=== PATIENT | female | born 1940 | race Caucasian/White ===

== ENCOUNTER 2018-01-29 15:24 | Outpatient (CLI) | payer MEDICARE, SELFPAY ==
[2018-01-29 16:44] LABS: HCT 39.6 % (36.0-46.0); HGB 12.8 g/dL (12.0-15.5); Mean Corp. HGB Concentration 32.3 g/dL (32.0-36.0); Mean Corpuscular Hemoglobin 29.9 pg (27.0-33.0); Mean Corpuscular Volume 92.5 fL (80-95); Mean Platelet Volume 10.6 fL (8.0-11.0); RBC 4.28 m/cumm (4.00-5.20); RBC Distribution Width 14.4 % (11.7-14.6); White Blood Cell Count 7.82 k/cumm (4.4-10.8)
[2018-01-29 16:46] LABS: Anion Gap 9.6 mmol/L (3-11); BUN 72 mg/dL (7-18); CO2 24.4 mmol/L (21.0-32.0); CREATININE 2.84 mg/dL (0.55-1.02); Chloride 96 mmol/L (98-107); Estimated GFR 16.04 (mL/min/1.73m2); Glucose 152 mg/dL (70-100); Magnesium 2.4 mg/dL (1.8-2.4); PHOSPHORUS 5.3 mg/dL (2.6-4.7); Potassium 5.5 mmol/L (3.5-5.1); Sodium 130 mmol/L (136-145); Uric Acid 9.4 mg/dL (2.6-6.0)
[2018-01-29 16:50] LABS: Cholesterol 128 mg/dL (50-200)
[2018-01-29 17:02] LABS: Platelet Count 158 x1000/uL (130-400)
[2018-01-31 13:01] LABS: Cyclosporine 144 ng/ml
== END 2018-01-29 15:25 ==
PROVIDERS: PCP Student in an Organized Health Care Education/Training Program; Visit Provider Internal Medicine Nephrology
DX: N18.3 Chronic kidney disease, stage 3 (moderate) (principal); Z94.0 Kidney transplant status
CPT/HCPCS: 36415; 80048; 85027; 80158; 82465; 83735; 84100; 84550

== ENCOUNTER 2018-01-29 15:33 | Outpatient (REF) | payer SELFPAY ==
[2018-01-29 17:29] LABS: HIV 1/2 Ab Rapid Negative (Negative)
[2018-01-31 10:36] LABS: Hepatitis C Ab w Rflx HCV PCR Negative (NEGAT)
[2018-01-31 10:53] LABS: Hepatitis B Surface Ag Negative (NEGAT)
[2018-01-31 11:02] LABS: HIV-1/2 Ag & Ab Screen Negative (NEGAT)
== END 2018-01-29 15:34 ==
LOC: LBO 15:33
PROVIDERS: PCP Student in an Organized Health Care Education/Training Program
DX: I10 Essential (primary) hypertension (principal); Z11.59 Encounter for screening for other viral diseases; Z11.4 Encounter for screening for human immunodeficiency virus [HIV]

== ENCOUNTER 2018-01-30 14:12 | Outpatient (REF) | payer MEDICARE, SELFPAY ==
[2018-01-30 15:19] LABS: Bilirubin Negative (Negative); Blood Negative (Negative); Clarity Clear; Glucose Negative (Negative); Ketones Negative (Negative); Leukocyte Esterase Trace (Negative); Nitrite Negative (Negative); Specific Gravity <= 1.005 (1.005-1.025); Urobilinogen 0.2 EU/dL (Up TO 0.2); pH 5.5 (5-8)
[2018-01-30 15:54] LABS: Bacteria Negative HPF (Negative); C & S Indicated? Yes; Casts Negative LPF (Negative); Crystals Negative HPF (Negative); Epithelial Cells Negative HPF (Negative); Mucus Negative (Negative); Other Cells Rare Yeast (Negative); RBC Negative (0-2)
== END 2018-01-30 14:13 ==
LOC: LBN 14:12
PROVIDERS: PCP Student in an Organized Health Care Education/Training Program; Visit Provider Internal Medicine Nephrology
DX: N18.3 Chronic kidney disease, stage 3 (moderate) (principal); Z94.0 Kidney transplant status; R82.99 Other abnormal findings in urine
CPT/HCPCS: 81003; 81015; 87086

== ENCOUNTER 2018-02-07 14:55 | Outpatient (REF) | payer MEDICARE, SELFPAY ==
[2018-02-07 15:23] LABS: Bilirubin Negative (Negative); Blood Negative (Negative); Clarity Clear; Glucose Negative (Negative); Ketones Negative (Negative); Leukocyte Esterase Negative (Negative); Nitrite Negative (Negative); Urobilinogen 0.2 EU/dL (Up TO 0.2); pH 5.5 (5-8)
== END 2018-02-07 14:56 ==
LOC: LBN 14:55
PROVIDERS: PCP Student in an Organized Health Care Education/Training Program; Visit Provider Student in an Organized Health Care Education/Training Program
DX: N30.00 Acute cystitis without hematuria (principal); N39.0 Urinary tract infection, site not specified; Z94.0 Kidney transplant status
CPT/HCPCS: 81003

== ENCOUNTER 2018-02-18 14:36 | Inpatient (IN) | payer MEDICARE, SELFPAY ==
[2018-02-18] VITALS (60 sets, daily range): BP systolic 131–170; BP diastolic 72–133; PULSE 54–79; RESP 15–30; TEMP 37.4; O2SAT 93–99
[2018-02-18 15:55] LABS: Abs Immature Grans 0.01 k/cumm (0.0-0.09); Absolute Basophil Count 0.01 k/cumm (0.0-0.2); Absolute Eosinophil Count 0.12 k/cumm (0.0-0.7); Absolute Lymphocyte Count 0.47 k/cumm (1.2-3.4); Absolute Monocyte Count 0.34 k/cumm (0.11-0.7); Absolute Neutrophil Count 4.53 k/cumm (1.2-6.7); Basophils % 0.2; Eosinophils % 2.2; HCT 36.1 % (36.0-46.0); HGB 11.3 g/dL (12.0-15.5); Immature Grans % 0.2; Lymphocytes % 8.6; Mean Corp. HGB Concentration 31.3 g/dL (32.0-36.0); Mean Corpuscular Hemoglobin 30.2 pg (27.0-33.0); Mean Corpuscular Volume 96.5 fL (80-95); Mean Platelet Volume 10.8 fL (8.0-11.0); Monocytes % 6.2; Neutrophils % 82.6; Platelet Count 152 x1000/uL (130-400); RBC 3.74 m/cumm (4.00-5.20); RBC Distribution Width 13.9 % (11.7-14.6); White Blood Cell Count 5.48 k/cumm (4.4-10.8)
[2018-02-18 16:08] LABS: ALT 9 U/L (12-78); AST 15 U/L (15-37); Albumin 2.7 g/dL (3.4-5.0); Alkaline Phosphatase 70 U/L (46-116); Anion Gap -0.1 mmol/L (3-11); BUN 41 mg/dL (7-18); Bilirubin, Total 0.5 mg/dL (0.2-1.0); CO2 35.1 mmol/L (21.0-32.0); CREATININE 2.14 mg/dL (0.55-1.02); Chloride 102 mmol/L (98-107); Estimated GFR 22.23 (mL/min/1.73m2); Glucose 126 mg/dL (70-100); Magnesium 1.5 mg/dL (1.8-2.4); Potassium 4.3 mmol/L (3.5-5.1); Sodium 137 mmol/L (136-145); Total Protein 6.3 g/dL (6.4-8.2); Troponin I < 0.02 ng/mL (0.00-0.06)
[2018-02-18 16:11] LABS: NT-proBNP 2632 pg/mL
[2018-02-18 16:24] LABS: D-Dimer 1983 ng/mlFEU (<500)
[2018-02-18 16:27] LABS: Bilirubin Negative (Negative); Blood Trace-intact (Negative); Clarity Clear; Glucose Negative (Negative); Ketones Negative (Negative); Leukocyte Esterase Small (Negative); Nitrite Negative (Negative); Urobilinogen 0.2 EU/dL (Up TO 0.2)
--- NOTE | 2018-02-18 16:27 | ED.GENADUL ---
Disposition Clinical Impression: Acute exacerbation of CHF (congestive heart failure), Intermediate probability VQ scan for PE Disposition: [facility] Condition: Stable Medical Decision Making - Lab Data Laboratory Tests 02/18/18 02/18/18 02/18/18 15:05 15:05 15:05 WBC 5.48 RBC 3.74 L Hgb 11.3 L Hct 36.1 MCV 96.5 H MCH 30.2 MCHC 31.3 L RDW 13.9 Plt Count 152 MPV 10.8 Immature Gran % 0.2 Neutrophils % 82.6 Lymphocytes % 8.6 Monocytes % 6.2 Eosinophils % 2.2 Basophils % 0.2 Absolute Neutrophils 4.53 Absolute Lymphocytes 0.47 L Absolute Monocytes 0.34 Absolute Eosinophils 0.12 Absolute Basophils 0.01 D-Dimer Cancelled Sodium 137 Potassium 4.3 Chloride 102 Carbon Dioxide 35.1 H Anion Gap -0.1 L BUN 41 H Creatinine 2.14 H Estimated GFR/1.73 m2 22.23 Glucose 126 H Calcium 9.0 Magnesium 1.5 L Total Bilirubin 0.5 AST 15 ALT 9 L Alkaline Phosphatase 70 Troponin I < 0.02 NT-Pro-B Natriuret Pep Total Protein 6.3 L Albumin 2.7 L 02/18/18 02/18/18 15:05 15:05 WBC RBC Hgb Hct MCV MCH MCHC RDW Plt Count MPV Immature Gran % Neutrophils % Lymphocytes % Monocytes % Eosinophils % Basophils % Absolute Neutrophils Absolute Lymphocytes Absolute Monocytes Absolute Eosinophils Absolute Basophils D-Dimer 1983 H Sodium Potassium Chloride Carbon Dioxide Anion Gap BUN Creatinine Estimated GFR/1.73 m2 Glucose Calcium Magnesium Total Bilirubin AST ALT Alkaline Phosphatase Troponin I NT-Pro-B Natriuret Pep 2632 H Total Protein Albumin - EKG Data -: EKG Interpreted by Me 02/18/18 1449: 60 bpm. Sinus. QRS 116. No acute ST elevation or depression. No acute change compared to previous. - Radiology Data Radiology results: report reviewed, image reviewed Ventilation/perfusion scan: Multiple matched segmental defects in the bilateral lungs with right basilar atelectasis/consolidation. Findings are representing intermediate probability nuclear medicine bone scan. Chest x-ray: 1. Right small pleural effusion with underlying atelectasis/consolidation. 2. Increased diffuse interstitial markings which may represent edema/infiltrates. - Medical Decision Making 1500 -- 77-year-old female with history of COPD and polycystic kidney disease with history of kidney transplant in 1990 chronically on home oxygen at 2 L for COPD with recent admission to the hospital for diarrhea thought to be due to laxative use and UTI treated with Levaquin who had her diuretics stopped on this recent admission and restarted her torsemide but not Aldactone who was sent for shortness of breath worse in the mornings for the past few days and sent by PCP for further evaluation of her acute shortness of breath to rule out CHF versus PE. Patient appears in no acute respiratory distress. Airway intact speaking full sentences. Oxygen saturation 98% on 2 L which is her baseline. She denies chest pain. EKG no acute findings. Cardiac workup ordered on arrival including d-dimer and BNP. Patient has history of renal transplant due to polycystic kidney disease and therefore will be unable to obtain a CT chest to rule out PE if indicated. 1629 --labs reviewed. Creatinine 2.14. Troponin less than 0.02. BNP 2632. D-dimer 1982. Previous BNP on last admission was 2324 so her result today does not seem significantly elevated compared to previous. Considering her significant elevation of d-dimer, and history of renal transplant, will need to do a VQ scan to rule out PE. Discussed with Guillermo from [email or web address] and he will order what is needed for VQ scan and likely test will not be able to be done until 8 PM tonight. 2229 --VQ scan intermediate probability for PE. As this does not exclude or confirm PE, will give a dose of Lovenox and plan for admission and for Doppler ultrasounds of lower extremities in the a.m. Chest x-ray also noted pleural effusion and interstitial markings which could be more likely edema. Patient had no fever, normal white blood cell count and no purulent sputum with cough so we will hold on treating for pneumonia at this time. Will give a dose of Lasix IV. Prior to VQ scan results, d/w caregivers in room and they state they are leaving and pt will have no help at home tonight and they are concerned about pt well being at home and would rather she stay overnight regardless of scan results. 2239 -- Case discussed with Dr. Avery -accepts patient for admission. History of Present Illness - General Chief complaint: SOB Stated complaint: ADAM Time Seen by Provider: 02/18/18 14:52 Source: patient Mode of arrival: EMS Limitations: no limitations - History of Present Illness Initial comments: Patient is a 77-year-old female with history of COPD, and kidney transplant due to polycystic kidney disease who is chronically on home O2 2 L for the past 3 months who presents with worsening shortness of breath in the early mornings for the past few days. 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 Patient states she has restarted her torsemide but not her Aldactone. Patient states she has been eating and drinking well and denies chest pain, nausea, vomiting, headache or dizziness. She states her oxygen on room air is usually 93% and with oxygen is usually 99% - Related Data Ascorbic Acid [Vitamin C] 1,000 mg PO DAILY 09/18/12 Docusate Sodium [Colace] 100 mg PO BID tab-cap 09/18/12 Cholecalciferol (Vitamin D3) [Vitamin D3] 2,000 unit PO DAILY 12/25/12 Sennosides/Docusate Sodium [Josie-Colace Tablet] 2 tab PO BID #120 tab 12/05/13 Cyclosporine 75 mg PO BID #540 cap 01/09/14 Prednisone 5 mg PO DAILY #90 tab 01/17/16 Nitroglycerin [Nitrostat] 0.4 mg SL PRN #25 tab 10/16/16 Polyethylene Glycol 3350 17 gm PO DAILY PRN #1 canister 01/08/17 Fluticasone Propionate [Flonase] 1 spray NS BID #3 units 06/04/17 [place]-3 Fatty Acids/Fish Oil [Fish Oil 1,200 mg Softgel] 1 each PO DAILY cap 06/04/17 Carvedilol [Coreg] 50 mg PO BID #360 tab 07/09/17 Cimetidine 400 mg PO BID 07/31/17 Ondansetron [Ondansetron Odt] 4 mg SL Q6H PRN #15 tabef 10/19/17 Oxygen l NS DAILY #2 10/19/17 Atorvastatin [Lipitor] 5 mg PO DAILY #45 tab 10/25/17 Aspirin 81 mg PO DAILY #100 tab 01/14/18 Benzonatate [Tessalon Perle] 100 mg PO TID #90 tab-cap 02/04/18 Albuterol Sulfate [Proair Hfa] 2 puff IH Q4H PRN #1 inhaler 02/14/18 Baclofen 2.5 mg PO Q12H PRN PRN #10 tab 02/14/18 Methadone HCl 5 mg PO TID #90 tab-cap MDD 15 02/14/18 Morphine Sulfate 2 mg PO q 1H PRN severe SOB #500 ml MDD 24 mg 02/14/18 Torsemide 10 mg PO BID 02/18/18 Allergies Allergy/AdvReac Type Severity Reaction Status Date / Time thiopental sodium Allergy Intermediate Wheezing Unverified 02/18/18 15:09 [From Pentothal] Penicillins Allergy Unknown ITCHING Unverified 02/18/18 15:09 Review of Systems Constitutional: denies: chills, fever Eyes: denies: eye pain ENT: denies: ear pain, dental pain Respiratory: denies: cough, shortness of breath Cardiovascular: denies: chest pain, dyspnea on exertion Gastrointestinal: denies: abdominal pain, nausea, vomiting Genitourinary: denies: urgency, dysuria, frequency Musculoskeletal: denies: back pain Skin: denies: rash, lesions Neurological: denies: headache, weakness, numbness Past Medical History - Past Medical History Medical history: COPD, GERD, hypertension Polycystic kidney disease Surgical history: cholecystectomy, hysterectomy, other (Cataract surgery, kidney transplant 1990, colectomy) - Social History Smoking status: never smoker Alcohol use: none Drug use: none Course Vital Signs - 24 hr 02/18/18 02/18/18 02/18/18 14:41 14:48 14:50 Temperature Pulse Respiratory 22 19 Rate Blood Pressure Pulse Oximetry 98 97 97 02/18/18 02/18/18 02/18/18 14:51 15:00 15:08 Temperature 99.3 F Pulse 67 60 Respiratory 25 H 23 18 Rate Blood Pressure 147/83 132/72 Pulse Oximetry 99 98 99 02/18/18 02/18/18 02/18/18 15:10 15:12 15:16 Temperature Pulse 60 Respiratory 30 H 21 18 Rate Blood Pressure 131/79 Pulse Oximetry 99 98 02/18/18 02/18/18 02/18/18 15:20 15:30 15:31 Temperature Pulse 72 Respiratory 18 24 18 Rate Blood Pressure 144/80 Pulse Oximetry 97 98 98
--- NOTE | 2018-02-18 16:30 | DI.REPORT_ITS ---
SYMPTOM/DIAGNOSIS: SOB, ELEVATED D DIMER, H/O KIDNEY TRANSPLANT, ? PE VENTILATION PERFUSION LUNG SCAN: The patient received 35 millicuries of Technetium 99 M DTPA and 4.8 millicuries of Technetium 99 M MAA. Lung scan was performed according to protocol. There are bilateral matched ventilation perfusion defects. These include right apical segment, right basal segments and left anterior medial basilar segment. The chest xray does show area of consolidation involving the right lung base. IMPRESSION: Multiple matched segmental defects in the lungs bilaterally with a chest xray finding of right basilar atelectasis or consolidation. The findings represent an intermediate probability nuclear medicine ventilation perfusion scan. AP AND LATERAL CHEST: Comparison is made with 01/19/18. The patient is rotated. Heart size appears stable. There are diffuse increased interstitial lung markings which appear stable compared to 01/19/18. These may be chronic. The possibility of interstitial edema or interstitial pneumonitis cannot be excluded. There does appear to be an area of consolidation in the right lung base with blunting of the right costophrenic angle suggesting a small right pleural effusion. There is a scoliotic curvature of the spine. Degenerative changes are seen in the spine. The lungs appear hyperinflated with flattened diaphragms suggesting underlying COPD. IMPRESSION: 1. Right basilar infiltrate which may represent atelectasis or pneumonia. Small right pleural effusion. 2. Underlying COPD. 3. Diffuse increased interstitial markings. These may be chronic versus acute.
[2018-02-18 16:41] LABS: Bacteria Few HPF (Negative); C & S Indicated? Yes; Crystals Negative HPF (Negative); Epithelial Cells Few HPF (Negative); Mucus Negative (Negative); Other Cells Few Renal (Negative); RBC 0-2 (0-2); WBC >50 HPF (0-5)
[2018-02-18] MEDS: Normal Saline Flush 10 ML SYR IVP (16:55)
--- NOTE | 2018-02-18 22:29 | DI.VRAD_ITS ---
EXAM: NM Lung Perfusion and Ventilation Scan CLINICAL HISTORY: 77 years old, female; Signs and symptoms; Shortness of breath; Patient HX: Elevated d-dimer, SOB, history of transplant kidney TECHNIQUE: Nuclear Medicine ventilation and perfusion images of the lungs were obtained in multiple projections following radiopharmaceutical inhalation followed by injection of Tc99m MAA. COMPARISON: CR - CHEST 2 VIEWS PA,LAT 02/18/2018 3:36 PM FINDINGS: There is a matched defect in the right apical segment. There is matched defect in the right lower lobe superior, posterior, lateral and anterior basal segments. There is a matched defect of the left anteromedial basal segment. There is consolidation/atelectasis at right lung base. IMPRESSION: Multiple matched segmental defects in the bilateral lungs with right basilar atelectasis/consolidation. Findings are representing intermediate probability nuclear medicine bone scan. Dictated and Authenticated by: Sesar Oconnor MD. Ordering:LISSA MURRIETA MD
--- NOTE | 2018-02-18 22:32 | DI.VRAD_ITS ---
EXAM: XR Chest, 2 Views EXAM DATE/TIME: 02/18/2018 3:51 PM CLINICAL HISTORY: 77 years old, female; Signs and symptoms; Shortness of breath; Patient HX: SOB, elevated d dimer; Additional info: H/o kidney transplant TECHNIQUE: XR of the chest, 2 views. COMPARISON: CR - CHEST 2 VIEWS PA,LAT 02/18/2017 10:36 PM FINDINGS: Lungs: Right basilar atelectasis/consolidation. There increased interstitial markings which may represent increased pulmonary edema/infiltrates. Pleural space: Small right pleural effusion. Heart/Mediastinum: Unremarkable. No cardiomegaly. Vasculature: Atherosclerotic calcification of the aortic arch. Bones/joints: Degenerative changes of the spine. IMPRESSION: 1. Right small pleural effusion with underlying atelectasis/consolidation. 2. Increased diffuse interstitial markings which may represent edema/infiltrates. Dictated and Authenticated by: Sesar Oconnor MD. Ordering:LISSA MURRIETA MD
[2018-02-18] MEDS: MORPHine 10 MG/ML VIAL 4 MG IVP (22:41)
[2018-02-18] MEDS: Furosemide 40 MG/4 ML VIAL IVP (23:52)
[2018-02-18] MEDS: Enoxaparin 80 MG/0.8 ML SYR SC (23:52)
[2018-02-19] VITALS (84 sets, daily range): BP systolic 128–168; BP diastolic 68–93; PULSE 50–96; RESP 13–27; TEMP 36.4–37.8; O2SAT 95
--- NOTE | 2018-02-19 06:45 | PDOC.HP ---
Date of Service: 02/19/18 Time of Service: 06:45 Assessment/Plan - Assessment/Plan (1) Acute on chronic HFrEF (heart failure with reduced ejection fraction) Assessment: I do not suspect that she has a pulmonary embolus but I do suspect that her matched pulmonary perfusion defects are secondary to her CHF and underlying COPD. Plan: Continue IV Lasix and monitoring her electrolytes and BUN and creatinine and proBNP. Check venous duplex scan of her legs and if this is negative I would discontinue full-strength Lovenox and opt for DVT prophylactic doses of Lovenox. She is already on a pretty good dose of Coreg and her heart rates in the 50s and 60s so I do not think that there is much room for titration of her Coreg. Once she is adequately diuresed one could consider addition of an DIAZ inhibitor or ARB however with her renal transplant I would check with her porcelain buildup assistant before doing so. If she is not a candidate for an DIAZ inhibitor or an ARB agent and one could consider adding hydralazine to her regimen. I would be cautious about adding spironolactone into her regimen with her torsemide as she had worsening renal insufficiency when she was on both agents. (2) Status post living-donor kidney transplantation Plan: Continue her immunosuppressive regimen including prednisone and cyclosporine. I would check peak and trough cyclosporine levels. (3) Elevated d-dimer Assessment: This is a nonspecific elevation of her d-dimer and I think we have better reasons to explain her dyspnea including exacerbation of CHF. If her dyspnea does not improve with treatment of her CHF that I would reconsider the diagnosis of PE. I have ordered a venous duplex of her legs and if this is negative I would change her Lovenox from 1 mg/kg subcu every 12 hours down to DVT prophylactic levels. Lovenox dose should be adjusted for renal insufficiency anyway. History of Present Illness - History of Present Illness Chief Complaint: Shortness of breath History of Present Illness: 77-year-old female with a history of COPD, essential hypertension, chronic renal failure (polycystic kidney disease), congestive heart failure (LVEF 45-50% with mild to moderate LVH and diffuse hypokinesis with moderate MR, right ventricular systolic dysfunction and pulmonary hypertension per echocardiogram 10/31/2017) who presents with progressive dyspnea over the past few days. Patient was recently hospitalized for UTI and diarrhea and had her diuretics discontinued but recently had her torsemide restarted but not her Aldactone. She has had increasing shortness of breath over the past few days and was sent to the emergency room by her primary care provider to evaluate her shortness of breath to rule out CHF versus PE. She is chronically maintained on 2 L/min per nasal cannula for her COPD and on arrival to emergency room her oxygen saturation 98%. She denied any chest pain or pressure. She was worked up by Dr. Verena Crain who performed lab work including a CBC, d-dimer, CMP, troponin, proBNP. Labs revealed an elevated proBNP of 2600 and a normal troponin of less than 0.02. BUN was 41 creatinine is 2.14. Her previous creatinine been 2.84 and her BUN was 72 on January 29, 2018. D-dimer is elevated at 1983 CBC showed no leukocytosis and she has a stable mild anemia with hemoglobin 11.3 g hematocrit 36%. Radiologic imaging included PA and lateral chest x-ray that showed small right pleural effusion with underlying atelectasis and/or consolidation and diffuse interstitial markings suggestive of edema versus infiltrates. Because of her renal dysfunction a CTA of her chest cannot be performed therefore she underwent a ventilation/perfusion scan which was intermediate probability due to multiple matched segmental defects in both lungs with right basilar atelectasis and/or consolidation. Matched defects involve the right lower lobe superior posterior lateral and anterobasal segments and matched defects in the left anteromedial basal segment. Because of the intermediate probability and elevated d-dimer patient was started on Lovenox with plans to get a venous duplex scan of her legs in the morning. EKG on admission showed sinus rhythm with evidence of a previous anteroseptal infarct with deep Q waves in V1 V2 but no acute ST T-wave changes other than some flattening of the T waves in the inferolateral leads. Treatment emergency room included 40 mg of Lasix IV and Lovenox 80 mg subcutaneous. Patient is admitted to the hospital for further evaluation and treatment of CHF as well as a venous duplex scan of her legs. Patient was just recently treated at [facility] from January 19 - January 25, 2018 for laxative induced diarrhea and a UTI. She completed course treatment Levaquin. - Past Medical History Cardiac: CHF (Biventricular systolic heart failure with left ventricular ejection fraction 45-50% with diffuse left ventricular hypokinesis and biatrial enlargement and dilated right ventricle with reduced systolic function and pulmonary hypertension as per echocardiogram dated October 31, 2017), Valve insufficiency (Moderate mitral regurgitation), Pulmonary hypertension Pulmonary: COPD (On home oxygen 2 L/min per nasal cannula) Gastrointestinal: GERD, Other (Recurrent small bowel obstructions) Musculoskeletal: Chronic low back pain, Osteoarthritis, Other (Chronic pain syndrome on methadone and liquid morphine; spinal stenosis and cervical and lumbar regions) Rheumatologic: Gout Renal/: Other (Polycystic kidney disease status post bilateral nephrectomies and subsequent renal transplant 1990) - Past Surgical History Past Surgical History: Cholecystectomy, Cataract Removal, Hysterectomy, Other (Bilateral nephrectomies in kidney transplant in 1990), Tubal Ligation, Other (Perforated diverticulum with partial colectomy, abdominal wall hernia surgeries, lysis of adhesions) - Past Social History Smoke: No Alcohol: None Drugs: None Lives: Alone (Patient is a lives alone with caregivers. She has 4 children with 1 daughter and 3 adopted sons) Review of Systems - Review of Systems Constitutional: Weakness, Malaise. denies: Fever, Chills Eyes: denies: Pain, Vision Change, Conjunctivae Inflammation, Eyelid Inflammation, Redness ENT: denies: Ear Pain, Ear Discharge, Nose Pain, Nose Discharge, Nose Congestion, Mouth Pain, Mouth Swelling, Throat Pain, Throat Swelling Respiratory: Cough, Shortness of Breath, Sputum (Chronic production of green discolored sputum for years on a daily basis). denies: Hemoptysis Cardiovascular: Edema (Chronic bilateral leg edema). denies: Chest Pain, Palpitations Gastrointestinal: denies: Nausea, Vomiting, Abdominal Pain Genitourinary: Dysuria, Frequency. denies: Hematuria Musculoskeletal: Shoulder Pain (Chronic bilateral shoulder pain from osteoarthritis), Back Pain Skin: Lesions (Skin tear over left elbow since admission). denies: Rash Neurological: Weakness (Generalized weakness). denies: Numbness, Incoordination, Change in Speech, Confusion - Medications/Allergies Allergies/Adverse Reactions: Allergies Allergy/AdvReac Type Severity Reaction Status Date / Time thiopental sodium Allergy Intermediate Wheezing Unverified 02/18/18 15:09 [From Pentothal] Penicillins Allergy Unknown ITCHING Unverified 02/18/18 15:09 Medications: Current Medications Acetaminophen (Tylenol) 0 mg PO Q4H PRN PRN Al Hydrox/Mg Hydrox/Simethicone (Mylanta Liquid) 30 ml PO Q2H PRN PRN Albuterol Sulfate (Ventolin Hfa) 2 puff IH Q4H PRN [place]ACE[place] Ascorbic Acid (Vitamin C) 1,000 mg PO DAILY [facility] Aspirin () 81 mg PO DAILY [facility] Atorvastatin Calcium (Lipitor) 5 mg PO DAILY [facility] Carvedilol (Coreg) 50 mg PO BID [facility] Cholecalciferol (Vitamin D) 2,000 units PO DAILY [facility] Dimethicone/Zinc Oxide (Slime Protect Cream) 0 gm TP PRN PRN Docusate Sodium (Colace) 100 mg PO TID PRN PRN Docusate Sodium (Colace) 100 mg PO BID [facility] Enoxaparin Sodium (Lovenox) 80 mg SC Q12H [facility] Fluticasone Propionate (Flonase) 1 gm NS BID [facility] Furosemide (Lasix) 40 mg PO BID@0830,1600 [facility] IV Miscellaneous Supplies () 1 each IV DIRECTED [facility] Magnesium Gluconate () 500 mg PO BID [facility] Magnesium Hydroxide (Milk Of Magnesia) 30 ml PO DAILY PRN PRN Methadone HCl (Dolophine) 5 mg PO TID [facility] Morphine Sulfate () 2 mg PO Q1H PRN PRN PRN Reason: SEVERE SOB Last Admin: 02/19/18 06:23 Dose: 2 mg Nitroglycerin (Nitrostat) 0.4 mg SL PRN [facility] Non-Formulary Medication (Cimetidine [Cimetidine]) 400 mg PO BID [facility] Non-Formulary Medication (Cyclosporine [Cyclosporine]) 75 mg PO BID [facility] Non-Formulary Medication ([place]-3 Fatty Acids/Fish Oil [Fish Oil 1,200 Mg Softgel]) 1 each PO DAILY [facility] Ondansetron HCl (Zofran Odt) 4 mg SL Q6H PRN PRN Reason: Nausea Polyethylene Glycol (Miralax) 17 gm PO DAILY PRN PRN PRN Reason: Constipation Prednisone (Deltasone) 5 mg PO DAILY [facility] Senna/Docusate Sodium (Josie-Colace Tablet) 2 tab PO BID [facility] Sodium Chloride (Saline Flush 10 Ml Syringe) 0 ml IVP PRN PRN Last Admin: 02/18/18 16:55 Dose: 10 ml Objective - Exam Vitals and I&O: Vital Signs Temp 36.7 C 02/19/18 00:25 Pulse 62 02/19/18 04:01 Resp 21 02/19/18 06:30 BP 148/86 02/19/18 04:01 Pulse Ox 95 02/19/18 00:25 Intake & Output 02/18/18 02/18/18 02/19/18 11:59 23:59 11:59 Output Total 500 Balance -500 Weight 83 kg Output: Urine 500 General: Alert, Oriented x3, Cooperative, No acute distress HEENT: Atraumatic, PERRLA, EOMI, Mucous membr. moist/pink Neck: Supple, JVD, +2 carotid pulse wo bruit. denies: Thyromegaly, LAD Lungs: Other (Bibasilar rales) Cardiovascular: Regular rate, Normal S1, Normal S2, Murmurs (Systolic murmur over the apex grade 2/6 to 3/6 consistent with mitral regurgitation), Gallops (S3). denies: Rubs Abdomen: Normal bowel sounds, Soft. denies: Tenderness, Hepatospenomegaly, Masses Extremities: Edema (2+ pitting edema both lower legs), Tenderness/swelling Skin: Breakdown (Skin tear left elbow) Neurological: Normal speech, Normal tone, Sensation intact. denies: Strength at 5/5 X4 ext (Generalized diminished strength in all 4 extremities with no focal paresis) Psych/Mental Status: Mental status NL, Mood NL Results - Laboratory Data Result Diagrams: 02/19/18 06:35 02/19/18 06:35 Laboratory Results: Laboratory Tests 02/18/18 02/18/18 02/18/18 15:05 15:05 15:05 WBC 5.48 RBC 3.74 L Hgb 11.3 L Hct 36.1 MCV 96.5 H MCH 30.2 MCHC 31.3 L RDW 13.9 Plt Count 152 MPV 10.8 Immature Gran % 0.2 Neutrophils % 82.6 Lymphocytes % 8.6 Monocytes % 6.2 Eosinophils % 2.2 Basophils % 0.2 Absolute Neutrophils 4.53 Absolute Lymphocytes 0.47 L Absolute Monocytes 0.34 Absolute Eosinophils 0.12 Absolute Basophils 0.01 D-Dimer Cancelled Sodium 137 Potassium 4.3 Chloride 102 Carbon Dioxide 35.1 H Anion Gap -0.1 L BUN 41 H Creatinine 2.14 H Estimated GFR/1.73 m2 22.23 Glucose 126 H Calcium 9.0 Magnesium 1.5 L Total Bilirubin 0.5 AST 15 ALT 9 L Alkaline Phosphatase 70 Troponin I < 0.02 NT-Pro-B Natriuret Pep Total Protein 6.3 L Albumin 2.7 L Urine Color Urine Clarity Urine pH Ur Specific [place] Urine Protein Urine Ketones Urine Blood Urine Nitrite Urine Bilirubin Urine Urobilinogen Ur Leukocyte Esterase Urine RBC Urine WBC Ur Epithelial Cells Urine Crystals Urine Bacteria Urine Mucus Urine Other Ur Culture Indicated? Urine Glucose 02/18/18 02/18/18 02/18/18 15:05 15:05 16:15 WBC RBC Hgb Hct MCV MCH MCHC RDW Plt Count MPV Immature Gran % Neutrophils % Lymphocytes % Monocytes % Eosinophils % Basophils % Absolute Neutrophils Absolute Lymphocytes Absolute Monocytes Absolute Eosinophils Absolute Basophils D-Dimer 1983 H Sodium Potassium Chloride Carbon Dioxide Anion Gap BUN Creatinine Estimated GFR/1.73 m2 Glucose Calcium Magnesium Total Bilirubin AST ALT Alkaline Phosphatase Troponin I NT-Pro-B Natriuret Pep 2632 H Total Protein Albumin Urine Color Yellow Urine Clarity Clear Urine pH 6.0 Ur Specific [place] 1.010 Urine Protein Negative Urine Ketones Negative Urine Blood Trace-intact H Urine Nitrite Negative Urine Bilirubin Negative Urine Urobilinogen 0.2 Ur Leukocyte Esterase Small H Urine RBC 0-2 Urine WBC >50 Ur Epithelial Cells Few Urine Crystals Negative Urine Bacteria Few Urine Mucus Negative Urine Other Few renal Ur Culture Indicated? Yes Urine Glucose Negative - Imaging Studies Imaging Studies: Chest x-ray demonstrates small right pleural effusion with underlying atelectasis and/or consolidation along with diffuse interstitial markings suggestive of pulmonary edema versus infiltrates Ventilation/perfusion lung scan shows multiple matched segmental defects in the both lungs with right basilar atelectasis and/or consolidation. This is read as intermediate probability for pulmonary embolus
[2018-02-19 06:57] LABS: Abs Immature Grans 0.01 k/cumm (0.0-0.09); Absolute Basophil Count 0.01 k/cumm (0.0-0.2); Absolute Eosinophil Count 0.17 k/cumm (0.0-0.7); Absolute Lymphocyte Count 0.67 k/cumm (1.2-3.4); Absolute Monocyte Count 0.66 k/cumm (0.11-0.7); Absolute Neutrophil Count 2.98 k/cumm (1.2-6.7); Basophils % 0.2; Eosinophils % 3.8; HGB 11.3 g/dL (12.0-15.5); Immature Grans % 0.2; Lymphocytes % 14.9; Mean Corp. HGB Concentration 30.5 g/dL (32.0-36.0); Mean Corpuscular Hemoglobin 29.6 pg (27.0-33.0); Mean Corpuscular Volume 96.9 fL (80-95); Mean Platelet Volume 10.6 fL (8.0-11.0); Monocytes % 14.7; Neutrophils % 66.2; Platelet Count 159 x1000/uL (130-400); RBC 3.82 m/cumm (4.00-5.20)
[2018-02-19 07:12] LABS: Anion Gap 3.7 mmol/L (3-11); BUN 39 mg/dL (7-18); CO2 33.3 mmol/L (21.0-32.0); CREATININE 1.91 mg/dL (0.55-1.02); Calcium 9.1 mg/dL (8.5-10.1); Chloride 103 mmol/L (98-107); Estimated GFR 25.35 (mL/min/1.73m2); Glucose 95 mg/dL (70-100); NT-proBNP 2683 pg/mL; Potassium 3.7 mmol/L (3.5-5.1); Sodium 140 mmol/L (136-145)
[2018-02-19 07:13] LABS: Troponin I < 0.02 ng/mL (0.00-0.06)
[2018-02-19 07:33] LABS: D-Dimer 1840 ng/mlFEU (<500)
--- NOTE | 2018-02-19 08:00 | DI.REPORT_ITS ---
SYMPTOM/DIAGNOSIS: ELEVATED D DIMER, INDETERMINATE VQ SCAN BILATERAL LOWER EXTREMITY ULTRASOUND: The deep veins of the right lower extremity show normal compression, augmentation and color flow. No evidence of a deep venous thrombus is identified. In the left lower extremity, the deep veins show normal compression, augmentation and color flow. No evidence of a deep venous thrombus is identified. There is thrombus seen in a superficial vein in the left lower extremity just proximal to its junction with the popliteal vein. IMPRESSION: 1. No evidence of a deep venous thrombus in either lower extremity. 2. Superficial thrombophlebitis of the left lower extremity.
--- NOTE | 2018-02-19 08:30 | DI.REPORT_ITS ---
SYMPTOM/DIAGNOSIS: F/U CHF PORTABLE AP CHEST: Comparison is made with the day prior. Heart size and pulmonary vasculature are stable. There is an area of increased opacity in the right mid lung. This may represent atelectasis or pneumonia. There is an overlying diffuse increased interstitial presence. This may be chronic versus acute edema or pneumonia. No gross effusions or pneumothoraces are identified. IMPRESSION: Slight improvement in the appearance of the right lung base compared to 02/18/18. This may represent improving atelectasis or pneumonia.
[2018-02-19] MEDS: Atorvastatin 10 MG TAB 5 MG PO (08:43)
[2018-02-19] MEDS: Magnesium Gluconate 500 MG TAB PO (08:46)
[2018-02-19] MEDS: Carvedilol 25 MG TAB 50 MG PO ×2 (08:47→20:31)
[2018-02-19] MEDS: Ascorbic Acid 500 MG TAB 1000 MG PO (08:48)
[2018-02-19] MEDS: Sennosides/Docusate Sodium TAB 2 TAB PO ×2 (08:48→20:32)
[2018-02-19] MEDS: Methadone 5 MG TAB PO ×2 (08:49→14:49)
[2018-02-19] MEDS: Docusate Sodium 100 MG CAP PO ×2 (08:49→20:32)
[2018-02-19] MEDS: predniSONE 5 MG TAB PO (08:49)
[2018-02-19] MEDS: Furosemide 40 MG TAB PO ×2 (08:50→16:28)
[2018-02-19] MEDS: Aspirin 81 MG CHEW PO (08:50)
--- NOTE | 2018-02-19 09:44 | PDOC.CMIN ---
Date of Service: 02/19/18 Time of Service: 09:44 Care Management Initial Assess REASON FOR HOSPITALIZATION:: CHF PAST MEDICAL HISTORY/PAST SURGICAL HISTORY:: Recurrent prior episodes of SBO, Polycystic kidney disease, S/P bilateral nephrectomies, Renal transplant, GERD, Gout, COPD, Chronic pain on methadone and liquid morphine, Biventricular CHF, Mitral regurgitation, Pulmonary hypertension, Bronchiectasis, Chronic generalized weakness, OA, Hypertension, Chronic urinary incontinence, Spinal stenosis in cervical and lumbar regions, Chronic lower extremity edema, Abdominal hernia surgeries, Perforated diverticular bilaterally for polycystic kidney disease, Renal transplant, Lysis of adhesions, Tubal ligation PREVIOUS FUNCTIONAL STATUS/SOCIAL/FAMILY SUPPORTS:: Renay resides alone in [place]. She states that she has four children, one daughter and 3 sons. Renay states that her daughter resides locally and is supportive. Renay has private caregivers for four hours/day. Renay states that she has a neighbor who does the cooking for her and is very supportive. Renay no longer drives and states that she depends on her caregivers for support with this. She recently had home health services and would like nursing again, she states she is currently receiving PT services through [facility]. CURRENT FUNCTIONAL STATUS:: Renay is alert and engaged she is complaining of pain in her bladder states she is having spasms. One of her caregivers is at the bedside she states that she has a lot of support at home. She feels she needs to continue with home health services nursing and PT. She would like the provider to stay in touch with her executive coordinator at [facility] Renay states she is worried about her transplanted kidney and medications that could affect it. CM will review concerns with provider. Renay is unable to continue the conversation at this time she states she is to tierd. ADVANCE DIRECTIVES:: Living will on file Has patient been provided with information about the portal?: Yes Did the patient sign up for the portal?: No CODE STATUS:: DNR/DNI INSURANCE COVERAGE / FINANCIAL ISSUES:: [employer] CURRENT HOME/COMMUNITY SERVICES/EQUIPMENT:: Currently Renay has caregivers for 4 hours/day which she pays for privately. Renay has home health PT recently discharged from nursing services. Renay has a 4WW, W/C, and handicap bathroom. Home oxygen through [employer]. PRIMARY CARE PHYSICIAN:: Kesha Serrano POTENTIAL DISCHARGE NEEDS:: Primary care follow up appointment scheduled prior to discharge. PATIENT/FAMILY EDUCATION NEEDS:: Discharge education, limitations, follow up plan of care. Ask me three discussion and self management. ANTICIPATED BARRIERS TO DISCHARGE:: None identified at this time. TRANSPORTATION:: Via private vehicle with friend/neighbor PLAN:: Renay will return home with continued private caregivers when medically ready for discharge. She would like new referral to home health for nursing. She is seen by her provider at home and provider will need notification when patient is discharged to schedule follow up. Renay will be transported home by caregivers at time of discharge. Readmission - Within the Past 30 Days Yes or No: Y - Date of First Admission Date of 1st Admission: 01/19/18 - Date of this Admission Date of Admission: 02/18/18 This admission was: Through ED - Office Visit Since 1st Admission Have you seen your PCP in the office since discharge?: Yes Date of PCP Appointment: 01/28/2018 Had an Appointment Been Scheduled?: Yes - Speicalist Appointments Have you seen any other specialist since your 1st admission?: No - I. Interview patient and/or Family Difficulty reaching your doctor or getting an office appt?: No Have you had trouble purchasing/ or taking medication?: No Have you had trouble with getting meals at home?: No Did you feel ready for discharge when you left last time?: Yes Were services received that you thought were set up on disch: Yes Did you call your physician before you came to the ED?: Yes Did your physician tell you to come in?: Yes How do you think you became sick enough to come back?: I think that when they stopped the antibiotic my infection in my bladder came back and now I am sick again. Celestegutierrezcarmelo does not discuss her CHF - If the patient had a VNA ordered Did the patient have a VNA order?: Yes Did you call the VNA before you came?: No Did the VNA tell you to come to the hospital?: No - ED visits How many ED visits in the past 12 months?: 4 - Assessment for Readmission Summary of readmission circumstances, based upon interviews: Renay was discharged home on 01/25/18 she has chronic kidney disease and CHF. She was recently in the hospital for UTI and loose stools. Her diuretics where held at discharge due to elevated creatine and hypovelemia. Renay became more short of breath at home, she is on chronic o2 she was sent to the hospital by her provider concerns for PE vs CHF.
[2018-02-19] MEDS: Normal Saline Flush 10 ML SYR IVP (10:14)
--- NOTE | 2018-02-19 10:38 | NT_ITS ---
PHYSICAL THERAPY NOTE 02/19/18 PT Consult received, chart reviewed, attempted to see patient for evaluation, pt having ultrasounds to r/o DVT. Will await results before initiating mobility. Shonna Meadows PT
[2018-02-19] MEDS: MAGNESIUM SULFATE 2 GM/50 ML BAG IVPB (10:40)
--- NOTE | 2018-02-19 12:30 | MERGE_ITS ---
*[facility]* *[facility]* [address] [place] [address] Date of study: 02/19/2018 Transthoracic Echocardiography M-mode, complete 2D, complete spectral Doppler, and color Doppler *STUDY CONCLUSIONS* Summary: 1. Left ventricle: The cavity size was normal. Systolic function was normal. The estimated ejection fraction was 55-60%. Findings consistent with diastolic dysfunction. Doppler parameters are consistent with high ventricular filling pressure. 2. Mitral valve: There was moderate regurgitation. 3. Left atrium: The atrium was moderately dilated. 4. Right ventricle: The cavity size was normal. Wall thickness was normal. Systolic function was normal. 5. Right atrium: The atrium was mildly dilated. 6. Atrial septum: There was a patent foramen ovale. There was a [id number] shunt. 7. Tricuspid valve: There was mild-moderate regurgitation. 8. Pulmonary arteries: Pulmonary systolic pressure was in the range of 55mm Hg to 70mm Hg. 9. Inferior vena cava: The vessel was patent and dilated. The respirophasic diameter changes were blunted (less than 50%), consistent with elevated central venous pressure. RAP estimated 10-20 mmHG. *PATIENT PRESENTATION* Height: 157.5cm ((62in) ) S/D Pressure: 138 / 86 Weight: 81.6kg ((179.6lb) ) BSA: 1.92m^2 Test start time: 12:45 PM. Test stop time: 01:40 PM. PERFORMING Unknown PERFORMING Nv ORDERING Bart Ferrera REFERRING Bart Ferrera SOCCER COACH Radha Patel RT (R)(CT), [facility] *PROCEDURE DATA* Procedure information: This study was interpreted by [facility]. Pertinent images and digital data are archived for permanent storage and are available for subsequent review. Comparison was made to the study of 10/31/2017. Study status: Routine. Transthoracic echocardiography. M-mode, complete 2D, complete spectral Doppler, and color Doppler. A Transthoracic Echocardiogram was performed. Scanning was performed from the parasternal, apical, subcostal, and suprasternal notch acoustic windows. Images were obtained using an [id number] cardiac ultrasound machine. Image quality was adequate. Study completion: The patient tolerated the procedure well. History: PMH: Acute on chronic CHF. elevated ddimer. *CARDIAC ANATOMY* Left ventricle: The cavity size was normal. Systolic function was normal. The estimated ejection fraction was 55-60%. The tissue Doppler parameters were abnormal. Findings consistent with diastolic dysfunction. Doppler parameters are consistent with high ventricular filling pressure. Aortic valve: Trileaflet. Doppler: There was no stenosis. There was no regurgitation. VTI ratio of LVOT to aortic valve: 0.54. Valve area (VTI): 1.9cm^2. Indexed valve area (VTI): 1cm^2/m^2. Peak velocity ratio of LVOT to aortic valve: 0.54. Valve area (Vmax): 1.9cm^2. Indexed valve area (Vmax): 1cm^2/m^2. Mean velocity ratio of LVOT to aortic valve: 0.55. Valve area (Vmean): 1.9cm^2. Indexed valve area (Vmean): 1cm^2/m^2. Mean gradient (S): 5.2mm Hg. Peak gradient (S): 8.7mm Hg. Aorta: Aortic root: The aortic root was mildly dilated. Mitral valve: Doppler: There was no evidence for stenosis. There was moderate regurgitation. Valve area by pressure half-time: 3.9cm^2. Indexed valve area by pressure half-time: 2cm^2/m^2. Peak gradient (D): 4mm Hg. Left atrium: The atrium was moderately dilated. Atrial septum: There was a patent foramen ovale. There was a [id number] shunt. Right ventricle: The cavity size was normal. Wall thickness was normal. Systolic function was normal. Pulmonic valve: Doppler: There was no evidence for stenosis. There was mild regurgitation. Peak gradient (S): 2.7mm Hg. Tricuspid valve: Doppler: There was mild-moderate regurgitation. Pulmonary artery: Poorly visualized. Pulmonary systolic pressure was in the range of 55mm Hg to 70mm Hg. Right atrium: The atrium was mildly dilated. Pericardium: There was no pericardial effusion. Systemic veins: Inferior vena cava: Well visualized. The vessel was patent and dilated. The respirophasic diameter changes were blunted (less than 50%), consistent with elevated central venous pressure. Measurements Left ventricle Value 10/31/2017 Reference LV ID, ED, PLAX 4.8 cm 4.4 3.5 - 6.0 LV ID, ES, PLAX 3.5 cm 3.4 2.1 - 4.0 LV PW thickness, ED, PLAX 1.1 cm 1.2 LV end-diastolic volume, 72 ml 54 1-p A2C LV ejection fraction, 1-p 42 % 54 A2C LV end-diastolic volume, 81 ml 75 1-p A4C LV ejection fraction, 1-p 57 % 49 A4C LV e', lateral 0.076 m/sec 0.077 LV E/e', lateral 13 10 LV e', medial 0.054 m/sec 0.053 LV E/e', medial 19 15 LV e', average 0.065 m/sec 0.065 LV E/e', average 15 12 Ventricular septum Value 10/31/2017 Reference IVS thickness, ED, PLAX 1.1 cm 1.3 LVOT Value 10/31/2017 Reference LVOT ID, A-P 2.1 cm 2.1 LVOT area 3.5 cm^2 3.4 LVOT peak velocity, S 0.79 m/sec 0.7 LVOT mean velocity, S 0.6 m/sec 0.52 LVOT VTI, S 19.6 cm 17.7 LVOT peak gradient, S 2.5 mm Hg 2 LVOT mean gradient, S 1.6 mm Hg 1.2 Stroke volume (SV), LVOT 69 ml 60 DP Stroke index (SV/bsa), 36 ml/m^2 32 LVOT DP Aortic valve Value 10/31/2017 Reference Aortic valve peak 1.5 m/sec 1.2 velocity, S Aortic valve mean 1.09 m/sec 0.93 velocity, S Aortic valve VTI, S 36.1 cm 29.2 Aortic mean gradient, S 5.2 mm Hg 3.7 Aortic peak gradient, S 8.7 mm Hg 6 VTI ratio, LVOT/AV 0.54 0.61 Aortic valve area, VTI 1.9 cm^2 2.1 Velocity ratio, peak, 0.54 0.57 LVOT/AV Aortic valve area, peak 1.9 cm^2 1.9 velocity Velocity ratio, mean, 0.55 0.55 LVOT/AV Aortic valve area, mean 1.9 cm^2 1.9 velocity Aortic valve area/bsa, 1 cm^2/m^2 1 mean velocity Aorta Value 10/31/2017 Reference Aortic root ID, ED 3.8 cm 3.6 Left atrium Value 10/31/2017 Reference LA ID, A-P, ES 4.6 cm 4.5 LA ID/bsa, A-P (H) 2.4 cm/m^2 2.4 <=2.2 LA area, ES, A4C (H) 28.2 cm^2 20.7 8.8 - 23.4 LA area, ES, A2C 27 cm^2 22 LA volume/bsa, ES, 1-p A4C 58 ml/m^2 35 LA volume, ES, 2-p 92 ml 64 LA volume/bsa, ES, 2-p 48 ml/m^2 34 LA/aortic root ratio 1.22 1.27 Mitral valve Value 10/31/2017 Reference Mitral E-wave peak 1 m/sec 0.79 velocity Mitral A-wave peak 0.77 m/sec 0.81 velocity Mitral deceleration time 193 ms 225 150 - 230 Mitral pressure half-time 56 ms 65 Mitral peak gradient, D 4 mm Hg 2.5 Mitral E/A ratio, peak 1.29 0.98 Mitral valve area, PHT, DP 3.9 cm^2 3.4 Mitral peak LV-LA 105.4 mm Hg gradient, S Mitral maximal regurg 5.13 m/sec velocity, PISA Mitral regurg VTI, PISA 180.1 cm Pulmonary veins Value 10/31/2017 Reference Pulmonary vein peak 0.57 m/sec 0.44 velocity, S Pulmonary vein peak 0.49 m/sec 0.41 velocity, D Pulmonary vein velocity 1.18 1.08 ratio, peak, S/D Tricuspid valve Value 10/31/2017 Reference Tricuspid regurg peak 3.5 m/sec 3 velocity Tricuspid peak RV-RA 47.7 mm Hg 36 gradient Right atrium Value 10/31/2017 Reference RA area, ES, A4C (H) 20.2 cm^2 19.7 8.3 - 19.5 Pulmonic valve Value 10/31/2017 Reference Pulmonic peak gradient, S 2.7 mm Hg Legend: (L) and (H) rajan values outside specified reference range. I have personally reviewed the images and have reviewed and edited the reported findings. Electronically signed by Ponce Celis MD 02/19/2018 17:41
--- NOTE | 2018-02-19 13:00 | HOME_ITS ---
Home Oxygen Equipment: Home care [employer] Home oxygen qualifier: Qualifying SaO2: Date: LPM: 2 Useage (hours/day) 24 Portability: Comments:
--- NOTE | 2018-02-19 13:15 | PROG.BLANK ---
Date of Service: 02/19/18 Time of Service: 13:16 Progress Note Brief Update: LE doppler negative for DVT, did show left superficial thrombus. Renay states SOB improved. Still in a lot of pain, chronic in shoulders. Also getting new spasm like pain in bladder with urination. Sore on left shoulder stopped bleeding. Lungs with rales 1/2 way up. mild suprapubic tenderness. Legs a little pink on skin anteriorly bilaterally, 1+ edema. I agree with Dr. Ferrera that intermediate V/Q can be explained by chronic lung disease and CHF. 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 I think risk of full anticoagulation greater than benefit at this point, will reduce LMWH to prophylactic dose, which should also help superficial thrombophlebitis. Continue diuresis, repeat echo pending. Will also treat MRSA UTI. I don't think vanco or TMP/SMX or nitrofurantoin good ideas with renal function. Try doxycycline.
--- NOTE | 2018-02-19 13:23 | PROG.BLANK_ITS ---
Date of Service: 02/19/18 Time of Service: 13:16 Progress Note Brief Update: LE doppler negative for DVT, did show left superficial thrombus. Renay states SOB improved. Still in a lot of pain, chronic in shoulders. Also getting new spasm like pain in bladder with urination. Sore on left shoulder stopped bleeding. Lungs with rales 1/[address] up. mild suprapubic tenderness. Legs a little pink on skin anteriorly bilaterally, 1+ edema. I agree with Dr. Ferrera that intermediate V/Q can be explained by chronic lung disease and CHF. 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 I think risk of full anticoagulation greater than benefit at this point, will reduce LMWH to prophylactic dose, which should also help superficial thrombophlebitis. Continue diuresis, repeat echo pending. Will also treat MRSA UTI. I don't think vanco or TMP/SMX or nitrofurantoin good ideas with renal function. Try doxycycline.
--- NOTE | 2018-02-19 13:44 | NT_ITS ---
PHYSICAL THERAPY NOTE 02/19/18 2nd attempt to see patient for PT Consult, pt having echocardiogram. Pt is negative for CVT, positive for superficial thrombophlebitis Andrew LONG Will attempt PT consult in am Shonna Meadows PT
--- NOTE | 2018-02-19 15:48 | CHAPLAIN ---
Renay and I remembered each other from a previous admission. A caregiver was with her and her nurse, Cara Muse RN, was working to get an IV going on Renay when I stopped in. Renay is a member of the [employer] and asked me to contact her sap payroll consultant, Armani Alvarado, and I did that.
[2018-02-19] MEDS: Doxycycline Hyclate 100 MG CAP PO (20:30)
[2018-02-19] MEDS: Fluticasone NASAL SPRAY 16 GM BTL NS (20:44)
[2018-02-20] VITALS (19 sets, daily range): BP systolic 123–140; BP diastolic 67–90; PULSE 53–79; RESP 12–25; TEMP 36.2–37.4; O2SAT 94
[2018-02-20] MEDS: Enoxaparin 30 MG/0.3 ML SYR SC (00:43)
[2018-02-20 06:47] LABS: BUN 34 mg/dL (7-18); CREATININE 1.67 mg/dL (0.55-1.02); Calcium 9.2 mg/dL (8.5-10.1); Chloride 101 mmol/L (98-107); Estimated GFR 29.59 (mL/min/1.73m2); Glucose 93 mg/dL (70-100); Magnesium 1.6 mg/dL (1.8-2.4); Potassium 3.5 mmol/L (3.5-5.1); Sodium 144 mmol/L (136-145)
[2018-02-20] MEDS: Atorvastatin 10 MG TAB 5 MG PO (08:48)
[2018-02-20] MEDS: Acetaminophen 325 MG TAB PO ×3 (08:49→18:18)
[2018-02-20] MEDS: Normal Saline Flush 10 ML SYR IVP ×3 (08:49→13:23)
[2018-02-20] MEDS: Methadone 5 MG TAB PO ×3 (08:50→19:36)
[2018-02-20] MEDS: Doxycycline Hyclate 100 MG CAP PO ×2 (08:50→19:36)
[2018-02-20] MEDS: Sennosides/Docusate Sodium TAB 2 TAB PO (08:50)
[2018-02-20] MEDS: Ascorbic Acid 500 MG TAB 1000 MG PO (08:51)
[2018-02-20] MEDS: predniSONE 5 MG TAB PO (08:51)
[2018-02-20] MEDS: Carvedilol 25 MG TAB 50 MG PO ×2 (08:51→19:36)
[2018-02-20] MEDS: Docusate Sodium 100 MG CAP PO ×2 (08:52→19:35)
[2018-02-20] MEDS: Furosemide 40 MG TAB PO ×2 (08:52→17:01)
[2018-02-20] MEDS: Aspirin 81 MG CHEW PO (08:52)
--- NOTE | 2018-02-20 09:53 | PDOC.PROG ---
Date of Service: 02/20/18 Time of Service: 09:53 Assessment/Plan - Assessment/Plan (1) Heart failure with preserved ejection fraction Assessment: Improving clinically. However looking at echo results it appears could benefit from further diuresis. Cr imrpoved to baseline. I will give an additional dose IV lasix at noon. I still don't think there is active COPD exacerbation, not c/w PE. (2) Chronic renal disease, stage 3, moderately decreased glomerular filtration rate between 30-59 mL/min/1.73 square meter Assessment: Cr back near baseline. We have been very careful given patient history of transplant, but again I think additional diuretic dose warranted, will continue to follow renal function. We are also replacing magnesium and potassium. (3) Urinary tract infection Assessment: Symptoms improved with doxycycline for MRSA. Will treat for one week given has had recurrent UTIs. History of Present Illness - History of Present Illness Chief Complaint: sob History of Present Illness: 24hr: started on doxycycline for MRSA UTI echocardiogram done, showed LVEF 55-60%, suggested diastolic dysfunction with elevated CVP Renay states legs tungsten tender but much less swollen. SOB is better, but still there. More when lying down, noted early this morning. No chest pain. Some sputum but this is chronic. bladder spasms are much better, doesn't feel them today. Review of Systems - Review of Systems Constitutional: denies: Fever, Chills Cardiovascular: denies: Chest Pain, Palpitations, Light Headedness Gastrointestinal: denies: Vomiting, Abdominal Pain Genitourinary: denies: Dysuria, Hematuria Musculoskeletal: Shoulder Pain, Back Pain Neurological: denies: Confusion - Medications/Allergies Allergies/Adverse Reactions: Allergies Allergy/AdvReac Type Severity Reaction Status Date / Time thiopental sodium Allergy Intermediate Wheezing Unverified 02/18/18 15:09 [From Pentothal] Penicillins Allergy Unknown ITCHING Unverified 02/18/18 15:09 Medications: Current Medications Acetaminophen (Tylenol) 0 mg PO Q4H PRN PRN Last Admin: 02/20/18 08:49 Dose: 650 mg Al Hydrox/Mg Hydrox/Simethicone (Mylanta Liquid) 30 ml PO Q2H PRN PRN Albuterol Sulfate (Ventolin Hfa) 2 puff IH Q4H PRN PRN Ascorbic Acid (Vitamin C) 1,000 mg PO DAILY [facility] Last Admin: 02/20/18 08:51 Dose: 1,000 mg Aspirin () 81 mg PO DAILY [facility] Last Admin: 02/20/18 08:52 Dose: 81 mg Atorvastatin Calcium (Lipitor) 5 mg PO DAILY [facility] Last Admin: 02/20/18 08:48 Dose: 5 mg Carvedilol (Coreg) 50 mg PO BID [facility] Last Admin: 02/20/18 08:51 Dose: 50 mg Cholecalciferol (Vitamin D) 2,000 units PO DAILY [facility] Last Admin: 02/20/18 08:51 Dose: 2,000 units Dimethicone/Zinc Oxide (Slime Protect Cream) 0 gm TP PRN PRN Docusate Sodium (Colace) 100 mg PO TID PRN PRN Last Admin: 02/20/18 08:52 Dose: 100 mg Docusate Sodium (Colace) 100 mg PO BID [facility] Last Admin: 02/19/18 20:32 Dose: 100 mg Doxycycline Hyclate (Vibramycin) 100 mg PO BID [facility] Last Admin: 02/20/18 08:50 Dose: 100 mg Enoxaparin Sodium (Lovenox) 30 mg SC Q24H [facility] Last Admin: 02/20/18 00:43 Dose: 30 mg Fluticasone Propionate (Flonase) 0 gm NS BID [facility] Last Admin: 02/19/18 20:44 Dose: 50 mcg Furosemide (Lasix) 40 mg PO BID@0830,1600 [facility] Last Admin: 02/20/18 08:52 Dose: 40 mg Furosemide (Lasix) 40 mg IVP NOW ONE Stop: 02/20/18 12:01 Magnesium Sulfate/Dextrose () 2 gm in 200 mls @ 100 mls/hr IVPB NOW ONE Stop: 02/20/18 10:23 IV Miscellaneous Supplies () 1 each IV DIRECTED [facility] Magnesium Hydroxide (Milk Of Magnesia) 30 ml PO DAILY PRN PRN Methadone HCl (Dolophine) 5 mg PO TID [facility] Last Admin: 02/20/18 08:50 Dose: 5 mg Morphine Sulfate () 2 mg PO Q1H PRN PRN PRN Reason: SEVERE SOB Last Admin: 02/20/18 08:47 Dose: 2 mg Nitroglycerin (Nitrostat) 0.4 mg SL PRN [facility] Non-Formulary Medication ([place]-3 Fatty Acids/Fish Oil [Fish Oil 1,200 Mg Softgel]) 1 each PO DAILY [facility] Last Admin: 02/19/18 12:26 Dose: Not Given Ondansetron HCl (Zofran Odt) 4 mg SL Q6H PRN PRN Reason: Nausea Pt's Own Cimetidine (800 Mg Tablet) 0.5 each PO BID [facility] Last Admin: 02/19/18 20:54 Dose: Not Given Pt's Own Cyclosporine 25 Mg Capsule 3 each PO BID [facility] Last Admin: 02/20/18 08:50 Dose: 3 each Polyethylene Glycol (Miralax) 17 gm PO DAILY PRN PRN PRN Reason: Constipation Prednisone (Deltasone) 5 mg PO DAILY [facility] Last Admin: 02/20/18 08:51 Dose: 5 mg Senna/Docusate Sodium (Josie-Colace Tablet) 2 tab PO BID [facility] Last Admin: 02/20/18 08:50 Dose: 2 tab Sodium Chloride (Saline Flush 10 Ml Syringe) 0 ml IVP PRN PRN Last Admin: 02/20/18 08:49 Dose: 10 ml Objective - Exam Vitals and I&O: Vital Signs Temp 36.2 C L 02/20/18 04:27 Pulse 57 L 02/20/18 04:01 Resp 19 02/20/18 04:01 BP 129/67 02/20/18 04:01 Pulse Ox 94 L 02/20/18 07:12 Intake & Output 02/19/18 02/19/18 02/20/18 11:59 23:59 11:59 Intake Total 180 240 360 Output Total 600 Balance -420 240 360 Weight 81.7 kg 76.6 kg Intake: Oral 180 240 360 Output: Urine 600 Other: Urine Color Yellow Urine Appearance Cloudy Clear Urine Odor Normal Comment Incontinent of a large amount of urine. void x 1, unmeasured, mixed with stool and incontinent in brief. Stool Occult Blood Negative Stool Size Moderate Large Stool Characteristics Formed Formed Hard Brown Brown Voiding Methods Incontinent Incontinent Bedside Commode Incontinent General: Alert, Oriented x3, Cooperative Lungs: Normal air movement. denies: Clear to auscultation (slightly course inferiorly, but no rales or wheezes today, improved) Cardiovascular: Regular rate, Normal S1, Normal S2 Extremities: Edema (1+ (better)). denies: Cyanosis Skin: denies: Rashes Psych/Mental Status: Mental status NL - Results Results: Laboratory Results WBC 4.50 k/cumm (4.4-10.8) 02/19/18 06:35 RBC 3.82 m/cumm (4.00-5.20) L 02/19/18 06:35 Hgb 11.3 g/dL (12.0-15.5) L 02/19/18 06:35 Hct 37.0 % (36.0-46.0) 02/19/18 06:35 MCV 96.9 fL (80-95) H 02/19/18 06:35 MCH 29.6 pg (27.0-33.0) 02/19/18 06:35 MCHC 30.5 g/dL (32.0-36.0) L 02/19/18 06:35 RDW 14.0 % (11.7-14.6) 02/19/18 06:35 Plt Count 159 x1000/uL (130-400) 02/19/18 06:35 MPV 10.6 fL (8.0-11.0) 02/19/18 06:35 Immature Gran % 0.2 02/19/18 06:35 Neutrophils % 66.2 02/19/18 06:35 Lymphocytes % 14.9 02/19/18 06:35 Monocytes % 14.7 02/19/18 06:35 Eosinophils % 3.8 02/19/18 06:35 Basophils % 0.2 02/19/18 06:35 Absolute Neutrophils 2.98 k/cumm (1.2-6.7) 02/19/18 06:35 Absolute Lymphocytes 0.67 k/cumm (1.2-3.4) L 02/19/18 06:35 Absolute Monocytes 0.66 k/cumm (0.11-0.7) 02/19/18 06:35 Absolute Eosinophils 0.17 k/cumm (0.0-0.7) 02/19/18 06:35 Absolute Basophils 0.01 k/cumm (0.0-0.2) 02/19/18 06:35 D-Dimer 1840 ng/mlFEU (<500) H 02/19/18 06:35 Sodium 144 mmol/L (136-145) 02/20/18 06:25 Potassium 3.5 mmol/L (3.5-5.1) 02/20/18 06:25 Chloride 101 mmol/L (98-107) 02/20/18 06:25 Carbon Dioxide 37.0 mmol/L (21.0-32.0) H 02/20/18 06:25 Anion Gap 6.0 mmol/L (3-11) 02/20/18 06:25 BUN 34 mg/dL (7-18) H 02/20/18 06:25 Creatinine 1.67 mg/dL (0.55-1.02) H 02/20/18 06:25 Estimated GFR/1.73 m2 29.59 (mL/min/1.73m2) 02/20/18 06:25 Glucose 93 mg/dL (70-100) 02/20/18 06:25 Calcium 9.2 mg/dL (8.5-10.1) 02/20/18 06:25 Magnesium 1.6 mg/dL (1.8-2.4) L 02/20/18 06:25 Total Bilirubin 0.5 mg/dL (0.2-1.0) 02/18/18 15:05 AST 15 U/L (15-37) 02/18/18 15:05 ALT 9 U/L (12-78) L 02/18/18 15:05 Alkaline Phosphatase 70 U/L (46-116) 02/18/18 15:05 Troponin I < 0.02 ng/mL (0.00-0.06) 02/19/18 06:35 NT-Pro-B Natriuret Pep 2683 pg/mL (-299) H 02/19/18 06:35 Total Protein 6.3 g/dL (6.4-8.2) L 02/18/18 15:05 Albumin 2.7 g/dL (3.4-5.0) L 02/18/18 15:05 Urine Color Yellow (Yellow) 02/18/18 16:15 Urine Clarity Clear 02/18/18 16:15 Urine pH 6.0 (5-8) 02/18/18 16:15 Ur Specific [place] 1.010 (1.005-1.025) 02/18/18 16:15 Urine Protein Negative mg/dL (Negative) 02/18/18 16:15 Urine Ketones Negative mg/dL (Negative) 02/18/18 16:15 Urine Blood Trace-intact (Negative) H 02/18/18 16:15 Urine Nitrite Negative (Negative) 02/18/18 16:15 Urine Bilirubin Negative (Negative) 02/18/18 16:15 Urine Urobilinogen 0.2 EU/dL (Up TO 0.2) 02/18/18 16:15 Ur Leukocyte Esterase Small (Negative) H 02/18/18 16:15 Urine RBC 0-2 (0-2) 02/18/18 16:15 Urine WBC >50 HPF (0-5) 02/18/18 16:15 Ur Epithelial Cells Few HPF (Negative) 02/18/18 16:15 Urine Crystals Negative HPF (Negative) 02/18/18 16:15 Urine Bacteria Few HPF (Negative) 02/18/18 16:15 Urine Mucus Negative (Negative) 02/18/18 16:15 Urine Other Few renal (Negative) 02/18/18 16:15 Ur Culture Indicated? Yes 02/18/18 16:15 Urine Glucose Negative mg/dL (Negative) 02/18/18 16:15
--- NOTE | 2018-02-20 09:59 | PDOC.PROG_ITS ---
Date of Service: 02/20/18 Time of Service: 09:53 Assessment/Plan - Assessment/Plan (1) Heart failure with preserved ejection fraction Assessment: Improving clinically. However looking at echo results it appears could benefit from further diuresis. Cr imrpoved to baseline. I will give an additional dose IV lasix at noon. I still don't think there is active COPD exacerbation, not c/w PE. (2) Chronic renal disease, stage 3, moderately decreased glomerular filtration rate between 30-59 mL/min/1.73 square meter Assessment: Cr back near baseline. We have been very careful given patient history of transplant, but again I think additional diuretic dose warranted, will continue to follow renal function. We are also replacing magnesium and potassium. (3) Urinary tract infection Assessment: Symptoms improved with doxycycline for MRSA. Will treat for one week given has had recurrent UTIs. History of Present Illness - History of Present Illness Chief Complaint: sob History of Present Illness: 24hr: started on doxycycline for MRSA UTI echocardiogram done, showed LVEF 55-60%, suggested diastolic dysfunction with elevated CVP Renay states legs still operator gin but much less swollen. SOB is better, but still there. More when lying down, noted early this morning. No chest pain. Some sputum but this is chronic. bladder spasms are much better, doesn't feel them today. Review of Systems - Review of Systems Constitutional: denies: Fever, Chills Cardiovascular: denies: Chest Pain, Palpitations, Light Headedness Gastrointestinal: denies: Vomiting, Abdominal Pain Genitourinary: denies: Dysuria, Hematuria Musculoskeletal: Shoulder Pain, Back Pain Neurological: denies: Confusion - Medications/Allergies Allergies/Adverse Reactions: Allergies Allergy/AdvReac Type Severity Reaction Status Date / Time thiopental sodium Allergy Intermediate Wheezing Unverified 02/18/18 15:09 [From Pentothal] Penicillins Allergy Unknown ITCHING Unverified 02/18/18 15:09 Medications: Current Medications Acetaminophen (Tylenol) 0 mg PO Q4H PRN PRN Last Admin: 02/20/18 08:49 Dose: 650 mg Al Hydrox/Mg Hydrox/Simethicone (Mylanta Liquid) 30 ml PO Q2H PRN PRN Albuterol Sulfate (Ventolin Hfa) 2 puff IH Q4H PRN PRN Ascorbic Acid (Vitamin C) 1,000 mg PO DAILY [facility] Last Admin: 02/20/18 08:51 Dose: 1,000 mg Aspirin () 81 mg PO DAILY [facility] Last Admin: 02/20/18 08:52 Dose: 81 mg Atorvastatin Calcium (Lipitor) 5 mg PO DAILY [facility] Last Admin: 02/20/18 08:48 Dose: 5 mg Carvedilol (Coreg) 50 mg PO BID [facility] Last Admin: 02/20/18 08:51 Dose: 50 mg Cholecalciferol (Vitamin D) 2,000 units PO DAILY [facility] Last Admin: 02/20/18 08:51 Dose: 2,000 units Dimethicone/Zinc Oxide (Slime Protect Cream) 0 gm TP PRN PRN Docusate Sodium (Colace) 100 mg PO TID PRN PRN Last Admin: 02/20/18 08:52 Dose: 100 mg Docusate Sodium (Colace) 100 mg PO BID [facility] Last Admin: 02/19/18 20:32 Dose: 100 mg Doxycycline Hyclate (Vibramycin) 100 mg PO BID [facility] Last Admin: 02/20/18 08:50 Dose: 100 mg Enoxaparin Sodium (Lovenox) 30 mg SC Q24H [facility] Last Admin: 02/20/18 00:43 Dose: 30 mg Fluticasone Propionate (Flonase) 0 gm NS BID [facility] Last Admin: 02/19/18 20:44 Dose: 50 mcg Furosemide (Lasix) 40 mg PO BID@0830,1600 [facility] Last Admin: 02/20/18 08:52 Dose: 40 mg Furosemide (Lasix) 40 mg IVP NOW ONE Stop: 02/20/18 12:01 Magnesium Sulfate/Dextrose () 2 gm in 200 mls @ 100 mls/hr IVPB NOW ONE Stop: 02/20/18 10:23 IV Miscellaneous Supplies () 1 each IV DIRECTED [facility] Magnesium Hydroxide (Milk Of Magnesia) 30 ml PO DAILY PRN PRN Methadone HCl (Dolophine) 5 mg PO TID [facility] Last Admin: 02/20/18 08:50 Dose: 5 mg Morphine Sulfate () 2 mg PO Q1H PRN PRN PRN Reason: SEVERE SOB Last Admin: 02/20/18 08:47 Dose: 2 mg Nitroglycerin (Nitrostat) 0.4 mg SL PRN [facility] Non-Formulary Medication ([place]-3 Fatty Acids/Fish Oil [Fish Oil 1,200 Mg Softgel]) 1 each PO DAILY [facility] Last Admin: 02/19/18 12:26 Dose: Not Given Ondansetron HCl (Zofran Odt) 4 mg SL Q6H PRN PRN Reason: Nausea Pt's Own Cimetidine (800 Mg Tablet) 0.5 each PO BID [facility] Last Admin: 02/19/18 20:54 Dose: Not Given Pt's Own Cyclosporine 25 Mg Capsule 3 each PO BID [facility] Last Admin: 02/20/18 08:50 Dose: 3 each Polyethylene Glycol (Miralax) 17 gm PO DAILY PRN PRN PRN Reason: Constipation Prednisone (Deltasone) 5 mg PO DAILY [facility] Last Admin: 02/20/18 08:51 Dose: 5 mg Senna/Docusate Sodium (Josie-Colace Tablet) 2 tab PO BID [facility] Last Admin: 02/20/18 08:50 Dose: 2 tab Sodium Chloride (Saline Flush 10 Ml Syringe) 0 ml IVP PRN PRN Last Admin: 02/20/18 08:49 Dose: 10 ml Objective - Exam Vitals and I&O: Vital Signs Temp 36.2 C L 02/20/18 04:27 Pulse 57 L 02/20/18 04:01 Resp 19 02/20/18 04:01 BP 129/67 02/20/18 04:01 Pulse Ox 94 L 02/20/18 07:12 Intake & Output 02/19/18 02/19/18 02/20/18 11:59 23:59 11:59 Intake Total 180 240 360 Output Total 600 Balance -420 240 360 Weight 81.7 kg 76.6 kg Intake: Oral 180 240 360 Output: Urine 600 Other: Urine Color Yellow Urine Appearance Cloudy Clear Urine Odor Normal Comment Incontinent of a large amount of urine. void x 1, unmeasured, mixed with stool and incontinent in brief. Stool Occult Blood Negative Stool Size Moderate Large Stool Characteristics Formed Formed Hard Brown Brown Voiding Methods Incontinent Incontinent Bedside Commode Incontinent General: Alert, Oriented x3, Cooperative Lungs: Normal air movement. denies: Clear to auscultation (slightly course inferiorly, but no rales or wheezes today, improved) Cardiovascular: Regular rate, Normal S1, Normal S2 Extremities: Edema (1+ (better)). denies: Cyanosis Skin: denies: Rashes Psych/Mental Status: Mental status NL - Results Results: Laboratory Results WBC 4.50 k/cumm (4.4-10.8) 02/19/18 06:35 RBC 3.82 m/cumm (4.00-5.20) L 02/19/18 06:35 Hgb 11.3 g/dL (12.0-15.5) L 02/19/18 06:35 Hct 37.0 % (36.0-46.0) 02/19/18 06:35 MCV 96.9 fL (80-95) H 02/19/18 06:35 MCH 29.6 pg (27.0-33.0) 02/19/18 06:35 MCHC 30.5 g/dL (32.0-36.0) L 02/19/18 06:35 RDW 14.0 % (11.7-14.6) 02/19/18 06:35 Plt Count 159 x1000/uL (130-400) 02/19/18 06:35 MPV 10.6 fL (8.0-11.0) 02/19/18 06:35 Immature Gran % 0.2 02/19/18 06:35 Neutrophils % 66.2 02/19/18 06:35 Lymphocytes % 14.9 02/19/18 06:35 Monocytes % 14.7 02/19/18 06:35 Eosinophils % 3.8 02/19/18 06:35 Basophils % 0.2 02/19/18 06:35 Absolute Neutrophils 2.98 k/cumm (1.2-6.7) 02/19/18 06:35 Absolute Lymphocytes 0.67 k/cumm (1.2-3.4) L 02/19/18 06:35 Absolute Monocytes 0.66 k/cumm (0.11-0.7) 02/19/18 06:35 Absolute Eosinophils 0.17 k/cumm (0.0-0.7) 02/19/18 06:35 Absolute Basophils 0.01 k/cumm (0.0-0.2) 02/19/18 06:35 D-Dimer 1840 ng/mlFEU (<500) H 02/19/18 06:35 Sodium 144 mmol/L (136-145) 02/20/18 06:25 Potassium 3.5 mmol/L (3.5-5.1) 02/20/18 06:25 Chloride 101 mmol/L (98-107) 02/20/18 06:25 Carbon Dioxide 37.0 mmol/L (21.0-32.0) H 02/20/18 06:25 Anion Gap 6.0 mmol/L (3-11) 02/20/18 06:25 BUN 34 mg/dL (7-18) H 02/20/18 06:25 Creatinine 1.67 mg/dL (0.55-1.02) H 02/20/18 06:25 Estimated GFR/1.73 m2 29.59 (mL/min/1.73m2) 02/20/18 06:25 Glucose 93 mg/dL (70-100) 02/20/18 06:25 Calcium 9.2 mg/dL (8.5-10.1) 02/20/18 06:25 Magnesium 1.6 mg/dL (1.8-2.4) L 02/20/18 06:25 Total Bilirubin 0.5 mg/dL (0.2-1.0) 02/18/18 15:05 AST 15 U/L (15-37) 02/18/18 15:05 ALT 9 U/L (12-78) L 02/18/18 15:05 Alkaline Phosphatase 70 U/L (46-116) 02/18/18 15:05 Troponin I < 0.02 ng/mL (0.00-0.06) 02/19/18 06:35 NT-Pro-B Natriuret Pep 2683 pg/mL (-299) H 02/19/18 06:35 Total Protein 6.3 g/dL (6.4-8.2) L 02/18/18 15:05 Albumin 2.7 g/dL (3.4-5.0) L 02/18/18 15:05 Urine Color Yellow (Yellow) 02/18/18 16:15 Urine Clarity Clear 02/18/18 16:15 Urine pH 6.0 (5-8) 02/18/18 16:15 Ur Specific [place] 1.010 (1.005-1.025) 02/18/18 16:15 Urine Protein Negative mg/dL (Negative) 02/18/18 16:15 Urine Ketones Negative mg/dL (Negative) 02/18/18 16:15 Urine Blood Trace-intact (Negative) H 02/18/18 16:15 Urine Nitrite Negative (Negative) 02/18/18 16:15 Urine Bilirubin Negative (Negative) 02/18/18 16:15 Urine Urobilinogen 0.2 EU/dL (Up TO 0.2) 02/18/18 16:15 Ur Leukocyte Esterase Small (Negative) H 02/18/18 16:15 Urine RBC 0-2 (0-2) 02/18/18 16:15 Urine WBC >50 HPF (0-5) 02/18/18 16:15 Ur Epithelial Cells Few HPF (Negative) 02/18/18 16:15 Urine Crystals Negative HPF (Negative) 02/18/18 16:15 Urine Bacteria Few HPF (Negative) 02/18/18 16:15 Urine Mucus Negative (Negative) 02/18/18 16:15 Urine Other Few renal (Negative) 02/18/18 16:15 Ur Culture Indicated? Yes 02/18/18 16:15 Urine Glucose Negative mg/dL (Negative) 02/18/18 16:15
--- NOTE | 2018-02-20 10:10 | IN_ITS ---
INPATIENT PHYSICAL THERAPY EVALUATION Date: 02/20/18 Referring Doctor: Jose Vincent PT Orders: PT Consult assess mobility and safety Precautions: Fall precautions PATIENT PROFILE/ADMITTING DIAGNOSIS: Pt is a 77yr old female admitted with congestive heart failure and superficial thrombophlebitis left lower extremity PMHX: bilateral lower extremity edema, congestive heart failure, mitral valve regurgitation, polycystic kidney disease bilaterally, nephrectomies, chronic renal insufficiency with kidney transplant 1990, ostearthritis, chronic pain syndrome uses methadone, chronic low back pain, spinal stenosis cervical and lumbar spines, chronic obstructive pulmonary disease uses 2liters 02 NC, gout, small bowel obstructions, gastroesophageal reflux disease, cholecystectomy, cataract removal, hysterectomy, tubal ligation, hernia surgeries Social History/Home Situation: Lives alone in a trailer, ramp to enter no stairs , baseline mobility gait with FWW 50ft in home, reports she has caregiver assistance for bathing and caregiver assists with meals groceries delivered to the home. Equipment owned/DME: FWW SUBJECTIVE: Pt sitting in chair, agreeable to PT consult. States she has right hip pain today due to trying to move around in the bed, reports bilateral shoulder pain and weakness with limited mobility which is chronic. I can't really use my arms or lift my shoulders. OBJECTIVE: General Observation: telemetry, 2 liters 02 NC Mental Status: A& O x3 Pain: c/o pain right hip and bilateral shoulders, not rated Vital Signs: 02 sats 95% on 2 liters NC. Telemetry heart rate 58-60bpm ROM: RUE AAROM right shoulder flexion 50, abduction 50, elbow WNL, wrist WNL LUE AAROM left shoulder flexion 95, abduction, 80, elbow WNL, wrist WNL RLE AAROM hip flexion 100, knee and ankle WNL LLE AAROM hip flexion 100, knee and ankle WNL STRENGTH: RUE 1/5 shoulder flexion, 2/5 bicep, 4/5 head of english LUE 1/5 shoulder flexion 3/5 bicep, 4/5 head of english RLE 2/5 hip flexion, 4/5 quad, 5/5 DF/PF LLE 2/5 hip flexion, 4/5 quad, 5/5 DF/PF BED MOBILITY/TRANSFERS: Sit-stand: SBA with FWW Chair-bed: SBA with FWW Stand-sit: SBA Sit-supine: HOB Flat, SBA. pt able to lift LE's into bed GAIT: SBA with FWW 25ftx1, slow step through gait pattern with decreased stride length, decreased guadalupe, flexed shoulders and foward head, flexed trunk. Cues provided to stand closer to FWW for stability. Pt c/o right hip pain with gait. Pt with slight shortness of breath on exertion, using 2 liters 02 NC, sats 95% . Pt used bedside commode, requiring max for perianal cleaning, pt positioned in bed with legs elevated after session completed. THEREX Pt is independent with LE strengthening program, ankle pumps, long arc quads, hip flexion x 20 reps bilaterally BALANCE: Static sitting normal Dynamic Sitting normal Static Standing fair Dynamic Standing fair SPECIAL TESTS: Mobility Limitations Standardized Measure [facility] AM -PAC 6 clicks Basic Mobility Inpatient Short Form: raw score: 17 standardized score: 42.13 CMS score: 50.57% CMS modifier: CK INFORMED CONSENT/EDUCATION: Pt instructed in purpose of PT Consult and plan of care ASSESSMENT: Pt is a 77yr old female admitted with congestive heart failure and superficial thrombophlebitis left lower extremity in setting of bilateral lower extremity edema, congestive heart failure, mitral valve regurgitation, polycystic kidney disease bilaterally, nephrectomies, chronic renal insufficiency with kidney transplant 1990, ostearthritis, chronic pain syndrome uses methadone, chronic low back pain, spinal stenosis cervical and lumbar spines, chronic obstructive pulmonary disease uses 2liters 02 NC. Patient presents with the following impairment level findings: decreased bilateral shoulder ROM and strength limiting ADLS, functional mobility and self care, right hip pain limiting gait mobility, generalized weakness due to multiple medical conditions limiting her functional mobility, decreased static and dynamic standing balance putting her at risk for falls requiring FWW for gait stability. Pt will benefit from skilled therapy intervention for strengthening and progressive mobility training. Pt's goal is to return to home setting, she will benefit from home PT/OT at discharge. Impairments are contributing to the following functional limitations: AMPA score CMS score: 50.57% Patient is assessed as a * high 50916 complexity based on the following: History: congestive heart failure and superficial thrombophlebitis left lower extremity in setting of bilateral lower extremity edema, congestive heart failure, mitral valve regurgitation, polycystic kidney disease bilaterally, nephrectomies, chronic renal insufficiency with kidney transplant 1990, ostearthritis, chronic pain syndrome uses methadone, chronic low back pain, spinal stenosis cervical and lumbar spines, chronic obstructive pulmonary disease uses 2liters 02 NC. Examination: decreased bilateral shoulder ROM and strength limiting ADLS, functional mobility and self care, right hip pain limiting gait mobility, generalized weakness due to multiple medical conditions limiting her functional mobility, decreased static and dynamic standing balance putting her at risk for falls requiring FWW for gait stability Presentation: evolving Decision Making: AMPAC score CMS score: 50.57% GOALS Goals x1 week 1. Supine-sit: independent 2. Sit-Supine independent 3. Sit-Stand: supervision with FWW 4. Stand-sit supervision 5. Bed-chair supervision with FWW 6. Chair-bed supervision with FWW 7. Gait supervision with FWW 50ftx2 PLAN OF CARE/TREATMENT PLAN: 1-2x/day, 7 days/ week x 1 week Plan of care has been reviewed with the RADIOLOGICAL ENGINEER providing the service under Physical therapy direction. Initiate physical therapy intervention for strengthening, bed mobility, transfers, gait, stairs, balance training, use of assistive device. DISCHARGE RECOMMENDATIONS Home with home PT/OT, pt has all DME TREATMENT TIME/MINUTES/CODES 30min IE 10:00am G Codes in the area mobility of walking and moving around: current status [id number] _CK projected status GP [id number] . Discharge status ( if discharging) GP [id number] ztzbn on AMPAC score CMS score: 50.57% Shonna Meadows PT
[2018-02-20] MEDS: Fluticasone NASAL SPRAY 16 GM BTL NS ×2 (11:00→19:36)
[2018-02-20] MEDS: Potassium Chloride 20 MEQ TABCR PO (11:03)
--- NOTE | 2018-02-20 11:31 | PDOC.CMPRO ---
Date of Service: 02/20/18 Time of Service: 11:31 Care Management Progress Note S/O: Renay is lying in bed she continues to be cared for in the ICU she is a medical surgical patient. Anticipate no change in status today she will return home with resumed home health services nursing and PT through [facility]. A:77 year old female admitted with CHF, and UTI in the setting of chronic renal disease. P:Renay will return home with continued private caregivers when medically ready for discharge. She will resume home health services for nursing and PT, she will resume oxygen through [place]. She is seen by her provider at home and provider will need notification when patient is discharged to schedule follow up. Renay will be transported home by caregivers at time of discharge.
--- NOTE | 2018-02-20 11:39 | CMPROGNOTE_ITS ---
Date of Service: 02/20/18 Time of Service: 11:31 Care Management Progress Note S/O: Renay is lying in bed she continues to be cared for in the ICU she is a medical surgical patient. Anticipate no change in status today she will return home with resumed home health services nursing and PT through [facility]. A:77 year old female admitted with CHF, and UTI in the setting of chronic renal disease. P:Renay will return home with continued private caregivers when medically ready for discharge. She will resume home health services for nursing and PT, she will resume oxygen through [place]. She is seen by her provider at home and provider will need notification when patient is discharged to schedule follow up. Renay will be transported home by caregivers at time of discharge.
[2018-02-20] MEDS: Furosemide 40 MG/4 ML VIAL IVP (11:46)
[2018-02-20] MEDS: MAGNESIUM SULFATE 1 GM/100 ML BAG IVPB ×2 (12:23→13:03)
[2018-02-20 13:04] LABS: Cyclosporine 159 ng/ml
--- NOTE | 2018-02-20 13:44 | INPTTR_ITS ---
PHYSICAL THERAPY PROGRESS NOTE Date: 02/20/18 PRECAUTIONS: Fall precautions, Contact precautions SUBJECTIVE: Pt sitting in chair, reports feeling very tired, wanting to get back to bed. Stating she wants to try to exercise but she feels so fatigued. OBJECTIVE: PAIN: c/o pain in bilateral shoulders and right hip, received pain medication prior to therapy session BED MOBILITY/TRANSFERS Sit-stand: SBA with FWW Chair-bed: SBA with FWW Stand-sit: SBA Sit-supine: HOB flat, SBA GAIT Assistive Device FWW , 2 liters 02 NC Weightbearing as tolerated Assist: SBA Distance: 3ft chair to bed Deviation short steps with decreased stride, pt c/o right hip pain with weight bearing THEREX: bilateral ankle pumps, quad sets, glute sets x 20 reps ASSESSMENT: Pt more tired this afternoon compared to this morning. Able to participate in transfers and LE strengthening exercises. Will benefit from continued therapy. PLAN: Progress strengthening Progress gait mobility TREATMENT CODES/TIME: 25min TAx1 TP x1 1340 Shonna Meadows PT
--- NOTE | 2018-02-20 15:02 | CHAPLAIN ---
One of Renay's caregivers was with her when I visited, and her tail sawyer, Armani Alvarado from the [facility] was in earlier to see Renay. 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 She said her daughter will be in later to visit.
[2018-02-20] MEDS: Magnesium Gluconate 500 MG TAB PO (18:18)
[2018-02-21] VITALS (10 sets, daily range): BP systolic 120–125; BP diastolic 68–75; PULSE 55–77; RESP 12–32; TEMP 37
[2018-02-21] MEDS: Enoxaparin 30 MG/0.3 ML SYR SC (03:06)
[2018-02-21] MEDS: Acetaminophen 325 MG TAB PO ×4 (03:16→19:08)
[2018-02-21] MEDS: Magnesium Gluconate 500 MG TAB PO ×2 (06:28→19:08)
[2018-02-21] MEDS: Normal Saline Flush 10 ML SYR IVP ×4 (06:36→16:17)
[2018-02-21 07:20] LABS: Anion Gap 2.5 mmol/L (3-11); BUN 41 mg/dL (7-18); CO2 36.5 mmol/L (21.0-32.0); CREATININE 1.85 mg/dL (0.55-1.02); Chloride 102 mmol/L (98-107); Glucose 79 mg/dL (70-100); Magnesium 1.8 mg/dL (1.8-2.4); Potassium 3.8 mmol/L (3.5-5.1); Sodium 141 mmol/L (136-145)
[2018-02-21] MEDS: Docusate Sodium 100 MG CAP PO ×3 (08:30→21:03)
[2018-02-21] MEDS: Ascorbic Acid 500 MG TAB 1000 MG PO (08:30)
[2018-02-21] MEDS: Fluticasone NASAL SPRAY 16 GM BTL NS ×2 (08:55→21:06)
[2018-02-21] MEDS: Atorvastatin 10 MG TAB 5 MG PO (08:57)
[2018-02-21] MEDS: Sennosides/Docusate Sodium TAB 2 TAB PO ×2 (08:58→21:03)
[2018-02-21] MEDS: Doxycycline Hyclate 100 MG CAP PO ×2 (08:58→21:03)
[2018-02-21] MEDS: Carvedilol 25 MG TAB 50 MG PO ×2 (08:59→21:03)
[2018-02-21] MEDS: Aspirin 81 MG CHEW PO (08:59)
[2018-02-21] MEDS: predniSONE 5 MG TAB PO (08:59)
[2018-02-21] MEDS: Methadone 5 MG TAB PO ×2 (09:00→14:19)
[2018-02-21] MEDS: Furosemide 40 MG TAB PO (09:01)
--- NOTE | 2018-02-21 10:41 | PDOC.PROG ---
Date of Service: 02/21/18 Time of Service: 10:41 Assessment/Plan - Assessment/Plan (1) Heart failure with preserved ejection fraction Assessment: Weight up a bit a more rales on exam today despite one additional dose of furosemide yesterday. I will switch to scheduled furosemide BID and monitor fluids status and renal function. (2) Chronic renal disease, stage 3, moderately decreased glomerular filtration rate between 30-59 mL/min/1.73 square meter Assessment: Cr up slightly, but as above I thinks she needs additional diuresis. Will follow. (3) Urinary tract infection Assessment: symptoms resolved with doxycycline. continue. (4) Abdominal pain Assessment: may simply be cramps, not present now and benign exam. Will get LFTs with next blood draw. (5) Skin ulcer Assessment: traumatic/shearing in origen. wound consult ordered. History of Present Illness - History of Present Illness Chief Complaint: sob History of Present Illness: 24 events: none Nursing concern that weight up today, though still 5kg below admission weight. Patient states her SOB is much better than admission but not quite her baseline. no longer has pressure in chest she had when she came in. She had some RUQ that she things was related to her bowels, crampy, does not feel it now. Nursing also asking for wound consult to assess abrasion left shoulder. Review of Systems - Review of Systems Constitutional: denies: Fever, Chills Respiratory: SOB with Excertion. denies: Cough, Pleuritic Pain, Sputum Cardiovascular: denies: Chest Pain, Palpitations, Light Headedness Gastrointestinal: denies: Nausea, Vomiting, Diarrhea Genitourinary: denies: Dysuria, Hematuria Musculoskeletal: Arm Pain, Back Pain Skin: Lesions Neurological: denies: Weakness, Confusion - Medications/Allergies Allergies/Adverse Reactions: Allergies Allergy/AdvReac Type Severity Reaction Status Date / Time thiopental sodium Allergy Intermediate Wheezing Unverified 02/18/18 15:09 [From Pentothal] Penicillins Allergy Unknown ITCHING Unverified 02/18/18 15:09 Medications: Current Medications Acetaminophen (Tylenol) 0 mg PO Q4H PRN PRN Last Admin: 02/21/18 08:58 Dose: 650 mg Al Hydrox/Mg Hydrox/Simethicone (Mylanta Liquid) 30 ml PO Q2H PRN PRN Albuterol Sulfate (Ventolin Hfa) 2 puff IH Q4H PRN PRN Ascorbic Acid (Vitamin C) 1,000 mg PO DAILY [facility] Last Admin: 02/20/18 08:51 Dose: 1,000 mg Aspirin () 81 mg PO DAILY [facility] Last Admin: 02/21/18 08:59 Dose: 81 mg Atorvastatin Calcium (Lipitor) 5 mg PO DAILY [facility] Last Admin: 02/21/18 08:57 Dose: 5 mg Carvedilol (Coreg) 50 mg PO BID [facility] Last Admin: 02/21/18 08:59 Dose: 50 mg Cholecalciferol (Vitamin D) 2,000 units PO DAILY [facility] Last Admin: 02/21/18 09:00 Dose: 2,000 units Dimethicone/Zinc Oxide (Slime Protect Cream) 0 gm TP PRN PRN Docusate Sodium (Colace) 100 mg PO TID PRN PRN Last Admin: 02/21/18 08:59 Dose: 100 mg Docusate Sodium (Colace) 100 mg PO BID [facility] Last Admin: 02/20/18 19:35 Dose: 100 mg Doxycycline Hyclate (Vibramycin) 100 mg PO BID [facility] Last Admin: 02/21/18 08:58 Dose: 100 mg Enoxaparin Sodium (Lovenox) 30 mg SC DAILY [facility] Fluticasone Propionate (Flonase) 0 gm NS BID [facility] Last Admin: 02/21/18 08:55 Dose: 2 sprays Furosemide (Lasix) 40 mg IVP BID@0800,1600 [facility] IV Miscellaneous Supplies () 1 each IV DIRECTED [facility] Magnesium Gluconate () 500 mg PO BID@0600,1800 [facility] Last Admin: 02/21/18 06:28 Dose: 500 mg Magnesium Hydroxide (Milk Of Magnesia) 30 ml PO DAILY PRN PRN Methadone HCl (Dolophine) 5 mg PO TID [facility] Last Admin: 02/21/18 09:00 Dose: 5 mg Morphine Sulfate () 2 mg PO Q1H PRN PRN PRN Reason: SEVERE SOB Last Admin: 02/21/18 06:36 Dose: 2 mg Nitroglycerin (Nitrostat) 0.4 mg SL PRN [facility] Non-Formulary Medication ([place]-3 Fatty Acids/Fish Oil [Fish Oil 1,200 Mg Softgel]) 1 each PO DAILY [facility] Last Admin: 02/20/18 14:56 Dose: Not Given Ondansetron HCl (Zofran Odt) 4 mg SL Q6H PRN PRN Reason: Nausea Pt's Own Cimetidine (800 Mg Tablet) 0.5 each PO BID [facility] Last Admin: 02/21/18 08:54 Dose: 0.5 each Pt's Own Cyclosporine 25 Mg Capsule 3 each PO BID [facility] Last Admin: 02/21/18 08:54 Dose: 3 each Polyethylene Glycol (Miralax) 17 gm PO DAILY PRN PRN PRN Reason: Constipation Prednisone (Deltasone) 5 mg PO DAILY [facility] Last Admin: 02/21/18 08:59 Dose: 5 mg Senna/Docusate Sodium (Josie-Colace Tablet) 2 tab PO BID [facility] Last Admin: 02/21/18 08:58 Dose: 2 tab Sodium Chloride (Saline Flush 10 Ml Syringe) 0 ml IVP PRN PRN Last Admin: 02/21/18 10:00 Dose: 10 ml Objective - Exam Vitals and I&O: Vital Signs Temp 37.4 C 02/20/18 14:23 Pulse 62 02/21/18 10:05 Resp 16 02/21/18 06:00 BP 135/74 02/20/18 20:47 Pulse Ox 94 L 02/20/18 07:12 Intake & Output 02/20/18 02/20/18 02/21/18 11:59 23:59 11:59 Intake Total 700 150 236 Output Total 100 425 Balance 700 50 -189 Weight 76.6 kg 78.3 kg Intake: Oral 700 150 236 Output: Urine 100 425 Other: Urine Color Yellow Urine Appearance Clear Clear Clear Urine Odor None None Comment void x 1, unmeasured, mixed with stool and incontinent in brief. Stool Occult Blood Negative Stool Size Large Stool Characteristics Formed Brown Voiding Methods Bedside Commode Incontinent Bedside Commode Incontinent General: Alert, Oriented x3, Cooperative, No acute distress HEENT: Mucous membr. moist/pink Neck: Supple, JVD Lungs: denies: Clear to auscultation (crackles 1/2 up lungs), Normal air movement (breathing effort shallow) Cardiovascular: Regular rate, Normal S1, Normal S2 Abdomen: Normal bowel sounds, Soft. denies: Tenderness, Hepatospenomegaly Skin: Breakdown (left arm abrasion just redressed by RN). denies: Rashes Psych/Mental Status: Mental status NL - Results Results: Laboratory Results WBC 4.50 k/cumm (4.4-10.8) 02/19/18 06:35 RBC 3.82 m/cumm (4.00-5.20) L 02/19/18 06:35 Hgb 11.3 g/dL (12.0-15.5) L 02/19/18 06:35 Hct 37.0 % (36.0-46.0) 02/19/18 06:35 MCV 96.9 fL (80-95) H 02/19/18 06:35 MCH 29.6 pg (27.0-33.0) 02/19/18 06:35 MCHC 30.5 g/dL (32.0-36.0) L 02/19/18 06:35 RDW 14.0 % (11.7-14.6) 02/19/18 06:35 Plt Count 159 x1000/uL (130-400) 02/19/18 06:35 MPV 10.6 fL (8.0-11.0) 02/19/18 06:35 Immature Gran % 0.2 02/19/18 06:35 Neutrophils % 66.2 02/19/18 06:35 Lymphocytes % 14.9 02/19/18 06:35 Monocytes % 14.7 02/19/18 06:35 Eosinophils % 3.8 02/19/18 06:35 Basophils % 0.2 02/19/18 06:35 Absolute Neutrophils 2.98 k/cumm (1.2-6.7) 02/19/18 06:35 Absolute Lymphocytes 0.67 k/cumm (1.2-3.4) L 02/19/18 06:35 Absolute Monocytes 0.66 k/cumm (0.11-0.7) 02/19/18 06:35 Absolute Eosinophils 0.17 k/cumm (0.0-0.7) 02/19/18 06:35 Absolute Basophils 0.01 k/cumm (0.0-0.2) 02/19/18 06:35 D-Dimer 1840 ng/mlFEU (<500) H 02/19/18 06:35 Sodium 141 mmol/L (136-145) 02/21/18 06:30 Potassium 3.8 mmol/L (3.5-5.1) 02/21/18 06:30 Chloride 102 mmol/L (98-107) 02/21/18 06:30 Carbon Dioxide 36.5 mmol/L (21.0-32.0) H 02/21/18 06:30 Anion Gap 2.5 mmol/L (3-11) L 02/21/18 06:30 BUN 41 mg/dL (7-18) H 02/21/18 06:30 Creatinine 1.85 mg/dL (0.55-1.02) H 02/21/18 06:30 Estimated GFR/1.73 m2 26.30 (mL/min/1.73m2) 02/21/18 06:30 Glucose 79 mg/dL (70-100) 02/21/18 06:30 Calcium 9.0 mg/dL (8.5-10.1) 02/21/18 06:30 Magnesium 1.8 mg/dL (1.8-2.4) 02/21/18 06:30 Total Bilirubin 0.5 mg/dL (0.2-1.0) 02/18/18 15:05 AST 15 U/L (15-37) 02/18/18 15:05 ALT 9 U/L (12-78) L 02/18/18 15:05 Alkaline Phosphatase 70 U/L (46-116) 02/18/18 15:05 Troponin I < 0.02 ng/mL (0.00-0.06) 02/19/18 06:35 NT-Pro-B Natriuret Pep 2683 pg/mL (-299) H 02/19/18 06:35 Total Protein 6.3 g/dL (6.4-8.2) L 02/18/18 15:05 Albumin 2.7 g/dL (3.4-5.0) L 02/18/18 15:05 Urine Color Yellow (Yellow) 02/18/18 16:15 Urine Clarity Clear 02/18/18 16:15 Urine pH 6.0 (5-8) 02/18/18 16:15 Ur Specific [place] 1.010 (1.005-1.025) 02/18/18 16:15 Urine Protein Negative mg/dL (Negative) 02/18/18 16:15 Urine Ketones Negative mg/dL (Negative) 02/18/18 16:15 Urine Blood Trace-intact (Negative) H 02/18/18 16:15 Urine Nitrite Negative (Negative) 02/18/18 16:15 Urine Bilirubin Negative (Negative) 02/18/18 16:15 Urine Urobilinogen 0.2 EU/dL (Up TO 0.2) 02/18/18 16:15 Ur Leukocyte Esterase Small (Negative) H 02/18/18 16:15 Urine RBC 0-2 (0-2) 02/18/18 16:15 Urine WBC >50 HPF (0-5) 02/18/18 16:15 Ur Epithelial Cells Few HPF (Negative) 02/18/18 16:15 Urine Crystals Negative HPF (Negative) 02/18/18 16:15 Urine Bacteria Few HPF (Negative) 02/18/18 16:15 Urine Mucus Negative (Negative) 02/18/18 16:15 Urine Other Few renal (Negative) 02/18/18 16:15 Ur Culture Indicated? Yes 02/18/18 16:15 Urine Glucose Negative mg/dL (Negative) 02/18/18 16:15 Cyclosporine 159 ng/mL 02/19/18 06:30
--- NOTE | 2018-02-21 10:44 | PDOC.PROG_ITS ---
Date of Service: 02/21/18 Time of Service: 10:41 Assessment/Plan - Assessment/Plan (1) Heart failure with preserved ejection fraction Assessment: Weight up a bit a more rales on exam today despite one additional dose of furosemide yesterday. I will switch to scheduled furosemide BID and monitor fluids status and renal function. (2) Chronic renal disease, stage 3, moderately decreased glomerular filtration rate between 30-59 mL/min/1.73 square meter Assessment: Cr up slightly, but as above I thinks she needs additional diuresis. Will follow. (3) Urinary tract infection Assessment: symptoms resolved with doxycycline. continue. (4) Abdominal pain Assessment: may simply be cramps, not present now and benign exam. Will get LFTs with next blood draw. (5) Skin ulcer Assessment: traumatic/shearing in origen. wound consult ordered. History of Present Illness - History of Present Illness Chief Complaint: sob History of Present Illness: 24 events: none Nursing concern that weight up today, though still 5kg below admission weight. Patient states her SOB is much better than admission but not quite her baseline. no longer has pressure in chest she had when she came in. She had some RUQ that she things was related to her bowels, crampy, does not feel it now. Nursing also asking for wound consult to assess abrasion left shoulder. Review of Systems - Review of Systems Constitutional: denies: Fever, Chills Respiratory: SOB with Excertion. denies: Cough, Pleuritic Pain, Sputum Cardiovascular: denies: Chest Pain, Palpitations, Light Headedness Gastrointestinal: denies: Nausea, Vomiting, Diarrhea Genitourinary: denies: Dysuria, Hematuria Musculoskeletal: Arm Pain, Back Pain Skin: Lesions Neurological: denies: Weakness, Confusion - Medications/Allergies Allergies/Adverse Reactions: Allergies Allergy/AdvReac Type Severity Reaction Status Date / Time thiopental sodium Allergy Intermediate Wheezing Unverified 02/18/18 15:09 [From Pentothal] Penicillins Allergy Unknown ITCHING Unverified 02/18/18 15:09 Medications: Current Medications Acetaminophen (Tylenol) 0 mg PO Q4H PRN PRN Last Admin: 02/21/18 08:58 Dose: 650 mg Al Hydrox/Mg Hydrox/Simethicone (Mylanta Liquid) 30 ml PO Q2H PRN PRN Albuterol Sulfate (Ventolin Hfa) 2 puff IH Q4H PRN PRN Ascorbic Acid (Vitamin C) 1,000 mg PO DAILY [facility] Last Admin: 02/20/18 08:51 Dose: 1,000 mg Aspirin () 81 mg PO DAILY [facility] Last Admin: 02/21/18 08:59 Dose: 81 mg Atorvastatin Calcium (Lipitor) 5 mg PO DAILY [facility] Last Admin: 02/21/18 08:57 Dose: 5 mg Carvedilol (Coreg) 50 mg PO BID [facility] Last Admin: 02/21/18 08:59 Dose: 50 mg Cholecalciferol (Vitamin D) 2,000 units PO DAILY [facility] Last Admin: 02/21/18 09:00 Dose: 2,000 units Dimethicone/Zinc Oxide (Slime Protect Cream) 0 gm TP PRN PRN Docusate Sodium (Colace) 100 mg PO TID PRN PRN Last Admin: 02/21/18 08:59 Dose: 100 mg Docusate Sodium (Colace) 100 mg PO BID [facility] Last Admin: 02/20/18 19:35 Dose: 100 mg Doxycycline Hyclate (Vibramycin) 100 mg PO BID [facility] Last Admin: 02/21/18 08:58 Dose: 100 mg Enoxaparin Sodium (Lovenox) 30 mg SC DAILY [facility] Fluticasone Propionate (Flonase) 0 gm NS BID [facility] Last Admin: 02/21/18 08:55 Dose: 2 sprays Furosemide (Lasix) 40 mg IVP BID@0800,1600 [facility] IV Miscellaneous Supplies () 1 each IV DIRECTED [facility] Magnesium Gluconate () 500 mg PO BID@0600,1800 [facility] Last Admin: 02/21/18 06:28 Dose: 500 mg Magnesium Hydroxide (Milk Of Magnesia) 30 ml PO DAILY PRN PRN Methadone HCl (Dolophine) 5 mg PO TID [facility] Last Admin: 02/21/18 09:00 Dose: 5 mg Morphine Sulfate () 2 mg PO Q1H PRN PRN PRN Reason: SEVERE SOB Last Admin: 02/21/18 06:36 Dose: 2 mg Nitroglycerin (Nitrostat) 0.4 mg SL PRN [facility] Non-Formulary Medication ([place]-3 Fatty Acids/Fish Oil [Fish Oil 1,200 Mg Softgel]) 1 each PO DAILY [facility] Last Admin: 02/20/18 14:56 Dose: Not Given Ondansetron HCl (Zofran Odt) 4 mg SL Q6H PRN PRN Reason: Nausea Pt's Own Cimetidine (800 Mg Tablet) 0.5 each PO BID [facility] Last Admin: 02/21/18 08:54 Dose: 0.5 each Pt's Own Cyclosporine 25 Mg Capsule 3 each PO BID [facility] Last Admin: 02/21/18 08:54 Dose: 3 each Polyethylene Glycol (Miralax) 17 gm PO DAILY PRN PRN PRN Reason: Constipation Prednisone (Deltasone) 5 mg PO DAILY [facility] Last Admin: 02/21/18 08:59 Dose: 5 mg Senna/Docusate Sodium (Josie-Colace Tablet) 2 tab PO BID [facility] Last Admin: 02/21/18 08:58 Dose: 2 tab Sodium Chloride (Saline Flush 10 Ml Syringe) 0 ml IVP PRN PRN Last Admin: 02/21/18 10:00 Dose: 10 ml Objective - Exam Vitals and I&O: Vital Signs Temp 37.4 C 02/20/18 14:23 Pulse 62 02/21/18 10:05 Resp 16 02/21/18 06:00 BP 135/74 02/20/18 20:47 Pulse Ox 94 L 02/20/18 07:12 Intake & Output 02/20/18 02/20/18 02/21/18 11:59 23:59 11:59 Intake Total 700 150 236 Output Total 100 425 Balance 700 50 -189 Weight 76.6 kg 78.3 kg Intake: Oral 700 150 236 Output: Urine 100 425 Other: Urine Color Yellow Urine Appearance Clear Clear Clear Urine Odor None None Comment void x 1, unmeasured, mixed with stool and incontinent in brief. Stool Occult Blood Negative Stool Size Large Stool Characteristics Formed Brown Voiding Methods Bedside Commode Incontinent Bedside Commode Incontinent General: Alert, Oriented x3, Cooperative, No acute distress HEENT: Mucous membr. moist/pink Neck: Supple, JVD Lungs: denies: Clear to auscultation (crackles 1/2 up lungs), Normal air movement (breathing effort shallow) Cardiovascular: Regular rate, Normal S1, Normal S2 Abdomen: Normal bowel sounds, Soft. denies: Tenderness, Hepatospenomegaly Skin: Breakdown (left arm abrasion just redressed by RN). denies: Rashes Psych/Mental Status: Mental status NL - Results Results: Laboratory Results WBC 4.50 k/cumm (4.4-10.8) 02/19/18 06:35 RBC 3.82 m/cumm (4.00-5.20) L 02/19/18 06:35 Hgb 11.3 g/dL (12.0-15.5) L 02/19/18 06:35 Hct 37.0 % (36.0-46.0) 02/19/18 06:35 MCV 96.9 fL (80-95) H 02/19/18 06:35 MCH 29.6 pg (27.0-33.0) 02/19/18 06:35 MCHC 30.5 g/dL (32.0-36.0) L 02/19/18 06:35 RDW 14.0 % (11.7-14.6) 02/19/18 06:35 Plt Count 159 x1000/uL (130-400) 02/19/18 06:35 MPV 10.6 fL (8.0-11.0) 02/19/18 06:35 Immature Gran % 0.2 02/19/18 06:35 Neutrophils % 66.2 02/19/18 06:35 Lymphocytes % 14.9 02/19/18 06:35 Monocytes % 14.7 02/19/18 06:35 Eosinophils % 3.8 02/19/18 06:35 Basophils % 0.2 02/19/18 06:35 Absolute Neutrophils 2.98 k/cumm (1.2-6.7) 02/19/18 06:35 Absolute Lymphocytes 0.67 k/cumm (1.2-3.4) L 02/19/18 06:35 Absolute Monocytes 0.66 k/cumm (0.11-0.7) 02/19/18 06:35 Absolute Eosinophils 0.17 k/cumm (0.0-0.7) 02/19/18 06:35 Absolute Basophils 0.01 k/cumm (0.0-0.2) 02/19/18 06:35 D-Dimer 1840 ng/mlFEU (<500) H 02/19/18 06:35 Sodium 141 mmol/L (136-145) 02/21/18 06:30 Potassium 3.8 mmol/L (3.5-5.1) 02/21/18 06:30 Chloride 102 mmol/L (98-107) 02/21/18 06:30 Carbon Dioxide 36.5 mmol/L (21.0-32.0) H 02/21/18 06:30 Anion Gap 2.5 mmol/L (3-11) L 02/21/18 06:30 BUN 41 mg/dL (7-18) H 02/21/18 06:30 Creatinine 1.85 mg/dL (0.55-1.02) H 02/21/18 06:30 Estimated GFR/1.73 m2 26.30 (mL/min/1.73m2) 02/21/18 06:30 Glucose 79 mg/dL (70-100) 02/21/18 06:30 Calcium 9.0 mg/dL (8.5-10.1) 02/21/18 06:30 Magnesium 1.8 mg/dL (1.8-2.4) 02/21/18 06:30 Total Bilirubin 0.5 mg/dL (0.2-1.0) 02/18/18 15:05 AST 15 U/L (15-37) 02/18/18 15:05 ALT 9 U/L (12-78) L 02/18/18 15:05 Alkaline Phosphatase 70 U/L (46-116) 02/18/18 15:05 Troponin I < 0.02 ng/mL (0.00-0.06) 02/19/18 06:35 NT-Pro-B Natriuret Pep 2683 pg/mL (-299) H 02/19/18 06:35 Total Protein 6.3 g/dL (6.4-8.2) L 02/18/18 15:05 Albumin 2.7 g/dL (3.4-5.0) L 02/18/18 15:05 Urine Color Yellow (Yellow) 02/18/18 16:15 Urine Clarity Clear 02/18/18 16:15 Urine pH 6.0 (5-8) 02/18/18 16:15 Ur Specific [place] 1.010 (1.005-1.025) 02/18/18 16:15 Urine Protein Negative mg/dL (Negative) 02/18/18 16:15 Urine Ketones Negative mg/dL (Negative) 02/18/18 16:15 Urine Blood Trace-intact (Negative) H 02/18/18 16:15 Urine Nitrite Negative (Negative) 02/18/18 16:15 Urine Bilirubin Negative (Negative) 02/18/18 16:15 Urine Urobilinogen 0.2 EU/dL (Up TO 0.2) 02/18/18 16:15 Ur Leukocyte Esterase Small (Negative) H 02/18/18 16:15 Urine RBC 0-2 (0-2) 02/18/18 16:15 Urine WBC >50 HPF (0-5) 02/18/18 16:15 Ur Epithelial Cells Few HPF (Negative) 02/18/18 16:15 Urine Crystals Negative HPF (Negative) 02/18/18 16:15 Urine Bacteria Few HPF (Negative) 02/18/18 16:15 Urine Mucus Negative (Negative) 02/18/18 16:15 Urine Other Few renal (Negative) 02/18/18 16:15 Ur Culture Indicated? Yes 02/18/18 16:15 Urine Glucose Negative mg/dL (Negative) 02/18/18 16:15 Cyclosporine 159 ng/mL 02/19/18 06:30
--- NOTE | 2018-02-21 11:17 | NT_ITS ---
PHYSICAL THERAPY NOTE 02/21/18 Attempted to see patient for PT Session, pt on commode with nursing in room. Pt reporting she is in too much pain to participate in therapy at this time I sat up for breakfast and I had to get back to bed because it hurt too much. RN providing pain medication. Pt deferred therapy session at this time. Will continue attempts Shonna Meadows PT
--- NOTE | 2018-02-21 11:18 | PHARADMIT ---
Addendum entered by Arlen Liao 02/24/18 10:54: Pharmacy Note Subjective possible change to swingbed status today Objective vs stable Assessment Using Morphine oral ewelina'n for pain & breathing difficulty. Plan awaiting copy med order and change of methadone to once/day(per pt request) Original Note: Addendum entered by Colton Simpson III 02/22/18 14:33: Pharmacy Note Subjective MD notes that patient may be over diuresed. Lasix changed to PO. UTI day#3 Doxycycline (total 7 days). Complained of abdominal pain. (better now) Objective VS-OK SCr-2.17 Lytes-OK, Wgt-78.7 kg Having regular BMs Assessment Using Morphine oral ewelina'n for pain & breathing difficulty. Plan Watch wgt, Plts (on Lovenox) SCr. Original Note: Admission Pharmacy Clinical Review CHF exacerbation, Intermediate Probabilty VQ Scan for PE Code Status DNR/DNI Current Weight Wgt- 78.3 kg Renally Cleared and Narrow Therapeutic Index Meds CrCl~ 19.5 mL/min Meds-OK QTc Value / Action Taken QTc-428 ns BP Control, Fever BP 135/74 Tmax-37.4C Electrolytes reviewed Na- 141 K+3.8 mAG-1.8 DVT Prophylaxis Lovenox Opiate Usage / Scheduled Bowel Regimen Ordered Yes Yes Plt/SCr for Heparin / Enoxaparin PLts- 159 SCr-1.85 INR for Warfarin na H/H stable, WBC/Bands H&H- 11.3/37.0 WBC- 4.50 Antibiotic appropriateness Doxycycline PO Cultures and Sensitivities Urine- Stap Aureus MRSA Surgical ABX d/c within 24 hr DM control / Insulin Dosing BG-79 Heart Failure (Check EF%) (DIAZ's, B-Block, Diuretics) Coreg, Lasix, NTG IV to PO Switch No Home Meds Reviewed Yes Home Meds Not Ordered Benzonatate, Torsemide, Comments PatOwn- Cyclopsporin Caps, [place]-3
--- NOTE | 2018-02-21 11:32 | PDOC.CMPRO ---
Date of Service: 02/21/18 Time of Service: 11:32 Care Management Progress Note S/O:Renay is lying in bed in the ICU she continues to be a medical surgical patient. No change in status today. She is complaining of a lot of shoulder discomfort and she is receiving pain management. She continues to want to return home with her caregivers she states Mallory will be the one that picks her up. She will resume home health services nursing and PT. A:77 year old female admitted with CHF, and UTI in the setting of chronic renal disease. P:Renay will return home with continued private caregivers when medically ready for discharge. She will resume home health services for nursing and PT, she will resume oxygen through [facility]. She is seen by her provider at home and provider will need notification when patient is discharged to schedule follow up. Renay will be transported home by caregivers at time of discharge.
--- NOTE | 2018-02-21 14:40 | CHAPLAIN ---
I has a pleasant visit with Renay today. She was siting up in her chair. She said she is having a lot of pain in her shoulders today and not feeling as comfortable as yesterday. This morning around 4 a.m., she said she was having more difficulty breathing and she said she has learned that people with allergies have more respiratory at 4 a.m. than other time during the day or night. Renay is a member of the [employer] and her white lead filterer, Armani Alvarado was in to visit her yesterday.
--- NOTE | 2018-02-21 14:51 | INPTTR_ITS ---
PHYSICAL THERAPY PROGRESS NOTE Date: 02/21/18 PRECAUTIONS: Fall precautions, Contact precautions SUBJECTIVE: Pt lying in bed, reports her shoulder and hip pain is really bothering her today, she is agreeable to bed exercises only. She has been transferring to/from commode with nursing. OBJECTIVE: PAIN: c/o pain in bilateral shoulders and right hip THEREX: LE's: bilateral ankle pumps, quad sets, glute sets x 20 reps, SLR, hip abduction x10 bilaterally UE's: bicep curls x10 pt with increased shoulder pain with this exercise. Unable to perform any exercises that mobilize the shoulders. ASSESSMENT: Pt's pain limiting functional mobility today, able to participate in lower body therapeutic exercise for strengthening. PLAN: Progress strengthening Progress gait mobility TREATMENT CODES/TIME: 10min TP x1 [id number] Shonna Meadows PT
[2018-02-21] MEDS: Furosemide 40 MG/4 ML VIAL IVP (16:14)
[2018-02-22] VITALS (17 sets, daily range): BP systolic 113–166; BP diastolic 71–93; PULSE 55–83; RESP 12–29; TEMP 35.7–37.2; O2SAT 92–94
[2018-02-22] MEDS: Magnesium Gluconate 500 MG TAB PO ×2 (06:48→17:04)
[2018-02-22 07:02] LABS: ALT 6 U/L (12-78); AST 12 U/L (15-37); Albumin 2.5 g/dL (3.4-5.0); Alkaline Phosphatase 61 U/L (46-116); Anion Gap 5.3 mmol/L (3-11); BUN 46 mg/dL (7-18); Bilirubin, Total 0.5 mg/dL (0.2-1.0); CO2 34.7 mmol/L (21.0-32.0); CREATININE 2.17 mg/dL (0.55-1.02); Calcium 8.7 mg/dL (8.5-10.1); Chloride 103 mmol/L (98-107); Estimated GFR 21.87 (mL/min/1.73m2); Glucose 86 mg/dL (70-100); Potassium 3.7 mmol/L (3.5-5.1); Sodium 143 mmol/L (136-145); Total Protein 5.8 g/dL (6.4-8.2)
[2018-02-22] MEDS: predniSONE 5 MG TAB PO (09:53)
[2018-02-22] MEDS: Sennosides/Docusate Sodium TAB 2 TAB PO ×2 (09:53→19:33)
[2018-02-22] MEDS: Atorvastatin 10 MG TAB 5 MG PO (09:54)
[2018-02-22] MEDS: Doxycycline Hyclate 100 MG CAP PO ×2 (09:54→19:33)
[2018-02-22] MEDS: Ascorbic Acid 500 MG TAB 1000 MG PO (09:54)
[2018-02-22] MEDS: Carvedilol 25 MG TAB 50 MG PO ×2 (09:55→19:33)
[2018-02-22] MEDS: Furosemide 40 MG TAB PO ×2 (09:56→17:04)
[2018-02-22] MEDS: Methadone 5 MG TAB PO ×2 (09:56→13:26)
[2018-02-22] MEDS: Aspirin 81 MG CHEW PO (09:58)
[2018-02-22] MEDS: Docusate Sodium 100 MG CAP PO ×2 (09:58→19:34)
[2018-02-22] MEDS: Enoxaparin 30 MG/0.3 ML SYR SC (09:59)
[2018-02-22] MEDS: Fluticasone NASAL SPRAY 16 GM BTL NS ×2 (09:59→19:37)
--- NOTE | 2018-02-22 10:07 | INPTTR_ITS ---
PHYSICAL THERAPY PROGRESS NOTE Date: 02/22/18 PRECAUTIONS: Fall precautions, Contact precautions SUBJECTIVE: Pt lying in bed, states she is in too much pain to get up this morning, I will try to walk this afternoon, but I can't this morning. She is agreeable to therapeutic exercises. OBJECTIVE: PAIN: c/o pain in bilateral shoulders and right hip, abdomen THEREX: LE's: bilateral ankle pumps, quad sets, glute sets x 20 reps ASSESSMENT: Pt able to participate in therapeutic exercise only. PLAN: Progress strengthening Progress gait mobility TREATMENT CODES/TIME: 10min TP x1 10:10 Shonna Meadows PT
--- NOTE | 2018-02-22 13:21 | PDOC.PROG ---
Date of Service: 02/22/18 Time of Service: 09:25 Assessment/Plan - Assessment/Plan (1) Heart failure with preserved ejection fraction Assessment: I think we've overdiuresed Renay today slightly with creatinine heading up. I think rales we hear are likely chronic. She likely has restrictive element related to severe chronic pain in shoulder girdle and this limits deep breath. I will resume her lower home furosemide dosing and encourage her to mobilize more today. (2) Chronic renal disease, stage 3, moderately decreased glomerular filtration rate between 30-59 mL/min/1.73 square meter Assessment: Worse today. Clearly related to increased diuresis. backing down as above. Follow. (3) Urinary tract infection Assessment: Day #3 doxycycline for MRSA UTI. Given her clear response, I think I will treat for 7 days given h/o recurrent infections. (4) Abdominal pain Assessment: Having pain off and on per report, but exam benign this morning and eating well without an increase in pain, which is reassuring. LFTs are reassuring as well. Follow. Bowel regimen for opioid related constipation. (5) Skin ulcer Assessment: would care per nursing recommendations History of Present Illness - History of Present Illness Chief Complaint: fatigue History of Present Illness: events: increased furosemide yesterday to 40mg IV BID (from po) Renay states she just feels exhausted. SOB still much better than when she came in, states she always has a little bit of crackles in her lungs. She denies chest pain or palpitations. She has a little bit of abdominal pain in the RUQ but she is eating now and it isn't causing pain. She still thinks it is related to some constipation as she struggles with this chronically. No longer has dysuria. Big complaint is her shoulder pain. Review of Systems - Review of Systems Constitutional: denies: Fever, Chills Respiratory: SOB with Excertion. denies: Cough, Pleuritic Pain, Sputum Cardiovascular: denies: Chest Pain, Palpitations, Light Headedness Gastrointestinal: Abdominal Pain. denies: Nausea, Vomiting, Diarrhea, Hematochezia Genitourinary: denies: Dysuria, Hematuria Skin: denies: Rash Neurological: denies: Confusion - Medications/Allergies Allergies/Adverse Reactions: Allergies Allergy/AdvReac Type Severity Reaction Status Date / Time thiopental sodium Allergy Intermediate Wheezing Unverified 02/18/18 15:09 [From Pentothal] Penicillins Allergy Unknown ITCHING Unverified 02/18/18 15:09 Medications: Current Medications Acetaminophen (Tylenol) 0 mg PO Q4H PRN PRN Last Admin: 02/21/18 19:08 Dose: 650 mg Al Hydrox/Mg Hydrox/Simethicone (Mylanta Liquid) 30 ml PO Q2H PRN PRN Albuterol Sulfate (Ventolin Hfa) 2 puff IH Q4H PRN PRN Ascorbic Acid (Vitamin C) 1,000 mg PO DAILY [facility] Last Admin: 02/22/18 09:54 Dose: 1,000 mg Aspirin () 81 mg PO DAILY [facility] Last Admin: 02/22/18 09:58 Dose: 81 mg Atorvastatin Calcium (Lipitor) 5 mg PO DAILY [facility] Last Admin: 02/22/18 09:54 Dose: 5 mg Carvedilol (Coreg) 50 mg PO BID [facility] Last Admin: 02/22/18 09:55 Dose: 50 mg Cholecalciferol (Vitamin D) 2,000 units PO DAILY [facility] Last Admin: 02/22/18 09:55 Dose: 2,000 units Dimethicone/Zinc Oxide (Slime Protect Cream) 0 gm TP PRN PRN Docusate Sodium (Colace) 100 mg PO TID PRN PRN Last Admin: 02/21/18 08:59 Dose: 100 mg Docusate Sodium (Colace) 100 mg PO BID [facility] Last Admin: 02/22/18 09:58 Dose: 100 mg Doxycycline Hyclate (Vibramycin) 100 mg PO BID [facility] Last Admin: 02/22/18 09:54 Dose: 100 mg Enoxaparin Sodium (Lovenox) 30 mg SC DAILY [facility] Last Admin: 02/22/18 09:59 Dose: 30 mg Fluticasone Propionate (Flonase) 0 gm NS BID [facility] Last Admin: 02/22/18 09:59 Dose: 2 sprays Furosemide (Lasix) 40 mg PO BID@0830,1600 [facility] Last Admin: 02/22/18 09:56 Dose: 40 mg IV Miscellaneous Supplies () 1 each IV DIRECTED [facility] Magnesium Gluconate () 500 mg PO BID@0600,1800 [facility] Last Admin: 02/22/18 06:48 Dose: 500 mg Magnesium Hydroxide (Milk Of Magnesia) 30 ml PO DAILY PRN PRN Methadone HCl (Dolophine) 5 mg PO TID [facility] Last Admin: 02/22/18 09:56 Dose: 5 mg Morphine Sulfate () 2 mg PO Q1H PRN PRN PRN Reason: SEVERE SOB Last Admin: 02/22/18 10:04 Dose: 2 mg Nitroglycerin (Nitrostat) 0.4 mg SL PRN [facility] Non-Formulary Medication ([place]-3 Fatty Acids/Fish Oil [Fish Oil 1,200 Mg Softgel]) 1 each PO DAILY [facility] Last Admin: 02/22/18 09:59 Dose: Not Given Ondansetron HCl (Zofran Odt) 4 mg SL Q6H PRN PRN Reason: Nausea Pt's Own Cimetidine (800 Mg Tablet) 0.5 each PO BID [facility] Last Admin: 02/22/18 09:58 Dose: 0.5 each Pt's Own Cyclosporine 25 Mg Capsule 3 each PO BID [facility] Last Admin: 02/22/18 09:59 Dose: 3 each Polyethylene Glycol (Miralax) 17 gm PO DAILY PRN PRN PRN Reason: Constipation Prednisone (Deltasone) 5 mg PO DAILY [facility] Last Admin: 02/22/18 09:53 Dose: 5 mg Senna/Docusate Sodium (Josie-Colace Tablet) 2 tab PO BID [facility] Last Admin: 02/22/18 09:53 Dose: 2 tab Sodium Chloride (Saline Flush 10 Ml Syringe) 0 ml IVP PRN PRN Last Admin: 02/21/18 16:17 Dose: 10 ml Objective - Exam Vitals and I&O: Vital Signs Temp 37.0 C 02/21/18 08:45 Pulse 72 02/22/18 11:54 Resp 17 02/22/18 11:54 BP 156/93 02/22/18 11:54 Pulse Ox 94 L 02/20/18 07:12 Intake & Output 02/21/18 02/22/18 02/22/18 23:59 11:59 23:59 Intake Total 275 60 Output Total 830 600 100 Balance -555 -540 -100 Weight 78.7 kg Intake: Oral 275 60 Output: Urine 830 600 100 Other: Urine Color Yellow Yellow Yellow Straw Urine Appearance Clear Clear Clear Urine Odor None Normal None Comment approx 200 ml mixed in with stool Stool Size Small Small Stool Characteristics Soft Soft Brown Formed Brown Voiding Methods Bedside Commode Bedside Commode Bedside Commode General: Alert, Oriented x3, Cooperative, Mild distress (in pain with movement) HEENT: Mucous membr. moist/pink Neck: denies: JVD Lungs: Normal air movement. denies: Clear to auscultation (rales 1/3 up lungs, no wheeze) Cardiovascular: Normal S1, Normal S2. denies: Murmurs Abdomen: Normal bowel sounds, Soft. denies: Tenderness (not tender to palpation today, neg murphies in RUQ. ), Masses Extremities: Edema (puffy in ankles, but minimal pitting, legs appear dry/shriveled). denies: Cyanosis Skin: denies: Rashes Psych/Mental Status: Mental status NL - Results Results: Laboratory Results WBC 4.50 k/cumm (4.4-10.8) 02/19/18 06:35 RBC 3.82 m/cumm (4.00-5.20) L 02/19/18 06:35 Hgb 11.3 g/dL (12.0-15.5) L 02/19/18 06:35 Hct 37.0 % (36.0-46.0) 02/19/18 06:35 MCV 96.9 fL (80-95) H 02/19/18 06:35 MCH 29.6 pg (27.0-33.0) 02/19/18 06:35 MCHC 30.5 g/dL (32.0-36.0) L 02/19/18 06:35 RDW 14.0 % (11.7-14.6) 02/19/18 06:35 Plt Count 159 x1000/uL (130-400) 02/19/18 06:35 MPV 10.6 fL (8.0-11.0) 02/19/18 06:35 Immature Gran % 0.2 02/19/18 06:35 Neutrophils % 66.2 02/19/18 06:35 Lymphocytes % 14.9 02/19/18 06:35 Monocytes % 14.7 02/19/18 06:35 Eosinophils % 3.8 02/19/18 06:35 Basophils % 0.2 02/19/18 06:35 Absolute Neutrophils 2.98 k/cumm (1.2-6.7) 02/19/18 06:35 Absolute Lymphocytes 0.67 k/cumm (1.2-3.4) L 02/19/18 06:35 Absolute Monocytes 0.66 k/cumm (0.11-0.7) 02/19/18 06:35 Absolute Eosinophils 0.17 k/cumm (0.0-0.7) 02/19/18 06:35 Absolute Basophils 0.01 k/cumm (0.0-0.2) 02/19/18 06:35 D-Dimer 1840 ng/mlFEU (<500) H 02/19/18 06:35 Sodium 143 mmol/L (136-145) 02/22/18 06:10 Potassium 3.7 mmol/L (3.5-5.1) 02/22/18 06:10 Chloride 103 mmol/L (98-107) 02/22/18 06:10 Carbon Dioxide 34.7 mmol/L (21.0-32.0) H 02/22/18 06:10 Anion Gap 5.3 mmol/L (3-11) 02/22/18 06:10 BUN 46 mg/dL (7-18) H 02/22/18 06:10 Creatinine 2.17 mg/dL (0.55-1.02) H 02/22/18 06:10 Estimated GFR/1.73 m2 21.87 (mL/min/1.73m2) 02/22/18 06:10 Glucose 86 mg/dL (70-100) 02/22/18 06:10 Calcium 8.7 mg/dL (8.5-10.1) 02/22/18 06:10 Magnesium 1.8 mg/dL (1.8-2.4) 02/21/18 06:30 Total Bilirubin 0.5 mg/dL (0.2-1.0) 02/22/18 06:10 AST 12 U/L (15-37) L 02/22/18 06:10 ALT 6 U/L (12-78) L 02/22/18 06:10 Alkaline Phosphatase 61 U/L (46-116) 02/22/18 06:10 Troponin I < 0.02 ng/mL (0.00-0.06) 02/19/18 06:35 NT-Pro-B Natriuret Pep 2683 pg/mL (-299) H 02/19/18 06:35 Total Protein 5.8 g/dL (6.4-8.2) L 02/22/18 06:10 Albumin 2.5 g/dL (3.4-5.0) L 02/22/18 06:10 Urine Color Yellow (Yellow) 02/18/18 16:15 Urine Clarity Clear 02/18/18 16:15 Urine pH 6.0 (5-8) 02/18/18 16:15 Ur Specific [place] 1.010 (1.005-1.025) 02/18/18 16:15 Urine Protein Negative mg/dL (Negative) 02/18/18 16:15 Urine Ketones Negative mg/dL (Negative) 02/18/18 16:15 Urine Blood Trace-intact (Negative) H 02/18/18 16:15 Urine Nitrite Negative (Negative) 02/18/18 16:15 Urine Bilirubin Negative (Negative) 02/18/18 16:15 Urine Urobilinogen 0.2 EU/dL (Up TO 0.2) 02/18/18 16:15 Ur Leukocyte Esterase Small (Negative) H 02/18/18 16:15 Urine RBC 0-2 (0-2) 02/18/18 16:15 Urine WBC >50 HPF (0-5) 02/18/18 16:15 Ur Epithelial Cells Few HPF (Negative) 02/18/18 16:15 Urine Crystals Negative HPF (Negative) 02/18/18 16:15 Urine Bacteria Few HPF (Negative) 02/18/18 16:15 Urine Mucus Negative (Negative) 02/18/18 16:15 Urine Other Few renal (Negative) 02/18/18 16:15 Ur Culture Indicated? Yes 02/18/18 16:15 Urine Glucose Negative mg/dL (Negative) 02/18/18 16:15 Cyclosporine 159 ng/mL 02/19/18 06:30
--- NOTE | 2018-02-22 13:24 | PDOC.PROG_ITS ---
Date of Service: 02/22/18 Time of Service: 09:25 Assessment/Plan - Assessment/Plan (1) Heart failure with preserved ejection fraction Assessment: I think we've overdiuresed Renay today slightly with creatinine heading up. I think rales we hear are likely chronic. She likely has restrictive element related to severe chronic pain in shoulder girdle and this limits deep breath. I will resume her lower home furosemide dosing and encourage her to mobilize more today. (2) Chronic renal disease, stage 3, moderately decreased glomerular filtration rate between 30-59 mL/min/1.73 square meter Assessment: Worse today. Clearly related to increased diuresis. backing down as above. Follow. (3) Urinary tract infection Assessment: Day #3 doxycycline for MRSA UTI. Given her clear response, I think I will treat for 7 days given h/o recurrent infections. (4) Abdominal pain Assessment: Having pain off and on per report, but exam benign this morning and eating well without an increase in pain, which is reassuring. LFTs are reassuring as well. Follow. Bowel regimen for opioid related constipation. (5) Skin ulcer Assessment: would care per nursing recommendations History of Present Illness - History of Present Illness Chief Complaint: fatigue History of Present Illness: events: increased furosemide yesterday to 40mg IV BID (from po) Renay states she just feels exhausted. SOB still much better than when she came in, states she always has a little bit of crackles in her lungs. She denies chest pain or palpitations. She has a little bit of abdominal pain in the RUQ but she is eating now and it isn't causing pain. She still thinks it is related to some constipation as she struggles with this chronically. No longer has dysuria. Big complaint is her shoulder pain. Review of Systems - Review of Systems Constitutional: denies: Fever, Chills Respiratory: SOB with Excertion. denies: Cough, Pleuritic Pain, Sputum Cardiovascular: denies: Chest Pain, Palpitations, Light Headedness Gastrointestinal: Abdominal Pain. denies: Nausea, Vomiting, Diarrhea, Hematochezia Genitourinary: denies: Dysuria, Hematuria Skin: denies: Rash Neurological: denies: Confusion - Medications/Allergies Allergies/Adverse Reactions: Allergies Allergy/AdvReac Type Severity Reaction Status Date / Time thiopental sodium Allergy Intermediate Wheezing Unverified 02/18/18 15:09 [From Pentothal] Penicillins Allergy Unknown ITCHING Unverified 02/18/18 15:09 Medications: Current Medications Acetaminophen (Tylenol) 0 mg PO Q4H PRN PRN Last Admin: 02/21/18 19:08 Dose: 650 mg Al Hydrox/Mg Hydrox/Simethicone (Mylanta Liquid) 30 ml PO Q2H PRN PRN Albuterol Sulfate (Ventolin Hfa) 2 puff IH Q4H PRN PRN Ascorbic Acid (Vitamin C) 1,000 mg PO DAILY [facility] Last Admin: 02/22/18 09:54 Dose: 1,000 mg Aspirin () 81 mg PO DAILY [facility] Last Admin: 02/22/18 09:58 Dose: 81 mg Atorvastatin Calcium (Lipitor) 5 mg PO DAILY [facility] Last Admin: 02/22/18 09:54 Dose: 5 mg Carvedilol (Coreg) 50 mg PO BID [facility] Last Admin: 02/22/18 09:55 Dose: 50 mg Cholecalciferol (Vitamin D) 2,000 units PO DAILY [facility] Last Admin: 02/22/18 09:55 Dose: 2,000 units Dimethicone/Zinc Oxide (Slime Protect Cream) 0 gm TP PRN PRN Docusate Sodium (Colace) 100 mg PO TID PRN PRN Last Admin: 02/21/18 08:59 Dose: 100 mg Docusate Sodium (Colace) 100 mg PO BID [facility] Last Admin: 02/22/18 09:58 Dose: 100 mg Doxycycline Hyclate (Vibramycin) 100 mg PO BID [facility] Last Admin: 02/22/18 09:54 Dose: 100 mg Enoxaparin Sodium (Lovenox) 30 mg SC DAILY [facility] Last Admin: 02/22/18 09:59 Dose: 30 mg Fluticasone Propionate (Flonase) 0 gm NS BID [facility] Last Admin: 02/22/18 09:59 Dose: 2 sprays Furosemide (Lasix) 40 mg PO BID@0830,1600 [facility] Last Admin: 02/22/18 09:56 Dose: 40 mg IV Miscellaneous Supplies () 1 each IV DIRECTED [facility] Magnesium Gluconate () 500 mg PO BID@0600,1800 [facility] Last Admin: 02/22/18 06:48 Dose: 500 mg Magnesium Hydroxide (Milk Of Magnesia) 30 ml PO DAILY PRN PRN Methadone HCl (Dolophine) 5 mg PO TID [facility] Last Admin: 02/22/18 09:56 Dose: 5 mg Morphine Sulfate () 2 mg PO Q1H PRN PRN PRN Reason: SEVERE SOB Last Admin: 02/22/18 10:04 Dose: 2 mg Nitroglycerin (Nitrostat) 0.4 mg SL PRN [facility] Non-Formulary Medication ([place]-3 Fatty Acids/Fish Oil [Fish Oil 1,200 Mg Softgel]) 1 each PO DAILY [facility] Last Admin: 02/22/18 09:59 Dose: Not Given Ondansetron HCl (Zofran Odt) 4 mg SL Q6H PRN PRN Reason: Nausea Pt's Own Cimetidine (800 Mg Tablet) 0.5 each PO BID [facility] Last Admin: 02/22/18 09:58 Dose: 0.5 each Pt's Own Cyclosporine 25 Mg Capsule 3 each PO BID [facility] Last Admin: 02/22/18 09:59 Dose: 3 each Polyethylene Glycol (Miralax) 17 gm PO DAILY PRN PRN PRN Reason: Constipation Prednisone (Deltasone) 5 mg PO DAILY [facility] Last Admin: 02/22/18 09:53 Dose: 5 mg Senna/Docusate Sodium (Josie-Colace Tablet) 2 tab PO BID [facility] Last Admin: 02/22/18 09:53 Dose: 2 tab Sodium Chloride (Saline Flush 10 Ml Syringe) 0 ml IVP PRN PRN Last Admin: 02/21/18 16:17 Dose: 10 ml Objective - Exam Vitals and I&O: Vital Signs Temp 37.0 C 02/21/18 08:45 Pulse 72 02/22/18 11:54 Resp 17 02/22/18 11:54 BP 156/93 02/22/18 11:54 Pulse Ox 94 L 02/20/18 07:12 Intake & Output 02/21/18 02/22/18 02/22/18 23:59 11:59 23:59 Intake Total 275 60 Output Total 830 600 100 Balance -555 -540 -100 Weight 78.7 kg Intake: Oral 275 60 Output: Urine 830 600 100 Other: Urine Color Yellow Yellow Yellow Straw Urine Appearance Clear Clear Clear Urine Odor None Normal None Comment approx 200 ml mixed in with stool Stool Size Small Small Stool Characteristics Soft Soft Brown Formed Brown Voiding Methods Bedside Commode Bedside Commode Bedside Commode General: Alert, Oriented x3, Cooperative, Mild distress (in pain with movement) HEENT: Mucous membr. moist/pink Neck: denies: JVD Lungs: Normal air movement. denies: Clear to auscultation (rales 1/3 up lungs, no wheeze) Cardiovascular: Normal S1, Normal S2. denies: Murmurs Abdomen: Normal bowel sounds, Soft. denies: Tenderness (not tender to palpation today, neg murphies in RUQ. ), Masses Extremities: Edema (puffy in ankles, but minimal pitting, legs appear dry/ shriveled). denies: Cyanosis Skin: denies: Rashes Psych/Mental Status: Mental status NL - Results Results: Laboratory Results WBC 4.50 k/cumm (4.4-10.8) 02/19/18 06:35 RBC 3.82 m/cumm (4.00-5.20) L 02/19/18 06:35 Hgb 11.3 g/dL (12.0-15.5) L 02/19/18 06:35 Hct 37.0 % (36.0-46.0) 02/19/18 06:35 MCV 96.9 fL (80-95) H 02/19/18 06:35 MCH 29.6 pg (27.0-33.0) 02/19/18 06:35 MCHC 30.5 g/dL (32.0-36.0) L 02/19/18 06:35 RDW 14.0 % (11.7-14.6) 02/19/18 06:35 Plt Count 159 x1000/uL (130-400) 02/19/18 06:35 MPV 10.6 fL (8.0-11.0) 02/19/18 06:35 Immature Gran % 0.2 02/19/18 06:35 Neutrophils % 66.2 02/19/18 06:35 Lymphocytes % 14.9 02/19/18 06:35 Monocytes % 14.7 02/19/18 06:35 Eosinophils % 3.8 02/19/18 06:35 Basophils % 0.2 02/19/18 06:35 Absolute Neutrophils 2.98 k/cumm (1.2-6.7) 02/19/18 06:35 Absolute Lymphocytes 0.67 k/cumm (1.2-3.4) L 02/19/18 06:35 Absolute Monocytes 0.66 k/cumm (0.11-0.7) 02/19/18 06:35 Absolute Eosinophils 0.17 k/cumm (0.0-0.7) 02/19/18 06:35 Absolute Basophils 0.01 k/cumm (0.0-0.2) 02/19/18 06:35 D-Dimer 1840 ng/mlFEU (<500) H 02/19/18 06:35 Sodium 143 mmol/L (136-145) 02/22/18 06:10 Potassium 3.7 mmol/L (3.5-5.1) 02/22/18 06:10 Chloride 103 mmol/L (98-107) 02/22/18 06:10 Carbon Dioxide 34.7 mmol/L (21.0-32.0) H 02/22/18 06:10 Anion Gap 5.3 mmol/L (3-11) 02/22/18 06:10 BUN 46 mg/dL (7-18) H 02/22/18 06:10 Creatinine 2.17 mg/dL (0.55-1.02) H 02/22/18 06:10 Estimated GFR/1.73 m2 21.87 (mL/min/1.73m2) 02/22/18 06:10 Glucose 86 mg/dL (70-100) 02/22/18 06:10 Calcium 8.7 mg/dL (8.5-10.1) 02/22/18 06:10 Magnesium 1.8 mg/dL (1.8-2.4) 02/21/18 06:30 Total Bilirubin 0.5 mg/dL (0.2-1.0) 02/22/18 06:10 AST 12 U/L (15-37) L 02/22/18 06:10 ALT 6 U/L (12-78) L 02/22/18 06:10 Alkaline Phosphatase 61 U/L (46-116) 02/22/18 06:10 Troponin I < 0.02 ng/mL (0.00-0.06) 02/19/18 06:35 NT-Pro-B Natriuret Pep 2683 pg/mL (-299) H 02/19/18 06:35 Total Protein 5.8 g/dL (6.4-8.2) L 02/22/18 06:10 Albumin 2.5 g/dL (3.4-5.0) L 02/22/18 06:10 Urine Color Yellow (Yellow) 02/18/18 16:15 Urine Clarity Clear 02/18/18 16:15 Urine pH 6.0 (5-8) 02/18/18 16:15 Ur Specific [place] 1.010 (1.005-1.025) 02/18/18 16:15 Urine Protein Negative mg/dL (Negative) 02/18/18 16:15 Urine Ketones Negative mg/dL (Negative) 02/18/18 16:15 Urine Blood Trace-intact (Negative) H 02/18/18 16:15 Urine Nitrite Negative (Negative) 02/18/18 16:15 Urine Bilirubin Negative (Negative) 02/18/18 16:15 Urine Urobilinogen 0.2 EU/dL (Up TO 0.2) 02/18/18 16:15 Ur Leukocyte Esterase Small (Negative) H 02/18/18 16:15 Urine RBC 0-2 (0-2) 02/18/18 16:15 Urine WBC >50 HPF (0-5) 02/18/18 16:15 Ur Epithelial Cells Few HPF (Negative) 02/18/18 16:15 Urine Crystals Negative HPF (Negative) 02/18/18 16:15 Urine Bacteria Few HPF (Negative) 02/18/18 16:15 Urine Mucus Negative (Negative) 02/18/18 16:15 Urine Other Few renal (Negative) 02/18/18 16:15 Ur Culture Indicated? Yes 02/18/18 16:15 Urine Glucose Negative mg/dL (Negative) 02/18/18 16:15 Cyclosporine 159 ng/mL 02/19/18 06:30
--- NOTE | 2018-02-22 13:46 | PDOC.CMPRO ---
Date of Service: 02/22/18 Time of Service: 13:46 Care Management Progress Note S/O:Renay is lying in bed when this writer producer visits with her. She remembers CM from her previous admission. Renay states that she is doing well, though having some troubles with her pain. CM reviewed DC plan with Renay which remains unchanged at this time. A:77 year old female admitted with CHF, and UTI in the setting of chronic renal disease. P:Renay will return home with continued private caregivers when medically ready for discharge. She will resume home health services for nursing and PT, she will resume oxygen through [facility]. She is seen by her provider at home and provider will need notification when patient is discharged to schedule follow up. Renay will be transported home by caregivers at time of discharge.
--- NOTE | 2018-02-22 14:15 | INPTTR_ITS ---
PHYSICAL THERAPY PROGRESS NOTE Date: 02/22/18 PRECAUTIONS: Fall SUBJECTIVE: Renay states that she is tired this afternoon, however, is willing to participate in PT. OBJECTIVE PAIN: Patient complains of pain in shoulder BED MOBILITY/TRANSFERS Sit-supine: Min A with HOB at 20 degrees Sit-stand: SBA Stand-sit: SBA Chair-bed: SBA GAIT Assistive Device FWW Weightbearing Full Assist: SBA Distance: 20' ASSESSMENT: Patient tolerated session with some c/o shoulder pain, however, was able to perform gait training with SBA, with FWW support. Patient would benefit from continued strengthening to improve endurance and ability to perform transfers. PLAN: Continue with PT's POC TREATMENT CODES/TIME: 15 minutes; TAx1
--- NOTE | 2018-02-22 14:15 | CMPROGNOTE_ITS ---
Date of Service: 02/22/18 Time of Service: 13:46 Care Management Progress Note S/O:Renay is lying in bed when this bond underwriter visits with her. She remembers CM from her previous admission. Renay states that she is doing well, though having some troubles with her pain. CM reviewed DC plan with Renay which remains unchanged at this time. A:77 year old female admitted with CHF, and UTI in the setting of chronic renal disease. P:Renay will return home with continued private caregivers when medically ready for discharge. She will resume home health services for nursing and PT, she will resume oxygen through [facility]. She is seen by her provider at home and provider will need notification when patient is discharged to schedule follow up. Renay will be transported home by caregivers at time of discharge.
[2018-02-23] MEDS: predniSONE 5 MG TAB PO (08:10)
[2018-02-23] MEDS: Carvedilol 25 MG TAB 50 MG PO ×2 (08:10→20:16)
[2018-02-23] MEDS: Furosemide 40 MG TAB PO ×2 (08:10→15:20)
[2018-02-23] MEDS: Enoxaparin 30 MG/0.3 ML SYR SC (08:10)
[2018-02-23] MEDS: Aspirin 81 MG CHEW PO (08:10)
[2018-02-23] MEDS: Fluticasone NASAL SPRAY 16 GM BTL NS ×2 (08:10→20:17)
[2018-02-23] MEDS: Normal Saline Flush 10 ML SYR IVP (08:10)
[2018-02-23] MEDS: Docusate Sodium 100 MG CAP PO ×2 (08:10→20:17)
[2018-02-23] MEDS: Doxycycline Hyclate 100 MG CAP PO ×2 (08:10→20:17)
[2018-02-23] MEDS: Ascorbic Acid 500 MG TAB 1000 MG PO (08:10)
[2018-02-23] MEDS: Atorvastatin 10 MG TAB 5 MG PO (08:10)
[2018-02-23] MEDS: Methadone 5 MG TAB PO ×2 (08:10→13:40)
[2018-02-23] MEDS: Sennosides/Docusate Sodium TAB 2 TAB PO ×2 (09:11→20:17)
--- NOTE | 2018-02-23 09:30 | PDOC.CMPRO ---
- If Service Date Differs Date of service: 02/23/18 Time of Service: 09:30 Care Management Progress Note S/O: Renay is lying in bed when this journalists and other writers visits with her this morning. Renay states that she is feeling weak and does not feel as though she is ready to return home. CM spoke with Dr. Anguiano whom states that Renay is close to being medically cleared. CM spoke with Renay in regards to this and she feels as though she needs ?another few days because I?m so weak?. CM discussed DC options such as SNF referral or swingbed. Renay states that she would prefer the swingbed for 3-5 days for strengthening prior to returning home. Renay is well supported at home with private caregivers 4 hours a day and home health RN/PT services. P: Renay will be placed in a swingbed level of care for 3-5 days of PT once medically cleared. [facility] DC plan is to return home with continued home health RN/PT services as well as continued private caregiver services. [facility] caregiver will transport when ready.
[2018-02-23 10:00] VITALS: BP 106/60; PULSE 58; RESP 18; O2SAT 94
[2018-02-23 11:30] VITALS: BP 139/75; PULSE 64; RESP 20; TEMP 37; O2SAT 99
[2018-02-23 15:01] LABS: Platelet Count 188 x1000/uL (130-400)
[2018-02-23 15:15] VITALS: BP 93/56; PULSE 65; RESP 18; TEMP 36.7; O2SAT 94
[2018-02-23 16:30] VITALS: BP 119/78; PULSE 65
--- NOTE | 2018-02-23 17:43 | W.PM.PROGNOT ---
Assessment and Plan (1) Heart failure with preserved ejection fraction: Current visit: Yes Status: Acute Patient has diuresed nicely. Subjectively her breathing is much improved. Continue Lasix at present dose. (2) Chronic renal disease, stage 3, moderately decreased glomerular filtration rate between 30-59 mL/min/1.73 square meter: Current visit: Yes Status: Acute Renal function has stabilized. (3) Elevated d-dimer: Current visit: Yes Status: Acute V/Q scan was equivocal. Anticoagulation is stopped. No evidence of pulmonary embolism at this time. (4) Status post living-donor kidney transplantation: Current visit: Yes Status: Acute Donor kidney appears to be stable. She appears to be euvolemic. (5) Discharge planning issues: Current visit: No Status: Acute DNR/DNI. Continue monitor in acute care status. She will likely need to transition to long term level of care for continued rehabilitation given her extreme weakness. Subjective Patient reports: no new complaints Interval history since last seen: Still feels very weak and washed out. She does not feel ready to go home. No significant cough no shortness of breath. She has a skin tear in her left upper arm that is not bothering her at all. She still requiring as needed morphine for her chronic pain but refuses her nighttime methadone because it gives her nightmares. Exam Narrative Exam Narrative: She is lying nearly flat in bed in no apparent distress. Very pleasant and interactive. Chest Chest: normal inspection of the chest Resp Effort & Inspection: normal respiratory effort Other: Some rales at the right base but normal upper lung salomon on the right and clear on the left. Cardio Rate: regular rate Rhythm: regular rhythm Heart Sounds: S1 normal, S2 normal and no murmurs GI Palpation: soft and no guarding Skin Other: Left upper arm in the lateral portion she has a skin tear about 2 to half to 3 cm in size. There is quite a bit of bruising surrounding this, evidence of subcutaneous bleeding. No sign of infection. Mepilex was applied. Objective Objective Clinical Data: Vital Signs Temp 36.7 C 02/23/18 15:15 Pulse 65 02/23/18 16:30 Resp 18 02/23/18 15:15 BP 119/78 02/23/18 16:30 Pulse Ox 94 L 02/23/18 15:15 Intake & Output 02/22/18 02/23/18 02/23/18 23:59 11:59 23:59 Intake Total 100 / 100 260 / 260 250 / 250 Output Total 1650 / 1650 750 / 750 Balance -1550 / -1550 -490 / -490 230 / 230 Intake: IV Oral 100 / 100 250 / 250 250 / 250 Output: Urine 1650 / 1650 750 / 750 20 20 Other: Urine Color Yellow Yellow Yellow Urine Appearance Clear Clear Clear Urine Odor None Normal Comment mixed with BM Stool Size Moderate Moderate Stool Characteristics Formed Formed Brown Voiding Methods Bedside Commode Bedside Commode Bedside Commode Laboratory Results WBC 4.50 k/cumm (4.4-10.8) 02/19/18 06:35 RBC 3.82 m/cumm (4.00-5.20) L 02/19/18 06:35 Hgb 11.3 g/dL (12.0-15.5) L 02/19/18 06:35 Hct 37.0 % (36.0-46.0) 02/19/18 06:35 MCV 96.9 fL (80-95) H 02/19/18 06:35 MCH 29.6 pg (27.0-33.0) 02/19/18 06:35 MCHC 30.5 g/dL (32.0-36.0) L 02/19/18 06:35 RDW 14.0 % (11.7-14.6) 02/19/18 06:35 Plt Count 188 x1000/uL (130-400) 02/23/18 06:20 MPV 10.6 fL (8.0-11.0) 02/19/18 06:35 Immature Gran % 0.2 02/19/18 06:35 Neutrophils % 66.2 02/19/18 06:35 Lymphocytes % 14.9 02/19/18 06:35 Monocytes % 14.7 02/19/18 06:35 Eosinophils % 3.8 02/19/18 06:35 Basophils % 0.2 02/19/18 06:35 Absolute Neutrophils 2.98 k/cumm (1.2-6.7) 02/19/18 06:35 Absolute Lymphocytes 0.67 k/cumm (1.2-3.4) L 02/19/18 06:35 Absolute Monocytes 0.66 k/cumm (0.11-0.7) 02/19/18 06:35 Absolute Eosinophils 0.17 k/cumm (0.0-0.7) 02/19/18 06:35 Absolute Basophils 0.01 k/cumm (0.0-0.2) 02/19/18 06:35 D-Dimer 1840 ng/mlFEU (<500) H 02/19/18 06:35 Sodium 143 mmol/L (136-145) 02/22/18 06:10 Potassium 3.7 mmol/L (3.5-5.1) 02/22/18 06:10 Chloride 103 mmol/L (98-107) 02/22/18 06:10 Carbon Dioxide 34.7 mmol/L (21.0-32.0) H 02/22/18 06:10 Anion Gap 5.3 mmol/L (3-11) 02/22/18 06:10 BUN 46 mg/dL (7-18) H 02/22/18 06:10 Creatinine 2.17 mg/dL (0.55-1.02) H 02/22/18 06:10 Estimated GFR/1.73 m2 21.87 (mL/min/1.73m2) 02/22/18 06:10 Glucose 86 mg/dL (70-100) 02/22/18 06:10 Calcium 8.7 mg/dL (8.5-10.1) 02/22/18 06:10 Magnesium 1.8 mg/dL (1.8-2.4) 02/21/18 06:30 Total Bilirubin 0.5 mg/dL (0.2-1.0) 02/22/18 06:10 AST 12 U/L (15-37) L 02/22/18 06:10 ALT 6 U/L (12-78) L 02/22/18 06:10 Alkaline Phosphatase 61 U/L (46-116) 02/22/18 06:10 Troponin I < 0.02 ng/mL (0.00-0.06) 02/19/18 06:35 NT-Pro-B Natriuret Pep 2683 pg/mL (-299) H 02/19/18 06:35 Total Protein 5.8 g/dL (6.4-8.2) L 02/22/18 06:10 Albumin 2.5 g/dL (3.4-5.0) L 02/22/18 06:10 Urine Color Yellow (Yellow) 02/18/18 16:15 Urine Clarity Clear 02/18/18 16:15 Urine pH 6.0 (5-8) 02/18/18 16:15 Ur Specific Eclectic 1.010 (1.005-1.025) 02/18/18 16:15 Urine Protein Negative mg/dL (Negative) 02/18/18 16:15 Urine Ketones Negative mg/dL (Negative) 02/18/18 16:15 Urine Blood Trace-intact (Negative) H 02/18/18 16:15 Urine Nitrite Negative (Negative) 02/18/18 16:15 Urine Bilirubin Negative (Negative) 02/18/18 16:15 Urine Urobilinogen 0.2 EU/dL (Up TO 0.2) 02/18/18 16:15 Ur Leukocyte Esterase Small (Negative) H 02/18/18 16:15 Urine RBC 0-2 (0-2) 02/18/18 16:15 Urine WBC >50 HPF (0-5) 02/18/18 16:15 Ur Epithelial Cells Few HPF (Negative) 02/18/18 16:15 Urine Crystals Negative HPF (Negative) 02/18/18 16:15 Urine Bacteria Few HPF (Negative) 02/18/18 16:15 Urine Mucus Negative (Negative) 02/18/18 16:15 Urine Other Few renal (Negative) 02/18/18 16:15 Ur Culture Indicated? Yes 02/18/18 16:15 Urine Glucose Negative mg/dL (Negative) 02/18/18 16:15 Cyclosporine 159 ng/mL 02/19/18 06:30 Date of service: 02/23/18 Time of Service: 17:43
[2018-02-23] MEDS: Magnesium Gluconate 500 MG TAB PO (18:48)
[2018-02-23] MEDS: Acetaminophen 325 MG TAB PO (19:23)
[2018-02-23 20:31] VITALS: BP 137/75; PULSE 64; RESP 18; TEMP 36.9; O2SAT 95
[2018-02-24] MEDS: Acetaminophen 325 MG TAB PO (01:43)
[2018-02-24] MEDS: Magnesium Gluconate 500 MG TAB PO ×2 (05:39→17:32)
[2018-02-24 07:10] LABS: Abs Immature Grans 0.01 k/cumm (0.0-0.09); Absolute Basophil Count 0.01 k/cumm (0.0-0.2); Absolute Eosinophil Count 0.22 k/cumm (0.0-0.7); Absolute Monocyte Count 0.65 k/cumm (0.11-0.7); Absolute Neutrophil Count 1.82 k/cumm (1.2-6.7); Basophils % 0.3; Eosinophils % 6.6; HCT 35.2 % (36.0-46.0); HGB 10.5 g/dL (12.0-15.5); Immature Grans % 0.3; Lymphocytes % 18.1; Mean Corp. HGB Concentration 29.8 g/dL (32.0-36.0); Mean Corpuscular Hemoglobin 29.1 pg (27.0-33.0); Mean Corpuscular Volume 97.5 fL (80-95); Mean Platelet Volume 10.2 fL (8.0-11.0); Monocytes % 19.6; Neutrophils % 55.1; Platelet Count 179 x1000/uL (130-400); RBC 3.61 m/cumm (4.00-5.20); White Blood Cell Count 3.31 k/cumm (4.4-10.8)
[2018-02-24 07:15] VITALS: BP 141/78; PULSE 57; RESP 18; TEMP 36.9; O2SAT 98
[2018-02-24 07:21] LABS: Anion Gap 2.6 mmol/L (3-11); BUN 51 mg/dL (7-18); CO2 36.4 mmol/L (21.0-32.0); CREATININE 1.92 mg/dL (0.55-1.02); Chloride 103 mmol/L (98-107); Estimated GFR 25.19 (mL/min/1.73m2); Glucose 81 mg/dL (70-100); Potassium 3.5 mmol/L (3.5-5.1); Sodium 142 mmol/L (136-145)
[2018-02-24 07:45] VITALS: O2SAT 96
[2018-02-24] MEDS: Fluticasone NASAL SPRAY 16 GM BTL NS (07:59)
[2018-02-24] MEDS: Furosemide 40 MG TAB PO ×2 (08:09→15:33)
[2018-02-24] MEDS: Sennosides/Docusate Sodium TAB 2 TAB PO (08:09)
[2018-02-24] MEDS: Aspirin 81 MG CHEW PO (08:09)
[2018-02-24] MEDS: Docusate Sodium 100 MG CAP PO (08:09)
[2018-02-24] MEDS: Carvedilol 25 MG TAB 50 MG PO (08:10)
[2018-02-24] MEDS: Methadone 5 MG TAB PO ×2 (08:10→15:33)
[2018-02-24] MEDS: predniSONE 5 MG TAB PO (08:11)
[2018-02-24] MEDS: Doxycycline Hyclate 100 MG CAP PO (08:11)
[2018-02-24] MEDS: Ascorbic Acid 500 MG TAB 1000 MG PO (08:11)
[2018-02-24] MEDS: Atorvastatin 10 MG TAB 5 MG PO (08:12)
[2018-02-24] MEDS: Normal Saline Flush 10 ML SYR IVP (08:13)
[2018-02-24] MEDS: Enoxaparin 30 MG/0.3 ML SYR SC (08:13)
[2018-02-24] MEDS: Refresh PLUS Eye Drops 0.4ml OU ×2 (08:15→11:46)
--- NOTE | 2018-02-24 10:37 | PT.INIE ---
PT Notes Inpatient Physical Therapy Swingbed Evaluation Referring Doctor: Dr. Vincent PT Orders: Assess mobility and safety Precautions: Falls Patient Profile/Admitting Diagnosis: Patient is a 77-year-old female admitted with CHF and superficial thrombophlebitis left lower extremity PMHX: CHF mitral valve regurgitation, bilateral lower extremity edema, history of RA and osteoarthritis, chronic pain syndrome Social History/Home Situation: Lives alone in a trailer, ramp to enter and exit home. Has 3 different caretakers in and out through the day appearing meals and delivering groceries along with assisting with her ADLs Current Functional Limitations: Equipment owned/DME: Wheeled walker SUBJECTIVE: Pleasant cooperative with complaints of bilateral shoulder pain particularly with movement. Feeling better compared to preadmission OBJECTIVE: General Observation: On oxygen Mental Status: Alert and oriented ?3 Pain: Complains of bilateral shoulder discomfort,she rates this as a #67 on a VAS ROM: RUE her active shoulder motion is limited to 30? with excessive scapular substitution. Passively her motion is approximately 90? with crepitation at end range. Her external rotation is 30-40?, internal rotation 60-70?. Her elbow and forearm movements are non-irritable. She has ulnar drifting of the wrist and digits. Complete instability of the PIP joints of the ring fingers along with her herperen Nodes distal phalanges. Also has degenerative changes of the CMC joints of her thumbs LUE same his right upper extremity RLE has pain-free range of motion of her hips knees talocrural and subtalar joints LLE same as the right lower extremity STRENGTH: RUE weakness of her rotator cuff bilaterally. There is a moderate continuous drier helper biceps triceps for musculature 4/5 LUE same his right upper extremity RLE full motor control of the lower extremities strength is generally rated +4/5 LLE SENSATION: Intact to light touch and proprioception BED MOBILITY/TRANSFERS: Independent with assuming the supine to sitting to standing positions but with effort GAIT: Ambulates with a wheeled walker approximately 25 feet with standby assistance. She is leonora-flexed with slow guadalupe short stride BALANCE: Static sitting normal Dynamic Sitting normal Static Standing fair Dynamic Standing SPECIAL TESTS: Mobility Limitations Standardized Measure [facility] AM -PAC ?6 clicks? Basic Mobility Inpatient Short Form: raw score: 17 standardized score: 42.13 CMS score: 50.57% CK CMS modifier: INFORMED CONSENT/EDUCATION: Pt instructed in purpose of PT Consult and plan of care ASSESSMENT: Patient is a 77 year old female referred to physical therapy services with diagnosis of CHF and superficial thrombophlebitis left lower extremity. Patient presents with clinical signs and symptoms consistent with diagnosis as demonstrated by the following impairment level findings generalized weakness and chronic pain. Impairments are contributing to the following functional limitations: Difficulty with bed mobility and poor exercise tolerance AMPAC score 50.57% [place] 33816 complexity based on the following: o History: CHF superficial thrombophlebitis left lower extremity o Examination: Functional impairment as described above involving o Presentation: o Decision Making: High GOALS Goals x1 week 1. Supine-sit independent independent independent independent independent independent 2. Sit-Supine 3. Sit-Stand 4. Stand-sit 5. Bed-chair 6. Chair-bed 7. Gait independent with a wheeled walker none supervised for greater than 50 feet 8. Stairs 9. I with home exercise program 10. Balance PLAN OF CARE/TREATMENT PLAN: 1-2x/day, 7 days/ week x 1 week Plan of care has been reviewed with the [employer] providing the service under Physical therapy direction. Initiate physical therapy intervention for strengthening, bed mobility, transfers, gait, stairs, balance training, use of assistive device. DISCHARGE RECOMMENDATIONS home with PT/OT G Codes in the area mobility of walking and moving around: current status [id number] CK projected status GP [id number]. Discharge status (if discharging) GP [id number] Disclaimer: This note was created using [employer] ([employer] voice recognition software. It was reviewed for major content. However, there may be multiple small discrepancies and errors due to the voice recognition aspects of the software. Intake Vital Signs 02/18/18 14:41 02/18/18 14:48 02/18/18 14:50 02/18/18 14:51 02/18/18 15:00 02/18/18 15:08 02/18/18 15:10 02/18/18 15:12 02/18/18 15:16 02/18/18 15:20 02/18/18 15:30 02/18/18 15:31 02/18/18 17:03 02/18/18 17:04 02/18/18 17:10 02/18/18 17:16 02/18/18 17:20 02/18/18 17:30 02/18/18 17:31 02/18/18 17:40 02/18/18 17:45 02/18/18 17:50 02/18/18 18:00 02/18/18 18:01 02/18/18 18:10 02/18/18 18:16 02/18/18 18:20 02/18/18 18:30 02/18/18 18:31 02/18/18 18:40 02/18/18 18:45 Height 5 ft 2 in Weight 83 kg BP 147/83 132/72 131/79 144/80 150/81 147/83 153/81 160/103 150/73 142/73 145/78 154/84 Respiration 22 19 25 H 23 18 30 H 21 18 18 24 18 15 19 21 23 17 19 21 21 21 23 18 19 16 22 18 16 19 15 Pulse 67 60 60 72 68 68 67 67 54 L 57 L 59 L 64 Temp 37.4 C Temp Source Skin Pulse Oximetry (%) 98 97 97 99 98 99 99 98 97 98 98 95 95 95 96 95 94 L 94 L 93 L 95 94 L 94 L 96 96 96 96 96 96 96 Oxygen Flow Rate 2 2 02/18/18 18:50 02/18/18 19:00 02/18/18 19:01 02/18/18 19:10 02/18/18 19:15 02/18/18 19:20 02/18/18 19:30 02/18/18 19:31 02/18/18 19:40 02/18/18 21:34 02/18/18 21:35 02/18/18 21:40 02/18/18 21:43 02/18/18 21:46 02/18/18 21:50 02/18/18 22:00 02/18/18 22:01 02/18/18 22:10 02/18/18 22:16 02/18/18 22:20 02/18/18 22:30 02/18/18 22:40 02/18/18 22:50 02/18/18 23:00 02/18/18 23:10 02/18/18 23:20 02/18/18 23:30 02/18/18 23:40 02/18/18 23:50 02/19/18 00:00 02/19/18 00:22 02/19/18 00:25 155/81 149/78 151/82 168/83 167/133 159/111 170/91 21 16 18 20 18 20 17 16 17 19 16 24 19 18 21 23 17 21 23 18 17 26 H 21 20 19 21 24 16 23 21 62 56 L 60 67 74 64 68 36.4 C L Temporal Artery Scan 96 96 96 96 96 97 97 96 94 L 95 96 96 97 97 96 97 97 98 97 97 96 97 97 97 2 02/19/18 00:25 02/19/18 00:30 02/19/18 00:38 02/19/18 00:40 02/19/18 00:50 02/19/18 01:00 02/19/18 01:10 02/19/18 01:11 02/19/18 01:20 02/19/18 01:30 02/19/18 01:40 02/19/18 01:50 02/19/18 02:00 02/19/18 02:10 02/19/18 02:20 02/19/18 02:30 02/19/18 02:40 02/19/18 02:50 02/19/18 02:58 02/19/18 03:10 02/19/18 03:17 02/19/18 03:30 02/19/18 04:01 02/19/18 04:10 02/19/18 04:30 02/19/18 05:00 02/19/18 05:30 02/19/18 05:45 02/19/18 06:00 02/19/18 06:15 02/19/18 06:30 02/19/18 06:40 83 kg 83 kg 81.7 kg 168/90 154/91 147/83 148/86 20 19 21 20 23 20 20 14 18 18 15 17 18 15 17 16 19 16 17 18 19 20 18 18 20 25 H 24 22 27 H 21 67 61 61 62 36.7 C Temporal Artery Scan 95 2 02/19/18 08:00 02/19/18 08:45 02/19/18 09:15 02/19/18 09:20 02/19/18 09:30 02/19/18 09:45 02/19/18 10:00 02/19/18 10:15 02/19/18 10:30 02/19/18 10:45 02/19/18 11:00 02/19/18 11:15 02/19/18 11:30 02/19/18 11:43 02/19/18 11:45 02/19/18 12:00 02/19/18 12:01 02/19/18 12:15 02/19/18 12:30 02/19/18 12:45 02/19/18 13:00 02/19/18 13:15 02/19/18 13:30 02/19/18 13:45 02/19/18 14:15 02/19/18 14:45 02/19/18 15:15 02/19/18 15:45 02/19/18 16:00 02/19/18 16:06 02/19/18 17:30 02/19/18 18:45 159/93 138/86 141/87 19 21 24 18 20 17 15 18 23 14 15 18 20 16 22 21 16 17 16 23 14 18 20 22 19 24 15 23 79 67 66 73 37.8 C H 37.0 C Temporal Artery Scan Temporal Artery Scan 95 2 02/19/18 19:00 02/19/18 19:15 02/19/18 19:29 02/19/18 19:30 02/19/18 19:30 02/19/18 19:45 02/19/18 19:59 02/19/18 20:00 02/19/18 20:01 02/19/18 20:15 02/19/18 20:30 02/19/18 20:45 02/19/18 21:00 02/19/18 21:15 02/19/18 21:30 02/19/18 21:45 02/19/18 22:00 02/19/18 22:07 02/19/18 23:00 02/19/18 23:05 02/19/18 23:30 02/20/18 00:00 02/20/18 00:01 02/20/18 01:00 02/20/18 04:01 02/20/18 04:27 02/20/18 04:47 02/20/18 07:12 02/20/18 08:56 02/20/18 10:21 02/20/18 11:19 02/20/18 14:23 131/69 128/68 128/74 140/90 129/67 132/74 127/70 25 H 19 15 13 19 15 23 15 26 H 17 21 22 21 18 20 26 H 25 H 21 24 25 H 22 17 19 25 H 15 58 L 56 L 60 71 57 L 62 59 L 37 C 37.2 C 36.2 C L 37.0 C 37.4 C Temporal Artery Scan Temporal Artery Scan Temporal Artery Scan 94 L 2 2 2 02/20/18 15:00 02/20/18 16:00 02/20/18 16:00 02/20/18 16:51 02/20/18 17:00 02/20/18 18:00 02/20/18 18:55 02/20/18 20:00 02/20/18 20:47 02/20/18 22:58 02/21/18 06:00 02/21/18 06:42 02/21/18 07:00 02/21/18 08:00 02/21/18 08:45 02/21/18 10:02 02/21/18 10:05 02/21/18 15:42 02/21/18 16:00 02/21/18 23:00 02/21/18 23:11 02/22/18 02:49 02/22/18 02:58 02/22/18 03:00 02/22/18 04:00 02/22/18 05:04 02/22/18 06:38 02/22/18 09:42 02/22/18 11:54 02/22/18 13:33 02/22/18 15:30 02/22/18 15:35 123/75 135/74 120/68 125/75 150/93 161/91 113/71 160/91 154/74 156/93 126/72 133/75 133/75 21 17 12 18 14 19 21 16 16 18 25 H 12 32 H 17 16 12 17 19 27 H 22 17 29 H 18 55 L 63 62 61 53 L 66 62 62 55 L 74 62 60 63 59 L 72 70 83 68 37.0 C 35.7 C L Temporal Artery Scan Tympanic 93 L 2 02/22/18 15:42 02/22/18 16:00 02/22/18 18:01 02/22/18 18:30 02/22/18 20:50 02/23/18 10:00 02/23/18 11:30 02/23/18 15:15 02/23/18 16:30 02/23/18 20:31 02/24/18 07:15 02/24/18 07:45 02/24/18 12:00 154/81 166/86 106/60 139/75 93/56 L 119/78 137/75 141/78 H 147/64 H 20 20 21 18 20 18 18 18 18 64 71 71 75 58 L 64 65 65 64 57 L 52 L 37 C 37.2 C 37 C 36.7 C 36.9 C 36.9 C 36.5 C Tympanic Tympanic Tympanic Tympanic Tympanic Tympanic Tympanic 92 L 94 L 94 L 99 94 L 95 98 96 96 0 2 2 2 2 2 2 2 2
--- NOTE | 2018-02-24 10:44 | PT.INTREAT ---
PT Notes Inpatient Physical Therapy Treatment Note PRECAUTIONS: Fall SUBJECTIVE: Renay reports that she continues to have pain and feels she is not a her baseline, and will not be able to function as needed to return to home yet. OBJECTIVE: PAIN: Patient complains of pain in right shoulder with transfers and shoulder flexion BED MOBILITY/TRANSFERS Sit-stand: SBA Stand-sit: SBA GAIT Assistive Device: FWW Weight bearing: Full Assist: SBA Distance: 20' x4 ASSESSMENT: Patient tolerated session with complaints of shoulder pain. Patient was able toolerate a progression in gait distance with FWW support. She would benefit from continued strengthening and gait training to improve endurance and ability. PLAN: Continue with PT's POC 25 minutes; TAx2 Intake Vital Signs 02/18/18 14:41 02/18/18 14:48 02/18/18 14:50 02/18/18 14:51 02/18/18 15:00 02/18/18 15:08 02/18/18 15:10 02/18/18 15:12 02/18/18 15:16 02/18/18 15:20 02/18/18 15:30 02/18/18 15:31 02/18/18 17:03 02/18/18 17:04 02/18/18 17:10 02/18/18 17:16 02/18/18 17:20 02/18/18 17:30 02/18/18 17:31 02/18/18 17:40 02/18/18 17:45 02/18/18 17:50 02/18/18 18:00 02/18/18 18:01 02/18/18 18:10 02/18/18 18:16 02/18/18 18:20 02/18/18 18:30 02/18/18 18:31 02/18/18 18:40 02/18/18 18:45 Height 5 ft 2 in Weight 83 kg BP 147/83 132/72 131/79 144/80 150/81 147/83 153/81 160/103 150/73 142/73 145/78 154/84 Respiration 22 19 25 H 23 18 30 H 21 18 18 24 18 15 19 21 23 17 19 21 21 21 23 18 19 16 22 18 16 19 15 Pulse 67 60 60 72 68 68 67 67 54 L 57 L 59 L 64 Temp 37.4 C Temp Source Skin Pulse Oximetry (%) 98 97 97 99 98 99 99 98 97 98 98 95 95 95 96 95 94 L 94 L 93 L 95 94 L 94 L 96 96 96 96 96 96 96 Oxygen Flow Rate 2 2 02/18/18 18:50 02/18/18 19:00 02/18/18 19:01 02/18/18 19:10 02/18/18 19:15 02/18/18 19:20 02/18/18 19:30 02/18/18 19:31 02/18/18 19:40 02/18/18 21:34 02/18/18 21:35 02/18/18 21:40 02/18/18 21:43 02/18/18 21:46 02/18/18 21:50 02/18/18 22:00 02/18/18 22:01 02/18/18 22:10 02/18/18 22:16 02/18/18 22:20 02/18/18 22:30 02/18/18 22:40 02/18/18 22:50 02/18/18 23:00 02/18/18 23:10 02/18/18 23:20 02/18/18 23:30 02/18/18 23:40 02/18/18 23:50 02/19/18 00:00 02/19/18 00:22 02/19/18 00:25 155/81 149/78 151/82 168/83 167/133 159/111 170/91 21 16 18 20 18 20 17 16 17 19 16 24 19 18 21 23 17 21 23 18 17 26 H 21 20 19 21 24 16 23 21 62 56 L 60 67 74 64 68 36.4 C L Temporal Artery Scan 96 96 96 96 96 97 97 96 94 L 95 96 96 97 97 96 97 97 98 97 97 96 97 97 97 2 02/19/18 00:25 02/19/18 00:30 02/19/18 00:38 02/19/18 00:40 02/19/18 00:50 02/19/18 01:00 02/19/18 01:10 02/19/18 01:11 02/19/18 01:20 02/19/18 01:30 02/19/18 01:40 02/19/18 01:50 02/19/18 02:00 02/19/18 02:10 02/19/18 02:20 02/19/18 02:30 02/19/18 02:40 02/19/18 02:50 02/19/18 02:58 02/19/18 03:10 02/19/18 03:17 02/19/18 03:30 02/19/18 04:01 02/19/18 04:10 02/19/18 04:30 02/19/18 05:00 02/19/18 05:30 02/19/18 05:45 02/19/18 06:00 02/19/18 06:15 02/19/18 06:30 02/19/18 06:40 83 kg 83 kg 81.7 kg 168/90 154/91 147/83 148/86 20 19 21 20 23 20 20 14 18 18 15 17 18 15 17 16 19 16 17 18 19 20 18 18 20 25 H 24 22 27 H 21 67 61 61 62 36.7 C Temporal Artery Scan 95 2 02/19/18 08:00 02/19/18 08:45 02/19/18 09:15 02/19/18 09:20 02/19/18 09:30 02/19/18 09:45 02/19/18 10:00 02/19/18 10:15 02/19/18 10:30 02/19/18 10:45 02/19/18 11:00 02/19/18 11:15 02/19/18 11:30 02/19/18 11:43 02/19/18 11:45 02/19/18 12:00 02/19/18 12:01 02/19/18 12:15 02/19/18 12:30 02/19/18 12:45 02/19/18 13:00 02/19/18 13:15 02/19/18 13:30 02/19/18 13:45 02/19/18 14:15 02/19/18 14:45 02/19/18 15:15 02/19/18 15:45 02/19/18 16:00 02/19/18 16:06 02/19/18 17:30 02/19/18 18:45 159/93 138/86 141/87 19 21 24 18 20 17 15 18 23 14 15 18 20 16 22 21 16 17 16 23 14 18 20 22 19 24 15 23 79 67 66 73 37.8 C H 37.0 C Temporal Artery Scan Temporal Artery Scan 95 2 02/19/18 19:00 02/19/18 19:15 02/19/18 19:29 02/19/18 19:30 02/19/18 19:30 02/19/18 19:45 02/19/18 19:59 02/19/18 20:00 02/19/18 20:01 02/19/18 20:15 02/19/18 20:30 02/19/18 20:45 02/19/18 21:00 02/19/18 21:15 02/19/18 21:30 02/19/18 21:45 02/19/18 22:00 02/19/18 22:07 02/19/18 23:00 02/19/18 23:05 02/19/18 23:30 02/20/18 00:00 02/20/18 00:01 02/20/18 01:00 02/20/18 04:01 02/20/18 04:27 02/20/18 04:47 02/20/18 07:12 02/20/18 08:56 02/20/18 10:21 02/20/18 11:19 02/20/18 14:23 131/69 128/68 128/74 140/90 129/67 132/74 127/70 25 H 19 15 13 19 15 23 15 26 H 17 21 22 21 18 20 26 H 25 H 21 24 25 H 22 17 19 25 H 15 58 L 56 L 60 71 57 L 62 59 L 37 C 37.2 C 36.2 C L 37.0 C 37.4 C Temporal Artery Scan Temporal Artery Scan Temporal Artery Scan 94 L 2 2 2 02/20/18 15:00 02/20/18 16:00 02/20/18 16:00 02/20/18 16:51 02/20/18 17:00 02/20/18 18:00 02/20/18 18:55 02/20/18 20:00 02/20/18 20:47 02/20/18 22:58 02/21/18 06:00 02/21/18 06:42 02/21/18 07:00 02/21/18 08:00 02/21/18 08:45 02/21/18 10:02 02/21/18 10:05 02/21/18 15:42 02/21/18 16:00 02/21/18 23:00 02/21/18 23:11 02/22/18 02:49 02/22/18 02:58 02/22/18 03:00 02/22/18 04:00 02/22/18 05:04 02/22/18 06:38 02/22/18 09:42 02/22/18 11:54 02/22/18 13:33 02/22/18 15:30 02/22/18 15:35 123/75 135/74 120/68 125/75 150/93 161/91 113/71 160/91 154/74 156/93 126/72 133/75 133/75 21 17 12 18 14 19 21 16 16 18 25 H 12 32 H 17 16 12 17 19 27 H 22 17 29 H 18 55 L 63 62 61 53 L 66 62 62 55 L 74 62 60 63 59 L 72 70 83 68 37.0 C 35.7 C L Temporal Artery Scan Tympanic 93 L 2 02/22/18 15:42 02/22/18 16:00 02/22/18 18:01 02/22/18 18:30 02/22/18 20:50 02/23/18 10:00 02/23/18 11:30 02/23/18 15:15 02/23/18 16:30 02/23/18 20:31 02/24/18 07:15 02/24/18 07:45 154/81 166/86 106/60 139/75 93/56 L 119/78 137/75 141/78 H 20 20 21 18 20 18 18 18 64 71 71 75 58 L 64 65 65 64 57 L 37 C 37.2 C 37 C 36.7 C 36.9 C 36.9 C Tympanic Tympanic Tympanic Tympanic Tympanic Tympanic 92 L 94 L 94 L 99 94 L 95 98 96 0 2 2 2 2 2 2 2
--- NOTE | 2018-02-24 10:52 | IN_ITS ---
PT Notes Inpatient Physical Therapy Swingbed Evaluation Referring Doctor: Dr. Vincent PT Orders: Assess mobility and safety Precautions: Falls Patient Profile/Admitting Diagnosis: Patient is a 77-year-old female admitted with CHF and superficial thrombophlebitis left lower extremity PMHX: CHF mitral valve regurgitation, bilateral lower extremity edema, history of RA and osteoarthritis, chronic pain syndrome Social History/Home Situation: Lives alone in a trailer, ramp to enter and exit home. Has 3 different caretakers in and out through the day appearing meals and delivering groceries along with assisting with her ADLs Current Functional Limitations: Equipment owned/DME: Wheeled walker SUBJECTIVE: Pleasant cooperative with complaints of bilateral shoulder pain particularly with movement. Feeling better compared to preadmission OBJECTIVE: General Observation: On oxygen Mental Status: Alert and oriented ?3 Pain: Complains of bilateral shoulder discomfort,she rates this as a #67 on a VAS ROM: RUE her active shoulder motion is limited to 30? with excessive scapular substitution. Passively her motion is approximately 90? with crepitation at end range. Her external rotation is 30-40?, internal rotation 60-70?. Her elbow and forearm movements are non-irritable. She has ulnar drifting of the wrist and digits. Complete instability of the PIP joints of the ring fingers along with her herperen Nodes distal phalanges. Also has degenerative changes of the CMC joints of her thumbs LUE same his right upper extremity RLE has pain-free range of motion of her hips knees talocrural and subtalar joints LLE same as the right lower extremity STRENGTH: RUE weakness of her rotator cuff bilaterally. There is a moderate medical assistant dermatology biceps triceps for musculature 4/5 LUE same his right upper extremity RLE full motor control of the lower extremities strength is generally rated +4/5 LLE SENSATION: Intact to light touch and proprioception BED MOBILITY/TRANSFERS: Independent with assuming the supine to sitting to standing positions but with effort GAIT: Ambulates with a wheeled walker approximately 25 feet with standby assistance. She is leonora-flexed with slow guadalupe short stride BALANCE: Static sitting normal Dynamic Sitting normal Static Standing fair Dynamic Standing SPECIAL TESTS: Mobility Limitations Standardized Measure [facility] AM -PAC ?6 clicks? Basic Mobility Inpatient Short Form: raw score: 17 standardized score: 42.13 CMS score: 50.57% CK CMS modifier: INFORMED CONSENT/EDUCATION: Pt instructed in purpose of PT Consult and plan of care ASSESSMENT: Patient is a 77 year old female referred to physical therapy services with diagnosis of CHF and superficial thrombophlebitis left lower extremity. Patient presents with clinical signs and symptoms consistent with diagnosis as demonstrated by the following impairment level findings generalized weakness and chronic pain. Impairments are contributing to the following functional limitations: Difficulty with bed mobility and poor exercise tolerance AMPAC score 50.57% [place] 12961 complexity based on the following: o History: CHF superficial thrombophlebitis left lower extremity o Examination: Functional impairment as described above involving o Presentation: o Decision Making: High GOALS Goals x1 week 1. Supine-sit independent independent independent independent independent independent 2. Sit-Supine 3. Sit-Stand 4. Stand-sit 5. Bed-chair 6. Chair-bed 7. Gait independent with a wheeled walker none supervised for greater than 50 feet 8. Stairs 9. I with home exercise program 10. Balance PLAN OF CARE/TREATMENT PLAN: 1-2x/day, 7 days/ week x 1 week Plan of care has been reviewed with the WEED CUTTER providing the service under Physical therapy direction. Initiate physical therapy intervention for strengthening, bed mobility, transfers, gait, stairs, balance training, use of assistive device. DISCHARGE RECOMMENDATIONS home with PT/OT G Codes in the area mobility of walking and moving around: current status [id number] CK projected status GP [id number]. Discharge status (if discharging) GP [id number] Disclaimer: This note was created using [employer] voice recognition software. It was reviewed for major content. However, there may be multiple small discrepancies and errors due to the voice recognition aspects of the software. Intake Vital Signs 3 l l l l 02/18/18 14:41 l l 02/18/18 14:48 l l 02/18/18 14:50 l l 02/18/18 14:51 l l 02/18/18 15:00 l l 02/18/18 15:08 l l 02/18/18 15:10 l l 02/18/18 15:12 l l 02/18/18 15:16 l l 02/18/18 15:20 l l 02/18/18 15:30 l l 02/18/18 15:31 l l 02/18/18 17:03 l l 02/18/18 17:04 l l 02/18/18 17:10 l l 02/18/18 17:16 l l 02/18/18 17:20 l l 02/18/18 17:30 l l 02/18/18 17:31 l l 02/18/18 17:40 l l 02/18/18 17:45 l l 02/18/18 17:50 l l 02/18/18 18:00 l l 02/18/18 18:01 l l 02/18/18 18:10 l l 02/18/18 18:16 l l 02/18/18 18:20 l l 02/18/18 18:30 l l 02/18/18 18:31 l l 02/18/18 18:40 l l 02/18/18 18:45 l l 02/18/18 18:50 l l 02/18/18 19:00 l l 02/18/18 19:01 l l 02/18/18 19:10 l l 02/18/18 19:15 l l 02/18/18 19:20 l l 02/18/18 19:30 l l 02/18/18 19:31 l l 02/18/18 19:40 l l 02/18/18 21:34 l l 02/18/18 21:35 l l 02/18/18 21:40 l l 02/18/18 21:43 l l 02/18/18 21:46 l l 02/18/18 21:50 l l 02/18/18 22:00 l l 02/18/18 22:01 l l 02/18/18 22:10 l l 02/18/18 22:16 l l 02/18/18 22:20 l l 02/18/18 22:30 l l 02/18/18 22:40 l l 02/18/18 22:50 l l 02/18/18 23:00 l l 02/18/18 23:10 l l 02/18/18 23:20 l l 02/18/18 23:30 l l 02/18/18 23:40 l l 02/18/18 23:50 l l 02/19/18 00:00 l l 02/19/18 00:22 l l 02/19/18 00:25 l l 02/19/18 00:25 l l 02/19/18 00:30 l l 02/19/18 00:38 l l 02/19/18 00:40 l l 02/19/18 00:50 l l 02/19/18 01:00 l l 02/19/18 01:10 l l 02/19/18 01:11 l l 02/19/18 01:20 l l 02/19/18 01:30 l l 02/19/18 01:40 l l 02/19/18 01:50 l l 02/19/18 02:00 l l 02/19/18 02:10 l l 02/19/18 02:20 l l 02/19/18 02:30 l l 02/19/18 02:40 l l 02/19/18 02:50 l l 02/19/18 02:58 l l 02/19/18 03:10 l l 02/19/18 03:17 l l 02/19/18 03:30 l l 02/19/18 04:01 l l 02/19/18 04:10 l l 02/19/18 04:30 l l 02/19/18 05:00 l l 02/19/18 05:30 l l 02/19/18 05:45 l l 02/19/18 06:00 l l 02/19/18 06:15 l l 02/19/18 06:30 l l 02/19/18 06:40 l l 02/19/18 08:00 l l 02/19/18 08:45 l l 02/19/18 09:15 l l 02/19/18 09:20 l l 02/19/18 09:30 l l 02/19/18 09:45 l l 02/19/18 10:00 l l 02/19/18 10:15 l l 02/19/18 10:30 l l 02/19/18 10:45 l l 02/19/18 11:00 l l 02/19/18 11:15 l l 02/19/18 11:30 l l 02/19/18 11:43 l l 02/19/18 11:45 l l 02/19/18 12:00 l l 02/19/18 12:01 l l 02/19/18 12:15 l l 02/19/18 12:30 l l 02/19/18 12:45 l l 02/19/18 13:00 l l 02/19/18 13:15 l l 02/19/18 13:30 l l 02/19/18 13:45 l l 02/19/18 14:15 l l 02/19/18 14:45 l l 02/19/18 15:15 l l 02/19/18 15:45 l l 02/19/18 16:00 l l 02/19/18 16:06 l l 02/19/18 17:30 l l 02/19/18 18:45 l l 02/19/18 19:00 l l 02/19/18 19:15 l l 02/19/18 19:29 l l 02/19/18 19:30 l l 02/19/18 19:30 l l 02/19/18 19:45 l l 02/19/18 19:59 l l 02/19/18 20:00 l l 02/19/18 20:01 l l 02/19/18 20:15 l l 02/19/18 20:30 l l 02/19/18 20:45 l l 02/19/18 21:00 l l 02/19/18 21:15 l l 02/19/18 21:30 l l 02/19/18 21:45 l l 02/19/18 22:00 l l 02/19/18 22:07 l l 02/19/18 23:00 l l 02/19/18 23:05 l l 02/19/18 23:30 l l 02/20/18 00:00 l l 02/20/18 00:01 l l 02/20/18 01:00 l l 02/20/18 04:01 l l 02/20/18 04:27 l l 02/20/18 04:47 l l 02/20/18 07:12 l l 02/20/18 08:56 l l 02/20/18 10:21 l l 02/20/18 11:19 l l 02/20/18 14:23 l l 02/20/18 15:00 l l 02/20/18 16:00 l l 02/20/18 16:00 l l 02/20/18 16:51 l l 02/20/18 17:00 l l 02/20/18 18:00 l l 02/20/18 18:55 l l 02/20/18 20:00 l l 02/20/18 20:47 l l 02/20/18 22:58 l l 02/21/18 06:00 l l 02/21/18 06:42 l l 02/21/18 07:00 l l 02/21/18 08:00 l l 02/21/18 08:45 l l 02/21/18 10:02 l l 02/21/18 10:05 l l 02/21/18 15:42 l l 02/21/18 16:00 l l 02/21/18 23:00 l l 02/21/18 23:11 l l 02/22/18 02:49 l l 02/22/18 02:58 l l 02/22/18 03:00 l l 02/22/18 04:00 l l 02/22/18 05:04 l l 02/22/18 06:38 l l 02/22/18 09:42 l l 02/22/18 11:54 l l 02/22/18 13:33 l l 02/22/18 15:30 l l 02/22/18 15:35 l l 02/22/18 15:42 l l 02/22/18 16:00 l l 02/22/18 18:01 l l 02/22/18 18:30 l l 02/22/18 20:50 l l 02/23/18 10:00 l l 02/23/18 11:30 l l 02/23/18 15:15 l l 02/23/18 16:30 l l 02/23/18 20:31 l l 02/24/18 07:15 l l 02/24/18 07:45 l l 02/24/18 12:00 l l Height 5 ft 2 in l l Weight 83 kg 83 kg 83 kg 81.7 kg l l BP 147/83 132/72 131/79 144/80 150/81 147/83 153/81 160/103 150/73 142/73 145/78 154/84 155/81 149/78 151/82 168/83 167/ 133 159/111 170/91 168/90 154/91 147/83 148/86 159/93 138/86 141/87 131/69 128/68 128/74 140/90 129/67 132/74 127/70 123/75 135/74 120/68 125/75 150/93 161/91 113/71 160/91 154/74 156/93 126/72 133/75 133/75 154/ 81 166/86 106/60 139/75 93/56 L 119/78 137/75 141/78 H 147/ 64 H l l Respiration 22 19 25 H 23 18 30 H 21 18 18 24 18 15 19 21 23 17 19 21 21 21 23 18 19 16 22 18 16 19 15 21 16 18 20 18 20 17 16 17 19 16 24 19 18 21 23 17 21 23 18 17 26 H 21 20 19 21 24 16 23 21 20 19 21 20 23 20 20 14 18 18 15 17 18 15 17 16 19 16 17 18 19 20 18 18 20 25 H 24 22 27 H 21 19 21 24 18 20 17 15 18 23 14 15 18 20 16 22 21 16 17 16 23 14 18 20 22 19 24 15 23 25 H 19 15 13 19 15 23 15 26 H 17 21 22 21 18 20 26 H 25 H 21 24 25 H 22 17 19 25 H 15 21 17 12 18 14 19 21 16 16 18 25 H 12 32 H 17 16 12 17 19 27 H 22 17 29 H 18 20 20 21 18 20 18 18 18 18 l l Pulse 67 60 60 72 68 68 67 67 54 L 57 L 59 L 64 62 56 L 60 67 74 64 68 67 61 61 62 79 67 66 73 58 L 56 L 60 71 57 L 62 59 L 55 L 63 62 61 53 L 66 62 62 55 L 74 62 60 63 59 L 72 70 83 68 64 71 71 75 58 L 64 65 65 64 57 L 52 L l l Temp 37.4 C 36.4 C L 36.7 C 37.8 C H 37.0 C 37 C 37.2 C 36.2 C L 37.0 C 37.4 C 37.0 C 35.7 C L 37 C 37.2 C 37 C 36.7 C 36.9 C 36.9 C 36.5 C l l Temp Source Skin Temporal Artery Scan Temporal Artery Scan Temporal Artery Scan Temporal Artery Scan Temporal Artery Scan Temporal Artery Scan Temporal Artery Scan Temporal Artery Scan Tympanic Tympanic Tympanic Tympanic Tympanic Tympanic Tympanic Tympanic l l Pulse Oximetry (%) 98 97 97 99 98 99 99 98 97 98 98 95 95 95 96 95 94 L 94 L 93 L 95 94 L 94 L 96 96 96 96 96 96 96 96 96 96 96 96 97 97 96 94 L 95 96 96 97 97 96 97 97 98 97 97 96 97 97 97 95 95 94 L 93 L 92 L 94 L 94 L 99 94 L 95 98 96 96 l l Oxygen Flow Rate 2 2 2 2 2 2 2 2 2 0 2 2 2 2 2 2 2 2
--- NOTE | 2018-02-24 10:56 | PTTR_ITS ---
PT Notes Inpatient Physical Therapy Treatment Note PRECAUTIONS: Fall SUBJECTIVE: Renay reports that she continues to have pain and feels she is not a her baseline, and will not be able to function as needed to return to home yet. OBJECTIVE: PAIN: Patient complains of pain in right shoulder with transfers and shoulder flexion BED MOBILITY/TRANSFERS Sit-stand: SBA Stand-sit: SBA GAIT Assistive Device: FWW Weight bearing: Full Assist: SBA Distance: 20' x4 ASSESSMENT: Patient tolerated session with complaints of shoulder pain. Patient was able toolerate a progression in gait distance with FWW support. She would benefit from continued strengthening and gait training to improve endurance and ability. PLAN: Continue with PT's POC 25 minutes; TAx2 Intake Vital Signs 3 l l l l 02/18/18 14:41 l l 02/18/18 14:48 l l 02/18/18 14:50 l l 02/18/18 14:51 l l 02/18/18 15:00 l l 02/18/18 15:08 l l 02/18/18 15:10 l l 02/18/18 15:12 l l 02/18/18 15:16 l l 02/18/18 15:20 l l 02/18/18 15:30 l l 02/18/18 15:31 l l 02/18/18 17:03 l l 02/18/18 17:04 l l 02/18/18 17:10 l l 02/18/18 17:16 l l 02/18/18 17:20 l l 02/18/18 17:30 l l 02/18/18 17:31 l l 02/18/18 17:40 l l 02/18/18 17:45 l l 02/18/18 17:50 l l 02/18/18 18:00 l l 02/18/18 18:01 l l 02/18/18 18:10 l l 02/18/18 18:16 l l 02/18/18 18:20 l l 02/18/18 18:30 l l 02/18/18 18:31 l l 02/18/18 18:40 l l 02/18/18 18:45 l l 02/18/18 18:50 l l 02/18/18 19:00 l l 02/18/18 19:01 l l 02/18/18 19:10 l l 02/18/18 19:15 l l 02/18/18 19:20 l l 02/18/18 19:30 l l 02/18/18 19:31 l l 02/18/18 19:40 l l 02/18/18 21:34 l l 02/18/18 21:35 l l 02/18/18 21:40 l l 02/18/18 21:43 l l 02/18/18 21:46 l l 02/18/18 21:50 l l 02/18/18 22:00 l l 02/18/18 22:01 l l 02/18/18 22:10 l l 02/18/18 22:16 l l 02/18/18 22:20 l l 02/18/18 22:30 l l 02/18/18 22:40 l l 02/18/18 22:50 l l 02/18/18 23:00 l l 02/18/18 23:10 l l 02/18/18 23:20 l l 02/18/18 23:30 l l 02/18/18 23:40 l l 02/18/18 23:50 l l 02/19/18 00:00 l l 02/19/18 00:22 l l 02/19/18 00:25 l l 02/19/18 00:25 l l 02/19/18 00:30 l l 02/19/18 00:38 l l 02/19/18 00:40 l l 02/19/18 00:50 l l 02/19/18 01:00 l l 02/19/18 01:10 l l 02/19/18 01:11 l l 02/19/18 01:20 l l 02/19/18 01:30 l l 02/19/18 01:40 l l 02/19/18 01:50 l l 02/19/18 02:00 l l 02/19/18 02:10 l l 02/19/18 02:20 l l 02/19/18 02:30 l l 02/19/18 02:40 l l 02/19/18 02:50 l l 02/19/18 02:58 l l 02/19/18 03:10 l l 02/19/18 03:17 l l 02/19/18 03:30 l l 02/19/18 04:01 l l 02/19/18 04:10 l l 02/19/18 04:30 l l 02/19/18 05:00 l l 02/19/18 05:30 l l 02/19/18 05:45 l l 02/19/18 06:00 l l 02/19/18 06:15 l l 02/19/18 06:30 l l 02/19/18 06:40 l l 02/19/18 08:00 l l 02/19/18 08:45 l l 02/19/18 09:15 l l 02/19/18 09:20 l l 02/19/18 09:30 l l 02/19/18 09:45 l l 02/19/18 10:00 l l 02/19/18 10:15 l l 02/19/18 10:30 l l 02/19/18 10:45 l l 02/19/18 11:00 l l 02/19/18 11:15 l l 02/19/18 11:30 l l 02/19/18 11:43 l l 02/19/18 11:45 l l 02/19/18 12:00 l l 02/19/18 12:01 l l 02/19/18 12:15 l l 02/19/18 12:30 l l 02/19/18 12:45 l l 02/19/18 13:00 l l 02/19/18 13:15 l l 02/19/18 13:30 l l 02/19/18 13:45 l l 02/19/18 14:15 l l 02/19/18 14:45 l l 02/19/18 15:15 l l 02/19/18 15:45 l l 02/19/18 16:00 l l 02/19/18 16:06 l l 02/19/18 17:30 l l 02/19/18 18:45 l l 02/19/18 19:00 l l 02/19/18 19:15 l l 02/19/18 19:29 l l 02/19/18 19:30 l l 02/19/18 19:30 l l 02/19/18 19:45 l l 02/19/18 19:59 l l 02/19/18 20:00 l l 02/19/18 20:01 l l 02/19/18 20:15 l l 02/19/18 20:30 l l 02/19/18 20:45 l l 02/19/18 21:00 l l 02/19/18 21:15 l l 02/19/18 21:30 l l 02/19/18 21:45 l l 02/19/18 22:00 l l 02/19/18 22:07 l l 02/19/18 23:00 l l 02/19/18 23:05 l l 02/19/18 23:30 l l 02/20/18 00:00 l l 02/20/18 00:01 l l 02/20/18 01:00 l l 02/20/18 04:01 l l 02/20/18 04:27 l l 02/20/18 04:47 l l 02/20/18 07:12 l l 02/20/18 08:56 l l 02/20/18 10:21 l l 02/20/18 11:19 l l 02/20/18 14:23 l l 02/20/18 15:00 l l 02/20/18 16:00 l l 02/20/18 16:00 l l 02/20/18 16:51 l l 02/20/18 17:00 l l 02/20/18 18:00 l l 02/20/18 18:55 l l 02/20/18 20:00 l l 02/20/18 20:47 l l 02/20/18 22:58 l l 02/21/18 06:00 l l 02/21/18 06:42 l l 02/21/18 07:00 l l 02/21/18 08:00 l l 02/21/18 08:45 l l 02/21/18 10:02 l l 02/21/18 10:05 l l 02/21/18 15:42 l l 02/21/18 16:00 l l 02/21/18 23:00 l l 02/21/18 23:11 l l 02/22/18 02:49 l l 02/22/18 02:58 l l 02/22/18 03:00 l l 02/22/18 04:00 l l 02/22/18 05:04 l l 02/22/18 06:38 l l 02/22/18 09:42 l l 02/22/18 11:54 l l 02/22/18 13:33 l l 02/22/18 15:30 l l 02/22/18 15:35 l l 02/22/18 15:42 l l 02/22/18 16:00 l l 02/22/18 18:01 l l 02/22/18 18:30 l l 02/22/18 20:50 l l 02/23/18 10:00 l l 02/23/18 11:30 l l 02/23/18 15:15 l l 02/23/18 16:30 l l 02/23/18 20:31 l l 02/24/18 07:15 l l 02/24/18 07:45 l l Height 5 ft 2 in l l Weight 83 kg 83 kg 83 kg 81.7 kg l l BP 147/83 132/72 131/79 144/80 150/81 147/83 153/81 160/103 150/73 142/73 145/78 154/84 155/81 149/78 151/82 168/83 167/ 133 159/111 170/91 168/90 154/91 147/83 148/86 159/93 138/86 141/87 131/69 128/68 128/74 140/90 129/67 132/74 127/70 123/75 135/74 120/68 125/75 150/93 161/91 113/71 160/91 154/74 156/93 126/72 133/75 133/75 154/ 81 166/86 106/60 139/75 93/56 L 119/78 137/75 141/78 H l l Respiration 22 19 25 H 23 18 30 H 21 18 18 24 18 15 19 21 23 17 19 21 21 21 23 18 19 16 22 18 16 19 15 21 16 18 20 18 20 17 16 17 19 16 24 19 18 21 23 17 21 23 18 17 26 H 21 20 19 21 24 16 23 21 20 19 21 20 23 20 20 14 18 18 15 17 18 15 17 16 19 16 17 18 19 20 18 18 20 25 H 24 22 27 H 21 19 21 24 18 20 17 15 18 23 14 15 18 20 16 22 21 16 17 16 23 14 18 20 22 19 24 15 23 25 H 19 15 13 19 15 23 15 26 H 17 21 22 21 18 20 26 H 25 H 21 24 25 H 22 17 19 25 H 15 21 17 12 18 14 19 21 16 16 18 25 H 12 32 H 17 16 12 17 19 27 H 22 17 29 H 18 20 20 21 18 20 18 18 18 l l Pulse 67 60 60 72 68 68 67 67 54 L 57 L 59 L 64 62 56 L 60 67 74 64 68 67 61 61 62 79 67 66 73 58 L 56 L 60 71 57 L 62 59 L 55 L 63 62 61 53 L 66 62 62 55 L 74 62 60 63 59 L 72 70 83 68 64 71 71 75 58 L 64 65 65 64 57 L l l Temp 37.4 C 36.4 C L 36.7 C 37.8 C H 37.0 C 37 C 37.2 C 36.2 C L 37.0 C 37.4 C 37.0 C 35.7 C L 37 C 37.2 C 37 C 36.7 C 36.9 C 36.9 C l l Temp Source Skin Temporal Artery Scan Temporal Artery Scan Temporal Artery Scan Temporal Artery Scan Temporal Artery Scan Temporal Artery Scan Temporal Artery Scan Temporal Artery Scan Tympanic Tympanic Tympanic Tympanic Tympanic Tympanic Tympanic l l Pulse Oximetry (%) 98 97 97 99 98 99 99 98 97 98 98 95 95 95 96 95 94 L 94 L 93 L 95 94 L 94 L 96 96 96 96 96 96 96 96 96 96 96 96 97 97 96 94 L 95 96 96 97 97 96 97 97 98 97 97 96 97 97 97 95 95 94 L 93 L 92 L 94 L 94 L 99 94 L 95 98 96 l l Oxygen Flow Rate 2 2 2 2 2 2 2 2 2 0 2 2 2 2 2 2 2
--- NOTE | 2018-02-24 10:56 | PT.INTREAT ---
PT Notes Inpatient Physical Therapy Treatment Note PRECAUTIONS: Fall SUBJECTIVE: Renay reports that she is feeling extremely fatigued today. OBJECTIVE: PAIN: Patient complains of R shoulder pain with transfers and shoulder flexion BED MOBILITY/TRANSFERS Supine-sit: SBA with HOB at 20 degrees Sit-stand: SBA Stand-sit: SBA GAIT Assistive Device: FWW Weight bearing: Full Assist: SBA Distance: 20' x2 THEREX: Patient completed a resisted, open-chain lower extremity strengthening program, as per flow sheet. Patient tolerated the addition of 2# ankle weights, without complaints of pain, however, with increased fatigue. Patient requires frequent rests between exercises due to fatigue and some SOB. ASSESSMENT: Patient tolerated session well with complaints of shoulder pain with transfers and shoulder flexion. Patient tolerated a progression in LE strengthening exercises with the addition of ankle weights. Patient would benefit from continued gait and transfer training as well as strengthening. PLAN: Continue with PT's POC 25 minutes; TAx1, TPx1 Intake Vital Signs 02/18/18 14:41 02/18/18 14:48 02/18/18 14:50 02/18/18 14:51 02/18/18 15:00 02/18/18 15:08 02/18/18 15:10 02/18/18 15:12 02/18/18 15:16 02/18/18 15:20 02/18/18 15:30 02/18/18 15:31 02/18/18 17:03 02/18/18 17:04 02/18/18 17:10 02/18/18 17:16 02/18/18 17:20 02/18/18 17:30 02/18/18 17:31 02/18/18 17:40 02/18/18 17:45 02/18/18 17:50 02/18/18 18:00 02/18/18 18:01 02/18/18 18:10 02/18/18 18:16 02/18/18 18:20 02/18/18 18:30 02/18/18 18:31 02/18/18 18:40 02/18/18 18:45 Height 5 ft 2 in Weight 83 kg BP 147/83 132/72 131/79 144/80 150/81 147/83 153/81 160/103 150/73 142/73 145/78 154/84 Respiration 22 19 25 H 23 18 30 H 21 18 18 24 18 15 19 21 23 17 19 21 21 21 23 18 19 16 22 18 16 19 15 Pulse 67 60 60 72 68 68 67 67 54 L 57 L 59 L 64 Temp 37.4 C Temp Source Skin Pulse Oximetry (%) 98 97 97 99 98 99 99 98 97 98 98 95 95 95 96 95 94 L 94 L 93 L 95 94 L 94 L 96 96 96 96 96 96 96 Oxygen Flow Rate 2 2 02/18/18 18:50 02/18/18 19:00 02/18/18 19:01 02/18/18 19:10 02/18/18 19:15 02/18/18 19:20 02/18/18 19:30 02/18/18 19:31 02/18/18 19:40 02/18/18 21:34 02/18/18 21:35 02/18/18 21:40 02/18/18 21:43 02/18/18 21:46 02/18/18 21:50 02/18/18 22:00 02/18/18 22:01 02/18/18 22:10 02/18/18 22:16 02/18/18 22:20 02/18/18 22:30 02/18/18 22:40 02/18/18 22:50 02/18/18 23:00 02/18/18 23:10 02/18/18 23:20 02/18/18 23:30 02/18/18 23:40 02/18/18 23:50 02/19/18 00:00 02/19/18 00:22 02/19/18 00:25 155/81 149/78 151/82 168/83 167/133 159/111 170/91 21 16 18 20 18 20 17 16 17 19 16 24 19 18 21 23 17 21 23 18 17 26 H 21 20 19 21 24 16 23 21 62 56 L 60 67 74 64 68 36.4 C L Temporal Artery Scan 96 96 96 96 96 97 97 96 94 L 95 96 96 97 97 96 97 97 98 97 97 96 97 97 97 2 02/19/18 00:25 02/19/18 00:30 02/19/18 00:38 02/19/18 00:40 02/19/18 00:50 02/19/18 01:00 02/19/18 01:10 02/19/18 01:11 02/19/18 01:20 02/19/18 01:30 02/19/18 01:40 02/19/18 01:50 02/19/18 02:00 02/19/18 02:10 02/19/18 02:20 02/19/18 02:30 02/19/18 02:40 02/19/18 02:50 02/19/18 02:58 02/19/18 03:10 02/19/18 03:17 02/19/18 03:30 02/19/18 04:01 02/19/18 04:10 02/19/18 04:30 02/19/18 05:00 02/19/18 05:30 02/19/18 05:45 02/19/18 06:00 02/19/18 06:15 02/19/18 06:30 02/19/18 06:40 83 kg 83 kg 81.7 kg 168/90 154/91 147/83 148/86 20 19 21 20 23 20 20 14 18 18 15 17 18 15 17 16 19 16 17 18 19 20 18 18 20 25 H 24 22 27 H 21 67 61 61 62 36.7 C Temporal Artery Scan 95 2 02/19/18 08:00 02/19/18 08:45 02/19/18 09:15 02/19/18 09:20 02/19/18 09:30 02/19/18 09:45 02/19/18 10:00 02/19/18 10:15 02/19/18 10:30 02/19/18 10:45 02/19/18 11:00 02/19/18 11:15 02/19/18 11:30 02/19/18 11:43 02/19/18 11:45 02/19/18 12:00 02/19/18 12:01 02/19/18 12:15 02/19/18 12:30 02/19/18 12:45 02/19/18 13:00 02/19/18 13:15 02/19/18 13:30 02/19/18 13:45 02/19/18 14:15 02/19/18 14:45 02/19/18 15:15 02/19/18 15:45 02/19/18 16:00 02/19/18 16:06 02/19/18 17:30 02/19/18 18:45 159/93 138/86 141/87 19 21 24 18 20 17 15 18 23 14 15 18 20 16 22 21 16 17 16 23 14 18 20 22 19 24 15 23 79 67 66 73 37.8 C H 37.0 C Temporal Artery Scan Temporal Artery Scan 95 2 02/19/18 19:00 02/19/18 19:15 02/19/18 19:29 02/19/18 19:30 02/19/18 19:30 02/19/18 19:45 02/19/18 19:59 02/19/18 20:00 02/19/18 20:01 02/19/18 20:15 02/19/18 20:30 02/19/18 20:45 02/19/18 21:00 02/19/18 21:15 02/19/18 21:30 02/19/18 21:45 02/19/18 22:00 02/19/18 22:07 02/19/18 23:00 02/19/18 23:05 02/19/18 23:30 02/20/18 00:00 02/20/18 00:01 02/20/18 01:00 02/20/18 04:01 02/20/18 04:27 02/20/18 04:47 02/20/18 07:12 02/20/18 08:56 02/20/18 10:21 02/20/18 11:19 02/20/18 14:23 131/69 128/68 128/74 140/90 129/67 132/74 127/70 25 H 19 15 13 19 15 23 15 26 H 17 21 22 21 18 20 26 H 25 H 21 24 25 H 22 17 19 25 H 15 58 L 56 L 60 71 57 L 62 59 L 37 C 37.2 C 36.2 C L 37.0 C 37.4 C Temporal Artery Scan Temporal Artery Scan Temporal Artery Scan 94 L 2 2 2 02/20/18 15:00 02/20/18 16:00 02/20/18 16:00 02/20/18 16:51 02/20/18 17:00 02/20/18 18:00 02/20/18 18:55 02/20/18 20:00 02/20/18 20:47 02/20/18 22:58 02/21/18 06:00 02/21/18 06:42 02/21/18 07:00 02/21/18 08:00 02/21/18 08:45 02/21/18 10:02 02/21/18 10:05 02/21/18 15:42 02/21/18 16:00 02/21/18 23:00 02/21/18 23:11 02/22/18 02:49 02/22/18 02:58 02/22/18 03:00 02/22/18 04:00 02/22/18 05:04 02/22/18 06:38 02/22/18 09:42 02/22/18 11:54 02/22/18 13:33 02/22/18 15:30 02/22/18 15:35 123/75 135/74 120/68 125/75 150/93 161/91 113/71 160/91 154/74 156/93 126/72 133/75 133/75 21 17 12 18 14 19 21 16 16 18 25 H 12 32 H 17 16 12 17 19 27 H 22 17 29 H 18 55 L 63 62 61 53 L 66 62 62 55 L 74 62 60 63 59 L 72 70 83 68 37.0 C 35.7 C L Temporal Artery Scan Tympanic 93 L 2 02/22/18 15:42 02/22/18 16:00 02/22/18 18:01 02/22/18 18:30 02/22/18 20:50 02/23/18 10:00 02/23/18 11:30 02/23/18 15:15 02/23/18 16:30 02/23/18 20:31 02/24/18 07:15 02/24/18 07:45 154/81 166/86 106/60 139/75 93/56 L 119/78 137/75 141/78 H 20 20 21 18 20 18 18 18 64 71 71 75 58 L 64 65 65 64 57 L 37 C 37.2 C 37 C 36.7 C 36.9 C 36.9 C Tympanic Tympanic Tympanic Tympanic Tympanic Tympanic 92 L 94 L 94 L 99 94 L 95 98 96 0 2 2 2 2 2 2 2
--- NOTE | 2018-02-24 11:04 | PTTR_ITS ---
PT Notes Inpatient Physical Therapy Treatment Note PRECAUTIONS: Fall SUBJECTIVE: Renay reports that she is feeling extremely fatigued today. OBJECTIVE: PAIN: Patient complains of R shoulder pain with transfers and shoulder flexion BED MOBILITY/TRANSFERS Supine-sit: SBA with HOB at 20 degrees Sit-stand: SBA Stand-sit: SBA GAIT Assistive Device: FWW Weight bearing: Full Assist: SBA Distance: 20' x2 THEREX: Patient completed a resisted, open-chain lower extremity strengthening program, as per flow sheet. Patient tolerated the addition of 2# ankle weights , without complaints of pain, however, with increased fatigue. Patient requires frequent rests between exercises due to fatigue and some SOB. ASSESSMENT: Patient tolerated session well with complaints of shoulder pain with transfers and shoulder flexion. Patient tolerated a progression in LE strengthening exercises with the addition of ankle weights. Patient would benefit from continued gait and transfer training as well as strengthening. PLAN: Continue with PT's POC 25 minutes; TAx1, TPx1 Intake Vital Signs 3 l l l l 02/18/18 14:41 l l 02/18/18 14:48 l l 02/18/18 14:50 l l 02/18/18 14:51 l l 02/18/18 15:00 l l 02/18/18 15:08 l l 02/18/18 15:10 l l 02/18/18 15:12 l l 02/18/18 15:16 l l 02/18/18 15:20 l l 02/18/18 15:30 l l 02/18/18 15:31 l l 02/18/18 17:03 l l 02/18/18 17:04 l l 02/18/18 17:10 l l 02/18/18 17:16 l l 02/18/18 17:20 l l 02/18/18 17:30 l l 02/18/18 17:31 l l 02/18/18 17:40 l l 02/18/18 17:45 l l 02/18/18 17:50 l l 02/18/18 18:00 l l 02/18/18 18:01 l l 02/18/18 18:10 l l 02/18/18 18:16 l l 02/18/18 18:20 l l 02/18/18 18:30 l l 02/18/18 18:31 l l 02/18/18 18:40 l l 02/18/18 18:45 l l 02/18/18 18:50 l l 02/18/18 19:00 l l 02/18/18 19:01 l l 02/18/18 19:10 l l 02/18/18 19:15 l l 02/18/18 19:20 l l 02/18/18 19:30 l l 02/18/18 19:31 l l 02/18/18 19:40 l l 02/18/18 21:34 l l 02/18/18 21:35 l l 02/18/18 21:40 l l 02/18/18 21:43 l l 02/18/18 21:46 l l 02/18/18 21:50 l l 02/18/18 22:00 l l 02/18/18 22:01 l l 02/18/18 22:10 l l 02/18/18 22:16 l l 02/18/18 22:20 l l 02/18/18 22:30 l l 02/18/18 22:40 l l 02/18/18 22:50 l l 02/18/18 23:00 l l 02/18/18 23:10 l l 02/18/18 23:20 l l 02/18/18 23:30 l l 02/18/18 23:40 l l 02/18/18 23:50 l l 02/19/18 00:00 l l 02/19/18 00:22 l l 02/19/18 00:25 l l 02/19/18 00:25 l l 02/19/18 00:30 l l 02/19/18 00:38 l l 02/19/18 00:40 l l 02/19/18 00:50 l l 02/19/18 01:00 l l 02/19/18 01:10 l l 02/19/18 01:11 l l 02/19/18 01:20 l l 02/19/18 01:30 l l 02/19/18 01:40 l l 02/19/18 01:50 l l 02/19/18 02:00 l l 02/19/18 02:10 l l 02/19/18 02:20 l l 02/19/18 02:30 l l 02/19/18 02:40 l l 02/19/18 02:50 l l 02/19/18 02:58 l l 02/19/18 03:10 l l 02/19/18 03:17 l l 02/19/18 03:30 l l 02/19/18 04:01 l l 02/19/18 04:10 l l 02/19/18 04:30 l l 02/19/18 05:00 l l 02/19/18 05:30 l l 02/19/18 05:45 l l 02/19/18 06:00 l l 02/19/18 06:15 l l 02/19/18 06:30 l l 02/19/18 06:40 l l 02/19/18 08:00 l l 02/19/18 08:45 l l 02/19/18 09:15 l l 02/19/18 09:20 l l 02/19/18 09:30 l l 02/19/18 09:45 l l 02/19/18 10:00 l l 02/19/18 10:15 l l 02/19/18 10:30 l l 02/19/18 10:45 l l 02/19/18 11:00 l l 02/19/18 11:15 l l 02/19/18 11:30 l l 02/19/18 11:43 l l 02/19/18 11:45 l l 02/19/18 12:00 l l 02/19/18 12:01 l l 02/19/18 12:15 l l 02/19/18 12:30 l l 02/19/18 12:45 l l 02/19/18 13:00 l l 02/19/18 13:15 l l 02/19/18 13:30 l l 02/19/18 13:45 l l 02/19/18 14:15 l l 02/19/18 14:45 l l 02/19/18 15:15 l l 02/19/18 15:45 l l 02/19/18 16:00 l l 02/19/18 16:06 l l 02/19/18 17:30 l l 02/19/18 18:45 l l 02/19/18 19:00 l l 02/19/18 19:15 l l 02/19/18 19:29 l l 02/19/18 19:30 l l 02/19/18 19:30 l l 02/19/18 19:45 l l 02/19/18 19:59 l l 02/19/18 20:00 l l 02/19/18 20:01 l l 02/19/18 20:15 l l 02/19/18 20:30 l l 02/19/18 20:45 l l 02/19/18 21:00 l l 02/19/18 21:15 l l 02/19/18 21:30 l l 02/19/18 21:45 l l 02/19/18 22:00 l l 02/19/18 22:07 l l 02/19/18 23:00 l l 02/19/18 23:05 l l 02/19/18 23:30 l l 02/20/18 00:00 l l 02/20/18 00:01 l l 02/20/18 01:00 l l 02/20/18 04:01 l l 02/20/18 04:27 l l 02/20/18 04:47 l l 02/20/18 07:12 l l 02/20/18 08:56 l l 02/20/18 10:21 l l 02/20/18 11:19 l l 02/20/18 14:23 l l 02/20/18 15:00 l l 02/20/18 16:00 l l 02/20/18 16:00 l l 02/20/18 16:51 l l 02/20/18 17:00 l l 02/20/18 18:00 l l 02/20/18 18:55 l l 02/20/18 20:00 l l 02/20/18 20:47 l l 02/20/18 22:58 l l 02/21/18 06:00 l l 02/21/18 06:42 l l 02/21/18 07:00 l l 02/21/18 08:00 l l 02/21/18 08:45 l l 02/21/18 10:02 l l 02/21/18 10:05 l l 02/21/18 15:42 l l 02/21/18 16:00 l l 02/21/18 23:00 l l 02/21/18 23:11 l l 02/22/18 02:49 l l 02/22/18 02:58 l l 02/22/18 03:00 l l 02/22/18 04:00 l l 02/22/18 05:04 l l 02/22/18 06:38 l l 02/22/18 09:42 l l 02/22/18 11:54 l l 02/22/18 13:33 l l 02/22/18 15:30 l l 02/22/18 15:35 l l 02/22/18 15:42 l l 02/22/18 16:00 l l 02/22/18 18:01 l l 02/22/18 18:30 l l 02/22/18 20:50 l l 02/23/18 10:00 l l 02/23/18 11:30 l l 02/23/18 15:15 l l 02/23/18 16:30 l l 02/23/18 20:31 l l 02/24/18 07:15 l l 02/24/18 07:45 l l Height 5 ft 2 in l l Weight 83 kg 83 kg 83 kg 81.7 kg l l BP 147/83 132/72 131/79 144/80 150/81 147/83 153/81 160/103 150/73 142/73 145/78 154/84 155/81 149/78 151/82 168/83 167/ 133 159/111 170/91 168/90 154/91 147/83 148/86 159/93 138/86 141/87 131/69 128/68 128/74 140/90 129/67 132/74 127/70 123/75 135/74 120/68 125/75 150/93 161/91 113/71 160/91 154/74 156/93 126/72 133/75 133/75 154/ 81 166/86 106/60 139/75 93/56 L 119/78 137/75 141/78 H l l Respiration 22 19 25 H 23 18 30 H 21 18 18 24 18 15 19 21 23 17 19 21 21 21 23 18 19 16 22 18 16 19 15 21 16 18 20 18 20 17 16 17 19 16 24 19 18 21 23 17 21 23 18 17 26 H 21 20 19 21 24 16 23 21 20 19 21 20 23 20 20 14 18 18 15 17 18 15 17 16 19 16 17 18 19 20 18 18 20 25 H 24 22 27 H 21 19 21 24 18 20 17 15 18 23 14 15 18 20 16 22 21 16 17 16 23 14 18 20 22 19 24 15 23 25 H 19 15 13 19 15 23 15 26 H 17 21 22 21 18 20 26 H 25 H 21 24 25 H 22 17 19 25 H 15 21 17 12 18 14 19 21 16 16 18 25 H 12 32 H 17 16 12 17 19 27 H 22 17 29 H 18 20 20 21 18 20 18 18 18 l l Pulse 67 60 60 72 68 68 67 67 54 L 57 L 59 L 64 62 56 L 60 67 74 64 68 67 61 61 62 79 67 66 73 58 L 56 L 60 71 57 L 62 59 L 55 L 63 62 61 53 L 66 62 62 55 L 74 62 60 63 59 L 72 70 83 68 64 71 71 75 58 L 64 65 65 64 57 L l l Temp 37.4 C 36.4 C L 36.7 C 37.8 C H 37.0 C 37 C 37.2 C 36.2 C L 37.0 C 37.4 C 37.0 C 35.7 C L 37 C 37.2 C 37 C 36.7 C 36.9 C 36.9 C l l Temp Source Skin Temporal Artery Scan Temporal Artery Scan Temporal Artery Scan Temporal Artery Scan Temporal Artery Scan Temporal Artery Scan Temporal Artery Scan Temporal Artery Scan Tympanic Tympanic Tympanic Tympanic Tympanic Tympanic Tympanic l l Pulse Oximetry (%) 98 97 97 99 98 99 99 98 97 98 98 95 95 95 96 95 94 L 94 L 93 L 95 94 L 94 L 96 96 96 96 96 96 96 96 96 96 96 96 97 97 96 94 L 95 96 96 97 97 96 97 97 98 97 97 96 97 97 97 95 95 94 L 93 L 92 L 94 L 94 L 99 94 L 95 98 96 l l Oxygen Flow Rate 2 2 2 2 2 2 2 2 2 0 2 2 2 2 2 2 2
--- NOTE | 2018-02-24 11:35 | CMPROGNOTE_ITS ---
- If Service Date Differs Date of service: 02/23/18 Time of Service: 09:30 Care Management Progress Note S/O: Renay is lying in bed when this mortgage or loan underwriter visits with her this morning. Renay states that she is feeling weak and does not feel as though she is ready to return home. CM spoke with Dr. Anguiano whom states that Renay is close to being medically cleared. CM spoke with Renay in regards to this and she feels as though she needs ?another few days because I?m so weak?. CM discussed DC options such as SNF referral or swingbed. Renay states that she would prefer the swingbed for 3-5 days for strengthening prior to returning home. Renay is well supported at home with private caregivers 4 hours a day and home health RN/ PT services. P: Renay will be placed in a swingbed level of care for 3-5 days of PT once medically cleared. [facility] DC plan is to return home with continued home health RN/PT services as well as continued private caregiver services. [facility] caregiver will transport when ready.
[2018-02-24 12:00] VITALS: BP 147/64; PULSE 52; RESP 18; TEMP 36.5; O2SAT 96
--- NOTE | 2018-02-24 13:28 | DSE_ITS ---
DS: Diagnosis Discharge Diagnosis (1) Heart failure with preserved ejection fraction: Status: Acute Problem details: Patient presented with progressive shortness of breath. Diuresis complicated by her underlying end-stage renal disease and donor kidney. (2) Chronic renal disease, stage 3, moderately decreased glomerular filtration rate between 30-59 mL/min/1.73 square meter: Status: Acute Problem details: Creatinine at the time of discharge 1.92 (3) Elevated d-dimer: Status: Acute Problem details: Elevated d-dimer did not segura out to demonstrate pulmonary embolus by VQ scan. VQ scan was intermediate and patient's dyspnea improved with diuresis. Anticoagulation was stopped. (4) Status post living-donor kidney transplantation: Status: Acute Problem details: Patient was maintained on her antirejection drugs. Renal function remained stable. (5) Discharge planning issues: Status: Acute Problem details: Transition to swing bed level 1 for continued physical therapy and strengthening. Discharge Plan Discharge Details Reason For Visit: CHF EXACERBATION,INTERMEDIATE PROB VQ SCAN FOR PE Admit Date/Time: 02/18/18 22:58 Admit Provider: Manuel Ferrera Attending Provider: Manuel Ferrera Primary Care Provider: Kesha Serrano Disposition Patient Disposition: [facility] SWING BED LEVEL 1 Condition: Stable Hosptial Course Hospital Course: 77-year-old woman with end-stage renal disease, status post donor kidney transplant 27 years ago, presented with worsening shortness of breath and CHF. He received parenteral diuretics with good effect. She had a mild bump in her creatinine which returned to baseline. Her urine grew out MRSA. She was treated with doxycycline. Her initial workup included an elevated d-dimer. She underwent a VQ scan that was intermediately positive. She was briefly anticoagulated, anti-coagulation was stopped as her breathing improved and there were no clinical signs of pulmonary embolus. By the time of discharge she was still too weak to transition home and will be going to swing bed level 1 status for continued physical therapy and strengthening. Home Meds and New Rx's Prescriptions: No Action ascorbic acid (vitamin C) 1,000 MG tablet 1,000 mg PO DAILY RF: 0 docusate sodium [Colace] 100 MG capsule 100 mg PO BID RF: 0 cholecalciferol (vitamin D3) [Vitamin D3] 2,000 UNIT capsule 2,000 unit PO DAILY RF: 0 cyclosporine 25 MG capsule 75 mg PO BID Qty: 540 RF: 0 prednisone 5 MG tablet 5 mg PO DAILY Qty: 90 RF: 1 nitroglycerin [Nitrostat] 0.4 MG tablet, sublingual 0.4 mg Sublingual PRN Qty: 25 RF: 5 polyethylene glycol 3350(bulk) 12,000 GM powder 17 gm PO DAILY PRNQty: 1 RF: 3 omega-3 fatty acids-fish oil 1 EACH capsule 1 ea PO DAILY RF: 0 fluticasone 16 GM spray,suspension 1 spray NS BID Qty: 3 RF: 3 carvedilol [Coreg] 25 MG tablet 50 mg PO BID Qty: 360 RF: 3 cimetidine 800 MG tablet 400 mg PO BID RF: 0 ondansetron 4 MG tablet,disintegrating 4 mg Sublingual Q6H PRNQty: 15 RF: 2 Oxygen EACH NS DAILY Qty: 2 RF: 1 atorvastatin [Lipitor] 10 MG tablet 5 mg PO DAILY Qty: 45 RF: 2 aspirin 81 MG tablet,chewable 81 mg PO DAILY Qty: 100 RF: 3 benzonatate [Tessalon Perles] 100 MG capsule 100 mg PO TID Qty: 90 RF: 0 methadone 5 MG tablet 5 mg PO TID MDD 15 Qty: 90 RF: 0 albuterol sulfate [ProAir HFA] 8.5 GM HFA aerosol inhaler 2 puff Inhalation Q4H PRN Qty: 1 RF: 11 Morphine Sulfate 10 MG/5 ML solution 2 mg PO q 1H PRN severe SOB MDD 24 mg Qty: 500 RF: 0 sennosides-docusate sodium [MATHIEU-COLACE] 1 TAB tablet 2 tab PO BID Qty: 120 RF: 0 torsemide 10 MG tablet 10 mg PO BID RF: 0 Discharge Instructions Instructions: Heart Failure (DC) Activity:: Activity as Tolerated Equipment/Supplies:: Oxygen (L/min Below) Diet:: As Tolerated Discharge Orders Discharge Orders: Discharge Order (Routine); Ordered 02/24/18 Ordered By: Ponce Anguiano DS: Summary Status at Discharge Overall status at discharge: patient is back to baseline Time Spent with Patient Greater than 30 minutes Exam Narrative Exam Narrative: Patient is resting comfortably. She is fully lucid and conversant. She is chronically on O2 and is breathing comfortably. Chest Chest: normal inspection of the chest Resp Effort & Inspection: normal respiratory effort and able to speak in complete sentences Cardio Rate: regular rate Rhythm: regular rhythm Heart Sounds: no murmurs GI Palpation: nontender Extrem General: no edema DS: Data Completed studies during hospitalization [Text1]: Procedures Bed Mobility Treatment using Assistive, Adaptive, Supportive or Protective Equipment (01/19/18) Gait Training/Functional Ambulation Treatment using Assistive, Adaptive, Supportive or Protective Equipment (01/19/18) Introduction of Other Therapeutic Substance into Respiratory Tract, Via Natural or Artificial Opening (01/19/18) Monitoring of Cardiac Electrical Activity, External Approach (01/19/18) Range of Motion and Joint Mobility Treatment of Musculoskeletal System - Whole Body (01/19/18) Therapeutic Exercise Treatment of Musculoskeletal System - Whole Body (01/19/18) Transfer Training Treatment using Assistive, Adaptive, Supportive or Protective Equipment (01/19/18) Labs on day of discharge: Labs from last 24 hours 02/24/18 02/24/18 02/23/18 06:50 06:50 06:20 WBC 3.31 L RBC 3.61 L Hgb 10.5 L Hct 35.2 L MCV 97.5 H MCH 29.1 MCHC 29.8 L RDW 14.0 Plt Count 179 188 MPV 10.2 Immature Gran % 0.3 Neutrophils % 55.1 Lymphocytes % 18.1 Monocytes % 19.6 Eosinophils % 6.6 Basophils % 0.3 Absolute Neutrophils 1.82 Absolute Lymphocytes 0.60 L Absolute Monocytes 0.65 Absolute Eosinophils 0.22 Absolute Basophils 0.01 Sodium 142 Potassium 3.5 Chloride 103 Carbon Dioxide 36.4 H Anion Gap 2.6 L BUN 51 H Creatinine 1.92 H Estimated GFR/1.73 m2 25.19 Glucose 81 Calcium 9.0 Date of service: 02/24/18 Time of Service: 13:29
[2018-02-24 15:31] VITALS: BP 125/65; PULSE 62; RESP 20; TEMP 36.3; O2SAT 94
--- NOTE | 2018-02-24 16:17 | PDOC.CMDIS ---
LACE Index Scoring Tool - Questions: Length of Stay (in days): 7 - 13 Acuity (Admit via E.D.?): Yes Comorbidities: Congestive Heart Failure, Chronic Pulmonary Disease E.D. Visits: 1 - Answers: Total Score: 14 Risk of Readmission: High Risk Care Management Discharge Reason for Hospitalization: CHF Discharge Plan: Swing Bed Level I admission for 3-5 days of strengthening prior to returning home. Patient/Family Education Needs: Discharge instructions.
--- NOTE | 2018-03-06 16:15 | PTTR_ITS ---
PT Notes Inpatient Physical Therapy Treatment Note PRECAUTIONS: Fall SUBJECTIVE: Renay reports that she is feeling extremely fatigued today. OBJECTIVE: PAIN: Patient complains of R shoulder pain with transfers and shoulder flexion BED MOBILITY/TRANSFERS Supine-sit: SBA with HOB at 20 degrees Sit-stand: SBA Stand-sit: SBA GAIT Assistive Device: FWW Weight bearing: Full Assist: SBA Distance: 20' x2 THEREX: Patient completed a resisted, open-chain lower extremity strengthening program, as per flow sheet. Patient tolerated the addition of 2# ankle weights , without complaints of pain, however, with increased fatigue. Patient requires frequent rests between exercises due to fatigue and some SOB. ASSESSMENT: Patient tolerated session well with complaints of shoulder pain with transfers and shoulder flexion. Patient tolerated a progression in LE strengthening exercises with the addition of ankle weights. Patient would benefit from continued gait and transfer training as well as strengthening. PLAN: Continue with PT's POC 25 minutes; TAx1, TPx1
--- NOTE | 2018-03-07 12:55 | PT.INIE ---
Date of service: 02/24/18 Time of Service: 09:00 PT Notes Inpatient Physical Therapy Swingbed Evaluation Referring Doctor: Dr. Vincent PT Orders: Assess mobility and safety Precautions: Falls Patient Profile/Admitting Diagnosis: Patient is a 77-year-old female admitted with CHF and superficial thrombophlebitis left lower extremity PMHX: CHF mitral valve regurgitation, bilateral lower extremity edema, history of RA and osteoarthritis, chronic pain syndrome Social History/Home Situation: Lives alone in a trailer, ramp to enter and exit home. Has 3 different caretakers in and out through the day appearing meals and delivering groceries along with assisting with her ADLs Current Functional Limitations: Equipment owned/DME: Wheeled walker SUBJECTIVE: Pleasant cooperative with complaints of bilateral shoulder pain particularly with movement. Feeling better compared to preadmission OBJECTIVE: General Observation: On oxygen Mental Status: Alert and oriented ?3 Pain: Complains of bilateral shoulder discomfort,she rates this as a #67 on a VAS ROM: RUE her active shoulder motion is limited to 30? with excessive scapular substitution. Passively her motion is approximately 90? with crepitation at end range. Her external rotation is 30-40?, internal rotation 60-70?. Her elbow and forearm movements are non-irritable. She has ulnar drifting of the wrist and digits. Complete instability of the PIP joints of the ring fingers along with her herperen Nodes distal phalanges. Also has degenerative changes of the CMC joints of her thumbs LUE same his right upper extremity RLE has pain-free range of motion of her hips knees talocrural and subtalar joints LLE same as the right lower extremity STRENGTH: RUE weakness of her rotator cuff bilaterally. There is a moderate licensed prosthetist/orthotist biceps triceps for musculature 4/5 LUE same his right upper extremity RLE full motor control of the lower extremities strength is generally rated +4/5 LLE SENSATION: Intact to light touch and proprioception BED MOBILITY/TRANSFERS: Independent with assuming the supine to sitting to standing positions but with effort GAIT: Ambulates with a wheeled walker approximately 25 feet with standby assistance. She is leonora-flexed with slow guadalupe short stride BALANCE: Static sitting normal Dynamic Sitting normal Static Standing fair Dynamic Standing SPECIAL TESTS: Mobility Limitations Standardized Measure [facility] [employer] [facility] AM -PAC ?6 clicks? Basic Mobility Inpatient Short Form: raw score: 17 standardized score: 42.13 CMS score: 50.57% CK CMS modifier: INFORMED CONSENT/EDUCATION: Pt instructed in purpose of PT Consult and plan of care ASSESSMENT: Patient is a 77 year old female referred to physical therapy services with diagnosis of CHF and superficial thrombophlebitis left lower extremity. Patient presents with clinical signs and symptoms consistent with diagnosis as demonstrated by the following impairment level findings generalized weakness and chronic pain. Impairments are contributing to the following functional limitations: Difficulty with bed mobility and poor exercise tolerance AMPA score 50.57% [place] [id number] complexity based on the following: o History: CHF superficial thrombophlebitis left lower extremity o Examination: Functional impairment as described above involving o Presentation: o Decision Making: High GOALS Goals x1 week 1. Supine-sit independent independent independent independent independent independent 2. Sit-Supine 3. Sit-Stand 4. Stand-sit 5. Bed-chair 6. Chair-bed 7. Gait independent with a wheeled walker none supervised for greater than 50 feet 8. Stairs 9. I with home exercise program 10. Balance PLAN OF CARE/TREATMENT PLAN: 1-2x/day, 7 days/ week x 1 week Plan of care has been reviewed with the FIBERGL[employer] PIPE COVERING SUPERVISOR providing the service under Physical therapy direction. Initiate physical therapy intervention for strengthening, bed mobility, transfers, gait, stairs, balance training, use of assistive device. DISCHARGE RECOMMENDATIONS home with PT/OT G Codes in the area mobility of walking and moving around: current status [id number] CK projected status GP [id number]. Discharge status (if discharging) GP [id number] Disclaimer: This note was created using [employer] voice recognition software. It was reviewed for major content. However, there may be multiple small discrepancies and errors due to the voice recognition aspects of the software.
--- NOTE | 2018-03-13 15:07 | PTTR_ITS ---
Date of service: 02/23/18 PT Notes Inpatient Physical Therapy Evaluation Referring Doctor: Dr. Anguiano PT Orders: PT CONSULT: Evaluate and treat Precautions: Falls Patient Profile/Admitting Diagnosis: Patient is a 52-year-old female admitted with colitis PMHX: Refer to the problem list in Dr. Anguiano H&P Social History/Home Situation: Lives with her parents, is on Social Security disability Current Functional Limitations: Independent with dressing meals, her mother assist her with bathing. It is on the first floor,. She has railings entering the house Equipment Owned/DME: Shower seat in the tub with grab bars, has flexible shower hose. Subjective: Hawa complaints of intermittent right lower quadrant discomfort. Objective: General Observation: Pleasant cooperative no abnormal pain behavior noted. Mental Status: Alert and oriented ?3 Pain: Intermittent right lower quadrant pain. Rates his #4-5 on a VAS. Vital Signs: Resting pulse is 17 bpm; 19 bpm following ambulation. Her resting respiratory rate is 14 breaths per minute; 24 breaths per minute following ambulation. ROM: Right Upper Extremity: Within normal limits Left Upper Extremity: Within normal limits Right Lower Extremity: Within normal limits Left Lower Extremity: Within normal limits Strength: Has full motor control throughout strength. Her strength is generally rated - 5/5 throughout Sensation: Intact to light touch and proprioception. Bed Mobility/Transfers: Independent with assuming the supine sitting to standing positions Gait: Ambulates independently without an assistive device for approximately 30 feet. Her respiratory rate increases to 24 breaths per minute following ambula tion as noted above. Balance: A Causey balance test was performed and she scored 48/56. Fall risk is a score of 45 and below Static Sitting: Normal Dynamic Sitting: Normal Static Standing: Normal Dynamic Standing: Normal Special Tests: Mobility Limitations Standardized Measure [facility] AM-PAC 6 clicks Basic Mobility Inpatient Short Form: Raw Score: 18 standardized Score: 43.63 CMS Score: 46.58% [facility] Modifier: CK Informed Consent/Education: Patient instructed in purpose of PT consult and p dionna of care. Assessment: Patient is a 52 next field female year old referred to physical therapy services with the diagnosis of colitis []. Patient presents with clinical signs and symptoms consistent with diagnosis as demonstrated by the following impairment level findings: Deconditioned and shortness of breath with distance walking. Impairments are contributing to the following functional limitations: AMPAC score. Patient is assessed as a X low 38822 complexity based on the following: History: Colitis Examination: Poor endurance and shortness of breath with walking Presentation: Evolving Decision Making: Low based on her clinical findings Goals: Goals X1 week 1. Supine-Sit independent 2. Sit-Supine independent 3. Sit-Stand independent 4. Stand-Sit independent 5. Bed-Chair independent 6. Chair-Bed independent 7. Gait independent with distances greater than 100 feet 8. Stairs 9. Independent with home exercise program 10. Balance Plan of Care/Treatment Plan: 1-2x/day, 7 days/week x 1 week. Plan of care has been reviewed with the DAT INSTRUCTOR providing the service under Physical Therapy direction. Initiate Physical Therapy intervention for strengthening, bed mobility, transfers, gait, stairs, balance training, use of assistive device. DISCHARGE RECOMMENDATIONS: [] Home G Codes in the area mobility of walking and moving around: current status [id number] [CK]; projected status GP [id number]. Discharge status (if discharging) GP G8980 CK. Disclaimer: This note was created using [employer] voice recognition software. It was reviewed for major content. However, there may be multiple small discrepancies and errors due to the voice recognition aspects of the software.
== END 2018-02-24 16:21 | disposition swing bed (61) | DRG 291 ==
LOC: ER 02-23 10:14 → MS 02-24 13:53
PROVIDERS: Family Medicine; Admitting Provider Internal Medicine; Emergency Provider Physician Assistant; PCP Student in an Organized Health Care Education/Training Program; Visit Provider Family Medicine
DX: I13.0 Hypertensive heart and chronic kidney disease with heart failure and stage 1 through stage 4 chronic kidney disease, or unspecified chronic kidney disease (principal); I50.33 Acute on chronic diastolic (congestive) heart failure; Z94.0 Kidney transplant status; N39.0 Urinary tract infection, site not specified; I50.82 Biventricular heart failure; N18.3 Chronic kidney disease, stage 3 (moderate); R79.1 Abnormal coagulation profile; B95.62 Methicillin resistant Staphylococcus aureus infection as the cause of diseases classified elsewhere; I27.20 Pulmonary hypertension, unspecified; Z99.81 Dependence on supplemental oxygen; J44.9 Chronic obstructive pulmonary disease, unspecified; K21.9 Gastro-esophageal reflux disease without esophagitis; I08.1 Rheumatic disorders of both mitral and tricuspid valves
CPT/HCPCS: 36415; 78582; 80048; 80053; 87077; 93005; 93306; 96372; 96374; 96375; 97110; 97161; 97163; 97530; 99232; 99239; 99285; 71045; 71046; 80158; 81003; 81015; 83735; 83880; 84484; 85025; 85049; 85379; 87086; 87186; 93010; 93970; 99223; 99281; G8978; J1650; J1940; J2270; J3475; J7512

== ENCOUNTER 2018-02-24 16:21 | Inpatient (IN) | payer MEDICARE, SELFPAY ==
--- NOTE | 2018-02-24 16:30 | HPE_ITS ---
Date of service: 02/24/18 Time of Service: 16:28 Assessment and Plan (1) Heart failure with preserved ejection fraction: Current visit: Yes Status: Acute Patient has diuresed nicely on the inpatient service. She appears to be at a dry weight. We will continue on Lasix 40 mg p.o. twice daily, (holding on torsemide 10 mg twice daily). Problem details: Patient presented with progressive shortness of breath. Diuresis complicated by her underlying end-stage renal disease and donor kidney. (2) Chronic renal disease, stage 3, moderately decreased glomerular filtration rate between 30-59 mL/min/1.73 square meter: Current visit: Yes Status: Acute Problem details: Creatinine at the time of discharge 1.92 (3) Status post living-donor kidney transplantation: Current visit: Yes Status: Acute Problem details: Patient was maintained on her antirejection drugs. Renal function remained stable. (4) Urinary tract infection: Current visit: No Status: Acute Problem details: Patient had a urinary tract infection with MRSA present. She completed a course of doxycycline. (5) Weakness generalized: Current visit: Yes Status: Chronic Problem details: Patient is too weak to return home in her present condition. She is agreed to swing bed level 1 for continued physical therapy. She remains DNR/DNI. (6) Discharge planning issues: Current visit: No Status: Acute Problem details: Transition to swing bed level 1 for continued physical therapy and strengthening. CC: Kesha Agarwal DO History of Present Illness Chief Complaint: CHF/ Weakness Narrative: 77-year-old woman with end-stage renal disease, status post donor kidney transplant 27 years ago, presented with worsening shortness of breath and CHF. He received parenteral diuretics with good effect. She had a mild bump in her creatinine which returned to baseline. Her urine grew out MRSA. She was treated with doxycycline. Her initial workup included an elevated d- dimer. She underwent a VQ scan that was intermediately positive. She was briefly anticoagulated, anti-coagulation was stopped as her breathing improved and there were no clinical signs of pulmonary embolus. By the time of discharge she was still too weak to transition home and will be going to swing bed level 1 status for continued physical therapy and strengthening. Review of Systems Review of Systems Patient generally feels well other than profound weakness. She does not feel well enough to return to her home environment with caregivers. Her main concern is weakness in her legs and loss of ADLs. Her breathing is improved and near back to baseline. Constitutional Reports weakness Cardiovascular Denies chest pain Respiratory Denies chest congestion, Denies cough and Denies stridor Gastrointestinal Denies abdominal pain Genitourinary Denies dysuria Musculoskeletal Reports muscle weakness Neurologic Reports weakness [facility] Family History Mother No problems noted. Medical History History of Surgical Procedure (Chronic) Gastroesophageal reflux disease (Chronic) Hypertension (Chronic) Urinary incontinence (Chronic) Dysuria (Chronic) Spinal stenosis (Chronic) Low back pain (Chronic) Edema, lower extremity (Chronic) Osteoarthritis of hip (Chronic) Weakness generalized (Chronic) Vaginitis, atrophic (Chronic) Bacterial urinary infection (Chronic) Hypercholesterolemia (Chronic) Kyphoscoliosis (Chronic) Prolapse of mitral valve (Chronic) Tachycardia (Chronic) Reactive airway disease (Chronic) Rhinitis, allergic (Chronic) Bowel obstruction (Suspected 08/08/14) Polycystic kidney (Chronic) Abdominal pain (Acute) Diarrhea (Acute) Chronic pain (Acute) CHF (congestive heart failure) (Chronic) Chronic renal failure, stage 3 (moderate) (Chronic) Social History Smoking/Tobacco Use Status: Never Surgical History Living-donor kidney transplant recipient (Chronic) Extraction of cataract (12/14/15) Meds Home Medications Medication Instructions Recorded Confirmed Type ascorbic acid (vitamin C) 1,000 mg PO DAILY 09/18/12 02/24/18 History docusate sodium [Colace] 100 mg PO BID tab-cap 09/18/12 02/24/18 History cholecalciferol (vitamin D3) 2,000 unit PO DAILY 12/25/12 02/24/18 History [Vitamin D3] omega-3 fatty acids-fish oil 1 ea PO DAILY cap 06/04/17 02/24/18 History cimetidine 400 mg PO BID 07/31/17 02/24/18 History torsemide 10 mg PO BID 02/18/18 02/24/18 History Allergies Allergy/AdvReac Type Severity Reaction Status Date / Time thiopental sodium Allergy Intermediate Wheezing Unverified 02/18/18 15:09 [From Pentothal] Penicillins Allergy Unknown ITCHING Unverified 02/18/18 15:09 Exam Narrative Exam Narrative: Patient overall looks comfortable. Breathing is not labored. She is quite alert and talkative and appears to be fully lucid. Const General: cooperative, comfortable and no acute distress Orientation: alert, awake and oriented x3 Chest Chest: normal inspection of the chest Resp Effort & Inspection: normal respiratory effort Auscultation: clear to auscultation bilaterally Cardio Rate: regular rate Rhythm: regular rhythm Heart Sounds: no murmurs GI Palpation: nontender Skin Rashes: no rashes Extrem Shoulder/upper arm images: 2 1. skin tear
[2018-02-24] MEDS: Fluticasone NASAL SPRAY 16 GM BTL NS (20:03)
[2018-02-24] MEDS: Acetaminophen 325 MG TAB 650 MG PO (20:03)
[2018-02-24] MEDS: Sennosides/Docusate Sodium TAB 2 TAB PO (20:04)
[2018-02-24] MEDS: Docusate Sodium 100 MG CAP PO (20:04)
[2018-02-24] MEDS: Carvedilol 25 MG TAB 50 MG PO (20:04)
[2018-02-24 23:55] VITALS: BP 136/80; PULSE 58; RESP 20; TEMP 36.9; O2SAT 93
[2018-02-25] MEDS: Magnesium Gluconate 500 MG TAB PO ×2 (06:19→17:08)
[2018-02-25] MEDS: Acetaminophen 325 MG TAB 650 MG PO ×2 (06:41→11:53)
[2018-02-25 07:10] VITALS: BP 153/85; PULSE 67; RESP 20; TEMP 36.4; O2SAT 96
[2018-02-25] MEDS: Enoxaparin 30 MG/0.3 ML SYR SC (07:47)
[2018-02-25] MEDS: Fluticasone NASAL SPRAY 16 GM BTL NS ×2 (07:48→19:33)
[2018-02-25] MEDS: Atorvastatin 10 MG TAB 5 MG PO (07:48)
[2018-02-25] MEDS: Sennosides/Docusate Sodium TAB 2 TAB PO ×2 (07:48→19:33)
[2018-02-25] MEDS: Docusate Sodium 100 MG CAP PO ×2 (07:49→19:33)
[2018-02-25] MEDS: Ascorbic Acid 500 MG TAB 1000 MG PO (07:49)
[2018-02-25] MEDS: Aspirin 81 MG CHEW PO (07:49)
[2018-02-25] MEDS: Methadone 5 MG TAB PO ×2 (07:49→15:48)
[2018-02-25] MEDS: Carvedilol 25 MG TAB 50 MG PO ×2 (07:50→19:33)
[2018-02-25] MEDS: predniSONE 5 MG TAB PO (07:50)
[2018-02-25] MEDS: Furosemide 40 MG TAB PO ×2 (07:50→15:48)
--- NOTE | 2018-02-25 09:13 | PHARADMIT ---
Addendum entered by Colton Simpson III 03/03/18 12:44: VS-OK,, No Labs pain: 8 PT notes that patient would benefit from more PT upon discharge. Plan is sill for discharg home tomorrow. Patient has her own med (NEORAL) in Med/Surg cassette Original Note: Addendum entered by Colton Simpson III 03/02/18 11:15: Swing Bed Patient here working with PT until Mondays discharge. VS-OK pain: 01/01 No Labs No changes Original Note: Addendum entered by Colton Simpson III 03/01/18 12:38: No changes, VS-OK Plts-198 Wgt-70.1 kg Had BM..... Same plan. Original Note: Addendum entered by Colton Simpson III 02/28/18 14:49: Working with PT, should be ready for discharge on Sunday. BP-158/85 Wgt-69.8 kg Had BM No Labs Original Note: Addendum entered by Cynthia Paulino 02/26/18 11:16: pt still working with PT BP-161/83 other VS okay weight-72.2(down) no med changes Original Note: pt swung 02/24/18 BP 153/85 other VS okay no labs methadone still ordered BID, no med changes so far today AAMIR AHMADI Female : 1940 Emr# [id number] 02/21/18 11:18 - Pharmacy Review by Colton Simpson III Acct Num: [id number] : 1940 Patient Age: 77 Addendum entered by Arlen Liao 02/24/18 10:54: Pharmacy Note Subjective possible change to swingbed status today Objective vs stable Assessment Using Morphine oral ewelina'n for pain & breathing difficulty. Plan awaiting copy med order and change of methadone to once/day(per pt request) Original Note: Addendum entered by Colton Simpson III 02/22/18 14:33: Pharmacy Note Subjective MD notes that patient may be over diuresed. Lasix changed to PO. UTI day#3 Doxycycline (total 7 days). Complained of abdominal pain. (better now) Objective VS-OK SCr-2.17 Lytes-OK, Wgt-78.7 kg Having regular BMs Assessment Using Morphine oral ewelina'n for pain & breathing difficulty. Plan Watch wgt, Plts (on Lovenox) SCr. Original Note: Admission Pharmacy Clinical Review CHF exacerbation, Intermediate Probabilty VQ Scan for PE Code Status DNR/DNI Current Weight Wgt- 78.3 kg Renally Cleared and Narrow Therapeutic Index Meds CrCl~ 19.5 mL/min Meds-OK QTc Value / Action Taken QTc-428 ns BP Control, Fever BP 135/74 Tmax-37.4C Electrolytes reviewed Na- 141 K+3.8 mAG-1.8 DVT Prophylaxis Lovenox Opiate Usage / Scheduled Bowel Regimen Ordered Yes Yes Plt/SCr for Heparin / Enoxaparin PLts- 159 SCr-1.85 INR for Warfarin na H/H stable, WBC/Bands H&H- 11.3/37.0 WBC- 4.50 Antibiotic appropriateness Doxycycline PO Cultures and Sensitivities Urine- Stap Aureus MRSA Surgical ABX d/c within 24 hr DM control / Insulin Dosing BG-79 Heart Failure (Check EF%) (DIAZ's, B-Block, Diuretics) Coreg, Lasix, NTG IV to PO Switch No Home Meds Reviewed Yes Home Meds Not Ordered Benzonatate, Torsemide, Comments PatOwn- Cyclopsporin Caps, [place]-3 Initialized on 02/21/18 11:18 - END OF NOTE
--- NOTE | 2018-02-25 09:43 | PT.INNT ---
PT Notes 02/25/18 Held morning PT session, as patient was sound asleep. Notified nsg, who are in agreement, who also report that patient did not sleep well last night, and that she has already been out of bed and performed several transfers to/from commode, then back to bed this morning. Dolores Ponce, CLAY PREPARATION SUPERVISOR
--- NOTE | 2018-02-25 09:46 | NT_ITS ---
PT Notes 02/25/18 Held morning PT session, as patient was sound asleep. Notified nsg, who are in agreement, who also report that patient did not sleep well last night, and that she has already been out of bed and performed several transfers to/from commode , then back to bed this morning. Dolores Ponce, TOOL AND DIE MANAGER
[2018-02-25 10:50] VITALS: BP 133/72; PULSE 63; RESP 18; TEMP 36.5; O2SAT 94
[2018-02-25] MEDS: Refresh PLUS Eye Drops 0.4ml OU (13:22)
--- NOTE | 2018-02-25 13:43 | CM.SBPSYCH ---
<Pooja Persaud - Last Filed: 02/25/18 15:06> - If Service Date Differs Date of service: 02/24/18 ([facility] Downtime - Late entry) SB Psychosocial/Act.Assessment - Hospital Admission Admission Date: 02/18/18 Admission From:: Home Diagnosis:: CHF Exacerbation, Increased weakness and need for pain management - Swing Bed Admission Swing Bed Admit Date:: 02/24/18 <KamiFernandaTheresa - Last Filed: 02/25/18 15:54> SB Psychosocial/Act.Assessment - Social Supports PREVIOUS FUNCTIONAL STATUS/SOCIAL/FAMILY SUPPORTS:: Renay resides alone in [place], [place]. She has a supportive family including three sons, her daughter, Jr and grand-daughter; Dalia as well as supportive friends including her person to notify; Mallory Rodrigez. Renay no longer drives and depends on her family, friends and paid caregivers to meet her needs and manage her activities of daily living. - Prior to Admission Living Arrangements/Environment Prior to Admission:: Alone with paid caregivers. 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 - Present Functional Status Physical Abilities:: Weakened; chronic pain. Lives alone in a trailer, ramp to enter no stairs, baseline mobility gait with FWW 50ft in home, reports she has caregiver assistance for bathing and caregiver assists with meals groceries delivered to the home. - Medical History PAST MEDICAL HISTORY/PAST SURGICAL HISTORY:: Recurrent prior episodes of SBO, Polycystic kidney disease, S/P bilateral nephrectomies, Renal transplant, GERD, Gout, COPD, Chronic pain on methadone and liquid morphine, Biventricular CHF, Mitral regurgitation, Pulmonary hypertension, Bronchiectasis, Chronic generalized weakness, OA, Hypertension, Chronic urinary incontinence, Spinal stenosis in cervical and lumbar regions, Chronic lower extremity edema, Abdominal hernia surgeries, Perforated diverticular bilaterally for polycystic kidney disease, Renal transplant, Lysis of adhesions, Tubal ligation - Admission Data Reason for Swing Bed Admission:: Pain Management, utilization of PT for: strengthening, bed mobility, transfers, gait, stairs, balance training, use of assistive devic, decreased bilateral shoulder ROM and strength limiting ADLS, functional mobility and self care, right hip pain limiting gait mobility, generalized weakness due to multiple medical conditions limiting her functional mobility, decreased static and dynamic standing balance putting her at risk for falls requiring FWW for gait stability: Renay's goal is to return to home setting, she will benefit from home PT/OT at discharge. Discharge Plan:: Home with caregivers and increased services after meeting short term goals with physical therapy. Assessment: 7-10 days. Tool Room Attendant: Theresa Mcclure Date Assessment was completed:: 02/24/18 (Late entry due to new system )
[2018-02-25 13:55] LABS: Bilirubin Negative (Negative); Blood Negative (Negative); Clarity Clear; Glucose Negative (Negative); Ketones Negative (Negative); Leukocyte Esterase Negative (Negative); Nitrite Negative (Negative); Specific Gravity 1.015 (1.005-1.025); Urobilinogen 0.2 EU/dL (Up TO 0.2); pH 7.5 (5-8)
--- NOTE | 2018-02-25 14:06 | CHAPLAIN ---
Renay was sitting up in her chair finishing lunch when I visited. She said her shoulder pain is significant today. She remains pleasant and shared some personal history. Her quality control tech raw materials, Armani Alvarado, from the [employer] is a on a retreat this weekend, but has been in a few times to visit Renay, and will continue to.
--- NOTE | 2018-02-25 14:31 | CM.SWINGPC ---
- If Service Date Differs Date of service: 02/24/18 (Late Entry-new system ) [facility] of Care Plan of care: SWING BED PROGRAM ACTIVITIES/DISCHARGE PLAN OF CARE ACTIVITIES PLAN Date: 02/24/18 Identified Need: Individual needs, social and spiritual needs while inpatient at [facility]. Intervention/Plan: TV in room, Activity Cart, Freelance Art Director visits, Reiki, Music Therapy, Therapy dogs, encourage participation in activities, check-ins with care management. Initials: Kenna DISCHARGE PLAN Date: 02/24/18 Identified Need: Swing Bed 1 for PT to address strengthening in setting of chronic pain. Increased home services. Intervention/Plan: Renay will continued to be monitored closely, her pain managed while she has the opportunity to work with PT twice daily to improve and strengthen prior to returning home where her care needs are managed by caregivers. Coordination of increased services, private care, [facility]: skilled services (PT/OT/RN), community based case management, Palliative Care. Initials: Gumaro Kenny
[2018-02-25 15:56] VITALS: BP 129/76; PULSE 69; RESP 19; TEMP 36.2; O2SAT 95
--- NOTE | 2018-02-25 17:07 | NUR.NOTE ---
IV discontinued from left forearm.Nursing Note:
[2018-02-26 01:50] VITALS: BP 149/81; PULSE 69; RESP 20; TEMP 36.8; O2SAT 92
[2018-02-26] MEDS: Acetaminophen 325 MG TAB 650 MG PO ×3 (04:03→17:27)
[2018-02-26] MEDS: Magnesium Gluconate 500 MG TAB PO ×2 (06:21→17:11)
[2018-02-26 06:48] LABS: Platelet Count 196 x1000/uL (130-400)
[2018-02-26 07:54] VITALS: BP 161/83; PULSE 62; RESP 20; TEMP 36.7; O2SAT 96
[2018-02-26] MEDS: Fluticasone NASAL SPRAY 16 GM BTL NS ×2 (08:02→19:16)
[2018-02-26] MEDS: Enoxaparin 30 MG/0.3 ML SYR SC (08:03)
[2018-02-26] MEDS: Furosemide 40 MG TAB PO ×2 (08:03→15:20)
--- NOTE | 2018-02-26 08:03 | PT.INDS ---
PT Notes Inpatient Physical Therapy Discharge Summary Date: 02/26/18 for late entry 02/23/18 Dates of Service: 02/20/18-02/23/18 SUBJECTIVE: NT OBJECTIVE: 02/20/18-02/23/18 BED MOBILITY/TRANSFERS: Sit-supine: minAx1 Sit-stand SBA Stand-sit SBA Bed-Chair SBA Chair-bed SBA GAIT: SBA with FWW 20ftx2 using 1.5 liter 02 NC BALANCE: Static sitting normal Dynamic sitting normal Static standing fair Dynamic standing fair ASSESSMENT:Pt was seen for 6 PT visits on acute status. Progressed from SBA gait with FWW 25ftx1 to SBA gait with FWW 20ftx4. Pt remained at SBA level for standing transfers and santino-SBA for bed transfers. Pt was discharged from acute status and transferred to SWING rehab program 02/23/18= see SWING eval for detials GOALS Goals x1 week 1. Supine-sit: independent 2. Sit-Supine independent 3. Sit-Stand: supervision with FWW 4. Stand-sit supervision 5. Bed-chair supervision with FWW 6. Chair-bed supervision with FWW 7. Gait supervision with FWW 50ftx2 Pt did not meet therapy goals - transferred to SWING program DISCHARGE RECOMMENDATIONS Transferred to SWING program 02/23/18 G Codes in the area mobility of walking and moving around:_projected status GP [id number]__[id number] . Discharge status (if discharging) GP [id number]_ Shonna Meadows PT
[2018-02-26] MEDS: Aspirin 81 MG CHEW PO (08:04)
[2018-02-26] MEDS: Carvedilol 25 MG TAB 50 MG PO ×2 (08:04→19:16)
[2018-02-26] MEDS: Ascorbic Acid 500 MG TAB 1000 MG PO (08:04)
[2018-02-26] MEDS: Methadone 5 MG TAB PO ×2 (08:04→15:20)
[2018-02-26] MEDS: Docusate Sodium 100 MG CAP PO ×2 (08:04→19:16)
[2018-02-26] MEDS: Atorvastatin 10 MG TAB 5 MG PO (08:04)
[2018-02-26] MEDS: Sennosides/Docusate Sodium TAB 2 TAB PO ×2 (08:04→19:16)
[2018-02-26] MEDS: predniSONE 5 MG TAB PO (08:05)
--- NOTE | 2018-02-26 08:08 | INDS_ITS ---
PT Notes Inpatient Physical Therapy Discharge Summary Date: 02/26/18 for late entry 02/23/18 Dates of Service: 02/20/18-02/23/18 SUBJECTIVE: NT OBJECTIVE: 02/20/18-02/23/18 BED MOBILITY/TRANSFERS: Sit-supine: minAx1 Sit-stand SBA Stand-sit SBA Bed-Chair SBA Chair-bed SBA GAIT: SBA with FWW 20ftx2 using 1.5 liter 02 NC BALANCE: Static sitting normal Dynamic sitting normal Static standing fair Dynamic standing fair ASSESSMENT:Pt was seen for 6 PT visits on acute status. Progressed from SBA gait with FWW 25ftx1 to SBA gait with FWW 20ftx4. Pt remained at SBA level for standing transfers and santino-SBA for bed transfers. Pt was discharged from acute status and transferred to SWING rehab program 02/23/18= see SWING eval for detials GOALS Goals x1 week 1. Supine-sit: independent 2. Sit-Supine independent 3. Sit-Stand: supervision with FWW 4. Stand-sit supervision 5. Bed-chair supervision with FWW 6. Chair-bed supervision with FWW 7. Gait supervision with FWW 50ftx2 Pt did not meet therapy goals - transferred to SWING program DISCHARGE RECOMMENDATIONS Transferred to SWING program 02/23/18 G Codes in the area mobility of walking and moving around:_projected status GP [id number]__[id number] . Discharge status (if discharging) GP [id number]_ Shonna Meadows PT
--- NOTE | 2018-02-26 08:16 | PT.INTREAT ---
PT Notes Inpatient Physical Therapy Treatment Note PRECAUTIONS:Fall SUBJECTIVE: Renay states that she has not been sleeping well and that she is in so much pain. OBJECTIVE: Patient refused OOB this morning, indicating that she will get out of bed with nsg later this morning. PAIN: Patient c/o global pain BED MOBILITY/TRANSFERS: Refused OOB THEREX: Patient completed a LE strengthening and stabilization program, as per flow sheet. Patient completed AP, GS, and QS, as well as resisted heel slides and SLR, and bridging, with complaints of increased fatigue and global pain. ASSESSMENT: Patient tolerated session with increased pain and fatigue. She would benefit from continued strengthening to improve strength, endurance, and ability to perform daily functional tasks. PLAN: Continue with PT's POC 15 minutes; TAx1 Intake Vital Signs 02/24/18 11:47 02/24/18 23:55 02/25/18 07:00 02/25/18 07:10 02/25/18 10:50 02/25/18 15:56 02/26/18 01:50 02/26/18 06:31 Weight 73.4 kg 72.2 kg BP 136/80 153/85 H 133/72 129/76 149/81 H Respiration 20 20 18 19 20 Pulse 58 L 67 63 69 69 Temp 36.9 C 36.4 C L 36.5 C 36.2 C L 36.8 C Temp Source Tympanic Tympanic Tympanic Tympanic Tympanic Pulse Oximetry (%) 93 L 96 94 L 95 92 L Oxygen Flow Rate 0 0 2 2 2
--- NOTE | 2018-02-26 08:22 | PTTR_ITS ---
PT Notes Inpatient Physical Therapy Treatment Note PRECAUTIONS:Fall SUBJECTIVE: Renay states that she has not been sleeping well and that she is in so much pain. OBJECTIVE: Patient refused OOB this morning, indicating that she will get out of bed with nsg later this morning. PAIN: Patient c/o global pain BED MOBILITY/TRANSFERS: Refused OOB THEREX: Patient completed a LE strengthening and stabilization program, as per flow sheet. Patient completed AP, GS, and QS, as well as resisted heel slides and SLR, and bridging, with complaints of increased fatigue and global pain. ASSESSMENT: Patient tolerated session with increased pain and fatigue. She would benefit from continued strengthening to improve strength, endurance, and ability to perform daily functional tasks. PLAN: Continue with PT's POC 15 minutes; TAx1 Intake Vital Signs 3 l l l l 02/24/18 11:47 l l 02/24/18 23:55 l l 02/25/18 07:00 l l 02/25/18 07:10 l l 02/25/18 10:50 l l 02/25/18 15:56 l l 02/26/18 01:50 l l 02/26/18 06:31 l l Weight 73.4 kg 72.2 kg l l BP 136/80 153/85 H 133/72 129/76 149/81 H l l Respiration 20 20 18 19 20 l l Pulse 58 L 67 63 69 69 l l Temp 36.9 C 36.4 C L 36.5 C 36.2 C L 36.8 C l l Temp Source Tympanic Tympanic Tympanic Tympanic Tympanic l l Pulse Oximetry (%) 93 L 96 94 L 95 92 L l l Oxygen Flow Rate 0 0 2 2 2
[2018-02-26] MEDS: Refresh PLUS Eye Drops 0.4ml OU (15:20)
[2018-02-26 19:43] VITALS: BP 138/81; PULSE 67; RESP 19; TEMP 36.3; O2SAT 96
[2018-02-27] MEDS: Acetaminophen 325 MG TAB 650 MG PO ×2 (00:40→19:50)
[2018-02-27 00:41] VITALS: BP 157/80; PULSE 67; RESP 20; TEMP 36.5; O2SAT 94
[2018-02-27] MEDS: Magnesium Gluconate 500 MG TAB PO ×2 (06:39→18:25)
[2018-02-27 08:34] VITALS: BP 156/82; PULSE 69; RESP 20; TEMP 36.8; O2SAT 95
[2018-02-27 08:50] VITALS: O2SAT 95
[2018-02-27] MEDS: Furosemide 40 MG TAB PO ×2 (09:02→15:52)
[2018-02-27] MEDS: Aspirin 81 MG CHEW PO (09:02)
[2018-02-27] MEDS: Methadone 5 MG TAB PO ×2 (09:02→15:53)
[2018-02-27] MEDS: Carvedilol 25 MG TAB 50 MG PO ×2 (09:02→19:50)
[2018-02-27] MEDS: Sennosides/Docusate Sodium TAB 2 TAB PO ×2 (09:02→19:50)
[2018-02-27] MEDS: Ascorbic Acid 500 MG TAB 1000 MG PO (09:02)
[2018-02-27] MEDS: predniSONE 5 MG TAB PO (09:02)
[2018-02-27] MEDS: Enoxaparin 30 MG/0.3 ML SYR SC (09:03)
[2018-02-27] MEDS: Atorvastatin 10 MG TAB 5 MG PO (09:03)
[2018-02-27] MEDS: Fluticasone NASAL SPRAY 16 GM BTL NS ×2 (09:04→19:50)
[2018-02-27] MEDS: Docusate Sodium 100 MG CAP PO ×2 (09:05→19:50)
[2018-02-27] MEDS: Refresh PLUS Eye Drops 0.4ml OU (09:39)
--- NOTE | 2018-02-27 09:40 | PT.INTREAT ---
PT Notes Inpatient Physical Therapy Treatment Note PRECAUTIONS:Fall SUBJECTIVE: Renay states that she continues to have bilateral shoulder and back pain. OBJECTIVE: PAIN: Patient complained of pain in bilateral shoulders and back with transfers and with any shoulder movement on R BED MOBILITY/TRANSFERS Supine-sit: S with HOB at 30 degrees Sit-stand: SBA Stand-sit: SBA GAIT Assistive Device: FWW Weight bearing: Full Assist: S Distance: 20' x6 Deviation: Standing rest x4 THEREX: Patient performed ankle pumps x20, bilaterally. ASSESSMENT: Patient tolerated a progression in her gait distance today, requiring standing rest x4 due to pain and slight SOB, with FWW support, and supervision only. PLAN: Continue with PT's POC 30 minutes; TAx2 Intake Vital Signs 02/24/18 11:47 02/24/18 23:55 02/25/18 07:00 02/25/18 07:10 02/25/18 10:50 02/25/18 15:56 02/26/18 01:50 02/26/18 06:31 02/26/18 07:54 02/26/18 19:43 02/27/18 00:41 02/27/18 08:34 02/27/18 09:28 Weight 73.4 kg 72.2 kg 72.1 kg BP 136/80 153/85 H 133/72 129/76 149/81 H 161/83 H 138/81 157/80 H 156/82 H Respiration 20 20 18 19 20 20 19 20 20 Pulse 58 L 67 63 69 69 62 67 67 69 Temp 36.9 C 36.4 C L 36.5 C 36.2 C L 36.8 C 36.7 C 36.3 C L 36.5 C 36.8 C Temp Source Tympanic Tympanic Tympanic Tympanic Tympanic Tympanic Tympanic Tympanic Tympanic Pulse Oximetry (%) 93 L 96 94 L 95 92 L 96 96 94 L 95 Oxygen Flow Rate 0 0 2 2 2 2 2 2 2
--- NOTE | 2018-02-27 09:44 | PTTR_ITS ---
PT Notes Inpatient Physical Therapy Treatment Note PRECAUTIONS:Fall SUBJECTIVE: Renay states that she continues to have bilateral shoulder and back pain. OBJECTIVE: PAIN: Patient complained of pain in bilateral shoulders and back with transfers and with any shoulder movement on R BED MOBILITY/TRANSFERS Supine-sit: S with HOB at 30 degrees Sit-stand: SBA Stand-sit: SBA GAIT Assistive Device: FWW Weight bearing: Full Assist: S Distance: 20' x6 Deviation: Standing rest x4 THEREX: Patient performed ankle pumps x20, bilaterally. ASSESSMENT: Patient tolerated a progression in her gait distance today, requiring standing rest x4 due to pain and slight SOB, with FWW support, and supervision only. PLAN: Continue with PT's POC 30 minutes; TAx2 Intake Vital Signs 3 l l l l 02/24/18 11:47 l l 02/24/18 23:55 l l 02/25/18 07:00 l l 02/25/18 07:10 l l 02/25/18 10:50 l l 02/25/18 15:56 l l 02/26/18 01:50 l l 02/26/18 06:31 l l 02/26/18 07:54 l l 02/26/18 19:43 l l 02/27/18 00:41 l l 02/27/18 08:34 l l 02/27/18 09:28 l l Weight 73.4 kg 72.2 kg 72.1 kg l l BP 136/80 153/85 H 133/72 129/76 149/81 H 161/83 H 138/81 157/80 H 156/82 H l l Respiration 20 20 18 19 20 20 19 20 20 l l Pulse 58 L 67 63 69 69 62 67 67 69 l l Temp 36.9 C 36.4 C L 36.5 C 36.2 C L 36.8 C 36.7 C 36.3 C L 36.5 C 36.8 C l l Temp Source Tympanic Tympanic Tympanic Tympanic Tympanic Tympanic Tympanic Tympanic Tympanic l l Pulse Oximetry (%) 93 L 96 94 L 95 92 L 96 96 94 L 95 l l Oxygen Flow Rate 0 0 2 2 2 2 2 2 2
--- NOTE | 2018-02-27 13:12 | PDOC.CMACT ---
- If Service Date Differs Date of service: 02/27/18 Time of Service: 13:12 Care Management Activity Note Renay is in a swingbed level of care for strengthening. She enjoys visiting with her caregiver as well as her daughter. Renay is offered Reiki, Music therapy, as well as pet therapy which she enjoys. Renay also enjoys watching TV and visiting with staff. P: Renay will return home ? Sunday with home health RN/PT/OT services. [facility] caregiver will transport when ready.
--- NOTE | 2018-02-27 14:51 | PT.INTREAT ---
PT Notes Inpatient Physical Therapy Treatment Note PRECAUTIONS:Fall SUBJECTIVE: Renay is agreeable to PT this afternoon. OBJECTIVE: PAIN: Patient c/o pain in bilateral shoulders and back BED MOBILITY/TRANSFERS Sit-supine: S with HOB flat Sit-stand: SBA Stand-sit: SBA GAIT Assistive Device: FWW Weight bearing: Full Assist: S Distance: 20' x2 THEREX: Patient completed an open-chain, resisted, LE strengthening program, as per flow sheet. TOILETING: Patient toileted with assist for perianal care. ASSESSMENT: Patient continues to appear limited by bilateral shoulder and back pain. She would benefit from continued strengthening and gait and transfer training to improve endurance and ability. PLAN: Continue with PT's POC 25 minutes; TAx1, TPx1 Intake Vital Signs 02/24/18 11:47 02/24/18 23:55 02/25/18 07:00 02/25/18 07:10 02/25/18 10:50 02/25/18 15:56 02/26/18 01:50 02/26/18 06:31 02/26/18 07:54 02/26/18 19:43 02/27/18 00:41 02/27/18 08:34 02/27/18 08:50 02/27/18 09:28 Weight 73.4 kg 72.2 kg 72.1 kg BP 136/80 153/85 H 133/72 129/76 149/81 H 161/83 H 138/81 157/80 H 156/82 H Respiration 20 20 18 19 20 20 19 20 20 Pulse 58 L 67 63 69 69 62 67 67 69 Temp 36.9 C 36.4 C L 36.5 C 36.2 C L 36.8 C 36.7 C 36.3 C L 36.5 C 36.8 C Temp Source Tympanic Tympanic Tympanic Tympanic Tympanic Tympanic Tympanic Tympanic Tympanic Pulse Oximetry (%) 93 L 96 94 L 95 92 L 96 96 94 L 95 95 Oxygen Flow Rate 0 0 2 2 2 2 2 2 2 2
--- NOTE | 2018-02-27 14:53 | PTTR_ITS ---
PT Notes Inpatient Physical Therapy Treatment Note PRECAUTIONS:Fall SUBJECTIVE: Renay is agreeable to PT this afternoon. OBJECTIVE: PAIN: Patient c/o pain in bilateral shoulders and back BED MOBILITY/TRANSFERS Sit-supine: S with HOB flat Sit-stand: SBA Stand-sit: SBA GAIT Assistive Device: FWW Weight bearing: Full Assist: S Distance: 20' x2 THEREX: Patient completed an open-chain, resisted, LE strengthening program, as per flow sheet. TOILETING: Patient toileted with assist for perianal care. ASSESSMENT: Patient continues to appear limited by bilateral shoulder and back pain. She would benefit from continued strengthening and gait and transfer training to improve endurance and ability. PLAN: Continue with PT's POC 25 minutes; TAx1, TPx1 Intake Vital Signs 3 l l l l 02/24/18 11:47 l l 02/24/18 23:55 l l 02/25/18 07:00 l l 02/25/18 07:10 l l 02/25/18 10:50 l l 02/25/18 15:56 l l 02/26/18 01:50 l l 02/26/18 06:31 l l 02/26/18 07:54 l l 02/26/18 19:43 l l 02/27/18 00:41 l l 02/27/18 08:34 l l 02/27/18 08:50 l l 02/27/18 09:28 l l Weight 73.4 kg 72.2 kg 72.1 kg l l BP 136/80 153/85 H 133/72 129/76 149/81 H 161/83 H 138/81 157/80 H 156/82 H l l Respiration 20 20 18 19 20 20 19 20 20 l l Pulse 58 L 67 63 69 69 62 67 67 69 l l Temp 36.9 C 36.4 C L 36.5 C 36.2 C L 36.8 C 36.7 C 36.3 C L 36.5 C 36.8 C l l Temp Source Tympanic Tympanic Tympanic Tympanic Tympanic Tympanic Tympanic Tympanic Tympanic l l Pulse Oximetry (%) 93 L 96 94 L 95 92 L 96 96 94 L 95 95 l l Oxygen Flow Rate 0 0 2 2 2 2 2 2 2 2
[2018-02-27 16:41] VITALS: BP 134/72; PULSE 62; RESP 18; TEMP 37.4; O2SAT 97
[2018-02-27 19:40] VITALS: BP 116/75; PULSE 76
[2018-02-28 00:28] VITALS: BP 145/62; PULSE 57; RESP 16; TEMP 36.2; O2SAT 99
[2018-02-28] MEDS: Magnesium Gluconate 500 MG TAB PO ×2 (06:13→17:19)
[2018-02-28 07:15] VITALS: BP 158/85; PULSE 63; RESP 17; TEMP 36.1; O2SAT 94
--- NOTE | 2018-02-28 07:18 | PT.INPN ---
PT Notes Inpatient Physical Therapy Progress Note Date: 02/28/18 Dates of Service: 02/24/18-02/27/18 PRECAUTIONS: Fall precuations SUBJECTIVE: NT OBJECTIVE: 02/24/18-02/27/18 BED MOBILITY/TRANSFERS: Sit-supine: supervision Supine-sit: supervision Sit-stand: SBA Stand-sit: SBA GAIT: supervision with FWW [id number] BALANCE: Static sitting normal Dynamic Sitting normal Static Standing fair Dynamic Standing fair ASSESSMENT: Pt is a 77yr old female admitted with congestive heart failure and superficial thrombophlebitis left lower extremity in setting of bilateral lower extremity edema, congestive heart failure, mitral valve regurgitation, polycystic kidney disease bilaterally, nephrectomies, chronic renal insufficiency with kidney transplant 1990, ostearthritis, chronic pain syndrome uses methadone, chronic low back pain, spinal stenosis cervical and lumbar spines, chronic obstructive pulmonary disease uses 2liters 02 NC. Patient transitioned to SWING rehab program 02/24/18. Pt is making slow progress with strengthening program and functional mobility, bed transfers have improved from SBA to supervision, standing transfers remain at SBA, gait is limited distances [id number]. Pt would benefit from continued therapy intervention to progress bed mobility and standing transfers to independent, and progress gait to 50ftx2 which is the length of her trailor. Pt would benefit from SNF rehab placement but refuses and wants to discharge to home, pt lives independently and is not safe to be home alone due to limited use of upper extremities due to weakness and decreased functional mobility, 24hr caregivers are recommend for home discharge along with home PT/OT. GOALS Goals x1 week 1. Supine-sit: independent 2. Sit-Supine independent 3. Sit-Stand: supervision with FWW 4. Stand-sit supervision 5. Bed-chair supervision with FWW 6. Chair-bed supervision with FWW 7. Gait supervision with FWW 50ftx2 Pt has not met goals, continue PT toward outlined goals PLAN OF CARE/TREATMENT PLAN: Continue 1-2x/day, 7 days/ week x 1 week Continue Plan of care has been reviewed with the MOTOR COACH SUPERVISOR providing the service under Physical therapy direction. Continue physical therapy intervention for strengthening, bed mobility, transfers, gait, stairs, balance training, use of assistive device. DISCHARGE RECOMMENDATIONS Home with home PT/OT, pt has all DME G Codes in the area mobility of walking and moving around: current status [id number] _CK projected status GP [id number]__[id number]____ Shonna Meadows PT Intake Vital Signs 02/24/18 11:47 02/24/18 23:55 02/25/18 07:00 02/25/18 07:10 02/25/18 10:50 02/25/18 15:56 02/26/18 01:50 02/26/18 06:31 02/26/18 07:54 02/26/18 19:43 02/27/18 00:41 02/27/18 08:34 02/27/18 08:50 02/27/18 09:28 02/27/18 16:41 02/27/18 19:40 02/28/18 00:28 Weight 73.4 kg 72.2 kg 72.1 kg BP 136/80 153/85 H 133/72 129/76 149/81 H 161/83 H 138/81 157/80 H 156/82 H 134/72 116/75 145/62 H Respiration 20 20 18 19 20 20 19 20 20 18 16 Pulse 58 L 67 63 69 69 62 67 67 69 62 76 57 L Temp 36.9 C 36.4 C L 36.5 C 36.2 C L 36.8 C 36.7 C 36.3 C L 36.5 C 36.8 C 37.4 C 36.2 C L Temp Source Tympanic Tympanic Tympanic Tympanic Tympanic Tympanic Tympanic Tympanic Tympanic Tympanic Tympanic Pulse Oximetry (%) 93 L 96 94 L 95 92 L 96 96 94 L 95 95 97 99 Oxygen Flow Rate 0 0 2 2 2 2 2 2 2 2 0 2
--- NOTE | 2018-02-28 07:27 | INPN_ITS ---
PT Notes Inpatient Physical Therapy Progress Note Date: 02/28/18 Dates of Service: 02/24/18-02/27/18 PRECAUTIONS: Fall precuations SUBJECTIVE: NT OBJECTIVE: 02/24/18-02/27/18 BED MOBILITY/TRANSFERS: Sit-supine: supervision Supine-sit: supervision Sit-stand: SBA Stand-sit: SBA GAIT: supervision with FWW [id number] BALANCE: Static sitting normal Dynamic Sitting normal Static Standing fair Dynamic Standing fair ASSESSMENT: Pt is a 77yr old female admitted with congestive heart failure and superficial thrombophlebitis left lower extremity in setting of bilateral lower extremity edema, congestive heart failure, mitral valve regurgitation, polycystic kidney disease bilaterally, nephrectomies, chronic renal insufficiency with kidney transplant 1990, ostearthritis, chronic pain syndrome uses methadone, chronic low back pain, spinal stenosis cervical and lumbar spines, chronic obstructive pulmonary disease uses 2liters 02 NC. Patient transitioned to SWING rehab program 02/24/18. Pt is making slow progress with strengthening program and functional mobility, bed transfers have improved from SBA to supervision, standing transfers remain at SBA, gait is limited distances [id number]. Pt would benefit from continued therapy intervention to progress bed mobility and standing transfers to independent, and progress gait to 50ftx2 which is the length of her trailor. Pt would benefit from SNF rehab placement but refuses and wants to discharge to home, pt lives independently and is not safe to be home alone due to limited use of upper extremities due to weakness and decreased functional mobility, 24hr caregivers are recommend for home discharge along with home PT/OT. GOALS Goals x1 week 1. Supine-sit: independent 2. Sit-Supine independent 3. Sit-Stand: supervision with FWW 4. Stand-sit supervision 5. Bed-chair supervision with FWW 6. Chair-bed supervision with FWW 7. Gait supervision with FWW 50ftx2 Pt has not met goals, continue PT toward outlined goals PLAN OF CARE/TREATMENT PLAN: Continue 1-2x/day, 7 days/ week x 1 week Continue Plan of care has been reviewed with the OSTEOLOGIST providing the service under Physical therapy direction. Continue physical therapy intervention for strengthening, bed mobility, transfers, gait, stairs, balance training, use of assistive device. DISCHARGE RECOMMENDATIONS Home with home PT/OT, pt has all DME G Codes in the area mobility of walking and moving around: current status [id number] _CK projected status GP [id number]__[id number]____ Shonnafany Meadows PT Intake Vital Signs 3 l l l l 02/24/18 11:47 l l 02/24/18 23:55 l l 02/25/18 07:00 l l 02/25/18 07:10 l l 02/25/18 10:50 l l 02/25/18 15:56 l l 02/26/18 01:50 l l 02/26/18 06:31 l l 02/26/18 07:54 l l 02/26/18 19:43 l l 02/27/18 00:41 l l 02/27/18 08:34 l l 02/27/18 08:50 l l 02/27/18 09:28 l l 02/27/18 16:41 l l 02/27/18 19:40 l l 02/28/18 00:28 l l Weight 73.4 kg 72.2 kg 72.1 kg l l BP 136/80 153/85 H 133/72 129/76 149/81 H 161/83 H 138/81 157/80 H 156/82 H 134/72 116/75 145/62 H l l Respiration 20 20 18 19 20 20 19 20 20 18 16 l l Pulse 58 L 67 63 69 69 62 67 67 69 62 76 57 L l l Temp 36.9 C 36.4 C L 36.5 C 36.2 C L 36.8 C 36.7 C 36.3 C L 36.5 C 36.8 C 37.4 C 36.2 C L l l Temp Source Tympanic Tympanic Tympanic Tympanic Tympanic Tympanic Tympanic Tympanic Tympanic Tympanic Tympanic l l Pulse Oximetry (%) 93 L 96 94 L 95 92 L 96 96 94 L 95 95 97 99 l l Oxygen Flow Rate 0 0 2 2 2 2 2 2 2 2 0 2
--- NOTE | 2018-02-28 08:20 | PT.INTREAT ---
PT Notes Inpatient Physical Therapy Treatment Note PRECAUTIONS: Fall SUBJECTIVE: Renay is agreeable to PT. She states that she wants to get stronger, however, expresses concerns that she may not be able to get much stronger than she is now. OBJECTIVE: PAIN: Patient complains of pain in B shoulders and back BED MOBILITY/TRANSFERS Sit-stand: SBA Stand-sit: SBA GAIT Assistive Device: FWW Weight bearing: Full Assist: S Distance: 50'x2 Deviation: Standing rest x3; 2L O2 via NC TOILETING: Patient toileted with assist for perianal care ASSESSMENT: Patient tolerated a progression in gait distance with increased fatigue. Patient continues to appear limited due to bilateral shoulder and back pain. Patient would benefit from continued transfer training and strengthening. PLAN: Continue with PT's POC 25 minutes; TAx2 Intake Vital Signs 02/24/18 11:47 02/24/18 23:55 02/25/18 07:00 02/25/18 07:10 02/25/18 10:50 02/25/18 15:56 02/26/18 01:50 02/26/18 06:31 02/26/18 07:54 02/26/18 19:43 02/27/18 00:41 02/27/18 08:34 02/27/18 08:50 02/27/18 09:28 02/27/18 16:41 02/27/18 19:40 02/28/18 00:28 02/28/18 07:15 02/28/18 08:02 Weight 73.4 kg 72.2 kg 72.1 kg 69.8 kg BP 136/80 153/85 H 133/72 129/76 149/81 H 161/83 H 138/81 157/80 H 156/82 H 134/72 116/75 145/62 H 158/85 H Respiration 20 20 18 19 20 20 19 20 20 18 16 17 Pulse 58 L 67 63 69 69 62 67 67 69 62 76 57 L 63 Temp 36.9 C 36.4 C L 36.5 C 36.2 C L 36.8 C 36.7 C 36.3 C L 36.5 C 36.8 C 37.4 C 36.2 C L 36.1 C L Temp Source Tympanic Tympanic Tympanic Tympanic Tympanic Tympanic Tympanic Tympanic Tympanic Tympanic Tympanic Tympanic Pulse Oximetry (%) 93 L 96 94 L 95 92 L 96 96 94 L 95 95 97 99 94 L Oxygen Flow Rate 0 0 2 2 2 2 2 2 2 2 0 2 2
--- NOTE | 2018-02-28 08:23 | PTTR_ITS ---
PT Notes Inpatient Physical Therapy Treatment Note PRECAUTIONS: Fall SUBJECTIVE: Renay is agreeable to PT. She states that she wants to get stronger , however, expresses concerns that she may not be able to get much stronger than she is now. OBJECTIVE: PAIN: Patient complains of pain in B shoulders and back BED MOBILITY/TRANSFERS Sit-stand: SBA Stand-sit: SBA GAIT Assistive Device: FWW Weight bearing: Full Assist: S Distance: 50'x2 Deviation: Standing rest x3; 2L O2 via NC TOILETING: Patient toileted with assist for perianal care ASSESSMENT: Patient tolerated a progression in gait distance with increased fatigue. Patient continues to appear limited due to bilateral shoulder and back pain. Patient would benefit from continued transfer training and strengthening. PLAN: Continue with PT's POC 25 minutes; TAx2 Intake Vital Signs 3 l l l l 02/24/18 11:47 l l 02/24/18 23:55 l l 02/25/18 07:00 l l 02/25/18 07:10 l l 02/25/18 10:50 l l 02/25/18 15:56 l l 02/26/18 01:50 l l 02/26/18 06:31 l l 02/26/18 07:54 l l 02/26/18 19:43 l l 02/27/18 00:41 l l 02/27/18 08:34 l l 02/27/18 08:50 l l 02/27/18 09:28 l l 02/27/18 16:41 l l 02/27/18 19:40 l l 02/28/18 00:28 l l 02/28/18 07:15 l l 02/28/18 08:02 l l Weight 73.4 kg 72.2 kg 72.1 kg 69.8 kg l l BP 136/80 153/85 H 133/72 129/76 149/81 H 161/83 H 138/81 157/80 H 156/82 H 134/72 116/75 145/62 H 158/85 H l l Respiration 20 20 18 19 20 20 19 20 20 18 16 17 l l Pulse 58 L 67 63 69 69 62 67 67 69 62 76 57 L 63 l l Temp 36.9 C 36.4 C L 36.5 C 36.2 C L 36.8 C 36.7 C 36.3 C L 36.5 C 36.8 C 37.4 C 36.2 C L 36.1 C L l l Temp Source Tympanic Tympanic Tympanic Tympanic Tympanic Tympanic Tympanic Tympanic Tympanic Tympanic Tympanic Tympanic l l Pulse Oximetry (%) 93 L 96 94 L 95 92 L 96 96 94 L 95 95 97 99 94 L l l Oxygen Flow Rate 0 0 2 2 2 2 2 2 2 2 0 2 2
[2018-02-28 08:25] VITALS: O2SAT 95
[2018-02-28] MEDS: Methadone 5 MG TAB PO ×2 (08:29→17:03)
[2018-02-28] MEDS: Aspirin 81 MG CHEW PO (08:29)
[2018-02-28] MEDS: Furosemide 40 MG TAB PO ×2 (08:29→17:04)
[2018-02-28] MEDS: Atorvastatin 10 MG TAB 5 MG PO (08:29)
[2018-02-28] MEDS: Acetaminophen 325 MG TAB 650 MG PO ×2 (08:30→12:41)
[2018-02-28] MEDS: Sennosides/Docusate Sodium TAB 2 TAB PO ×2 (08:31→22:07)
[2018-02-28] MEDS: Ascorbic Acid 500 MG TAB 1000 MG PO (08:31)
[2018-02-28] MEDS: Carvedilol 25 MG TAB 50 MG PO ×2 (08:32→22:08)
[2018-02-28] MEDS: predniSONE 5 MG TAB PO (08:32)
[2018-02-28] MEDS: Docusate Sodium 100 MG CAP PO ×2 (08:32→22:07)
[2018-02-28] MEDS: Fluticasone NASAL SPRAY 16 GM BTL NS ×2 (08:34→22:05)
[2018-02-28] MEDS: Enoxaparin 30 MG/0.3 ML SYR SC (08:34)
--- NOTE | 2018-02-28 13:19 | CMPROGNOTE_ITS ---
Care Management Progress Note Christine from the [facility] advised Renay has run out of one of her home meds ; Neoral 25mg. CM spoke with Renay who reported she would contact one of her caregivers to bring her last box in from home. Renay also reported she had ordered more of the med this morning. STEFANY notified Bobby TEAGUE of the above information.
--- NOTE | 2018-02-28 13:45 | PTTR_ITS ---
PT Notes Inpatient Physical Therapy Treatment Note Date: 02/28/18 PRECAUTIONS:Fall precautions SUBJECTIVE: Pt sitting in chair moaning, states her shoulders hurt. Reports constant pain in arm and shoulders. States she has been using K-pad heating pad and that has helped some but does not alleviate the pain. Pt agreeable to therapy session. OBJECTIVE: General observation: 2 liters 02 NC PAIN: c/p pain bilateral shoulders, constant, not rated. Complaining of pain for duration of session and with any upper body movement. BED MOBILITY/TRANSFERS Sit-stand: SBA with FWW Bed-commode: SBA with FWW Commode-bed: SBA with FWW Stand-sit: SBA Sit-supine: HOB flat, SBA. Pt able to lift legs into bed TOLETING Pt requires high surface to toilet, cannot get up from standard height toilet. Requires max A for perianal cleaning post voiding. GAIT Assistive Device: FWW Weight bearing: as tolerated Assist SBA Distance: 40ftx2 Deviation: kyphotic posture, forward head, forward shoulders, difficulty standing erect due to shoulder pain. Gait with short stride, decreased guadalupe, requiring standing rest break every 10ft due to pain and fatigue. Pt unable to mobilize at a steady pace with FWW due to pain. Pt transferred back to bed with legs elevated, k-pad on bilateral shoulders for pain reduction. THEREX: Performed ankle pumps, quad sets, glute sets x 20 reps ASSESSMENT: Pt's shoulder pain limiting all functional mobility, pt remains very weak, requiring frequent rest breaks with minimal exertion and increased time to complete tasks due to weakness and pain. Pt is not yet able to mobilize gait distance she would be required to move in home trailer. PLAN: Progress strengthening Progress transfers Progress gait distance TREATMENT CODES/TIME: 26min TAx1 TPx1 1340 [facility] PT Intake Vital Signs 3 l l l l 02/24/18 11:47 l l 02/24/18 23:55 l l 02/25/18 07:00 l l 02/25/18 07:10 l l 02/25/18 10:50 l l 02/25/18 15:56 l l 02/26/18 01:50 l l 02/26/18 06:31 l l 02/26/18 07:54 l l 02/26/18 19:43 l l 02/27/18 00:41 l l 02/27/18 08:34 l l 02/27/18 08:50 l l 02/27/18 09:28 l l 02/27/18 16:41 l l 02/27/18 19:40 l l 02/28/18 00:28 l l 02/28/18 07:15 l l 02/28/18 08:02 l l 02/28/18 08:25 l l Weight 73.4 kg 72.2 kg 72.1 kg 69.8 kg l l BP 136/80 153/85 H 133/72 129/76 149/81 H 161/83 H 138/81 157/80 H 156/82 H 134/72 116/75 145/62 H 158/85 H l l Respiration 20 20 18 19 20 20 19 20 20 18 16 17 l l Pulse 58 L 67 63 69 69 62 67 67 69 62 76 57 L 63 l l Temp 36.9 C 36.4 C L 36.5 C 36.2 C L 36.8 C 36.7 C 36.3 C L 36.5 C 36.8 C 37.4 C 36.2 C L 36.1 C L l l Temp Source Tympanic Tympanic Tympanic Tympanic Tympanic Tympanic Tympanic Tympanic Tympanic Tympanic Tympanic Tympanic l l Pulse Oximetry (%) 93 L 96 94 L 95 92 L 96 96 94 L 95 95 97 99 94 L 95 l l Oxygen Flow Rate 0 0 2 2 2 2 2 2 2 2 0 2 2 2
[2018-02-28 18:47] VITALS: BP 125/81; PULSE 73; RESP 20; TEMP 37.3; O2SAT 95
[2018-03-01 00:42] VITALS: BP 142/80; PULSE 70; RESP 18; TEMP 36.8; O2SAT 96
[2018-03-01] MEDS: Magnesium Gluconate 500 MG TAB PO ×2 (06:53→18:25)
[2018-03-01 07:15] VITALS: BP 137/85; PULSE 51; RESP 20; TEMP 36.4; O2SAT 95
[2018-03-01 07:26] LABS: Platelet Count 198 x1000/uL (130-400)
[2018-03-01 07:50] VITALS: O2SAT 95
[2018-03-01] MEDS: Fluticasone NASAL SPRAY 16 GM BTL NS ×2 (09:02→19:30)
[2018-03-01] MEDS: Enoxaparin 30 MG/0.3 ML SYR SC (09:02)
[2018-03-01] MEDS: Methadone 5 MG TAB PO ×2 (09:03→16:35)
[2018-03-01] MEDS: predniSONE 5 MG TAB PO (09:04)
[2018-03-01] MEDS: Furosemide 40 MG TAB PO ×2 (09:04→16:35)
[2018-03-01] MEDS: Carvedilol 25 MG TAB 50 MG PO ×2 (09:04→19:30)
[2018-03-01] MEDS: Docusate Sodium 100 MG CAP PO ×2 (09:04→19:30)
[2018-03-01] MEDS: Atorvastatin 10 MG TAB 5 MG PO (09:04)
[2018-03-01] MEDS: Acetaminophen 325 MG TAB 650 MG PO ×2 (09:05→23:07)
[2018-03-01] MEDS: Sennosides/Docusate Sodium TAB 2 TAB PO ×2 (09:05→19:29)
[2018-03-01] MEDS: Ascorbic Acid 500 MG TAB 1000 MG PO (09:05)
[2018-03-01] MEDS: Aspirin 81 MG CHEW PO (09:05)
--- NOTE | 2018-03-01 09:53 | PT.INTREAT ---
PT Notes Inpatient Physical Therapy Treatment Note Date: 03/01/18 PRECAUTIONS:Fall precautions SUBJECTIVE: Pt sitting on commode, agreeable to therapy session. States she thinks she feels better today, but then as soon as she stands or moves she starts to moan and groan verbally complaining of shoulder and abdominal pain. Pt received pain medication prior to session. OBJECTIVE: General observation: 2 liters 02 NC PAIN: c/p pain bilateral shoulders, constant, not rated. Complaining of pain for duration of session and with any movement. BED MOBILITY/TRANSFERS Sit-stand: SBA with FWW Commode-chair: SBA with FWW Stand-sit: SBA Sit-supine: HOB flat, SBA. Pt able to lift legs into bed GAIT Assistive Device: FWW Weight bearing: as tolerated Assist SBA Distance: 40ftx2 Deviation: kyphotic posture, forward head, forward shoulders, difficulty standing erect due to shoulder pain. Gait with short stride, decreased guadalupe. Pt moaning and complaining of pain throughout therapy session, very fatigued once gait session completed, asking to get back to bed. Pt postioned in bed with K-pad to shoulders. THEREX: Performed ankle pumps, hip flexion, long arc quads x 20 reps ASSESSMENT: Pt continues to have limited mobility and function due to pain in shoulders and weakness. Pt only able to perform limited level of exertion before becoming extremely fatigued, she does not appear to be gaining much strength day to day despite efforts to improve mobility. Pt does not appear safe to be able to discharge to home alone at this time, she would benefit from intermediate care facility for rehab to allow for increased time to improve strength and function, pt still reluctant to consider SNF as an option. PLAN: Progress strengthening Progress transfers Progress gait distance TREATMENT CODES/TIME: 25min TAx1 TPx1 9:35 [facility] PT Intake Vital Signs 02/24/18 11:47 02/24/18 23:55 02/25/18 07:00 02/25/18 07:10 02/25/18 10:50 02/25/18 15:56 02/26/18 01:50 02/26/18 06:31 02/26/18 07:54 02/26/18 19:43 02/27/18 00:41 02/27/18 08:34 02/27/18 08:50 02/27/18 09:28 02/27/18 16:41 02/27/18 19:40 02/28/18 00:28 02/28/18 07:15 02/28/18 08:02 02/28/18 08:25 02/28/18 18:47 03/01/18 00:42 03/01/18 00:57 03/01/18 07:05 03/01/18 07:15 Weight 73.4 kg 72.2 kg 72.1 kg 69.8 kg 70.1 kg BP 136/80 153/85 H 133/72 129/76 149/81 H 161/83 H 138/81 157/80 H 156/82 H 134/72 116/75 145/62 H 158/85 H 125/81 142/80 H 137/85 Respiration 20 20 18 19 20 20 19 20 20 18 16 17 20 18 20 Pulse 58 L 67 63 69 69 62 67 67 69 62 76 57 L 63 73 70 51 L Temp 36.9 C 36.4 C L 36.5 C 36.2 C L 36.8 C 36.7 C 36.3 C L 36.5 C 36.8 C 37.4 C 36.2 C L 36.1 C L 37.3 C 36.8 C 36.4 C L Temp Source Tympanic Tympanic Tympanic Tympanic Tympanic Tympanic Tympanic Tympanic Tympanic Tympanic Tympanic Tympanic Temporal Artery Scan Tympanic Tympanic Pulse Oximetry (%) 93 L 96 94 L 95 92 L 96 96 94 L 95 95 97 99 94 L 95 95 96 95 Oxygen Flow Rate 0 0 2 2 2 2 2 2 2 2 0 2 2 2 2 2 2 2
--- NOTE | 2018-03-01 09:57 | PTTR_ITS ---
PT Notes Inpatient Physical Therapy Treatment Note Date: 03/01/18 PRECAUTIONS:Fall precautions SUBJECTIVE: Pt sitting on commode, agreeable to therapy session. States she thinks she feels better today, but then as soon as she stands or moves she starts to moan and groan verbally complaining of shoulder and abdominal pain. Pt received pain medication prior to session. OBJECTIVE: General observation: 2 liters 02 NC PAIN: c/p pain bilateral shoulders, constant, not rated. Complaining of pain for duration of session and with any movement. BED MOBILITY/TRANSFERS Sit-stand: SBA with FWW Commode-chair: SBA with FWW Stand-sit: SBA Sit-supine: HOB flat, SBA. Pt able to lift legs into bed GAIT Assistive Device: FWW Weight bearing: as tolerated Assist SBA Distance: 40ftx2 Deviation: kyphotic posture, forward head, forward shoulders, difficulty standing erect due to shoulder pain. Gait with short stride, decreased guadalupe. Pt moaning and complaining of pain throughout therapy session, very fatigued once gait session completed, asking to get back to bed. Pt postioned in bed with K-pad to shoulders. THEREX: Performed ankle pumps, hip flexion, long arc quads x 20 reps ASSESSMENT: Pt continues to have limited mobility and function due to pain in shoulders and weakness. Pt only able to perform limited level of exertion before becoming extremely fatigued, she does not appear to be gaining much strength day to day despite efforts to improve mobility. Pt does not appear safe to be able to discharge to home alone at this time, she would benefit from intermediate care facility for rehab to allow for increased time to improve strength and function, pt still reluctant to consider SNF as an option. PLAN: Progress strengthening Progress transfers Progress gait distance TREATMENT CODES/TIME: 25min TAx1 TPx1 9:35 [facility] PT Intake Vital Signs 3 l l l l 02/24/18 11:47 l l 02/24/18 23:55 l l 02/25/18 07:00 l l 02/25/18 07:10 l l 02/25/18 10:50 l l 02/25/18 15:56 l l 02/26/18 01:50 l l 02/26/18 06:31 l l 02/26/18 07:54 l l 02/26/18 19:43 l l 02/27/18 00:41 l l 02/27/18 08:34 l l 02/27/18 08:50 l l 02/27/18 09:28 l l 02/27/18 16:41 l l 02/27/18 19:40 l l 02/28/18 00:28 l l 02/28/18 07:15 l l 02/28/18 08:02 l l 02/28/18 08:25 l l 02/28/18 18:47 l l 03/01/18 00:42 l l 03/01/18 00:57 l l 03/01/18 07:05 l l 03/01/18 07:15 l l Weight 73.4 kg 72.2 kg 72.1 kg 69.8 kg 70.1 kg l l BP 136/80 153/85 H 133/72 129/76 149/81 H 161/83 H 138/81 157/80 H 156/82 H 134/72 116/75 145/62 H 158/85 H 125 /81 142/80 H 137/85 l l Respiration 20 20 18 19 20 20 19 20 20 18 16 17 20 18 20 l l Pulse 58 L 67 63 69 69 62 67 67 69 62 76 57 L 63 73 70 51 L l l Temp 36.9 C 36.4 C L 36.5 C 36.2 C L 36.8 C 36.7 C 36.3 C L 36.5 C 36.8 C 37.4 C 36.2 C L 36.1 C L 37.3 C 36.8 C 36.4 C L l l Temp Source Tympanic Tympanic Tympanic Tympanic Tympanic Tympanic Tympanic Tympanic Tympanic Tympanic Tympanic Tympanic Temporal Artery Scan Tympanic Tympanic l l Pulse Oximetry (%) 93 L 96 94 L 95 92 L 96 96 94 L 95 95 97 99 94 L 95 95 96 95 l l Oxygen Flow Rate 0 0 2 2 2 2 2 2 2 2 0 2 2 2 2 2 2 2
[2018-03-01] MEDS: Refresh PLUS Eye Drops 0.4ml OU (11:31)
--- NOTE | 2018-03-01 15:19 | PT.INTREAT ---
PT Notes Inpatient Physical Therapy Treatment Note PRECAUTIONS:Fall SUBJECTIVE: Renay states that she gets very uncomfortable sitting up in the chair. She reports that she has continued pain in bilateral shoulders, that is the most severe following any activity. OBJECTIVE: PAIN: Patient c/o pain in bilateral shoulders and back BED MOBILITY/TRANSFERS Supine-sit: S with HOB at 20 degrees Sit-supine: S with HOB flat Sit-stand: SBA Stand-sit: SBA Bed-Chair: SBA Chair-bed: SBA GAIT Assistive Device: FWW Weight bearing: Full Assist: SBA Distance: 20'x6 Deviation: Frequent standing rests ASSESSMENT: Patient tolerated session well with some increased fatigue and an increase in shoulder pain, bilaterally. Patient would benefit from continued gait and transfer training as well as strengthening. PLAN: Continue with PT's POC TREATMENT CODE/TIME: 25 minutes; TAx1, TPx1 Intake Vital Signs 02/24/18 11:47 02/24/18 23:55 02/25/18 07:00 02/25/18 07:10 02/25/18 10:50 02/25/18 15:56 02/26/18 01:50 02/26/18 06:31 02/26/18 07:54 02/26/18 19:43 02/27/18 00:41 02/27/18 08:34 02/27/18 08:50 02/27/18 09:28 02/27/18 16:41 02/27/18 19:40 02/28/18 00:28 02/28/18 07:15 02/28/18 08:02 02/28/18 08:25 02/28/18 18:47 03/01/18 00:42 03/01/18 00:57 03/01/18 07:05 03/01/18 07:15 03/01/18 07:50 Weight 73.4 kg 72.2 kg 72.1 kg 69.8 kg 70.1 kg BP 136/80 153/85 H 133/72 129/76 149/81 H 161/83 H 138/81 157/80 H 156/82 H 134/72 116/75 145/62 H 158/85 H 125/81 142/80 H 137/85 Respiration 20 20 18 19 20 20 19 20 20 18 16 17 20 18 20 Pulse 58 L 67 63 69 69 62 67 67 69 62 76 57 L 63 73 70 51 L Temp 36.9 C 36.4 C L 36.5 C 36.2 C L 36.8 C 36.7 C 36.3 C L 36.5 C 36.8 C 37.4 C 36.2 C L 36.1 C L 37.3 C 36.8 C 36.4 C L Temp Source Tympanic Tympanic Tympanic Tympanic Tympanic Tympanic Tympanic Tympanic Tympanic Tympanic Tympanic Tympanic Temporal Artery Scan Tympanic Tympanic Pulse Oximetry (%) 93 L 96 94 L 95 92 L 96 96 94 L 95 95 97 99 94 L 95 95 96 95 95 Oxygen Flow Rate 0 0 2 2 2 2 2 2 2 2 0 2 2 2 2 2 2 2 2
--- NOTE | 2018-03-01 15:25 | PTTR_ITS ---
PT Notes Inpatient Physical Therapy Treatment Note PRECAUTIONS:Fall SUBJECTIVE: Renay states that she gets very uncomfortable sitting up in the chair. She reports that she has continued pain in bilateral shoulders, that is the most severe following any activity. OBJECTIVE: PAIN: Patient c/o pain in bilateral shoulders and back BED MOBILITY/TRANSFERS Supine-sit: S with HOB at 20 degrees Sit-supine: S with HOB flat Sit-stand: SBA Stand-sit: SBA Bed-Chair: SBA Chair-bed: SBA GAIT Assistive Device: FWW Weight bearing: Full Assist: SBA Distance: 20'x6 Deviation: Frequent standing rests ASSESSMENT: Patient tolerated session well with some increased fatigue and an increase in shoulder pain, bilaterally. Patient would benefit from continued gait and transfer training as well as strengthening. PLAN: Continue with PT's POC TREATMENT CODE/TIME: 25 minutes; TAx1, TPx1 Intake Vital Signs 3 l l l l 02/24/18 11:47 l l 02/24/18 23:55 l l 02/25/18 07:00 l l 02/25/18 07:10 l l 02/25/18 10:50 l l 02/25/18 15:56 l l 02/26/18 01:50 l l 02/26/18 06:31 l l 02/26/18 07:54 l l 02/26/18 19:43 l l 02/27/18 00:41 l l 02/27/18 08:34 l l 02/27/18 08:50 l l 02/27/18 09:28 l l 02/27/18 16:41 l l 02/27/18 19:40 l l 02/28/18 00:28 l l 02/28/18 07:15 l l 02/28/18 08:02 l l 02/28/18 08:25 l l 02/28/18 18:47 l l 03/01/18 00:42 l l 03/01/18 00:57 l l 03/01/18 07:05 l l 03/01/18 07:15 l l 03/01/18 07:50 l l Weight 73.4 kg 72.2 kg 72.1 kg 69.8 kg 70.1 kg l l BP 136/80 153/85 H 133/72 129/76 149/81 H 161/83 H 138/81 157/80 H 156/82 H 134/72 116/75 145/62 H 158/85 H 125 /81 142/80 H 137/85 l l Respiration 20 20 18 19 20 20 19 20 20 18 16 17 20 18 20 l l Pulse 58 L 67 63 69 69 62 67 67 69 62 76 57 L 63 73 70 51 L l l Temp 36.9 C 36.4 C L 36.5 C 36.2 C L 36.8 C 36.7 C 36.3 C L 36.5 C 36.8 C 37.4 C 36.2 C L 36.1 C L 37.3 C 36.8 C 36.4 C L l l Temp Source Tympanic Tympanic Tympanic Tympanic Tympanic Tympanic Tympanic Tympanic Tympanic Tympanic Tympanic Tympanic Temporal Artery Scan Tympanic Tympanic l l Pulse Oximetry (%) 93 L 96 94 L 95 92 L 96 96 94 L 95 95 97 99 94 L 95 95 96 95 95 l l Oxygen Flow Rate 0 0 2 2 2 2 2 2 2 2 0 2 2 2 2 2 2 2 2
[2018-03-01 16:22] VITALS: BP 116/74; PULSE 74; RESP 19; TEMP 36.8; O2SAT 97
--- NOTE | 2018-03-01 16:42 | CHAPLAIN ---
Renay's solar electric practitioner, Armani Govea from the [facility], visited Renay today.
[2018-03-01 23:20] VITALS: BP 157/95; PULSE 68; RESP 19; TEMP 36.9; O2SAT 99
[2018-03-02] MEDS: Magnesium Gluconate 500 MG TAB PO ×2 (06:08→18:28)
[2018-03-02] MEDS: Ascorbic Acid 500 MG TAB 1000 MG PO (07:52)
[2018-03-02] MEDS: Methadone 5 MG TAB PO ×2 (07:53→16:41)
[2018-03-02] MEDS: Atorvastatin 10 MG TAB 5 MG PO (07:53)
[2018-03-02] MEDS: predniSONE 5 MG TAB PO (07:54)
[2018-03-02] MEDS: Sennosides/Docusate Sodium TAB 2 TAB PO ×2 (07:54→19:30)
[2018-03-02] MEDS: Docusate Sodium 100 MG CAP PO ×2 (07:54→19:30)
[2018-03-02] MEDS: Carvedilol 25 MG TAB 50 MG PO ×2 (07:54→19:30)
[2018-03-02] MEDS: Furosemide 40 MG TAB PO ×2 (07:54→16:42)
[2018-03-02 07:55] VITALS: BP 151/74; PULSE 60; RESP 20; TEMP 36.5; O2SAT 97
[2018-03-02] MEDS: Enoxaparin 30 MG/0.3 ML SYR SC (07:55)
[2018-03-02] MEDS: Fluticasone NASAL SPRAY 16 GM BTL NS ×2 (07:55→19:30)
[2018-03-02] MEDS: Aspirin 81 MG CHEW PO (08:03)
--- NOTE | 2018-03-02 10:33 | PT.INTREAT ---
PT Notes Inpatient Physical Therapy Treatment Note PRECAUTIONS:Fall SUBJECTIVE: Renay states that she is feeling a little better this morning. OBJECTIVE: PAIN: Patient c/o bilateral shoulder pain and back pain BED MOBILITY/TRANSFERS Sit-supine: S with HOB flat Sit-stand: S Stand-sit: S GAIT Assistive Device: FWW Weight bearing: Full Assist: SBA Distance: 40' x2 Deviation: Standing rest breaks THEREX: Patient completed a LE strengthening program, as per flow sheet. Patient was able to tolerate a slight progression in her program today. ASSESSMENT: Patient tolerated session with increased fatigue and complaints of B shoulder pain and back pain with all activity. Patient would benefit from continued strengthening and gait training. PLAN: Continue with PT's POC TREATMENT CODE/TIME: 30 minutes; TA/TP Intake Vital Signs 02/24/18 11:47 02/24/18 23:55 02/25/18 07:00 02/25/18 07:10 02/25/18 10:50 02/25/18 15:56 02/26/18 01:50 02/26/18 06:31 02/26/18 07:54 02/26/18 19:43 02/27/18 00:41 02/27/18 08:34 02/27/18 08:50 02/27/18 09:28 02/27/18 16:41 02/27/18 19:40 02/28/18 00:28 02/28/18 07:15 02/28/18 08:02 02/28/18 08:25 02/28/18 18:47 03/01/18 00:42 03/01/18 00:57 03/01/18 07:05 03/01/18 07:15 03/01/18 07:50 03/01/18 16:22 03/01/18 23:20 03/02/18 07:55 03/02/18 08:00 Weight 73.4 kg 72.2 kg 72.1 kg 69.8 kg 70.1 kg 71.5 kg BP 136/80 153/85 H 133/72 129/76 149/81 H 161/83 H 138/81 157/80 H 156/82 H 134/72 116/75 145/62 H 158/85 H 125/81 142/80 H 137/85 116/74 157/95 H 151/74 H Respiration 20 20 18 19 20 20 19 20 20 18 16 17 20 18 20 19 19 20 Pulse 58 L 67 63 69 69 62 67 67 69 62 76 57 L 63 73 70 51 L 74 68 60 Temp 36.9 C 36.4 C L 36.5 C 36.2 C L 36.8 C 36.7 C 36.3 C L 36.5 C 36.8 C 37.4 C 36.2 C L 36.1 C L 37.3 C 36.8 C 36.4 C L 36.8 C 36.9 C 36.5 C Temp Source Tympanic Tympanic Tympanic Tympanic Tympanic Tympanic Tympanic Tympanic Tympanic Tympanic Tympanic Tympanic Temporal Artery Scan Tympanic Tympanic Tympanic Tympanic Temporal Artery Scan Pulse Oximetry (%) 93 L 96 94 L 95 92 L 96 96 94 L 95 95 97 99 94 L 95 95 96 95 95 97 99 97 Oxygen Flow Rate 0 0 2 2 2 2 2 2 2 2 0 2 2 2 2 2 2 2 2 2 2 2
--- NOTE | 2018-03-02 10:37 | PTTR_ITS ---
PT Notes Inpatient Physical Therapy Treatment Note PRECAUTIONS:Fall SUBJECTIVE: Renay states that she is feeling a little better this morning. OBJECTIVE: PAIN: Patient c/o bilateral shoulder pain and back pain BED MOBILITY/TRANSFERS Sit-supine: S with HOB flat Sit-stand: S Stand-sit: S GAIT Assistive Device: FWW Weight bearing: Full Assist: SBA Distance: 40' x2 Deviation: Standing rest breaks THEREX: Patient completed a LE strengthening program, as per flow sheet. Patient was able to tolerate a slight progression in her program today. ASSESSMENT: Patient tolerated session with increased fatigue and complaints of B shoulder pain and back pain with all activity. Patient would benefit from continued strengthening and gait training. PLAN: Continue with PT's POC TREATMENT CODE/TIME: 30 minutes; TA/TP Intake Vital Signs 3 l l l l 02/24/18 11:47 l l 02/24/18 23:55 l l 02/25/18 07:00 l l 02/25/18 07:10 l l 02/25/18 10:50 l l 02/25/18 15:56 l l 02/26/18 01:50 l l 02/26/18 06:31 l l 02/26/18 07:54 l l 02/26/18 19:43 l l 02/27/18 00:41 l l 02/27/18 08:34 l l 02/27/18 08:50 l l 02/27/18 09:28 l l 02/27/18 16:41 l l 02/27/18 19:40 l l 02/28/18 00:28 l l 02/28/18 07:15 l l 02/28/18 08:02 l l 02/28/18 08:25 l l 02/28/18 18:47 l l 03/01/18 00:42 l l 03/01/18 00:57 l l 03/01/18 07:05 l l 03/01/18 07:15 l l 03/01/18 07:50 l l 03/01/18 16:22 l l 03/01/18 23:20 l l 03/02/18 07:55 l l 03/02/18 08:00 l l Weight 73.4 kg 72.2 kg 72.1 kg 69.8 kg 70.1 kg 71.5 kg l l BP 136/80 153/85 H 133/72 129/76 149/81 H 161/83 H 138/81 157/80 H 156/82 H 134/72 116/75 145/62 H 158/85 H 125 /81 142/80 H 137/85 116/74 157/95 H 151/74 H l l Respiration 20 20 18 19 20 20 19 20 20 18 16 17 20 18 20 19 19 20 l l Pulse 58 L 67 63 69 69 62 67 67 69 62 76 57 L 63 73 70 51 L 74 68 60 l l Temp 36.9 C 36.4 C L 36.5 C 36.2 C L 36.8 C 36.7 C 36.3 C L 36.5 C 36.8 C 37.4 C 36.2 C L 36.1 C L 37.3 C 36.8 C 36.4 C L 36.8 C 36.9 C 36.5 C l l Temp Source Tympanic Tympanic Tympanic Tympanic Tympanic Tympanic Tympanic Tympanic Tympanic Tympanic Tympanic Tympanic Temporal Artery Scan Tympanic Tympanic Tympanic Tympanic Temporal Artery Scan l l Pulse Oximetry (%) 93 L 96 94 L 95 92 L 96 96 94 L 95 95 97 99 94 L 95 95 96 95 95 97 99 97 l l Oxygen Flow Rate 0 0 2 2 2 2 2 2 2 2 0 2 2 2 2 2 2 2 2 2 2 2
[2018-03-02] MEDS: Refresh PLUS Eye Drops 0.4ml OU (12:25)
[2018-03-02 15:54] VITALS: BP 127/58; PULSE 78; RESP 18; TEMP 36.4; O2SAT 96
[2018-03-02] MEDS: Acetaminophen 325 MG TAB 650 MG PO (22:38)
[2018-03-03] MEDS: Acetaminophen 325 MG TAB 650 MG PO ×3 (03:22→20:30)
[2018-03-03] MEDS: Magnesium Gluconate 500 MG TAB PO ×2 (06:08→17:25)
[2018-03-03 07:30] VITALS: BP 156/87; PULSE 58; RESP 18; TEMP 36.7; O2SAT 94
[2018-03-03] MEDS: Aspirin 81 MG CHEW PO (08:33)
[2018-03-03] MEDS: Docusate Sodium 100 MG CAP PO ×2 (08:33→20:30)
[2018-03-03] MEDS: Sennosides/Docusate Sodium TAB 2 TAB PO ×2 (08:33→20:30)
[2018-03-03] MEDS: predniSONE 5 MG TAB PO (08:33)
[2018-03-03] MEDS: Ascorbic Acid 500 MG TAB 1000 MG PO (08:33)
[2018-03-03] MEDS: Carvedilol 25 MG TAB 50 MG PO ×2 (08:33→20:30)
[2018-03-03] MEDS: Atorvastatin 10 MG TAB 5 MG PO (08:33)
[2018-03-03] MEDS: Furosemide 40 MG TAB PO ×2 (08:33→15:37)
[2018-03-03] MEDS: Methadone 5 MG TAB PO ×2 (08:34→15:37)
[2018-03-03] MEDS: Enoxaparin 30 MG/0.3 ML SYR SC (08:35)
[2018-03-03] MEDS: Fluticasone NASAL SPRAY 16 GM BTL NS ×2 (08:35→20:30)
--- NOTE | 2018-03-03 12:24 | PT.INTREAT ---
PT Notes Inpatient Physical Therapy Treatment Note PRECAUTIONS:Fall SUBJECTIVE: Renay reports that she did not sleep well last night, and that her R knee has been bothering her. OBJECTIVE: PAIN: Patient c/o B shoulder pain, and R knee pain with movement, which was reported to nsg. BED MOBILITY/TRANSFERS Sit-stand: SBA Stand-sit: SBA GAIT Assistive Device: FWW Weight bearing: Full Assist: SBA Distance: 40' x2 Deviation: Standing rests THEREX: Patient completed a LE strengthening program, as per flow sheet. Patient requires rests between exercises due to fatigue. ASSESSMENT: Patient tolerated session with B shoulder pain and R knee pain. Patient would benefit from continued gait and transfer training, and strengthening for improved strength and endurance. PLAN: Continue with PT's POC TREATMENT CODE/TIME: 25 minutes; TA/TP Intake Vital Signs 02/24/18 11:47 02/24/18 23:55 02/25/18 07:00 02/25/18 07:10 02/25/18 10:50 02/25/18 15:56 02/26/18 01:50 02/26/18 06:31 02/26/18 07:54 02/26/18 19:43 02/27/18 00:41 02/27/18 08:34 02/27/18 08:50 02/27/18 09:28 02/27/18 16:41 02/27/18 19:40 02/28/18 00:28 02/28/18 07:15 02/28/18 08:02 02/28/18 08:25 02/28/18 18:47 03/01/18 00:42 03/01/18 00:57 03/01/18 07:05 03/01/18 07:15 03/01/18 07:50 03/01/18 16:22 03/01/18 23:20 03/02/18 07:55 03/02/18 08:00 03/02/18 15:54 Weight 73.4 kg 72.2 kg 72.1 kg 69.8 kg 70.1 kg 71.5 kg BP 136/80 153/85 H 133/72 129/76 149/81 H 161/83 H 138/81 157/80 H 156/82 H 134/72 116/75 145/62 H 158/85 H 125/81 142/80 H 137/85 116/74 157/95 H 151/74 H 127/58 L Respiration 20 20 18 19 20 20 19 20 20 18 16 17 20 18 20 19 19 20 18 Pulse 58 L 67 63 69 69 62 67 67 69 62 76 57 L 63 73 70 51 L 74 68 60 78 Temp 36.9 C 36.4 C L 36.5 C 36.2 C L 36.8 C 36.7 C 36.3 C L 36.5 C 36.8 C 37.4 C 36.2 C L 36.1 C L 37.3 C 36.8 C 36.4 C L 36.8 C 36.9 C 36.5 C 36.4 C L Temp Source Tympanic Tympanic Tympanic Tympanic Tympanic Tympanic Tympanic Tympanic Tympanic Tympanic Tympanic Tympanic Temporal Artery Scan Tympanic Tympanic Tympanic Tympanic Temporal Artery Scan Tympanic Pulse Oximetry (%) 93 L 96 94 L 95 92 L 96 96 94 L 95 95 97 99 94 L 95 95 96 95 95 97 99 97 96 Oxygen Flow Rate 0 0 2 2 2 2 2 2 2 2 0 2 2 2 2 2 2 2 2 2 2 2 2 03/03/18 05:50 03/03/18 07:30 73 kg 156/87 H 18 58 L 36.7 C Tympanic 94 L 2
--- NOTE | 2018-03-03 12:29 | PTTR_ITS ---
PT Notes Inpatient Physical Therapy Treatment Note PRECAUTIONS:Fall SUBJECTIVE: Renay reports that she did not sleep well last night, and that her R knee has been bothering her. OBJECTIVE: PAIN: Patient c/o B shoulder pain, and R knee pain with movement, which was reported to nsg. BED MOBILITY/TRANSFERS Sit-stand: SBA Stand-sit: SBA GAIT Assistive Device: FWW Weight bearing: Full Assist: SBA Distance: 40' x2 Deviation: Standing rests THEREX: Patient completed a LE strengthening program, as per flow sheet. Patient requires rests between exercises due to fatigue. ASSESSMENT: Patient tolerated session with B shoulder pain and R knee pain. Patient would benefit from continued gait and transfer training, and strengthening for improved strength and endurance. PLAN: Continue with PT's POC TREATMENT CODE/TIME: 25 minutes; TA/TP Intake Vital Signs 3 l l l l 02/24/18 11:47 l l 02/24/18 23:55 l l 02/25/18 07:00 l l 02/25/18 07:10 l l 02/25/18 10:50 l l 02/25/18 15:56 l l 02/26/18 01:50 l l 02/26/18 06:31 l l 02/26/18 07:54 l l 02/26/18 19:43 l l 02/27/18 00:41 l l 02/27/18 08:34 l l 02/27/18 08:50 l l 02/27/18 09:28 l l 02/27/18 16:41 l l 02/27/18 19:40 l l 02/28/18 00:28 l l 02/28/18 07:15 l l 02/28/18 08:02 l l 02/28/18 08:25 l l 02/28/18 18:47 l l 03/01/18 00:42 l l 03/01/18 00:57 l l 03/01/18 07:05 l l 03/01/18 07:15 l l 03/01/18 07:50 l l 03/01/18 16:22 l l 03/01/18 23:20 l l 03/02/18 07:55 l l 03/02/18 08:00 l l 03/02/18 15:54 l l 09/09/18 05:50 l l 03/03/18 07:30 l l Weight 73.4 kg 72.2 kg 72.1 kg 69.8 kg 70.1 kg 71.5 kg 73 kg l l BP 136/80 153/85 H 133/72 129/76 149/81 H 161/83 H 138/81 157/80 H 156/82 H 134/72 116/75 145/62 H 158/85 H 125 /81 142/80 H 137/85 116/74 157/95 H 151/74 H 127/58 L 156/87 H l l Respiration 20 20 18 19 20 20 19 20 20 18 16 17 20 18 20 19 19 20 18 18 l l Pulse 58 L 67 63 69 69 62 67 67 69 62 76 57 L 63 73 70 51 L 74 68 60 78 58 L l l Temp 36.9 C 36.4 C L 36.5 C 36.2 C L 36.8 C 36.7 C 36.3 C L 36.5 C 36.8 C 37.4 C 36.2 C L 36.1 C L 37.3 C 36.8 C 36.4 C L 36.8 C 36.9 C 36.5 C 36.4 C L 36.7 C l l Temp Source Tympanic Tympanic Tympanic Tympanic Tympanic Tympanic Tympanic Tympanic Tympanic Tympanic Tympanic Tympanic Temporal Artery Scan Tympanic Tympanic Tympanic Tympanic Temporal Artery Scan Tympanic Tympanic l l Pulse Oximetry (%) 93 L 96 94 L 95 92 L 96 96 94 L 95 95 97 99 94 L 95 95 96 95 95 97 99 97 96 94 L l l Oxygen Flow Rate 0 0 2 2 2 2 2 2 2 2 0 2 2 2 2 2 2 2 2 2 2 2 2 2
--- NOTE | 2018-03-03 15:24 | CMPROGNOTE_ITS ---
- If Service Date Differs Date of service: 03/03/18 Time of Service: 15:23 Care Management Progress Note S/O:Renay is working with PT today when CM visits. She was planning on discharging Sunday with her caregivers. PT notes reviewed Renay may benefit from a few more days she has chronic pain that is affecting her movement. Renay will have home PT, OT and RN upon discharge. She is requesting to meet with who is her palliative provider. CM will leave a message for at the office. A:Renay is a 77 year old female admitted to [facility] for PT P: Renay will return home possibly Sunday vs Sunday with home health RN/PT/ OT services. left a voicemail for to see patient when she returns on Sunday. [facility] caregiver will transport when ready.
[2018-03-03 15:50] VITALS: BP 122/68; PULSE 63; RESP 18; TEMP 36.9; O2SAT 98
[2018-03-04 00:46] VITALS: BP 176/98; PULSE 67; RESP 17; TEMP 36; O2SAT 96
[2018-03-04] MEDS: Magnesium Gluconate 500 MG TAB PO (05:06)
[2018-03-04 07:05] VITALS: BP 154/91; PULSE 69; RESP 22; TEMP 36.7; O2SAT 92
[2018-03-04 07:13] LABS: Platelet Count 187 x1000/uL (130-400)
[2018-03-04 07:45] VITALS: O2SAT 95
[2018-03-04] MEDS: Atorvastatin 10 MG TAB 5 MG PO (08:30)
[2018-03-04] MEDS: Fluticasone NASAL SPRAY 16 GM BTL NS (08:30)
[2018-03-04] MEDS: Enoxaparin 30 MG/0.3 ML SYR SC (08:31)
[2018-03-04] MEDS: Carvedilol 25 MG TAB 50 MG PO (08:32)
[2018-03-04] MEDS: Methadone 5 MG TAB PO (08:32)
[2018-03-04] MEDS: Furosemide 40 MG TAB PO (08:32)
[2018-03-04] MEDS: predniSONE 5 MG TAB PO (08:33)
[2018-03-04] MEDS: Docusate Sodium 100 MG CAP PO (08:33)
[2018-03-04] MEDS: Ascorbic Acid 500 MG TAB 1000 MG PO (08:33)
[2018-03-04] MEDS: Sennosides/Docusate Sodium TAB 2 TAB PO (08:33)
[2018-03-04] MEDS: Aspirin 81 MG CHEW PO (08:33)
--- NOTE | 2018-03-04 12:59 | PDOC.HHF2F ---
1. Encounter Date and Reason I certify that AAMIR AHMADI was seen by Olivia Almonte on 03/04/18 and that I had a [id number] encounter with this patient that meets the physician face to face encounter requirements. 2. Clinical Findings Supporting Skilled Need and Homebound Status I certify that home health services are medically necessary, include either intermittent fdc and/or physical/speech therapy, and that this patient is homebound in that absences from the home require considerable and taxing effort and are infrequent or of short duration, or are attributable to the need to receive medical care. [X] (a) Attached documentation from encounter provides clinical findings supporting skilled need and homebound status (including what assistance patient requires to leave the home). The encounter with the patient was in whole, or in part, for the following medical condition, which is the primary reason for home health care: Group Home: Safety, Medications, Weights, HF education Physical Therapy: Generalized Weakness and debilitation, gait training, strengthening Occupational Therapy: Eval and treat for ability to perform ADL's Speech Therapy: Homebound: 3. Certification and Authentication I certify that I composed the above information based on my clinical judgement relating to this patient's medical condition and, if applicable, clinical findings communicated to me by the NPP or inpatient physician who performed the Home Health Referral. All further orders will be obtained through (Community Based Physician - PCP)
--- NOTE | 2018-03-04 13:03 | DSE_ITS ---
DS: Diagnosis Discharge Diagnosis (1) Heart failure with preserved ejection fraction: Status: Acute (2) Chronic renal disease, stage 3, moderately decreased glomerular filtration rate between 30-59 mL/min/1.73 square meter: Status: Acute (3) Status post living-donor kidney transplantation: Status: Acute (4) Urinary tract infection: Status: Acute (5) Weakness generalized: Status: Chronic (6) Discharge planning issues: Status: Acute Discharge Plan Disposition Patient Disposition: HOME W/HOME HEALTH SERVICE Condition: Fair Discharge Details Admit Date/Time: 02/24/18 16:21 Admit Provider: Ponce Anguiano Attending Provider: Ponce Anguiano Primary Care Provider: Kesha Serrano [facility] Course Hospital Course: Renay is a 77-year-old woman with end-stage renal disease status post donor kidney transplant 27 years ago and multiple medical comorbidities who presented to the emergency department at [facility] with complaints of worsening shortness of breath. Initially her symptoms were thought to be secondary to either acute exacerbation of her congestive heart failure or possibly a pulmonary embolism. Her initial evaluation revealed an elevated d-dimer and VQ scan was intermediately positive. Was briefly anticoagulated, however this was discontinued after her breathing improved with IV diuresis. During her hospitalization she was also found to have a urinary tract infection. Urine culture grew out MRSA and she was treated with oral doxycycline. Eventually she was transitioned to swing bed status due to generalized deconditioning and weakness. Has continued to participate in daily physical therapy, however has not been able to ambulate more than 40-50 feet with a walker and standby assist. Physical therapy has recommended a SNF placement for continued rehab, however Renay is not in agreement with this plan and would prefer to return home with home health and her personal caregivers. Home Meds and New Rx's Prescriptions: New magnesium gluconate 27 mg magnesium (500 mg) Tablet 500 mg PO BID@0600,1800 Qty: 60 RF: 0 Continue ascorbic acid (vitamin C) 1,000 MG tablet 1,000 mg PO DAILY RF: 0 docusate sodium [Colace] 100 MG capsule 100 mg PO BID RF: 0 cholecalciferol (vitamin D3) [Vitamin D3] 2,000 UNIT capsule 2,000 unit PO DAILY RF: 0 cyclosporine 25 MG capsule 75 mg PO BID Qty: 540 RF: 0 prednisone 5 MG tablet 5 mg PO DAILY Qty: 90 RF: 1 nitroglycerin [Nitrostat] 0.4 MG tablet, sublingual 0.4 mg Sublingual PRN Qty: 25 RF: 5 polyethylene glycol 3350(bulk) 12,000 GM powder 17 gm PO DAILY PRNQty: 1 RF: 3 omega-3 fatty acids-fish oil 1 EACH capsule 1 ea PO DAILY RF: 0 fluticasone 16 GM spray,suspension 1 spray NS BID Qty: 3 RF: 3 carvedilol [Coreg] 25 MG tablet 50 mg PO BID Qty: 360 RF: 3 cimetidine 800 MG tablet 400 mg PO BID RF: 0 ondansetron 4 MG tablet,disintegrating 4 mg Sublingual Q6H PRNQty: 15 RF: 2 Oxygen EACH NS DAILY Qty: 2 RF: 1 atorvastatin [Lipitor] 10 MG tablet 5 mg PO DAILY Qty: 45 RF: 2 aspirin 81 MG tablet,chewable 81 mg PO DAILY Qty: 100 RF: 3 benzonatate [Tessalon Perles] 100 MG capsule 100 mg PO TID Qty: 90 RF: 0 methadone 5 MG tablet 5 mg PO TID MDD 15 Qty: 90 RF: 0 albuterol sulfate [ProAir HFA] 8.5 GM HFA aerosol inhaler 2 puff Inhalation Q4H PRN Qty: 1 RF: 11 Morphine Sulfate 10 MG/5 ML solution 2 mg PO q 1H PRN severe SOB MDD 24 mg Qty: 500 RF: 0 sennosides-docusate sodium [MATHIEU-COLACE] 1 TAB tablet 2 tab PO BID Qty: 120 RF: 0 torsemide 10 MG tablet 10 mg PO BID RF: 0 Discharge Instructions Instructions: Heart Failure (DC) Additional Instructions: Follow up with your PCP in 5-7 days. Call Palliative care to see if Dr. Mccollum can come to your house to address your pain concerns Stand Alone Forms: Nursing Discharge Form Referrals: Kesha Serrano DO [Primary Care Provider] - 03/08/18 1:00 pm Activity:: Activity as Tolerated Equipment/Supplies:: No Equipment Needed Diet:: Heart Healthy Discharge Orders Discharge Orders: Discharge Order (Routine); Ordered 03/04/18 Ordered By: Olivia Almonte Exam Narrative Exam Narrative: General: 77yo female. Chronically ill appearing. Well developed and well nourished. No acute distress. A/Ox3. Pleasant and cooperative. HEENT: Normocephalic, Atraumatic. Conjunctiva clear, sclera non-icteric. PERRL. EOMI. Moist mucous membranes, oropharynx clear. Neck supple, no JVD, thyromegaly or lymphadenopathy. Cardiovascular: Regular rate and rhythm, S1S2, no S3 or S4. No murmur, rub, gallop. Respiratory: Chest expansion symmetrical, respirations unlabored. Lungs clear to auscultation, no adventitious breath sounds. GI: Abdomen round, soft, non-tender to palpation. Normoactive bowel sounds in all 4 quadrants. No hepatosplenomegaly or prominent masses. : deferred Extremities: Lower extremities without deformity, trace nonpitting pedal edema to bilateral lower extremities. Discoloration to both lower extremities consistent with PVD. Neurological: non-focal. CN 2-12 grossly intact. Psychiatric: pleasant and cooperative. Speech clear and articulate. Mood and affect normal. DS: Data Vitals/I&O Vitals and I&O: Vital Signs Temp 36.7 C 03/04/18 07:05 Pulse 69 03/04/18 07:05 Resp 22 03/04/18 07:05 BP 154/91 H 03/04/18 07:05 Pulse Ox 95 03/04/18 07:45 Intake & Output 03/03/18 03/04/18 03/04/18 23:59 11:59 23:59 Intake Total 240 / 240 360 / 360 Output Total 1100 / 1100 1450 / 1450 Balance -860 / -860 -1090 / -1090 Weight 71.3 kg Intake: Oral 240 / 240 360 / 360 Output: Urine 1100 / 1100 1450 / 1450 Other: Urine Color Yellow Yellow Urine Appearance Clear Clear Urine Odor Normal Normal Stool Size Large Large Stool Characteristics Soft Soft Formed Formed Brown Voiding Methods Bedside Commode Bedside Commode Labs on day of discharge: Labs from last 24 hours 03/04/18 06:42 Plt Count 187 Date of service: 03/04/18 Time of Service: 13:00
--- NOTE | 2018-03-04 13:23 | PT.INTREAT ---
PT Notes Inpatient Physical Therapy Treatment Note PRECAUTIONS: Fall SUBJECTIVE: Renay reports that she is feeling significantly better today, she states that she slept well and feels rested today. OBJECTIVE: PAIN: Patient complained of right knee pain with active flexion and extension, as well as with gait training and transfers. BED MOBILITY/TRANSFERS Supine-sit: S with HOB at 30? Sit-stand: SBA Stand-sit: SBA GAIT Assistive Device: FWW Weight bearing: Full Assist: SBA Distance: 60' X2 Deviation: Decreased number of rest breaks required THEREX: Patient completed several seated exercises for lower extremity strengthening, as per flow sheet. Patient reports significant right knee pain with flexion/extension exercises. ASSESSMENT: Patient tolerated session well, with complaints of right knee pain with transfers, ther ex, and gait training. Patient was able to tolerate a progression in gait distance using FWW support, requiring SBA only, requiring decreased number of rest breaks due to fatigue. Patient would benefit from continued strengthening, gait and transfer training, for improved endurance and progression towards independence. PLAN: Continue with PT's POC TREATMENT CODE/TIME: 25 minutes; TA/TP Intake Vital Signs 02/24/18 11:47 02/24/18 23:55 02/25/18 07:00 02/25/18 07:10 02/25/18 10:50 02/25/18 15:56 02/26/18 01:50 02/26/18 06:31 02/26/18 07:54 02/26/18 19:43 02/27/18 00:41 02/27/18 08:34 02/27/18 08:50 02/27/18 09:28 02/27/18 16:41 02/27/18 19:40 02/28/18 00:28 02/28/18 07:15 02/28/18 08:02 02/28/18 08:25 02/28/18 18:47 03/01/18 00:42 03/01/18 00:57 03/01/18 07:05 03/01/18 07:15 03/01/18 07:50 03/01/18 16:22 03/01/18 23:20 03/02/18 07:55 03/02/18 08:00 03/02/18 15:54 Weight 73.4 kg 72.2 kg 72.1 kg 69.8 kg 70.1 kg 71.5 kg BP 136/80 153/85 H 133/72 129/76 149/81 H 161/83 H 138/81 157/80 H 156/82 H 134/72 116/75 145/62 H 158/85 H 125/81 142/80 H 137/85 116/74 157/95 H 151/74 H 127/58 L Respiration 20 20 18 19 20 20 19 20 20 18 16 17 20 18 20 19 19 20 18 Pulse 58 L 67 63 69 69 62 67 67 69 62 76 57 L 63 73 70 51 L 74 68 60 78 Temp 36.9 C 36.4 C L 36.5 C 36.2 C L 36.8 C 36.7 C 36.3 C L 36.5 C 36.8 C 37.4 C 36.2 C L 36.1 C L 37.3 C 36.8 C 36.4 C L 36.8 C 36.9 C 36.5 C 36.4 C L Temp Source Tympanic Tympanic Tympanic Tympanic Tympanic Tympanic Tympanic Tympanic Tympanic Tympanic Tympanic Tympanic Temporal Artery Scan Tympanic Tympanic Tympanic Tympanic Temporal Artery Scan Tympanic Pulse Oximetry (%) 93 L 96 94 L 95 92 L 96 96 94 L 95 95 97 99 94 L 95 95 96 95 95 97 99 97 96 Oxygen Flow Rate 0 0 2 2 2 2 2 2 2 2 0 2 2 2 2 2 2 2 2 2 2 2 2 03/03/18 05:50 03/03/18 07:30 03/03/18 15:50 03/04/18 00:46 03/04/18 07:05 03/04/18 07:45 03/04/18 09:21 73 kg 71.3 kg 156/87 H 122/68 176/98 H 154/91 H 18 18 17 22 58 L 63 67 69 36.7 C 36.9 C 36.0 C L 36.7 C Tympanic Tympanic Tympanic Tympanic 94 L 98 96 92 L 95 2 2 2 2 2
--- NOTE | 2018-03-04 13:30 | PTTR_ITS ---
PT Notes Inpatient Physical Therapy Treatment Note PRECAUTIONS: Fall SUBJECTIVE: Renay reports that she is feeling significantly better today, she states that she slept well and feels rested today. OBJECTIVE: PAIN: Patient complained of right knee pain with active flexion and extension, as well as with gait training and transfers. BED MOBILITY/TRANSFERS Supine-sit: S with HOB at 30? Sit-stand: SBA Stand-sit: SBA GAIT Assistive Device: FWW Weight bearing: Full Assist: SBA Distance: 60' X2 Deviation: Decreased number of rest breaks required THEREX: Patient completed several seated exercises for lower extremity strengthening, as per flow sheet. Patient reports significant right knee pain with flexion/extension exercises. ASSESSMENT: Patient tolerated session well, with complaints of right knee pain with transfers, ther ex, and gait training. Patient was able to tolerate a progression in gait distance using FWW support, requiring SBA only, requiring decreased number of rest breaks due to fatigue. Patient would benefit from continued strengthening, gait and transfer training, for improved endurance and progression towards independence. PLAN: Continue with PT's POC TREATMENT CODE/TIME: 25 minutes; TA/TP Intake Vital Signs 3 l l l l 02/24/18 11:47 l l 02/24/18 23:55 l l 02/25/18 07:00 l l 02/25/18 07:10 l l 02/25/18 10:50 l l 02/25/18 15:56 l l 02/26/18 01:50 l l 02/26/18 06:31 l l 02/26/18 07:54 l l 02/26/18 19:43 l l 02/27/18 00:41 l l 02/27/18 08:34 l l 02/27/18 08:50 l l 02/27/18 09:28 l l 02/27/18 16:41 l l 02/27/18 19:40 l l 02/28/18 00:28 l l 02/28/18 07:15 l l 02/28/18 08:02 l l 02/28/18 08:25 l l 02/28/18 18:47 l l 03/01/18 00:42 l l 03/01/18 00:57 l l 03/01/18 07:05 l l 03/01/18 07:15 l l 03/01/18 07:50 l l 03/01/18 16:22 l l 03/01/18 23:20 l l 03/02/18 07:55 l l 03/02/18 08:00 l l 03/02/18 15:54 l l 03/03/18 05:50 l l 03/03/18 07:30 l l 03/03/18 15:50 l l 03/04/18 00:46 l l 03/04/18 07:05 l l 03/04/18 07:45 l l 03/04/18 09:21 l l Weight 73.4 kg 72.2 kg 72.1 kg 69.8 kg 70.1 kg 71.5 kg 73 kg 71.3 kg l l BP 136/80 153/85 H 133/72 129/76 149/81 H 161/83 H 138/81 157/80 H 156/82 H 134/72 116/75 145/62 H 158/85 H 125 /81 142/80 H 137/85 116/74 157/95 H 151/74 H 127/58 L 156/87 H 122/68 176/98 H 154/91 H l l Respiration 20 20 18 19 20 20 19 20 20 18 16 17 20 18 20 19 19 20 18 18 18 17 22 l l Pulse 58 L 67 63 69 69 62 67 67 69 62 76 57 L 63 73 70 51 L 74 68 60 78 58 L 63 67 69 l l Temp 36.9 C 36.4 C L 36.5 C 36.2 C L 36.8 C 36.7 C 36.3 C L 36.5 C 36.8 C 37.4 C 36.2 C L 36.1 C L 37.3 C 36.8 C 36.4 C L 36.8 C 36.9 C 36.5 C 36.4 C L 36.7 C 36.9 C 36.0 C L 36.7 C l l Temp Source Tympanic Tympanic Tympanic Tympanic Tympanic Tympanic Tympanic Tympanic Tympanic Tympanic Tympanic Tympanic Temporal Artery Scan Tympanic Tympanic Tympanic Tympanic Temporal Artery Scan Tympanic Tympanic Tympanic Tympanic Tympanic l l Pulse Oximetry (%) 93 L 96 94 L 95 92 L 96 96 94 L 95 95 97 99 94 L 95 95 96 95 95 97 99 97 96 94 L 98 96 92 L 95 l l Oxygen Flow Rate 0 0 2 2 2 2 2 2 2 2 0 2 2 2 2 2 2 2 2 2 2 2 2 2 2 2 2 2
[2018-03-04] MEDS: Acetaminophen 325 MG TAB 650 MG PO (14:01)
--- NOTE | 2018-03-04 14:21 | PDOC.CMDIS ---
- If Service Date Differs Date of service: 03/04/18 Time of Service: 14:21 LACE Index Scoring Tool - Questions: Length of Stay (in days): 7 - 13 Acuity (Admit via E.D.?): No Comorbidities: Congestive Heart Failure E.D. Visits: 3 - Answers: Total Score: 10 Risk of Readmission: High Risk Care Management Discharge Reason for Hospitalization: Swingbed for physical therapy Discharge Plan: Renay will return home today with home health RN/PT/OT services. Renay will F/U with Dr. Veda ro Palliative. STEFANY spoke with Lory Gaviria, whom states that she will outreach to Renay at home for Palliative F/U. [facility] caregiver Shonna will transport home. KLEVER Baker, and this writer producer spoke with Renay about SNF placement. Renay continues to decline SNF placement and states that she would prefer to try to go home first. Patient/Family Education Needs: Review DC instructions, any limitations, and review Ask Me Three Services Needed at Discharge: Home Health Care Services (RN/PT/OT)
--- NOTE | 2018-03-04 14:38 | CMDISCH_ITS ---
- If Service Date Differs Date of service: 03/04/18 Time of Service: 14:21 LACE Index Scoring Tool - Questions: Length of Stay (in days): 7 - 13 Acuity (Admit via E.D.?): No Comorbidities: Congestive Heart Failure E.D. Visits: 3 - Answers: Total Score: 10 Risk of Readmission: High Risk Care Management Discharge Reason for Hospitalization: Swingbed for physical therapy Discharge Plan: Renay will return home today with home health RN/PT/OT services. Renay will F/U with Dr. Veda ro Palliative. STEFANY spoke with Lory Gaivria, whom states that she will outreach to Renay at home for Palliative F /U. [facility] caregiver Shonna will transport home. KLEVER Baker, and this automobile and property underwriter spoke with Renay about SNF placement. Renay continues to decline SNF placement and states that she would prefer to try to go home first. Patient/Family Education Needs: Review DC instructions, any limitations, and review Ask Me Three Services Needed at Discharge: Home Health Care Services (RN/PT/OT)
--- NOTE | 2018-03-05 08:40 | PT.INDS ---
PT Notes Date: 03/05/18 for 03/04/18 Dates of Service: 02/24/18-03/04/18 PRECAUTIONS: Fall precautions SUBJECTIVE: NT OBJECTIVE: 02/24/18-03/04/18 BED MOBILITY/TRANSFERS: Sit-supine: supervision Supine-sit: supervision Sit-stand: SBA Stand-sit: SBA GAIT: supervision with FWW up to 60ftx2 BALANCE: Static sitting normal Dynamic Sitting normal Static Standing fair Dynamic Standing fair ASSESSMENT: Pt is a 77yr old female admitted with congestive heart failure and superficial thrombophlebitis left lower extremity in setting of bilateral lower extremity edema, congestive heart failure, mitral valve regurgitation, polycystic kidney disease bilaterally, nephrectomies, chronic renal insufficiency with kidney transplant 1990, ostearthritis, chronic pain syndrome uses methadone, chronic low back pain, spinal stenosis cervical and lumbar spines, chronic obstructive pulmonary disease uses 2liters 02 NC. Patient transitioned to SWING rehab program 02/24/18. Pt progressed from SBA bed transfers to supervision, from supervision gait with FWW 50ftx2 to SBA gait with FWW 60ftx2. Pt was discharged to home setting, home PT recommended for continued strengthenign and mobility training. GOALS Goals x1 week 1. Supine-sit: independent 2. Sit-Supine independent 3. Sit-Stand: supervision with FWW 4. Stand-sit supervision 5. Bed-chair supervision with FWW 6. Chair-bed supervision with FWW 7. Gait supervision with FWW 50ftx2 Pt has not met goals, recommend home PT toward outlined goals DISCHARGE RECOMMENDATIONS Home with home PT/OT, pt has all DME G Codes in the area mobility of walking and moving around:__projected status GP [id number]__[id number]____wwrmacvqo status GP [id number] Shonna Meadows PT
--- NOTE | 2018-03-07 08:13 | PT.INTREAT ---
Date of service: 02/26/18 Time of Service: 08:16 PT Notes Inpatient Physical Therapy Treatment Note PRECAUTIONS:Fall SUBJECTIVE: Renay states that she has not been sleeping well and that she is in so much pain. OBJECTIVE: Patient refused OOB this morning, indicating that she will get out of bed with nsg later this morning. PAIN: Patient c/o global pain BED MOBILITY/TRANSFERS: Refused OOB THEREX: Patient completed a LE strengthening and stabilization program, as per flow sheet. Patient completed AP, GS, and QS, as well as resisted heel slides and SLR, and bridging, with complaints of increased fatigue and global pain. ASSESSMENT: Patient tolerated session with increased pain and fatigue. She would benefit from continued strengthening to improve strength, endurance, and ability to perform daily functional tasks. PLAN: Continue with PT's POC 15 minutes; TAx1
--- NOTE | 2018-03-07 08:37 | PT.INTREAT ---
Date of service: 02/27/18 Time of Service: 09:40 PT Notes Inpatient Physical Therapy Treatment Note PRECAUTIONS:Fall SUBJECTIVE: Renay states that she continues to have bilateral shoulder and back pain. OBJECTIVE: PAIN: Patient complained of pain in bilateral shoulders and back with transfers and with any shoulder movement on R BED MOBILITY/TRANSFERS Supine-sit: S with HOB at 30 degrees Sit-stand: SBA Stand-sit: SBA GAIT Assistive Device: FWW Weight bearing: Full Assist: S Distance: 20' x6 Deviation: Standing rest x4 THEREX: Patient performed ankle pumps x20, bilaterally. ASSESSMENT: Patient tolerated a progression in her gait distance today, requiring standing rest x4 due to pain and slight SOB, with FWW support, and supervision only. PLAN: Continue with PT's POC 30 minutes; TAx2
--- NOTE | 2018-03-07 08:44 | PT.INTREAT ---
Date of service: 02/27/18 Time of Service: 14:50 PT Notes Inpatient Physical Therapy Treatment Note PRECAUTIONS:Fall SUBJECTIVE: Renay is agreeable to PT this afternoon. OBJECTIVE: PAIN: Patient c/o pain in bilateral shoulders and back BED MOBILITY/TRANSFERS Sit-supine: S with HOB flat Sit-stand: SBA Stand-sit: SBA GAIT Assistive Device: FWW Weight bearing: Full Assist: S Distance: 20' x2 THEREX: Patient completed an open-chain, resisted, LE strengthening program, as per flow sheet. TOILETING: Patient toileted with assist for perianal care. ASSESSMENT: Patient continues to appear limited by bilateral shoulder and back pain. She would benefit from continued strengthening and gait and transfer training to improve endurance and ability. PLAN: Continue with PT's POC 25 minutes; TAx1, TPx1
--- NOTE | 2018-03-07 08:55 | PTTR_ITS ---
Date of service: 02/28/18 Time of Service: 08:20 PT Notes Inpatient Physical Therapy Treatment Note PRECAUTIONS: Fall SUBJECTIVE: Renay is agreeable to PT. She states that she wants to get stronger , however, expresses concerns that she may not be able to get much stronger than she is now. OBJECTIVE: PAIN: Patient complains of pain in B shoulders and back BED MOBILITY/TRANSFERS Sit-stand: SBA Stand-sit: SBA GAIT Assistive Device: FWW Weight bearing: Full Assist: S Distance: 50'x2 Deviation: Standing rest x3; 2L O2 via NC TOILETING: Patient toileted with assist for perianal care ASSESSMENT: Patient tolerated a progression in gait distance with increased fatigue. Patient continues to appear limited due to bilateral shoulder and back pain. Patient would benefit from continued transfer training and strengthening. PLAN: Continue with PT's POC 25 minutes; TAx2
--- NOTE | 2018-03-07 09:04 | PT.INTREAT ---
Date of service: 02/28/18 Time of Service: 13:45 PT Notes Inpatient Physical Therapy Treatment Note Date: 02/28/18 PRECAUTIONS:Fall precautions SUBJECTIVE: Pt sitting in chair moaning, states her shoulders hurt. Reports constant pain in arm and shoulders. States she has been using K-pad heating pad and that has helped some but does not alleviate the pain. Pt agreeable to therapy session. OBJECTIVE: General observation: 2 liters 02 NC PAIN: c/p pain bilateral shoulders, constant, not rated. Complaining of pain for duration of session and with any upper body movement. BED MOBILITY/TRANSFERS Sit-stand: SBA with FWW Bed-commode: SBA with FWW Commode-bed: SBA with FWW Stand-sit: SBA Sit-supine: HOB flat, SBA. Pt able to lift legs into bed TOLETING Pt requires high surface to toilet, cannot get up from standard height toilet. Requires max A for perianal cleaning post voiding. GAIT Assistive Device: FWW Weight bearing: as tolerated Assist SBA Distance: 40ftx2 Deviation: kyphotic posture, forward head, forward shoulders, difficulty standing erect due to shoulder pain. Gait with short stride, decreased guadalupe, requiring standing rest break every 10ft due to pain and fatigue. Pt unable to mobilize at a steady pace with FWW due to pain. Pt transferred back to bed with legs elevated, k-pad on bilateral shoulders for pain reduction. THEREX: Performed ankle pumps, quad sets, glute sets x 20 reps ASSESSMENT: Pt's shoulder pain limiting all functional mobility, pt remains very weak, requiring frequent rest breaks with minimal exertion and increased time to complete tasks due to weakness and pain. Pt is not yet able to mobilize gait distance she would be required to move in home trailer. PLAN: Progress strengthening Progress transfers Progress gait distance TREATMENT CODES/TIME: 26min TAx1 TPx1 1340 Shonna Meadows PT
--- NOTE | 2018-03-07 09:10 | PT.INTREAT ---
Date of service: 03/01/18 Time of Service: 09:50 PT Notes Inpatient Physical Therapy Treatment Note Date: 03/01/18 PRECAUTIONS:Fall precautions SUBJECTIVE: Pt sitting on commode, agreeable to therapy session. States she thinks she feels better today, but then as soon as she stands or moves she starts to moan and groan verbally complaining of shoulder and abdominal pain. Pt received pain medication prior to session. OBJECTIVE: General observation: 2 liters 02 NC PAIN: c/p pain bilateral shoulders, constant, not rated. Complaining of pain for duration of session and with any movement. BED MOBILITY/TRANSFERS Sit-stand: SBA with FWW Commode-chair: SBA with FWW Stand-sit: SBA Sit-supine: HOB flat, SBA. Pt able to lift legs into bed GAIT Assistive Device: FWW Weight bearing: as tolerated Assist SBA Distance: 40ftx2 Deviation: kyphotic posture, forward head, forward shoulders, difficulty standing erect due to shoulder pain. Gait with short stride, decreased guadalupe. Pt moaning and complaining of pain throughout therapy session, very fatigued once gait session completed, asking to get back to bed. Pt postioned in bed with K-pad to shoulders. THEREX: Performed ankle pumps, hip flexion, long arc quads x 20 reps ASSESSMENT: Pt continues to have limited mobility and function due to pain in shoulders and weakness. Pt only able to perform limited level of exertion before becoming extremely fatigued, she does not appear to be gaining much strength day to day despite efforts to improve mobility. Pt does not appear safe to be able to discharge to home alone at this time, she would benefit from [facility] care facility for rehab to allow for increased time to improve strength and function, pt still reluctant to consider SNF as an option. PLAN: Progress strengthening Progress transfers Progress gait distance TREATMENT CODES/TIME: 25min TAx1 TPx1 9:35 Shonna Meadows PT
--- NOTE | 2018-03-07 09:31 | PT.INTREAT ---
Date of service: 03/01/18 Time of Service: 15:20 PT Notes Inpatient Physical Therapy Treatment Note PRECAUTIONS:Fall SUBJECTIVE: Renay states that she gets very uncomfortable sitting up in the chair. She reports that she has continued pain in bilateral shoulders, that is the most severe following any activity. OBJECTIVE: PAIN: Patient c/o pain in bilateral shoulders and back BED MOBILITY/TRANSFERS Supine-sit: S with HOB at 20 degrees Sit-supine: S with HOB flat Sit-stand: SBA Stand-sit: SBA Bed-Chair: SBA Chair-bed: SBA GAIT Assistive Device: FWW Weight bearing: Full Assist: SBA Distance: 20'x6 Deviation: Frequent standing rests ASSESSMENT: Patient tolerated session well with some increased fatigue and an increase in shoulder pain, bilaterally. Patient would benefit from continued gait and transfer training as well as strengthening. PLAN: Continue with PT's POC TREATMENT CODE/TIME: 25 minutes; TAx1, TPx1
--- NOTE | 2018-03-07 09:39 | PT.INTREAT ---
Date of service: 03/02/18 Time of Service: 10:30 PT Notes Inpatient Physical Therapy Treatment Note PRECAUTIONS:Fall SUBJECTIVE: Renay states that she is feeling a little better this morning. OBJECTIVE: PAIN: Patient c/o bilateral shoulder pain and back pain BED MOBILITY/TRANSFERS Sit-supine: S with HOB flat Sit-stand: S Stand-sit: S GAIT Assistive Device: FWW Weight bearing: Full Assist: SBA Distance: 40' x2 Deviation: Standing rest breaks THEREX: Patient completed a LE strengthening program, as per flow sheet. Patient was able to tolerate a slight progression in her program today. ASSESSMENT: Patient tolerated session with increased fatigue and complaints of B shoulder pain and back pain with all activity. Patient would benefit from continued strengthening and gait training. PLAN: Continue with PT's POC TREATMENT CODE/TIME: 30 minutes; TA/TP
--- NOTE | 2018-03-07 09:57 | PT.INTREAT ---
Date of service: 03/03/18 Time of Service: 12:24 PT Notes Inpatient Physical Therapy Treatment Note PRECAUTIONS:Fall SUBJECTIVE: Renay reports that she did not sleep well last night, and that her R knee has been bothering her. OBJECTIVE: PAIN: Patient c/o B shoulder pain, and R knee pain with movement, which was reported to nsg. BED MOBILITY/TRANSFERS Sit-stand: SBA Stand-sit: SBA GAIT Assistive Device: FWW Weight bearing: Full Assist: SBA Distance: 40' x2 Deviation: Standing rests THEREX: Patient completed a LE strengthening program, as per flow sheet. Patient requires rests between exercises due to fatigue. ASSESSMENT: Patient tolerated session with B shoulder pain and R knee pain. Patient would benefit from continued gait and transfer training, and strengthening for improved strength and endurance. PLAN: Continue with PT's POC TREATMENT CODE/TIME: 25 minutes; TA/TP
--- NOTE | 2018-03-07 10:12 | PT.INTREAT ---
Date of service: 03/04/18 Time of Service: 13:25 PT Notes Inpatient Physical Therapy Treatment Note PRECAUTIONS: Fall SUBJECTIVE: Renay reports that she is feeling significantly better today, she states that she slept well and feels rested today. OBJECTIVE: PAIN: Patient complained of right knee pain with active flexion and extension, as well as with gait training and transfers. BED MOBILITY/TRANSFERS Supine-sit: S with HOB at 30? Sit-stand: SBA Stand-sit: SBA GAIT Assistive Device: FWW Weight bearing: Full Assist: SBA Distance: 60' X2 Deviation: Decreased number of rest breaks required THEREX: Patient completed several seated exercises for lower extremity strengthening, as per flow sheet. Patient reports significant right knee pain with flexion/extension exercises. ASSESSMENT: Patient tolerated session well, with complaints of right knee pain with transfers, ther ex, and gait training. Patient was able to tolerate a progression in gait distance using FWW support, requiring SBA only, requiring decreased number of rest breaks due to fatigue. Patient would benefit from continued strengthening, gait and transfer training, for improved endurance and progression towards independence. PLAN: Continue with PT's POC TREATMENT CODE/TIME: 25 minutes; TA/TP
--- NOTE | 2018-03-13 13:41 | CMSCP_ITS ---
- If Service Date Differs Date of service: 02/24/18 (Late Entry-new system ) [facility] Plan of care: SWING BED PROGRAM ACTIVITIES/DISCHARGE PLAN OF CARE ACTIVITIES PLAN Date: 02/24/18 Identified Need: Individual needs, social and spiritual needs while inpatient at [facility]. Intervention/Plan: TV in room, Activity Cart, Apprentice Pattern Maker visits, Reiki, Music Therapy, Therapy dogs, encourage participation in activities, check-ins with care management. Initials: Kenna DISCHARGE PLAN Date: 02/24/18 Identified Need: Swing Bed 1 for PT to address strengthening in setting of chronic pain. Increased home services. Intervention/Plan: Renay will continued to be monitored closely, her pain managed while she has the opportunity to work with PT twice daily to improve and strengthen prior to returning home where her care needs are managed by caregivers. Coordination of increased services, private care, [facility]: skilled services (PT/OT/ RN), community based case management, Palliative Care. Initials: Gumaro Kenny
--- NOTE | 2018-03-13 13:41 | CMSA_ITS ---
<Pooja Persaud - Last Filed: 02/25/18 15:06> - If Service Date Differs Date of service: 02/24/18 ([facility] Downtime - Late entry) SB Psychosocial/Act.Assessment - Hospital Admission Admission Date: 02/18/18 Admission From:: Home Diagnosis:: CHF Exacerbation, Increased weakness and need for pain management - Swing Bed Admission Swing Bed Admit Date:: 02/24/18 <KamiFernandaTheresa - Last Filed: 02/25/18 15:54> SB Psychosocial/Act.Assessment - Social Supports PREVIOUS FUNCTIONAL STATUS/SOCIAL/FAMILY SUPPORTS:: Renay resides alone in [place], [place]. She has a supportive family including three sons, her daughter , Jr and grand-daughter; Dalia as well as supportive friends including her person to notify; Mallory Rodrigez. Renay no longer drives and depends on her family, friends and paid caregivers to meet her needs and manage her activities of daily living. - Prior to Admission Living Arrangements/Environment Prior to Admission:: Alone with paid caregivers. 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 - Present Functional Status Physical Abilities:: Weakened; chronic pain. Lives alone in a trailer, ramp to enter no stairs, baseline mobility gait with FWW 50ft in home, reports she has caregiver assistance for bathing and caregiver assists with meals groceries delivered to the home. - Medical History PAST MEDICAL HISTORY/PAST SURGICAL HISTORY:: Recurrent prior episodes of SBO, Polycystic kidney disease, S/P bilateral nephrectomies, Renal transplant, GERD, Gout, COPD, Chronic pain on methadone and liquid morphine, Biventricular CHF, Mitral regurgitation, Pulmonary hypertension, Bronchiectasis, Chronic generalized weakness, OA, Hypertension, Chronic urinary incontinence, Spinal stenosis in cervical and lumbar regions, Chronic lower extremity edema, Abdominal hernia surgeries, Perforated diverticular bilaterally for polycystic kidney disease, Renal transplant, Lysis of adhesions, Tubal ligation - Admission Data Reason for Swing Bed Admission:: Pain Management, utilization of PT for: strengthening, bed mobility, transfers, gait, stairs, balance training, use of assistive devic, decreased bilateral shoulder ROM and strength limiting ADLS, functional mobility and self care, right hip pain limiting gait mobility, generalized weakness due to multiple medical conditions limiting her functional mobility, decreased static and dynamic standing balance putting her at risk for falls requiring FWW for gait stability: Renay's goal is to return to home setting, she will benefit from home PT/OT at discharge. Discharge Plan:: Home with caregivers and increased services after meeting short term goals with physical therapy. Assessment: 7-10 days. Landscape Painter: Theresa Mcclure Date Assessment was completed:: 02/24/18 (Late entry due to new system )
--- NOTE | 2018-03-13 15:05 | INPN_ITS ---
Date of service: 02/28/18 Time of Service: 07:19 PT Notes Inpatient Physical Therapy Evaluation Referring Doctor: Dr. Anguiano PT Orders: PT CONSULT: Evaluate and treat Precautions: Falls Patient Profile/Admitting Diagnosis: Patient is a 52-year-old female admitted with colitis PMHX: Refer to the problem list in Dr. Anguiano H&P Social History/Home Situation: Lives with her parents, is on Social Security disability Current Functional Limitations: Independent with dressing meals, her mother assist her with bathing. It is on the first floor,. She has railings entering the house Equipment Owned/DME: Shower seat in the tub with grab bars, has flexible shower hose. Subjective: Hawa complaints of intermittent right lower quadrant discomfort. Objective: General Observation: Pleasant cooperative no abnormal pain behavior noted. Mental Status: Alert and oriented ?3 Pain: Intermittent right lower quadrant pain. Rates his #4-5 on a VAS. Vital Signs: Resting pulse is 17 bpm; 19 bpm following ambulation. Her resting respiratory rate is 14 breaths per minute; 24 breaths per minute following ambulation. ROM: Right Upper Extremity: Within normal limits Left Upper Extremity: Within normal limits Right Lower Extremity: Within normal limits Left Lower Extremity: Within normal limits Strength: Has full motor control throughout strength. Her strength is generally rated -5/ 5 throughout Sensation: Intact to light touch and proprioception. Bed Mobility/Transfers: Independent with assuming the supine sitting to standing positions Gait: Ambulates independently without an assistive device for approximately 30 feet. Her respiratory rate increases to 24 breaths per minute following ambulation as noted above. Balance: A Causey balance test was performed and she scored 48/56. Fall risk is a score of 45 and below Static Sitting: Normal Dynamic Sitting: Normal Static Standing: Normal Dynamic Standing: Normal Special Tests: Mobility Limitations Standardized Measure [facility] AM-PAC 6 clicks Basic Mobility Inpatient Short Form: Raw Score: 18 standardized Score: 43.63 CMS Score: 46.58% [facility] Modifier: CK Informed Consent/Education: Patient instructed in purpose of PT consult and plan of care. Assessment: Patient is a 52 next field female year old referred to physical therapy services with the diagnosis of colitis []. Patient presents with clinical signs and symptoms consistent with diagnosis as demonstrated by the following impairment level findings: Deconditioned and shortness of breath with distance walking. Impairments are contributing to the following functional limitations: AMPAC score. Patient is assessed as a X low 46631 complexity based on the following: History: Colitis Examination: Poor endurance and shortness of breath with walking Presentation: Evolving Decision Making: Low based on her clinical findings Goals: Goals X1 week 1. Supine-Sit independent 2. Sit-Supine independent 3. Sit-Stand independent 4. Stand-Sit independent 5. Bed-Chair independent 6. Chair-Bed independent 7. Gait independent with distances greater than 100 feet 8. Stairs 9. Independent with home exercise program 10. Balance Plan of Care/Treatment Plan: 1-2x/day, 7 days/week x 1 week. Plan of care has been reviewed with the SENIOR SERVICE AIDE providing the service under Physical Therapy direction. Initiate Physical Therapy intervention for strengthening, bed mobility, transfers, gait, stairs, balance training, use of assistive device. DISCHARGE RECOMMENDATIONS: [] Home G Codes in the area mobility of walking and moving around: current status [id number] [CK]; projected status GP [id number]. Discharge status (if discharging) GP [id number] CK. Disclaimer: This note was created using [employer] voice recognition software. It was reviewed for major content. However, there may be multiple small discrepancies and errors due to the voice recognition aspects of the software.
== END 2018-03-04 14:33 | disposition home health service (06) | DRG 945 ==
PROVIDERS: General Practice; Internal Medicine; Admitting Provider Family Medicine; PCP Student in an Organized Health Care Education/Training Program; Visit Provider Internal Medicine
DX: R53.1 Weakness (principal); I50.31 Acute diastolic (congestive) heart failure; Z94.0 Kidney transplant status; N39.0 Urinary tract infection, site not specified; Z73.89 Other problems related to life management difficulty; B95.62 Methicillin resistant Staphylococcus aureus infection as the cause of diseases classified elsewhere
CPT/HCPCS: 36415; 97110; 97530; 99239; 99306; 99316; 81003; 85049; J1650; J7512

== ENCOUNTER 2018-03-12 11:41 | Outpatient (CLI) | payer MEDICARE, SELFPAY ==
[2018-03-12 14:52] LABS: Anion Gap 10.6 mmol/L (3-11); BUN 69 mg/dL (7-18); CO2 29.4 mmol/L (21.0-32.0); CREATININE 2.43 mg/dL (0.55-1.02); Chloride 102 mmol/L (98-107); Glucose 130 mg/dL (70-100); Magnesium 1.8 mg/dL (1.8-2.4); Potassium 3.9 mmol/L (3.5-5.1); Sodium 142 mmol/L (136-145)
[2018-03-12 16:12] LABS: PHOSPHORUS 4.6 mg/dL (2.6-4.7)
[2018-03-14 08:43] LABS: Cyclosporine 105 ng/mL
== END 2018-03-12 12:01 ==
PROVIDERS: PCP Student in an Organized Health Care Education/Training Program; Visit Provider Student in an Organized Health Care Education/Training Program
DX: R60.0 Localized edema (principal); N18.3 Chronic kidney disease, stage 3 (moderate); Z94.0 Kidney transplant status
CPT/HCPCS: 36415; 80048; 80158; 83735; 84100

== ENCOUNTER 2018-03-19 13:08 | Outpatient (CLI) | payer MEDICARE, SELFPAY ==
[2018-03-19 15:02] LABS: BUN 43 mg/dL (7-18); CREATININE 2.09 mg/dL (0.55-1.02); Chloride 100 mmol/L (98-107); Estimated GFR 22.84 (mL/min/1.73m2); Glucose 122 mg/dL (70-100); Potassium 4.6 mmol/L (3.5-5.1); Sodium 141 mmol/L (136-145)
== END 2018-03-19 13:28 ==
PROVIDERS: PCP Student in an Organized Health Care Education/Training Program; Visit Provider Student in an Organized Health Care Education/Training Program
DX: N17.9 Acute kidney failure, unspecified (principal); N18.3 Chronic kidney disease, stage 3 (moderate)
CPT/HCPCS: 36415; 80048

== ENCOUNTER → 2018-03-29 09:47 | Outpatient (BNVA) | payer MEDICARE, SELFPAY | PROVIDERS: PCP Student in an Organized Health Care Education/Training Program; Referring Provider Student in an Organized Health Care Education/Training Program; Visit Provider Student in an Organized Health Care Education/Training Program | DX: M75.101 Unspecified rotator cuff tear or rupture of right shoulder, not specified as traumatic (principal); M12.811 Other specific arthropathies, not elsewhere classified, right shoulder; M25.511 Pain in right shoulder | CPT/HCPCS: 20610; 99213; J1040 ==

== ENCOUNTER 2018-03-29 11:16 | Outpatient (REF) | payer MEDICARE, SELFPAY ==
[2018-03-29 12:44] LABS: Source R SHOULDER
[2018-03-29 12:45] LABS: Clarity BLOODY; Mononuclear Cells 48 % (0-0); Nucleated Cells 1388 /MM3 (0-0); Polynuclear Cells 52 % (0-0)
== END 2018-03-29 11:36 ==
LOC: LBN 11:16
PROVIDERS: PCP Student in an Organized Health Care Education/Training Program; Visit Provider Student in an Organized Health Care Education/Training Program
DX: M25.411 Effusion, right shoulder (principal)
CPT/HCPCS: 87070; 87205; 89051; 89060

== ENCOUNTER 2018-04-01 13:16 | Outpatient (CLI) | payer MEDICARE, SELFPAY ==
[2018-04-01 14:13] LABS: Abs Immature Grans 0.01 k/cumm (0.0-0.09); Absolute Eosinophil Count 0.01 k/cumm (0.0-0.7); Absolute Lymphocyte Count 0.43 k/cumm (1.2-3.4); Absolute Monocyte Count 0.73 k/cumm (0.11-0.7); Absolute Neutrophil Count 6.93 k/cumm (1.2-6.7); Eosinophils % 0.1; HCT 40.3 % (36.0-46.0); HGB 12.5 g/dL (12.0-15.5); Immature Grans % 0.1; Lymphocytes % 5.3; Mean Corpuscular Hemoglobin 29.5 pg (27.0-33.0); Mean Platelet Volume 10.5 fL (8.0-11.0); Neutrophils % 85.5; Platelet Count 179 x1000/uL (130-400); RBC 4.24 m/cumm (4.00-5.20); RBC Distribution Width 13.2 % (11.7-14.6); White Blood Cell Count 8.11 k/cumm (4.4-10.8)
[2018-04-01 14:20] LABS: Anion Gap 4.3 mmol/L (3-11); BUN 51 mg/dL (7-18); CO2 36.7 mmol/L (21.0-32.0); CREATININE 1.82 mg/dL (0.55-1.02); Calcium 9.7 mg/dL (8.5-10.1); Chloride 96 mmol/L (98-107); Glucose 107 mg/dL (70-100); Potassium 4.1 mmol/L (3.5-5.1); Sodium 137 mmol/L (136-145)
== END 2018-04-01 13:36 ==
PROVIDERS: PCP Student in an Organized Health Care Education/Training Program; Visit Provider Student in an Organized Health Care Education/Training Program
DX: M00.9 Pyogenic arthritis, unspecified (principal); N18.3 Chronic kidney disease, stage 3 (moderate); N17.9 Acute kidney failure, unspecified
CPT/HCPCS: 36410; 80048; 87040; 85025

== ENCOUNTER → 2018-04-10 12:37 | Outpatient (BNVA) | payer MEDICARE, SELFPAY | PROVIDERS: PCP Student in an Organized Health Care Education/Training Program; Visit Provider Student in an Organized Health Care Education/Training Program | DX: I50.9 Heart failure, unspecified (principal); I27.20 Pulmonary hypertension, unspecified; I11.0 Hypertensive heart disease with heart failure; Z99.81 Dependence on supplemental oxygen | CPT/HCPCS: 99214 ==

== ENCOUNTER 2018-04-18 11:16 | Outpatient (CLI) | payer MEDICARE, SELFPAY ==
[2018-04-18 12:26] LABS: HCT 39.6 % (36.0-46.0); HGB 12.1 g/dL (12.0-15.5); Mean Corp. HGB Concentration 30.6 g/dL (32.0-36.0); Mean Corpuscular Hemoglobin 28.7 pg (27.0-33.0); Mean Corpuscular Volume 94.1 fL (80-95); Mean Platelet Volume 10.4 fL (8.0-11.0); Platelet Count 163 x1000/uL (130-400); RBC 4.21 m/cumm (4.00-5.20); RBC Distribution Width 13.3 % (11.7-14.6); White Blood Cell Count 5.83 k/cumm (4.4-10.8)
[2018-04-18 13:26] LABS: Anion Gap 5.2 mmol/L (3-11); BUN 60 mg/dL (7-18); CO2 36.8 mmol/L (21.0-32.0); CREATININE 2.09 mg/dL (0.55-1.02); Calcium 9.3 mg/dL (8.5-10.1); Chloride 96 mmol/L (98-107); Estimated GFR 22.84 (mL/min/1.73m2); Glucose 124 mg/dL (70-100); Potassium 3.8 mmol/L (3.5-5.1); Sodium 138 mmol/L (136-145)
[2018-04-18 13:33] LABS: Magnesium 1.6 mg/dL (1.8-2.4); PHOSPHORUS 3.9 mg/dL (2.6-4.7)
[2018-04-18 15:11] LABS: Cholesterol 131 mg/dL (50-200)
[2018-04-19 14:14] LABS: Cyclosporine 155 ng/ml
== END 2018-04-18 11:36 ==
PROVIDERS: Internal Medicine Nephrology; PCP Student in an Organized Health Care Education/Training Program; Visit Provider Student in an Organized Health Care Education/Training Program
DX: N18.3 Chronic kidney disease, stage 3 (moderate) (principal); Z94.0 Kidney transplant status
CPT/HCPCS: 36415; 80048; 85027; 80158; 82465; 83735; 84100; 84550

== ENCOUNTER 2018-05-10 15:46 | Outpatient (REF) | payer MEDICARE, SELFPAY ==
[2018-05-10 16:43] LABS: Uric Acid 7.5 mg/dL (2.6-6.0)
== END 2018-05-10 16:06 ==
LOC: LBN 15:46
PROVIDERS: PCP Student in an Organized Health Care Education/Training Program; Visit Provider Family Medicine
DX: I50.9 Heart failure, unspecified (principal); M10.9 Gout, unspecified
CPT/HCPCS: 84550

== ENCOUNTER 2018-05-13 16:07 | Outpatient (REF) | payer MEDICARE, SELFPAY ==
[2018-05-13 17:07] LABS: Bilirubin Negative (Negative); Blood Negative (Negative); Clarity Clear; Glucose Negative (Negative); Ketones Negative (Negative); Leukocyte Esterase Trace (Negative); Nitrite Negative (Negative); Urobilinogen 0.2 EU/dL (Up TO 0.2)
[2018-05-13 18:19] LABS: Bacteria Few HPF (Negative); C & S Indicated? No/Sq. Contamination; Casts Negative LPF (Negative); Crystals Negative HPF (Negative); Epithelial Cells Moderate HPF (Negative); Mucus Negative (Negative); Other Cells Negative (Negative); RBC Negative (0-2)
== END 2018-05-13 16:27 ==
LOC: LBN 16:07
PROVIDERS: PCP Student in an Organized Health Care Education/Training Program; Visit Provider Student in an Organized Health Care Education/Training Program
DX: N18.3 Chronic kidney disease, stage 3 (moderate) (principal); R82.90 Unspecified abnormal findings in urine
CPT/HCPCS: 81003; 81015

== ENCOUNTER 2018-05-27 00:18 | Inpatient (IN) | payer MEDICARE, SELFPAY ==
[2018-05-27] VITALS (28 sets, daily range): BP systolic 101–154; BP diastolic 53–89; PULSE 70–130; RESP 14–27; TEMP 36.5–38.2; O2SAT 85–97
[2018-05-27] MEDS: Ondansetron O.D.T. 4 MG TABEF (00:23)
--- NOTE | 2018-05-27 00:34 | DI.CT_ITS ---
SYMPTOMS/DIAGNOSIS: VOMITING, GENERALIZED ABD PAIN CT SCAN OF THE ABDOMEN AND PELVIS: Noncontrast examination. Comparison is 04/11/17nd 01/19/18. The lung bases show diffuse bronchiectatic changes and bronchial wall thickening suggesting bronchitis. There are bilateral basilar infiltrates, right greater than left and a small right pleural effusion. There are again seen multiple stable hypodensities in the liver. The patient is status post cholecystectomy. There is unchanged dilatation of the extrahepatic common duct. The pancreas, spleen and adrenal glands are unremarkable. The patient has a renal transplant in the right pelvis. It is unchanged. The [place] kidneys are not visualized. The urinary bladder is intact. There is diverticulosis of the colon but no evidence of acute diverticulitis. There are dilated loops of small bowel seen centrally with scattered air fluid levels. No definite transition point is seen. The colon is of normal caliber. No findings are seen to suggest an acute appendicitis are present. There is a battery pack seen in the left anterior abdominal wall. The catheter enters the spine. The tip is directed cephalad. The abdominal aorta is of normal caliber. No significant abdominal or pelvic adenopathy, ascites or pneumoperitoneum is present. There are post surgical changes of a prior anterior abdominal wall hernia repair with mesh noted. Degenerative changes are seen in the lumbar and thoracic spine. IMPRESSION: 1. Mildly dilated loops of small bowel without definite transition zone. This may represent an ileus, partial obstruction can not be excluded. 2. Status post cholecystectomy and stable extrahepatic biliary ductal dilatation. 3. Colonic diverticulosis but no CT findings to suggest acute diverticulitis. 4. Bilateral basilar infiltrates and small right pleural effusion. Bronchiectatic changes in the lung bases.
--- NOTE | 2018-05-27 00:43 | ED.GENADUL_ITS ---
Discharge Plan Disposition Patient Disposition: [facility] INPATIENT Condition: Stable Discharge Details Chief Complaint: Nausea/Vomit/Diar Clinical Impression: SBO (small bowel obstruction) Reason For Visit: ADAM Primary Care Provider: Kesha Serrano ED Provider: Cabrera Mathis Home Meds and New Rx's Prescriptions: No Action lifitegrast [Xiidra] 5 % dropperette 1 drp OP BID Qty: 5 RF: 0 metolazone 2.5 mg tablet 2.5 mg PO ONCE MDD 2.5 mg PRN (Reason: CHF) Qty: 10 RF: 0 ascorbic acid (vitamin C) 1,000 MG tablet 1,000 mg PO DAILY RF: 0 docusate sodium [Colace] 100 MG capsule 100 mg PO BID RF: 0 cholecalciferol (vitamin D3) [Vitamin D3] 2,000 UNIT capsule 2,000 unit PO DAILY RF: 0 cyclosporine 25 MG capsule 75 mg PO BID Qty: 540 RF: 0 prednisone 5 MG tablet 5 mg PO DAILY Qty: 90 RF: 1 nitroglycerin [Nitrostat] 0.4 MG tablet, sublingual 0.4 mg Sublingual PRN Qty: 25 RF: 5 polyethylene glycol 3350(bulk) 12,000 GM powder 17 gm PO DAILY PRNQty: 1 RF: 3 omega-3 fatty acids-fish oil 1 EACH capsule 1 ea PO DAILY RF: 0 fluticasone 16 GM spray,suspension 1 spray NS BID Qty: 3 RF: 3 carvedilol [Coreg] 25 MG tablet 50 mg PO BID Qty: 360 RF: 3 cimetidine 800 MG tablet 400 mg PO BID RF: 0 ondansetron 4 MG tablet,disintegrating 4 mg Sublingual Q6H PRNQty: 15 RF: 2 Oxygen EACH NS DAILY Qty: 2 RF: 1 atorvastatin [Lipitor] 10 MG tablet 5 mg PO DAILY Qty: 45 RF: 2 aspirin 81 MG tablet,chewable 81 mg PO DAILY Qty: 100 RF: 3 benzonatate [Tessalon Perles] 100 MG capsule 100 mg PO TID Qty: 90 RF: 0 albuterol sulfate [ProAir HFA] 8.5 GM HFA aerosol inhaler 2 puff Inhalation Q4H PRN Qty: 1 RF: 11 doxycycline hyclate 100 mg tablet 100 mg PO BID Qty: 28 RF: 0 methadone 5 mg tablet 5 mg PO TID MDD 15 Qty: 90 RF: 0 oxygen conserver See Label Instructions .ROUTE .COMPLEX Qty: 1 RF: 0 furosemide 40 mg tablet 40 mg PO BID Qty: 60 RF: 5 allopurinol 100 mg tablet 100 mg PO BID RF: 0 baclofen 10 mg tablet 10 mg PO TID RF: 0 morphine 10 mg/5 mL solution 2 mg PO Q1H PRN MDD 24mg Qty: 500 RF: 0 sennosides-docusate sodium [MATHIEU-COLACE] 1 TAB tablet 2 tab PO BID Qty: 120 RF: 0 magnesium gluconate 27 mg magnesium (500 mg) Tablet 500 mg PO BID@0600,1800 Qty: 60 RF: 0 Medical Decision Making This is a pleasant 77-year-old female who presents with nausea and vomiting for the last 4 hours. Vomitus is nonbilious and nonbloody. She demonstrates no significant abdominal tenderness but does complain of mild abdominal cramping. No guarding or rebound. She has had multiple abdominal surgeries in the past including a kidney replacement. And concern for potential obstruction. We will gently rehydrate the patient with her history of CHF, we will evaluate for potential obstruction, control her nausea, and reassess. Candidate vein examined with linear array probe - confirmed collapsibility, lack of pulsatility, and proper anatomic location. Using aseptic technique, IV catheter inserted with flash of blood noted, flow of venous blood confirmed. Flushes easily and without pain. No hematoma or complications noted. IV secured. Patient tolerated well. 2:43 AM Laboratory workup has returned and demonstrates no significant abnormalities, patient's creatinine is elevated however this is in line with her chronic levels and her chronic kidney disease. The patient CT scan has returned and shows evidence of potential ileus versus obstruction, however with the patient' s 5 episodes of vomiting here in the emergency department even with antiemetic therapy I feel that her signs and symptoms more consistent with obstruction. I contacted Dr. Padron, the surgeon on-call and discussed the case with him. He recommends NG tube which I think is certainly indicated. NG tube will be placed , the patient will be admitted to the floor. Diagnosis small bowel obstruction. I have extensively reviewed the treatment plan with the patient. I have addressed all patient concerns at this time. I have also discussed the plan with the admitting physician and they agree with the current assessment and plan and have agreed to assume responsibility for the patient. All parties demonstrate verbal understanding and agreement with our assessment and plan at this time. IMPRESSION: Mildly dilated small bowel loops throughout the mid abdomen without transition zone. Favor ileus but cannot exclude partial obstruction. Cholecystectomy and stable mild biliary dilatation, likely related to post surgical change. Colonic diverticulosis. Mild bibasilar consolidations, small right pleural effusion and findings suggestive of bronchitis. EKG 2: 51 Rate 101, SC 200, QTc 446, QRS 116, sinus tachycardia, no significant ST elevations or depressions, T wave inversion noted in aVL, Q waves noted in V1 and V2 no other significant abnormalities. HPI General Date/Time Provider Initiated Documentation: 05/27/18 00:28 . 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 Patient states that at 8:30 PM which was roughly 4 hours prior to arrival she began developing symptoms of recurrent vomiting and weakness. She denies any severe abdominal pain but does admit to mild cramping. She denies any dysuria, chest pain, shortness of breath, numbness tingling or weakness. She denies any significant diarrhea. She denies any hematemesis, hematochezia melena or acholic stool. She denies any recent foreign travel, or other sick contacts. Additionally the patient does admit to some mild weakness. Patient denies any other complaints at this time. Related Data Home Medications Medication Instructions Recorded Confirmed ascorbic acid (vitamin C) 1,000 mg PO DAILY 09/18/12 05/27/18 docusate sodium [Colace] 100 mg PO BID tab-cap 09/18/12 05/27/18 cholecalciferol (vitamin D3) 2,000 unit PO DAILY 12/25/12 05/27/18 [Vitamin D3] sennosides-docusate sodium 2 tab PO BID #120 tab 12/05/13 05/27/18 [MATHIEU-COLACE] cyclosporine 75 mg PO BID #540 cap 01/09/14 05/27/18 prednisone 5 mg PO DAILY #90 tab 01/17/16 05/27/18 nitroglycerin [Nitrostat] 0.4 mg SUBLINGUAL PRN #25 tab 10/16/16 05/27/18 polyethylene glycol 3350(bulk) 17 gm PO DAILY PRN #1 canister 01/08/17 05/27/18 fluticasone 1 spray NS BID #3 units 06/04/17 05/27/18 omega-3 fatty acids-fish oil 1 ea PO DAILY cap 06/04/17 05/27/18 carvedilol [Coreg] 50 mg PO BID #360 tab 07/09/17 05/27/18 cimetidine 400 mg PO BID 07/31/17 05/27/18 ondansetron 4 mg SUBLINGUAL Q6H PRN #15 tabef 10/19/17 05/27/18 atorvastatin [Lipitor] 5 mg PO DAILY #45 tab 10/25/17 05/27/18 aspirin 81 mg PO DAILY #100 tab 01/14/18 05/27/18 benzonatate [Tessalon Perles] 100 mg PO TID #90 tab-cap 02/04/18 05/27/18 albuterol sulfate [ProAir HFA] 2 puff INHALATION Q4H PRN #1 02/14/18 05/27/18 inhaler magnesium gluconate 500 mg PO BID@0600,1800 #60 tab 03/04/18 05/27/18 lifitegrast 5 % eye drops in a 1 drp OP BID #5 each 03/13/18 05/27/18 dropperette doxycycline hyclate 100 mg tablet 100 mg PO BID #28 tab 03/28/18 05/27/18 metolazone 2.5 mg tablet 2.5 mg PO ONCE PRN #10 tab MDD 2.5 04/10/18 05/27/18 mg methadone 5 mg tablet 5 mg PO TID #90 tab-cap MDD 15 04/15/18 05/27/18 oxygen conserver See Label Instructions .ROUTE 04/19/18 05/24/18 .COMPLEX #1 allopurinol 100 mg tablet 100 mg PO BID 04/30/18 05/27/18 baclofen 10 mg tablet 10 mg PO TID 04/30/18 05/27/18 furosemide 40 mg tablet 40 mg PO BID #60 tab 04/30/18 05/27/18 morphine 10 mg/5 mL oral solution 2 mg PO Q1H PRN #500 ml MDD 24mg 05/17/1809/09 Previous Rx's Medication Instructions Recorded sennosides-docusate sodium 2 tab PO BID #120 tab 12/05/13 [MATHIEU-COLACE] fluticasone 1 spray NS BID #3 units 06/04/17 carvedilol [Coreg] 50 mg PO BID #360 tab 07/09/17 atorvastatin [Lipitor] 5 mg PO DAILY #45 tab 10/25/17 aspirin 81 mg PO DAILY #100 tab 01/14/18 benzonatate [Tessalon Perles] 100 mg PO TID #90 tab-cap 02/04/18 albuterol sulfate [ProAir HFA] 2 puff INHALATION Q4H PRN #1 02/14/18 inhaler magnesium gluconate 500 mg PO BID@0600,1800 #60 tab 03/04/18 lifitegrast 5 % eye drops in a 1 drp OP BID #5 each 03/13/18 dropperette doxycycline hyclate 100 mg tablet 100 mg PO BID #28 tab 03/28/18 metolazone 2.5 mg tablet 2.5 mg PO ONCE PRN #10 tab MDD 2.5 04/10/18 mg methadone 5 mg tablet 5 mg PO TID #90 tab-cap MDD 15 04/15/18 oxygen conserver See Label Instructions .ROUTE 04/19/18 .COMPLEX #1 furosemide 40 mg tablet 40 mg PO BID #60 tab 04/30/18 morphine 10 mg/5 mL oral solution 2 mg PO Q1H PRN #500 ml MDD 24mg 05/17/18 Allergies Allergy/AdvReac Type Severity Reaction Status Date / Time thiopental sodium Allergy Intermediate Wheezing Unverified 05/27/18 01:38 [From Pentothal] Penicillins Allergy Unknown ITCHING Unverified 05/27/18 01:38 diclofenac gel AdvReac Intermediate nausea, Uncoded 05/27/18 01:38 sweats, insomnia Review of Systems Review of Systems All systems reviewed & are unremarkable except as noted in HPI and below PFSH Social History adopted: No caregiver/support person: Yes household members: none housing: house lives independently: Yes (has caregivers there daily, Shonna with her at time of appointment) current occupational status: retired pets and animals: No Smoking/Tobacco Use Status: Never Exam Narrative Exam Narrative: 1.Const: appearing stated age, does appear slightly dehydrated 2.Eyes: PERRL, no conjunctival injection, and symmetrical lids. 3.ENT: Atraumatic external nose and ears. dry MM. Neck: Symmetric, trachea midline, No thyromegaly. 4.CVS: +S1/S2, No murmurs or gallops. Peripheral pulses 2+ and equal in all extremities. Brisk capillary refill in all extremities. 5.RESP: Unlabored respiratory effort. Clear to auscultation bilaterally. No wheezes rales or rhonchi 6.GI: Soft, nondistended, no guarding or rebound, bowel sounds are present. Palpable previous pain pump is in place in the left lower abdominal quadrant. Patient has soiled herself. 7.MSK: Normocephalic/Atraumatic, Extremities w/o deformity or ttp No cyanosis or clubbing, Normal movement of all extremities 8.Skin: Warm, Dry. No rashes or lesions. 9.Neuro: entry level administrative assistant II-XII grossly intact. Sensation grossly intact, no focal neurologic deficits. 10.Psych: (AAO) x3. Appropriate mood and affect
[2018-05-27 01:51] LABS: Absolute Basophil Count 0.01 k/cumm (0.0-0.2); Absolute Eosinophil Count 0.11 k/cumm (0.0-0.7); Absolute Lymphocyte Count 0.19 k/cumm (1.2-3.4); Absolute Monocyte Count 0.22 k/cumm (0.11-0.7); Absolute Neutrophil Count 4.19 k/cumm (1.2-6.7); Basophils % 0.2; Eosinophils % 2.3; HCT 40.4 % (36.0-46.0); HGB 12.3 g/dL (12.0-15.5); Mean Corp. HGB Concentration 30.4 g/dL (32.0-36.0); Mean Corpuscular Hemoglobin 28.4 pg (27.0-33.0); Mean Corpuscular Volume 93.3 fL (80-95); Mean Platelet Volume 9.9 fL (8.0-11.0); Monocytes % 4.7; Neutrophils % 88.8; Platelet Count 183 x1000/uL (130-400); RBC 4.33 m/cumm (4.00-5.20); White Blood Cell Count 4.72 k/cumm (4.4-10.8)
[2018-05-27 02:07] LABS: ALT 11 U/L (12-78); AST 12 U/L (15-37); Albumin 2.6 g/dL (3.4-5.0); Alkaline Phosphatase 75 U/L (46-116); Anion Gap 8.4 mmol/L (3-11); BUN 52 mg/dL (7-18); Bilirubin, Total 0.7 mg/dL (0.2-1.0); CO2 32.6 mmol/L (21.0-32.0); CREATININE 2.09 mg/dL (0.55-1.02); Calcium 9.3 mg/dL (8.5-10.1); Chloride 97 mmol/L (98-107); Estimated GFR 22.84 (mL/min/1.73m2); Glucose 167 mg/dL (70-100); Lipase 66 U/L (73-393); Potassium 4.1 mmol/L (3.5-5.1); Sodium 138 mmol/L (136-145); Total Protein 6.6 g/dL (6.4-8.2)
[2018-05-27 02:08] LABS: Troponin I < 0.02 ng/mL (0.00-0.06)
--- NOTE | 2018-05-27 02:32 | DI.VRAD_ITS ---
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 All CT scans at this facility use at least one of these dose optimization techniques: automated exposure control; mA and/or kV adjustment per patient size (includes targeted exams where dose is matched to clinical indication); or iterative reconstruction. Coronal and sagittal reformatted images were created and reviewed. COMPARISON: CT ABD PELVIS WO CONTRAST 01/19/2018 11:30 AM FINDINGS: Tubes, catheters and devices: A spinal catheter is seen in the posterior canal. Tip is not visualized on this study. Battery pack is present in the left anterior pelvic wall. Lower thorax: Extensive bronchiectasis and peribronchial thickening consistent with bronchitis. Mild bibasilar consolidations and small right pleural effusion. Lung findings appear similar to the prior study. ABDOMEN: Liver: Stable numerous hepatic cysts. Gallbladder and bile ducts: Cholecystectomy. Again noted is stable common duct dilatation measuring 1.3 cm at the pancreatic head. At the same level, duct size is unchanged from the prior study. Pancreas: Unremarkable. Spleen: Normal. No splenomegaly. Adrenals: Normal. No mass. Kidneys and ureters: Renal transplant in the right pelvis. No stones or hydronephrosis. [place] kidneys are not visualized. Stomach and bowel: Colonic diverticulosis. Fluid levels are seen in the ascending colon There are mildly dilated loops of small bowel throughout the abdomen without obvious transition zone. Findings favor ileus but cannot exclude partial obstruction. Appendix: Normal appendix. PELVIS: Bladder: Unremarkable as visualized. Reproductive: Hysterectomy. ABDOMEN and PELVIS: Intraperitoneal space: Normal. No free air. No significant fluid collection. Bones/joints: Degenerative changes throughout lumbar spine. There is severe lumbar levoscoliosis. Soft tissues: Umbilical hernia ventral hernia repair with mesh. Vasculature: Normal. No abdominal aortic aneurysm. Lymph nodes: Normal. No enlarged lymph nodes. Other findings: Again noted stable calcified 2.7 cm finding in the right pelvis. IMPRESSION: Mildly dilated small bowel loops throughout the mid abdomen without transition zone. Favor ileus but cannot exclude partial obstruction. Cholecystectomy and stable mild biliary dilatation, likely related to post surgical change. Colonic diverticulosis. Mild bibasilar consolidations, small right pleural effusion and findings suggestive of bronchitis. Dictated and Authenticated by: Mitzy Chinchilla MD. Ordering:JUSTYN GREENWOOD MD
--- NOTE | 2018-05-27 03:33 | DI.RAD_ITS ---
SYMPTOMS/DIAGNOSIS: NG TUBE PLACEMENT PORTABLE AP CHEST: Portable AP view of the chest was obtained at 0910 hours. The nasogastric tube is seen. The tip is seen in the stomach. The patient is rotated. Cardiac silhouette appears stable compared to the prior examinations. No gross change in appearance of the lung salomon is noted. A follow-up chest x-ray was then performed at 0930 hours to improve the patient positions. The nasogastric tube can only be identified satisfactorily to the level of the mid esophagus. The lungs are unchanged. Heart size and pulmonary vasculature are within normal limits. IMPRESSION: Limited examination due to patient positioning. The location of the nasogastric tube cannot be confirmed on the most recent examination. X-ray of the abdomen should be considered for further evaluation.
--- NOTE | 2018-05-27 04:11 | DI.VRAD_ITS ---
EXAM: XR Chest, 1 View EXAM DATE/TIME: 05/27/2018 3:51 AM CLINICAL HISTORY: 77 years old, female; Device placement; Ng tube TECHNIQUE: XR of the chest, 1 view. COMPARISON: CR PORTABLE CHEST ONE VIEW 02/19/2018 6:30 AM FINDINGS: Tubes, catheters and devices: An enteric tube is seen in place. This can be visualized to the mid esophagus but is not well seen below this level. Lungs: There is coarse thickening of pulmonary interstitium unchanged from prior studies related to patient's bronchiectasis and chronic bronchitis. No new infiltrate. Pleural space: Unremarkable. No pleural effusion. No pneumothorax. Heart/Mediastinum: Atherosclerotic disease. Bones/joints: Degenerative changes in the shoulders and spine. IMPRESSION: An enteric tube is seen in place. This can be visualized to the mid esophagus but is not well seen below this level. Suggest confirmation with chest x-ray centered on the upper abdomen. Chronic interstitial prominence related to patient's bronchiectasis and chronic bronchitis. Dictated and Authenticated by: Mitzy Chinchilla MD. Ordering:JUSTYN GREENWOOD MD
--- NOTE | 2018-05-27 06:23 | NUR.NOTE ---
Nursing Note: At 04:30 hrs. , pt admitted in Rm 210 with presenting problem of diarrhea and SBO. NGTube hooked up to intermittent LWS. brown secretions output noted. Pt has fistula on right arm and left arm is sensitive, cried out of pain when touched. Both lower legs and feet are edematous plus 2. Left hand also swollen. Pt has watery eyes and both eyes are red but moving spontaneously. Latest temp 38.2. Has pain pump implanted on left side of abdomen and reported not working. Admission care rendered. Oriented to call lights system but pt is very tired, unable answer more questions.
[2018-05-27] MEDS: Normal Saline Flush 10 ML SYR IVP ×3 (08:20→17:20)
[2018-05-27] MEDS: Pantoprazole 40 MG VIAL IVP (08:20)
[2018-05-27] MEDS: Normal Saline 1,000 ML 100 ML IV (08:20)
[2018-05-27] MEDS: Hydrocortisone SOD SUC. 100 MG VIAL IVP (08:20)
--- NOTE | 2018-05-27 08:26 | HPE_ITS ---
Date of service: 05/27/18 Time of Service: 08:15 Assessment and Plan (1) Bowel obstruction: Current visit: Yes Status: Acute 77-year-old female with complex medical history presenting with obstructive bowel symptoms though ileus cannot be ruled out. She is immunosuppressed and given her symptoms she could be presenting with a viral versus bacterial infection as opposed to the bowel obstruction. She has had nonbilious vomiting diarrhea which makes bowel obstruction a little less likely though she did get some relief from NG tube decompression. Neurologic: We will hold oral pain medications, order STAFF INTERNIST OFFICE BASED ONLY for pain control and breathing Cardiac: Lopressor rate control if needed Respiratory: Continue inhalers Gastrointestinal: NG tube in place the question if this is truly obstruction versus ileus, given her immune suppressed state could be bacterial versus viral gastroenteritis Renal: Chow catheter placed for urinary retention and to watch urine output creatinine 2.0, will continue her cyclosporine and just clamp her NG tube, given stress dose steroids Nutrition//Fluids/electrolytes: N.p.o. until his return of bowel function, started on normal saline we will replace her magnesium Hematology/Oncology: No current issues Musculoskeletal: Patient with kyphosis and scoliosis, and chronic pain. STAFF INTERNIST OFFICE BASED ONLY ordered for pain control Pyschiatric: No issues currently Infectious Disease: Workup for bacterial versus viral infection blood, urine, and sputum. Disposition: Transferred to ICU will consult with medicine, and her transplant information specialist, and palliative care. History of Present Illness Chief Complaint: Abdominal pain with nausea, vomiting, and diarrhea Narrative: 77 y/o female with history of renal transplant presents with less then 12 hours of abdominal pain with associated n/v/d. Work in ER by CT showed ileus vs obstruction, no transition point seen. Surgery was consulted for admission Review of Systems Review of Systems All systems reviewed & are unremarkable except as noted in HPI and below Constitutional Reports body ache(s), Denies chills, Denies difficulty sleeping, Denies fatigue , Denies fever(s), Reports malaise and Reports poor appetite ENT Denies dysphagia Gastrointestinal Reports abdominal pain, Denies melena, Denies bloating, Denies coffee ground emesis, Denies dysphagia, Denies heartburn, Reports diarrhea, Reports nausea and Reports vomiting Genitourinary Denies hematuria, Denies urinary frequency, Denies nocturia, Denies flank pain and Denies urinary urgency Musculoskeletal Reports back pain and Reports deformity (kyphoscoliosis) Endocrine Denies fatigue Hematologic/Lymphatic Denies easy bleeding, Denies easy bruising and Reports other (immunosuppressed) PFSH Gastroesophageal reflux disease (Chronic) Hypertension (Chronic) Urinary incontinence (Chronic) Dysuria (Chronic) Spinal stenosis (Chronic) Low back pain (Chronic) Edema, lower extremity (Chronic) Osteoarthritis of hip (Chronic) Weakness generalized (Chronic) Vaginitis, atrophic (Chronic) Bacterial urinary infection (Chronic) Hypercholesterolemia (Chronic) Kyphoscoliosis (Chronic) Prolapse of mitral valve (Chronic) Tachycardia (Chronic) Reactive airway disease (Chronic) Rhinitis, allergic (Chronic) Bowel obstruction (Suspected 08/08/14) Polycystic kidney (Chronic) Abdominal pain (Acute) Diarrhea (Acute) Chronic pain (Acute) CHF (congestive heart failure) (Chronic) Chronic renal failure, stage 3 (moderate) (Chronic) Family History Mother No problems noted. History of Surgical Procedure (Chronic) History of hysterectomy (Resolved) Living-donor kidney transplant recipient (Chronic) Extraction of cataract (12/14/15) Social History adopted: No caregiver/support person: Yes household members: none housing: house lives independently: Yes (has caregivers there daily, Shonna with her at time of appointment) current occupational status: retired pets and animals: No Smoking/Tobacco Use Status: Never Meds Home Medications Medication Instructions Recorded Confirmed Type ascorbic acid (vitamin C) 1,000 mg PO DAILY 09/18/12 05/27/18 History docusate sodium [Colace] 100 mg PO BID tab-cap 09/18/12 05/27/18 History cholecalciferol (vitamin D3) 2,000 unit PO DAILY 12/25/12 05/27/18 History [Vitamin D3] sennosides-docusate sodium 2 tab PO BID #120 tab 12/05/13 05/27/18 Rx [MATHIEU-COLACE] cyclosporine 75 mg PO BID #540 cap 01/09/14 05/27/18 History prednisone 5 mg PO DAILY #90 tab 01/17/16 05/27/18 History nitroglycerin [Nitrostat] 0.4 mg SUBLINGUAL PRN #25 tab 10/16/16 05/27/18 History polyethylene glycol 3350(bulk) 17 gm PO DAILY PRN #1 canister 01/08/17 05/27/18 History fluticasone 1 spray NS BID #3 units 06/04/17 05/27/18 Rx omega-3 fatty acids-fish oil 1 ea PO DAILY cap 06/04/17 05/27/18 History carvedilol [Coreg] 50 mg PO BID #360 tab 07/09/17 05/27/18 Rx cimetidine 400 mg PO BID 07/31/17 05/27/18 History Oxygen l NS DAILY #2 10/19/17 05/24/18 Clinic ondansetron 4 mg SUBLINGUAL Q6H PRN #15 tabef 10/19/17 05/27/18 History atorvastatin [Lipitor] 5 mg PO DAILY #45 tab 10/25/17 05/27/18 Rx aspirin 81 mg PO DAILY #100 tab 01/14/18 05/27/18 Rx benzonatate [Tessalon Perles] 100 mg PO TID #90 tab-cap 02/04/18 05/27/18 Rx albuterol sulfate [ProAir HFA] 2 puff INHALATION Q4H PRN #1 02/14/18 05/27/18 Rx inhaler magnesium gluconate 500 mg PO BID@0600,1800 #60 tab 03/04/18 05/27/18 Rx lifitegrast 5 % eye drops in a 1 drp OP BID #5 each 03/13/18 05/27/18 Rx dropperette doxycycline hyclate 100 mg tablet 100 mg PO BID #28 tab 03/28/18 05/27/18 Rx metolazone 2.5 mg tablet 2.5 mg PO ONCE PRN #10 tab MDD 2.5 04/10/18 05/27/18 Rx mg methadone 5 mg tablet 5 mg PO TID #90 tab-cap MDD 15 04/15/18 05/27/18 Rx oxygen conserver See Label Instructions .ROUTE 04/19/18 05/24/18 Rx .COMPLEX #1 allopurinol 100 mg tablet 100 mg PO BID 04/30/18 05/27/18 History baclofen 10 mg tablet 10 mg PO TID 04/30/18 05/27/18 History furosemide 40 mg tablet 40 mg PO BID #60 tab 04/30/18 05/27/18 Rx morphine 10 mg/5 mL oral solution 2 mg PO Q1H PRN #500 ml MDD 24mg 05/17/1809/09 Rx Allergies Allergy/AdvReac Type Severity Reaction Status Date / Time thiopental sodium Allergy Intermediate Wheezing Unverified 05/27/18 01:38 [From Pentothal] Penicillins Allergy Unknown ITCHING Unverified 05/27/18 01:38 diclofenac gel AdvReac Intermediate nausea, Uncoded 05/27/18 01:38 sweats, insomnia Exam Const General: cooperative, in distress mild, anxious, frail appearing and ill appearing Nutritional Appearance: well nourished and overweight Orientation: alert, awake and oriented x3 HENMT Head: normal to inspection, normocephalic and atraumatic Ears: hearing grossly normal bilaterally General nose exam: external nose normal Face and sinus: normal facial exam Mouth: moist mucous membranes abnormal (dry) Throat: posterior oropharynx normal Eyes General: appearance normal, both eyes and all related structures Periorbital: periorbital findings normal Sclera: sclerae normal Pupils: PERRL EOM: EOM intact bilaterally Neck Neck: normal visual inspection, trachea midline and supple Chest Chest: abnormal inspection of the chest kyphotic and scoliotic Resp Effort & Inspection: labored Auscultation: diminished lung sounds bilaterally and rhonchi lower bilaterally Cardio Jugular venous pressure: no JVD Rate: regular rate and tachycardic Rhythm: regular rhythm Heart Sounds: S1 normal and S2 normal GI Inspection: distended (minimally distended) and visible herniation (incisional epigastric hernia) Palpation: not firm, no guarding, hernia and tender (diffuse tenderness to palpation) Rectal Exam - female: deferred Skin General skin exam: no rashes or lesions noted and turgor normal Extrem Left upper extremity: hand (swelling left hand, ingrown fingernail second finger ) Results Imaging Chest x-ray: image reviewed Abdomen CT scan report/results: image reviewed CT scan - pelvis: image reviewed Imaging Studies: CT Abdomen and Pelvis Without Intravenous Contrast EXAM DATE/TIME: 05/27/2018 12:37 AM CLINICAL HISTORY: 77 years old, female; Pain and signs and symptoms; Vomiting; Abdominal pain; Generalized; Prior surgery; Surgery date: 6+ months; Surgery type: Implanted medical grade shoemaker TECHNIQUE: Axial computed tomography images of the abdomen and pelvis without intravenous contrast. Coronal and sagittal reformatted images were created and reviewed. COMPARISON: CT ABD PELVIS WO CONTRAST 01/19/2018 11:30 AM FINDINGS: Tubes, catheters and devices: A spinal catheter is seen in the posterior canal. Tip is not visualized on this study. Battery pack is present in the left anterior pelvic wall. Lower thorax: Extensive bronchiectasis and peribronchial thickening consistent with bronchitis. Mild bibasilar consolidations and small right pleural effusion. Lung findings appear similar to the prior study. ABDOMEN: Liver: Stable numerous hepatic cysts. Gallbladder and bile ducts: Cholecystectomy. Again noted is stable common duct dilatation measuring 1.3 cm at the pancreatic head. At the same level, duct size is unchanged from the prior study. Pancreas: Unremarkable. Spleen: Normal. No splenomegaly. Adrenals: Normal. No mass. Kidneys and ureters: Renal transplant in the right pelvis. No stones or hydronephrosis. [place] kidneys are not visualized. Stomach and bowel: Colonic diverticulosis. Fluid levels are seen in the ascending colon There are mildly dilated loops of small bowel throughout the abdomen without obvious transition zone. Findings favor ileus but cannot exclude partial obstruction. Appendix: Normal appendix. PELVIS: Bladder: Unremarkable as visualized. Reproductive: Hysterectomy. ABDOMEN and PELVIS: Intraperitoneal space: Normal. No free air. No significant fluid collection. Bones/joints: Degenerative changes throughout lumbar spine. There is severe lumbar levoscoliosis. Soft tissues: Umbilical hernia ventral hernia repair with mesh. Vasculature: Normal. No abdominal aortic aneurysm. Lymph nodes: Normal. No enlarged lymph nodes. Other findings: Again noted stable calcified 2.7 cm finding in the right pelvis. IMPRESSION: Mildly dilated small bowel loops throughout the mid abdomen without transition zone. Favor ileus but cannot exclude partial obstruction. Cholecystectomy and stable mild biliary dilatation, likely related to post surgical change. Colonic diverticulosis. Mild bibasilar consolidations, small right pleural effusion and findings suggestive of bronchitis. 05/27/2018 3:51 AM CLINICAL HISTORY: 77 years old, female; Device placement; Ng tube TECHNIQUE: XR of the chest, 1 view. COMPARISON: CR PORTABLE CHEST ONE VIEW 02/19/2018 6:30 AM FINDINGS: Tubes, catheters and devices: An enteric tube is seen in place. This can be visualized to the mid esophagus but is not well seen below this level. Lungs: There is coarse thickening of pulmonary interstitium unchanged from prior studies related to patient's bronchiectasis and chronic bronchitis. No new infiltrate. Pleural space: Unremarkable. No pleural effusion. No pneumothorax. Heart/Mediastinum: Atherosclerotic disease. Bones/joints: Degenerative changes in the shoulders and spine. IMPRESSION: An enteric tube is seen in place. This can be visualized to the mid esophagus but is not well seen below this level. Suggest confirmation with chest x-ray centered on the upper abdomen. Chronic interstitial prominence related to patient's bronchiectasis and chronic bronchitis. Labs : 05/27/18 09:22 05/27/18 09:22 Laboratory Results - last 24 hr 05/27/18 05/27/18 01:40 01:40 WBC 4.72 RBC 4.33 Hgb 12.3 Hct 40.4 MCV 93.3 MCH 28.4 MCHC 30.4 L RDW 14.0 Plt Count 183 MPV 9.9 Immature Gran % 0.0 Neutrophils % 88.8 Lymphocytes % 4.0 Monocytes % 4.7 Eosinophils % 2.3 Basophils % 0.2 Absolute Neutrophils 4.19 Absolute Lymphocytes 0.19 L Absolute Monocytes 0.22 Absolute Eosinophils 0.11 Absolute Basophils 0.01 Sodium 138 Potassium 4.1 Chloride 97 L Carbon Dioxide 32.6 H Anion Gap 8.4 BUN 52 H Creatinine 2.09 H Estimated GFR/1.73 m2 22.84 Glucose 167 H Calcium 9.3 Total Bilirubin 0.7 AST 12 L ALT 11 L Alkaline Phosphatase 75 Troponin I < 0.02 Total Protein 6.6 Albumin 2.6 L Lipase 66 L Last Vital Signs Temp 38.2 C H 05/27/18 04:59 Pulse 87 05/27/18 07:15 Resp 18 05/27/18 07:02 BP 134/74 05/27/18 07:02 Pulse Ox 94 L 05/27/18 07:02
--- NOTE | 2018-05-27 08:30 | HOME_ITS ---
Home Oxygen Equipment: Home care [employer] Home oxygen qualifier: At rest Qualifying SaO2: Date: 05/27/18 LPM: 2 Useage (hours/day) 24 Portability: Comments: Wears 2.5 at home for COPD
--- NOTE | 2018-05-27 09:47 | PDOC.CMIN ---
- If Service Date Differs Date of service: 05/27/18 Time of Service: 09:47 Care Management Initial Assess REASON FOR HOSPITALIZATION:: SBO PAST MEDICAL HISTORY/PAST SURGICAL HISTORY:: Recurrent prior episodes of SBO, Polycystic kidney disease, S/P bilateral nephrectomies, Renal transplant, GERD, Gout, COPD, Chronic pain on methadone and liquid morphine, Biventricular CHF, Mitral regurgitation, Pulmonary hypertension, Bronchiectasis, Chronic generalized weakness, OA, Hypertension, Chronic urinary incontinence, Spinal stenosis in cervical and lumbar regions, Chronic lower extremity edema, Abdominal hernia surgeries, Perforated diverticular bilaterally for polycystic kidney disease, Renal transplant, Lysis of adhesions, Tubal ligation PREVIOUS FUNCTIONAL STATUS/SOCIAL/FAMILY SUPPORTS:: Renay resides alone in [place]. She states that she has four children, one daughter and 3 sons. Renay states that her daughter resides locally and is supportive. Renay has private caregivers for four hours/day. Renay states that she has a neighbor who does the cooking for her and is very supportive. Renay no longer drives and states that she depends on her caregivers for support with this. [facility] for nursing 2 times a week. CURRENT FUNCTIONAL STATUS:: Renay is lying in bed she has an NG tube in place. She is currently being assessed by medical provider. Renay will transition to the ICU level of care. SHe is currenly receiving a PIPE FOREMAN with morphine for pain control. ADVANCE DIRECTIVES:: Living will on file Has patient been provided with information about the portal?: No Did the patient sign up for the portal?: No (Will review with pt) CODE STATUS:: DNR/DNI INSURANCE COVERAGE / FINANCIAL ISSUES:: PAMELA Del Castillo GBA CURRENT HOME/COMMUNITY SERVICES/EQUIPMENT:: Currently Renay has caregivers for 4 hours/day which she pays for privately. Renay has home health PT recently discharged from nursing services. Renay has a 4WW, W/C, and handicap bathroom. Home oxygen through [employer]. [facility] for group home 2 x week. Palliative with . PRIMARY CARE PHYSICIAN:: Kesha Serrano POTENTIAL DISCHARGE NEEDS:: Primary care follow up appointment scheduled prior to discharge. PATIENT/FAMILY EDUCATION NEEDS:: Discharge education, limitations, follow up plan of care. Ask me three discussion and self management. ANTICIPATED BARRIERS TO DISCHARGE:: Disposition pending TRANSPORTATION:: Pending disposition PLAN:: eRnay is being transfered to the ICU for increase level of care. She will continue with pain management,antibiotics, and IV steroids. Discharge disposition to be determined. CM to continue to provide support to patient and care team ongoing discharge planning and disposition.
[2018-05-27 09:54] LABS: Abs Immature Grans 0.01 k/cumm (0.0-0.09); Absolute Basophil Count 0.01 k/cumm (0.0-0.2); Absolute Eosinophil Count 0.06 k/cumm (0.0-0.7); Absolute Lymphocyte Count 0.48 k/cumm (1.2-3.4); Absolute Monocyte Count 0.23 k/cumm (0.11-0.7); Basophils % 0.1; Eosinophils % 0.8; HCT 36.1 % (36.0-46.0); HGB 10.8 g/dL (12.0-15.5); Immature Grans % 0.1; Lymphocytes % 6.6; Mean Corp. HGB Concentration 29.9 g/dL (32.0-36.0); Mean Corpuscular Hemoglobin 28.2 pg (27.0-33.0); Mean Corpuscular Volume 94.3 fL (80-95); Mean Platelet Volume 10.3 fL (8.0-11.0); Monocytes % 3.1; Neutrophils % 89.3; Platelet Count 183 x1000/uL (130-400); RBC 3.83 m/cumm (4.00-5.20); White Blood Cell Count 7.32 k/cumm (4.4-10.8)
[2018-05-27 09:55] LABS: Absolute Neutrophil Count 6.54 k/cumm (1.2-6.7)
[2018-05-27 10:01] LABS: Anion Gap 5.6 mmol/L (3-11); BUN 49 mg/dL (7-18); CO2 34.4 mmol/L (21.0-32.0); Calcium 8.9 mg/dL (8.5-10.1); Chloride 99 mmol/L (98-107); Glucose 118 mg/dL (70-100); Magnesium 1.3 mg/dL (1.8-2.4); PHOSPHORUS 3.7 mg/dL (2.6-4.7); Sodium 139 mmol/L (136-145)
[2018-05-27 10:14] LABS: Bilirubin Negative (Negative); Blood Negative (Negative); Clarity Clear; Glucose Negative (Negative); Ketones Negative (Negative); Leukocyte Esterase Negative (Negative); Nitrite Negative (Negative); Urobilinogen 0.2 EU/dL (Up TO 0.2)
[2018-05-27] MEDS: VANCOMYCIN 1,000 MG in Normal Saline 250 ML 250 MG IVPB (10:45)
[2018-05-27] MEDS: MAGNESIUM SULFATE 4 GM/100 ML BAG IVPB (10:45)
[2018-05-27] MEDS: Metoprolol 5 MG/5 ML VIAL 2.5 MG IVP ×2 (10:54→17:20)
--- NOTE | 2018-05-27 11:28 | INITIAL_ITS ---
- If Service Date Differs Date of service: 05/27/18 Time of Service: 09:47 Care Management Initial Assess REASON FOR HOSPITALIZATION:: SBO PAST MEDICAL HISTORY/PAST SURGICAL HISTORY:: Recurrent prior episodes of SBO, Polycystic kidney disease, S/P bilateral nephrectomies, Renal transplant, GERD, Gout, COPD, Chronic pain on methadone and liquid morphine, Biventricular CHF, Mitral regurgitation, Pulmonary hypertension, Bronchiectasis, Chronic generalized weakness, OA, Hypertension, Chronic urinary incontinence, Spinal stenosis in cervical and lumbar regions, Chronic lower extremity edema, Abdominal hernia surgeries, Perforated diverticular bilaterally for polycystic kidney disease, Renal transplant, Lysis of adhesions, Tubal ligation PREVIOUS FUNCTIONAL STATUS/SOCIAL/FAMILY SUPPORTS:: Renay resides alone in [place]. She states that she has four children, one daughter and 3 sons. Renay states that her daughter resides locally and is supportive. Renay has private caregivers for four hours/day. Renay states that she has a neighbor who does the cooking for her and is very supportive. Renay no longer drives and states that she depends on her caregivers for support with this. [facility] for nursing 2 times a week. CURRENT FUNCTIONAL STATUS:: Renay is lying in bed she has an NG tube in place. She is currently being assessed by medical provider. Renay will transition to the ICU level of care. SHe is currenly receiving a MIXING HOUSE OPERATOR with morphine for pain control. ADVANCE DIRECTIVES:: Living will on file Has patient been provided with information about the portal?: No Did the patient sign up for the portal?: No (Will review with pt) CODE STATUS:: DNR/DNI INSURANCE COVERAGE / FINANCIAL ISSUES:: PAMELA Del Castillo GBA CURRENT HOME/COMMUNITY SERVICES/EQUIPMENT:: Currently Renay has caregivers for 4 hours/day which she pays for privately. Renay has home health PT recently discharged from nursing services. Renay has a 4WW, W/C, and handicap bathroom. Home oxygen through [employer]. [facility] for fci 2 x week. Palliative with . PRIMARY CARE PHYSICIAN:: Kesha Serrano POTENTIAL DISCHARGE NEEDS:: Primary care follow up appointment scheduled prior to discharge. PATIENT/FAMILY EDUCATION NEEDS:: Discharge education, limitations, follow up plan of care. Ask me three discussion and self management. ANTICIPATED BARRIERS TO DISCHARGE:: Disposition pending TRANSPORTATION:: Pending disposition PLAN:: Renay is being transfered to the ICU for increase level of care. She will continue with pain management,antibiotics, and IV steroids. Discharge disposition to be determined. CM to continue to provide support to patient and care team ongoing discharge planning and disposition.
--- NOTE | 2018-05-27 12:34 | NUTRITION ---
This RN gave nursing report to Neisha Russell RN prior to transfer to ICU. All questions answered. Patient made aware of transfer orders to ICU and agreeable to transfer. Patient brought to ICU with skaggs, NG tube, supplemental oxygen, FISHING VESSEL MATE pump, and NS, vanco, and mag sulfate running into #20LAC. All personal belongings were brought to new room. PRASAD Bautista and PRASAD Garcias assisted with physical transfer.
--- NOTE | 2018-05-27 14:33 | W.MEDCONSULT ---
Date of service: 05/27/18 Time of Service: 11:30 Assessment and Plan (1) CAP (community acquired pneumonia): Current visit: Yes Status: Acute Discussed with transplant ID at [facility] [place] (Dr Galilea Delgadillo) - as the patient has a h/o MAC and sensitivities as well as history of pseudomonas, the recommendation was to start the patient on doxycycline/cefepime. On stress dose steroids. (2) Bowel obstruction: Current visit: Yes Status: Acute The big issue is absorption of immunosuppressants and inability to adequately measure the levels of cyclosporine in a timely manner. I discussed the case with both Dr Grajeda and Dr Newman - the patient requires transfer to [facility] [place] where the levels can be adequately monitored and services of transplant ID are available. Additionally, Dr Grajeda is not 100 % sure that the symptoms are due to SBO - colitis could be the cause of diarrhea - CMV colitis would need to be ruled out by colonoscopy, if that's the case, per transplant ID. (3) Kidney transplant status, cadaveric: Current visit: No Status: Acute Read discussion above. Requires transfer to a tertiary care facility where cyclosporine levels could be monitored. 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 Will avoid aminoglycosides or floroquinolones as the patient's MAC's sensitivities are not known at this time. MAC was previously considered resolved. I ordered a sputum culture. (5) Vasovagal near syncope: Current visit: Yes Status: Acute (6) SVT (supraventricular tachycardia): Current visit: Yes Status: Resolved 12 beats, nonsustained, in setting of hypomagnesmia. Repleted. Requires telemonitoring. (7) Hypomagnesemia: Current visit: Yes Status: Acute replete and monitor. History of Present Illness Chief Complaint: nausea, vomiting, abdominal pain, diarrhea Narrative: Ms Kent is a 77 year female with PMHx of kidney transplant (history of polycystic kidney disease), prior episodes of SBO, MAC (no longer on therapy) and nocardia pulmonary infections, among other multiple medical problems, who was admitted overnight to the general surgical service for a suspected small bowel obstruction. The patient states that on Sunday, she had a near syncopal episode while having a bowel movement (mushy), but for the remainder of the day, felt great. On Sunday, she felt very tired all day and then became nauseated and started vomiting (at least 5 times, no blood). She is not sure if she was passing flatus yesterday. Her last bowel movement was actually today (Sunday), soft, not diarrhea. She denies abdominal pain, but does think her abdomen feels full. She had epigastric discomfort for several weeks now that she notices when she sits. Per her bond underwriter, the patient has been having more cough than her normal. The cough is chronically productive with green sputum. The patient is surprised to hear she has a fever. She is wondering if her 3rd digit LUE is the culprit (she has an ingrown nail in that finger and she noticed more swelling in that arm). She was supposed to see a clinical data manager for it this week. At this time, the patient has an NG tube, no longer nauseated. Consults Consult date: 05/27/18 Requesting physician: Shawn Grajeda Review of Systems Review of Systems 12 systems reviewed. Pertinent positives and negatives are as per HPI. Additionally, the patient reports slight dysuria and that it was difficult for her to urinate. She was retaining >500 cc, and skaggs catheter was inserted. PFSH Gastroesophageal reflux disease (Chronic) Hypertension (Chronic) Urinary incontinence (Chronic) Dysuria (Chronic) Spinal stenosis (Chronic) Low back pain (Chronic) Edema, lower extremity (Chronic) Osteoarthritis of hip (Chronic) Weakness generalized (Chronic) Vaginitis, atrophic (Chronic) Bacterial urinary infection (Chronic) Hypercholesterolemia (Chronic) Kyphoscoliosis (Chronic) Prolapse of mitral valve (Chronic) Tachycardia (Chronic) Reactive airway disease (Chronic) Rhinitis, allergic (Chronic) Bowel obstruction (Suspected 08/08/14) Polycystic kidney (Chronic) Abdominal pain (Acute) Diarrhea (Acute) Chronic pain (Acute) CHF (congestive heart failure) (Chronic) Chronic renal failure, stage 3 (moderate) (Chronic) Family History Mother No problems noted. History of Surgical Procedure (Chronic) History of hysterectomy (Resolved) History of incisional hernia repair (Resolved) Living-donor kidney transplant recipient (Chronic) Extraction of cataract (12/14/15) Social History adopted: No caregiver/support person: Yes household members: none housing: house lives independently: Yes (has caregivers there daily, Shonna with her at time of appointment) current occupational status: retired pets and animals: No Smoking/Tobacco Use Status: Never Exam Narrative Exam Narrative: General: Elderly female, laying in bed with NG tube in place, wearing O2 at 2.5 L, does not appear to be in acute distress, making jokes Neurological: A&Ox3, no focal deficits Psychiatric: appropriate speech pattern/content Skin: 3rd digit LUE is indeed swollen with some edema in L hand in general. No erythema/purulent collection/discharge HEENT: EOMI, MMM, no JVD Cardiovascular: RRR, no m/r/g Lungs: coarse breath sounds B. Gastrointestinal: NGT in place; abdomen with very hypoactive bowel sounds, distended, nontender Genitourinary: skaggs in place Extremities: read L hand exam above; 1+ BLE edema Results Last Vital Signs Temp 36.5 C 05/27/18 11:40 Pulse 76 05/27/18 13:00 Resp 21 05/27/18 13:00 BP 101/53 L 05/27/18 13:00 Pulse Ox 95 05/27/18 13:00 Labs : 05/27/18 09:22 05/27/18 09:22 Laboratory Results - last 24 hr 05/27/18 05/27/18 05/27/18 01:40 01:40 09:22 WBC 4.72 RBC 4.33 Hgb 12.3 Hct 40.4 MCV 93.3 MCH 28.4 MCHC 30.4 L RDW 14.0 Plt Count 183 MPV 9.9 Immature Gran % 0.0 Neutrophils % 88.8 Lymphocytes % 4.0 Monocytes % 4.7 Eosinophils % 2.3 Basophils % 0.2 Absolute Neutrophils 4.19 Absolute Lymphocytes 0.19 L Absolute Monocytes 0.22 Absolute Eosinophils 0.11 Absolute Basophils 0.01 Sodium 138 139 Potassium 4.1 4.0 Chloride 97 L 99 Carbon Dioxide 32.6 H 34.4 H Anion Gap 8.4 5.6 BUN 52 H 49 H Creatinine 2.09 H 1.90 H Estimated GFR/1.73 m2 22.84 25.50 Glucose 167 H 118 H Calcium 9.3 8.9 Phosphorus 3.7 Magnesium 1.3 L Total Bilirubin 0.7 AST 12 L ALT 11 L Alkaline Phosphatase 75 Troponin I < 0.02 Total Protein 6.6 Albumin 2.6 L Lipase 66 L Urine Color Urine Clarity Urine pH Ur Specific [place] Urine Protein Urine Ketones Urine Blood Urine Nitrite Urine Bilirubin Urine Urobilinogen Ur Leukocyte Esterase Urine Glucose 05/27/18 05/27/18 09:22 09:45 WBC 7.32 D RBC 3.83 L Hgb 10.8 L Hct 36.1 MCV 94.3 MCH 28.2 MCHC 29.9 L RDW 14.0 Plt Count 183 MPV 10.3 Immature Gran % 0.1 Neutrophils % 89.3 Lymphocytes % 6.6 Monocytes % 3.1 Eosinophils % 0.8 Basophils % 0.1 Absolute Neutrophils 6.54 Absolute Lymphocytes 0.48 L Absolute Monocytes 0.23 Absolute Eosinophils 0.06 Absolute Basophils 0.01 Sodium Potassium Chloride Carbon Dioxide Anion Gap BUN Creatinine Estimated GFR/1.73 m2 Glucose Calcium Phosphorus Magnesium Total Bilirubin AST ALT Alkaline Phosphatase Troponin I Total Protein Albumin Lipase Urine Color Yellow Urine Clarity Clear Urine pH 6.0 Ur Specific [place] 1.010 Urine Protein Negative Urine Ketones Negative Urine Blood Negative Urine Nitrite Negative Urine Bilirubin Negative Urine Urobilinogen 0.2 Ur Leukocyte Esterase Negative Urine Glucose Negative CT abdomen/pelvis: Mildly dilated small bowel loops throughout the mid abdomen without transition zone. Favor ileus but cannot exclude partial obstruction. Cholecystectomy and stable mild biliary dilatation, likely related to post surgical change. Colonic diverticulosis. Mild bibasilar consolidations, small right pleural effusion and findings suggestive of bronchitis.
--- NOTE | 2018-05-27 14:37 | MCONE_ITS ---
Date of service: 05/27/18 Time of Service: 11:30 Assessment and Plan (1) CAP (community acquired pneumonia): Current visit: Yes Status: Acute Discussed with [place] [facility] [place] Galilea Delgadillo) - as the patient has a h/o MAC and sensitivities as well as history of pseudomonas, the recommendation was to start the patient on doxycycline/cefepime. On stress dose steroids. (2) Bowel obstruction: Current visit: Yes Status: Acute The big issue is absorption of immunosuppressants and inability to adequately measure the levels of cyclosporine in a timely manner. I discussed the case with both Dr Grajeda and Dr Newman - the patient requires transfer [place] [facility] [place] the levels can be adequately monitored and services of transplant ID are available. Additionally, Dr Grajeda is not 100 % sure that the symptoms are due to SBO - colitis could be the cause of diarrhea - CMV colitis would need to be ruled out by colonoscopy, if that's the case, per transplant ID. (3) Kidney transplant status, cadaveric: Current visit: No Status: Acute Read discussion above. Requires transfer to a tertiary care facility where cyclosporine levels could be monitored. 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 Will avoid aminoglycosides or floroquinolones as the patient's MAC's sensitivities are not known at this time. MAC was previously considered resolved. I ordered a sputum culture. (5) Vasovagal near syncope: Current visit: Yes Status: Acute (6) SVT (supraventricular tachycardia): Current visit: Yes Status: Resolved 12 beats, nonsustained, in setting of hypomagnesmia. Repleted. Requires telemonitoring. (7) Hypomagnesemia: Current visit: Yes Status: Acute replete and monitor. History of Present Illness Chief Complaint: nausea, vomiting, abdominal pain, diarrhea Narrative: Ms Kent is a 77 year female with PMHx of kidney transplant ( history of polycystic kidney disease), prior episodes of SBO, MAC (no longer on therapy) and nocardia pulmonary infections, among other multiple medical problems, who was admitted overnight to the general surgical service for a suspected small bowel obstruction. The patient states that on Sunday, she had a near syncopal episode while having a bowel movement (mushy), but for the remainder of the day, felt great. On Sunday, she felt very tired all day and then became nauseated and started vomiting (at least 5 times, no blood). She is not sure if she was passing flatus yesterday. Her last bowel movement was actually today (Sunday), soft, not diarrhea. She denies abdominal pain, but does think her abdomen feels full. She had epigastric discomfort for several weeks now that she notices when she sits. Per her university intern, the patient has been having more cough than her normal. The cough is chronically productive with green sputum. The patient is surprised to hear she has a fever. She is wondering if her 3rd digit LUE is the culprit (she has an ingrown nail in that finger and she noticed more swelling in that arm). She was supposed to see a cost recorder for it this week. At this time, the patient has an NG tube, no longer nauseated. Consults Consult date: 05/27/18 Requesting physician: Shawn Grajeda Review of Systems Review of Systems 12 systems reviewed. Pertinent positives and negatives are as per HPI. Additionally, the patient reports slight dysuria and that it was difficult for her to urinate. She was retaining >500 cc, and skaggs catheter was inserted. PFSH Gastroesophageal reflux disease (Chronic) Hypertension (Chronic) Urinary incontinence (Chronic) Dysuria (Chronic) Spinal stenosis (Chronic) Low back pain (Chronic) Edema, lower extremity (Chronic) Osteoarthritis of hip (Chronic) Weakness generalized (Chronic) Vaginitis, atrophic (Chronic) Bacterial urinary infection (Chronic) Hypercholesterolemia (Chronic) Kyphoscoliosis (Chronic) Prolapse of mitral valve (Chronic) Tachycardia (Chronic) Reactive airway disease (Chronic) Rhinitis, allergic (Chronic) Bowel obstruction (Suspected 08/08/14) Polycystic kidney (Chronic) Abdominal pain (Acute) Diarrhea (Acute) Chronic pain (Acute) CHF (congestive heart failure) (Chronic) Chronic renal failure, stage 3 (moderate) (Chronic) Family History Mother No problems noted. History of Surgical Procedure (Chronic) History of hysterectomy (Resolved) History of incisional hernia repair (Resolved) Living-donor kidney transplant recipient (Chronic) Extraction of cataract (12/14/15) Social History adopted: No caregiver/support person: Yes household members: none housing: house lives independently: Yes (has caregivers there daily, Shonna with her at time of appointment) current occupational status: retired pets and animals: No Smoking/Tobacco Use Status: Never Exam Narrative Exam Narrative: General: Elderly female, laying in bed with NG tube in place, wearing O2 at 2.5 L, does not appear to be in acute distress, making jokes Neurological: A&Ox3, no focal deficits Psychiatric: appropriate speech pattern/content Skin: 3rd digit LUE is indeed swollen with some edema in L hand in general. No erythema/purulent collection/discharge HEENT: EOMI, MMM, no JVD Cardiovascular: RRR, no m/r/g Lungs: coarse breath sounds B. Gastrointestinal: NGT in place; abdomen with very hypoactive bowel sounds, distended, nontender Genitourinary: skaggs in place Extremities: read L hand exam above; 1+ BLE edema Results Last Vital Signs Temp 36.5 C 05/27/18 11:40 Pulse 76 05/27/18 13:00 Resp 21 05/27/18 13:00 BP 101/53 L 05/27/18 13:00 Pulse Ox 95 05/27/18 13:00 Labs : 05/27/18 09:22 05/27/18 09:22 Laboratory Results - last 24 hr 05/27/18 05/27/18 05/27/18 01:40 01:40 09:22 WBC 4.72 RBC 4.33 Hgb 12.3 Hct 40.4 MCV 93.3 MCH 28.4 MCHC 30.4 L RDW 14.0 Plt Count 183 MPV 9.9 Immature Gran % 0.0 Neutrophils % 88.8 Lymphocytes % 4.0 Monocytes % 4.7 Eosinophils % 2.3 Basophils % 0.2 Absolute Neutrophils 4.19 Absolute Lymphocytes 0.19 L Absolute Monocytes 0.22 Absolute Eosinophils 0.11 Absolute Basophils 0.01 Sodium 138 139 Potassium 4.1 4.0 Chloride 97 L 99 Carbon Dioxide 32.6 H 34.4 H Anion Gap 8.4 5.6 BUN 52 H 49 H Creatinine 2.09 H 1.90 H Estimated GFR/1.73 m2 22.84 25.50 Glucose 167 H 118 H Calcium 9.3 8.9 Phosphorus 3.7 Magnesium 1.3 L Total Bilirubin 0.7 AST 12 L ALT 11 L Alkaline Phosphatase 75 Troponin I < 0.02 Total Protein 6.6 Albumin 2.6 L Lipase 66 L Urine Color Urine Clarity Urine pH Ur Specific [place] Urine Protein Urine Ketones Urine Blood Urine Nitrite Urine Bilirubin Urine Urobilinogen Ur Leukocyte Esterase Urine Glucose 05/27/18 05/27/18 09:22 09:45 WBC 7.32 D RBC 3.83 L Hgb 10.8 L Hct 36.1 MCV 94.3 MCH 28.2 MCHC 29.9 L RDW 14.0 Plt Count 183 MPV 10.3 Immature Gran % 0.1 Neutrophils % 89.3 Lymphocytes % 6.6 Monocytes % 3.1 Eosinophils % 0.8 Basophils % 0.1 Absolute Neutrophils 6.54 Absolute Lymphocytes 0.48 L Absolute Monocytes 0.23 Absolute Eosinophils 0.06 Absolute Basophils 0.01 Sodium Potassium Chloride Carbon Dioxide Anion Gap BUN Creatinine Estimated GFR/1.73 m2 Glucose Calcium Phosphorus Magnesium Total Bilirubin AST ALT Alkaline Phosphatase Troponin I Total Protein Albumin Lipase Urine Color Yellow Urine Clarity Clear Urine pH 6.0 Ur Specific [place] 1.010 Urine Protein Negative Urine Ketones Negative Urine Blood Negative Urine Nitrite Negative Urine Bilirubin Negative Urine Urobilinogen 0.2 Ur Leukocyte Esterase Negative Urine Glucose Negative CT abdomen/pelvis: Mildly dilated small bowel loops throughout the mid abdomen without transition zone. Favor ileus but cannot exclude partial obstruction. Cholecystectomy and stable mild biliary dilatation, likely related to post surgical change. Colonic diverticulosis. Mild bibasilar consolidations, small right pleural effusion and findings suggestive of bronchitis.
--- NOTE | 2018-05-27 14:39 | PHARADMIT ---
Admission Pharmacy Clinical Review SBO Code Status DNR/DNI Current Weight 72.2 kg Renally Cleared and Narrow Therapeutic Index Meds Crcl ~22.3 mL/min using adjusted body weight current meds okay QTc Value / Action Taken QTc 446 BP Control, Fever BP 126/55 afebrile Electrolytes reviewed mag 1.3 DVT Prophylaxis none Opiate Usage / Scheduled Bowel Regimen Ordered MANAGER OCCUPATIONAL/none Plt/SCr for Heparin / Enoxaparin plt 183 SCr 1.90 INR for Warfarin n/a H/H stable, WBC/Bands h/h 10.8/36.1 Antibiotic appropriateness cefepime and doxycycline Cultures and Sensitivities blood and urine cultures pending Surgical ABX d/c within 24 hr n/a DM control / Insulin Dosing BG 118 n/a Heart Failure (Check EF%) (DIAZ's, B-Block, Diuretics) metoprolol IV to PO Switch n/a Home Meds Reviewed -carvedilol may diminish the bronchodilatory effect of albuterol -cyclosporine may increase the serum concentration of atorvastatin (recommended to avoid use together) -carvedilol may increase the serum concentration of cyclosporine -separate admin of doxycycline and magnesium -multiple [employer] depressants (methadone, morphine, baclofen) -multiple QTc prolonging meds (methadone, ondansetron) Home Meds Not Ordered allopurinol, ascorbic acid, aspirin, atorvastatin, baclofen, benzonatate, carvedilol, cholecalciferol, cimetidine, Docusate, furosemide, magnesium gluconate, methadone, metolazone, omega-3, miralax, prednisone (has hydrocortisone ordered), senna Comments
[2018-05-27] MEDS: CEFEPIME 2 GM in Normal Saline 100 ML IVPB (14:40)
[2018-05-27] MEDS: DOXYCYCLINE 100 MG in Normal Saline 100 ML IVPB (14:45)
[2018-05-27] MEDS: Hydrocortisone SOD SUC. 100 MG VIAL 50 MG IVP (14:46)
--- NOTE | 2018-05-27 14:46 | W.PM.DS.N ---
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 Patient states that at 8:30 PM which was roughly 4 hours prior to arrival she began developing symptoms of recurrent vomiting and weakness. She denies any severe abdominal pain but does admit to mild cramping. She denies any dysuria, chest pain, shortness of breath, numbness tingling or weakness. She denies any significant diarrhea. She denies any hematemesis, hematochezia melena or acholic stool. She denies any recent foreign travel, or other sick contacts. Additionally the patient does admit to some mild weakness. Patient denies any other complaints at this time. Hospital course: Patient was admitted to the ICU due to complex medical issues, complicating her presenting symptoms. admission diagnosis was SBO, but presentation was a little unusual for an SBO. Nonbilious vomiting, nausea, and diarrhea, which could be a gastroenteritis or colitis presentation, particularly due to immune suppression. Treatment was limited due to not being able to measure her CSA levels or providing IV cyclosporine. Consulted hospitalist, for assistance with management of patient. Further consultation with transplant nephrology and transplant ID led to recommendation to transfer to transplant center for appropriate management of her transplant medications while she is treated for her acute and chronic medical needs. Home Meds and New Rx's Prescriptions: No Action lifitegrast [Xiidra] 5 % dropperette 1 drp OP BID Qty: 5 RF: 0 metolazone 2.5 mg tablet 2.5 mg PO ONCE MDD 2.5 mg PRN (Reason: CHF) Qty: 10 RF: 0 ascorbic acid (vitamin C) 1,000 MG tablet 1,000 mg PO DAILY RF: 0 docusate sodium [Colace] 100 MG capsule 100 mg PO BID RF: 0 cholecalciferol (vitamin D3) [Vitamin D3] 2,000 UNIT capsule 2,000 unit PO DAILY RF: 0 cyclosporine 25 MG capsule 75 mg PO BID Qty: 540 RF: 0 prednisone 5 MG tablet 5 mg PO DAILY Qty: 90 RF: 1 nitroglycerin [Nitrostat] 0.4 MG tablet, sublingual 0.4 mg Sublingual PRN Qty: 25 RF: 5 polyethylene glycol 3350(bulk) 12,000 GM powder 17 gm PO DAILY PRNQty: 1 RF: 3 omega-3 fatty acids-fish oil 1 EACH capsule 1 ea PO DAILY RF: 0 fluticasone 16 GM spray,suspension 1 spray NS BID Qty: 3 RF: 3 carvedilol [Coreg] 25 MG tablet 50 mg PO BID Qty: 360 RF: 3 cimetidine 800 MG tablet 400 mg PO BID RF: 0 ondansetron 4 MG tablet,disintegrating 4 mg Sublingual Q6H PRNQty: 15 RF: 2 Oxygen EACH NS DAILY Qty: 2 RF: 1 atorvastatin [Lipitor] 10 MG tablet 5 mg PO DAILY Qty: 45 RF: 2 aspirin 81 MG tablet,chewable 81 mg PO DAILY Qty: 100 RF: 3 benzonatate [Tessalon Perles] 100 MG capsule 100 mg PO TID Qty: 90 RF: 0 albuterol sulfate [ProAir HFA] 8.5 GM HFA aerosol inhaler 2 puff Inhalation Q4H PRN Qty: 1 RF: 11 doxycycline hyclate 100 mg tablet 100 mg PO BID Qty: 28 RF: 0 methadone 5 mg tablet 5 mg PO TID MDD 15 Qty: 90 RF: 0 oxygen conserver See Label Instructions .ROUTE .COMPLEX Qty: 1 RF: 0 furosemide 40 mg tablet 40 mg PO BID Qty: 60 RF: 5 allopurinol 100 mg tablet 100 mg PO BID RF: 0 baclofen 10 mg tablet 10 mg PO TID RF: 0 morphine 10 mg/5 mL solution 2 mg PO Q1H PRN MDD 24mg Qty: 500 RF: 0 sennosides-docusate sodium [MATHIEU-COLACE] 1 TAB tablet 2 tab PO BID Qty: 120 RF: 0 magnesium gluconate 27 mg magnesium (500 mg) Tablet 500 mg PO BID@0600,1800 Qty: 60 RF: 0 Discharge Instructions Activity:: ambulate with assist Diet:: NPO DS: Summary Status at Discharge Functional status at discharge: bed bound Overall status at discharge: patient is not back to baseline Time Spent with Patient Greater than 30 minutes Exam Const General: cooperative, in distress mild, frail appearing and ill appearing Nutritional Appearance: obese centrally obese Orientation: alert, awake and oriented x3 HENMT Head: normal to inspection, normocephalic and atraumatic Ears: hearing grossly normal bilaterally General nose exam: external nose normal Face and sinus: normal facial exam Mouth: oral mucosae normal Throat: posterior oropharynx abnormal (dry, muller) Eyes General: appearance normal, both eyes and all related structures Periorbital: periorbital findings normal Sclera: sclerae normal Pupils: PERRL EOM: EOM intact bilaterally Neck Neck: trachea midline and supple Chest Chest: abnormal inspection of the chest kyphotic and scoliotic Resp Effort & Inspection: able to speak in complete sentences Auscultation: diminished lung sounds bilaterally Cardio Rate: regular rate Rhythm: regular rhythm Heart Sounds: S1 normal and S2 normal GI Inspection: distended (mildly), scar and striae Palpation: hernia other (small midline incisional hernia.) and tender Rectal Exam - female: deferred Skin General skin exam: no rashes or lesions noted, turgor normal and striae Hair: general thinning Neuro General: moves all extremities, no focal motor deficits and CN's II-XI intact bilaterally Extrem General: normal capillary refill and normal exam except as noted Right upper extremity: normal capillary refill Left upper extremity: normal capillary refill and hand Details: swelling Location: of the dorsal hand and of the 2nd digit Location: involving the fingernail (ingrown, TTP) Right lower extremity: edema Left lower extremity: edema DS: Data Vitals/I&O Vitals and I&O: Vital Signs Temperature 36.5 C 05/27/18 11:40 Temperature Source Temporal Artery Scan 05/27/18 11:40 Pulse 77 05/27/18 14:06 Pulse Rhythm Regular 05/27/18 08:00 Pulse 78 05/27/18 14:06 Respiratory Rate 21 05/27/18 14:06 Respiratory Effort 05/27/18 08:00 Respiratory Depth Normal 05/27/18 08:00 Respiratory Pattern Normal 05/27/18 08:00 Blood Pressure 126/55 L 05/27/18 14:06 Blood Pressure Mean 71 05/27/18 14:06 Pulse Oximetry 94 L 05/27/18 14:06 Oxygen Delivery Method Nasal Cannula 05/27/18 11:40 Oxygen Flow Rate 2 05/27/18 11:40 Pain Level 0 05/27/18 07:02 Comment 05/27/18 00:21 Intake & Output 05/26/18 05/27/18 05/27/18 18:59 06:59 18:59 Intake Total 30 30 Output Total 465 / 465 Balance -435 / -435 Weight 72.2 kg 72.2 kg Intake: IV Output: Urine 465 / 465 Other: Urine Color Light Chantelle Urine Appearance Clear Comment Chow inserted without trauma. 10cc water used to inflate balloon. Stool Size Copious Small Stool Characteristics Liquid Soft Brown Brown Muller Emesis Description Retching Labs on day of discharge: Labs from last 24 hours 05/27/18 05/27/18 05/27/18 Unknown 11:49 09:45 WBC RBC Hgb Hct MCV MCH MCHC RDW Plt Count MPV Immature Gran % Neutrophils % Lymphocytes % Monocytes % Eosinophils % Basophils % Absolute Neutrophils Absolute Lymphocytes Absolute Monocytes Absolute Eosinophils Absolute Basophils Sodium Potassium Chloride Carbon Dioxide Anion Gap BUN Creatinine Estimated GFR/1.73 m2 Glucose Calcium Phosphorus Magnesium Total Bilirubin AST ALT Alkaline Phosphatase Troponin I Total Protein Albumin Lipase Urine Color Yellow Urine Clarity Clear Urine pH 6.0 Ur Specific [place] 1.010 Urine Protein Negative Urine Ketones Negative Urine Blood Negative Urine Nitrite Negative Urine Bilirubin Negative Urine Urobilinogen 0.2 Ur Leukocyte Esterase Negative Urine Glucose Negative Legionella Source Pending Legionella Reprt Status Pending Legionella Final Result Pending Ur Strep pneumoniae Ag Pending AFB Source Pending AFB Culture Final Res Pending AFB Report Status Pending AFB Smear (Ref Lab) Pending 05/27/18 05/27/18 05/27/18 09:22 09:22 01:40 WBC 7.32 D 4.72 RBC 3.83 L 4.33 Hgb 10.8 L 12.3 Hct 36.1 40.4 MCV 94.3 93.3 MCH 28.2 28.4 MCHC 29.9 L 30.4 L RDW 14.0 14.0 Plt Count 183 183 MPV 10.3 9.9 Immature Gran % 0.1 0.0 Neutrophils % 89.3 88.8 Lymphocytes % 6.6 4.0 Monocytes % 3.1 4.7 Eosinophils % 0.8 2.3 Basophils % 0.1 0.2 Absolute Neutrophils 6.54 4.19 Absolute Lymphocytes 0.48 L 0.19 L Absolute Monocytes 0.23 0.22 Absolute Eosinophils 0.06 0.11 Absolute Basophils 0.01 0.01 Sodium 139 Potassium 4.0 Chloride 99 Carbon Dioxide 34.4 H Anion Gap 5.6 BUN 49 H Creatinine 1.90 H Estimated GFR/1.73 m2 25.50 Glucose 118 H Calcium 8.9 Phosphorus 3.7 Magnesium 1.3 L Total Bilirubin AST ALT Alkaline Phosphatase Troponin I Total Protein Albumin Lipase Urine Color Urine Clarity Urine pH Ur Specific [place] Urine Protein Urine Ketones Urine Blood Urine Nitrite Urine Bilirubin Urine Urobilinogen Ur Leukocyte Esterase Urine Glucose Legionella Source Legionella Reprt Status Legionella Final Result Ur Strep pneumoniae Ag AFB Source AFB Culture Final Res AFB Report Status AFB Smear (Ref Lab) 05/27/18 01:40 WBC RBC Hgb Hct MCV MCH MCHC RDW Plt Count MPV Immature Gran % Neutrophils % Lymphocytes % Monocytes % Eosinophils % Basophils % Absolute Neutrophils Absolute Lymphocytes Absolute Monocytes Absolute Eosinophils Absolute Basophils Sodium 138 Potassium 4.1 Chloride 97 L Carbon Dioxide 32.6 H Anion Gap 8.4 BUN 52 H Creatinine 2.09 H Estimated GFR/1.73 m2 22.84 Glucose 167 H Calcium 9.3 Phosphorus Magnesium Total Bilirubin 0.7 AST 12 L ALT 11 L Alkaline Phosphatase 75 Troponin I < 0.02 Total Protein 6.6 Albumin 2.6 L Lipase 66 L Urine Color Urine Clarity Urine pH Ur Specific [place] Urine Protein Urine Ketones Urine Blood Urine Nitrite Urine Bilirubin Urine Urobilinogen Ur Leukocyte Esterase Urine Glucose Legionella Source Legionella Reprt Status Legionella Final Result Ur Strep pneumoniae Ag AFB Source AFB Culture Final Res AFB Report Status AFB Smear (Ref Lab) 05/27/18 09:45 Urine - Cath Chow Indwelling Urine Culture - Pending 05/27/18 09:33 Blood Blood Culture - Pending 05/27/18 09:22 Blood Blood Culture - Pending Preliminary micro results at discharge 05/27/18 09:45 Urine Culture - Pending Urine - Cath Chow Indwelling 05/27/18 09:33 Blood Culture - Pending Blood 12/03/18 09:22 Blood Culture - Pending Blood CT Abdomen and Pelvis Without Intravenous Contrast EXAM DATE/TIME: 05/27/2018 12:37 AM CLINICAL HISTORY: 77 years old, female; Pain and signs and symptoms; Vomiting; Abdominal pain; Generalized; Prior surgery; Surgery date: 6+ months; 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 All CT scans at this facility use at least one of these dose optimization techniques: automated exposure control; mA and/or kV adjustment per patient size (includes targeted exams where dose is matched to clinical indication); or iterative reconstruction. Coronal and sagittal reformatted images were created and reviewed. COMPARISON: CT ABD PELVIS WO CONTRAST 01/19/2018 11:30 AM FINDINGS: Tubes, catheters and devices: A spinal catheter is seen in the posterior canal. Tip is not visualized on this study. Battery pack is present in the left anterior pelvic wall. Lower thorax: Extensive bronchiectasis and peribronchial thickening consistent with bronchitis. Mild bibasilar consolidations and small right pleural effusion. Lung findings appear similar to the prior study. ABDOMEN: Liver: Stable numerous hepatic cysts. Gallbladder and bile ducts: Cholecystectomy. Again noted is stable common duct dilatation measuring 1.3 cm at the pancreatic head. At the same level, duct size is unchanged from the prior study. Pancreas: Unremarkable. Spleen: Normal. No splenomegaly. Adrenals: Normal. No mass. Kidneys and ureters: Renal transplant in the right pelvis. No stones or hydronephrosis. [place] kidneys are not visualized. Stomach and bowel: Colonic diverticulosis. Fluid levels are seen in the ascending colon There are mildly dilated loops of small bowel throughout the abdomen without obvious transition zone. Findings favor ileus but cannot exclude partial obstruction. Appendix: Normal appendix. PELVIS: Bladder: Unremarkable as visualized. Reproductive: Hysterectomy. ABDOMEN and PELVIS: Intraperitoneal space: Normal. No free air. No significant fluid collection. Bones/joints: Degenerative changes throughout lumbar spine. There is severe lumbar levoscoliosis. Soft tissues: Umbilical hernia ventral hernia repair with mesh. Vasculature: Normal. No abdominal aortic aneurysm. Lymph nodes: Normal. No enlarged lymph nodes. Other findings: Again noted stable calcified 2.7 cm finding in the right pelvis. IMPRESSION: Mildly dilated small bowel loops throughout the mid abdomen without transition zone. Favor ileus but cannot exclude partial obstruction. Cholecystectomy and stable mild biliary dilatation, likely related to post surgical change. Colonic diverticulosis. Mild bibasilar consolidations, small right pleural effusion and findings suggestive of bronchitis. PFSH Gastroesophageal reflux disease (Chronic) Hypertension (Chronic) Urinary incontinence (Chronic) Dysuria (Chronic) Spinal stenosis (Chronic) Low back pain (Chronic) Edema, lower extremity (Chronic) Osteoarthritis of hip (Chronic) Weakness generalized (Chronic) Vaginitis, atrophic (Chronic) Bacterial urinary infection (Chronic) Hypercholesterolemia (Chronic) Kyphoscoliosis (Chronic) Prolapse of mitral valve (Chronic) Tachycardia (Chronic) Reactive airway disease (Chronic) Rhinitis, allergic (Chronic) Bowel obstruction (Suspected 08/08/14) Polycystic kidney (Chronic) Abdominal pain (Acute) Diarrhea (Acute) Chronic pain (Acute) CHF (congestive heart failure) (Chronic) Chronic renal failure, stage 3 (moderate) (Chronic) Family History Mother No problems noted. History of Surgical Procedure (Chronic) History of hysterectomy (Resolved) History of incisional hernia repair (Resolved) Living-donor kidney transplant recipient (Chronic) Extraction of cataract (12/14/15) Social History adopted: No caregiver/support person: Yes household members: none housing: house lives independently: Yes (has caregivers there daily, Shonna with her at time of appointment) current occupational status: retired pets and animals: No Smoking/Tobacco Use Status: Never History History 4 Para 4 Hx # Term Pregnancies 4 Multiple births Hx # Pregnancies Ectopic pregnancies AB induced Hx Number of Living Children 4 AB spontaneous
--- NOTE | 2018-05-27 15:32 | CHAPLAIN ---
Renay and I know each other from previous admissions. She was in bed and visiting with a friend when I stopped in. Renay is a member of the [employer]. 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
== END 2018-05-27 18:15 | disposition short-term general hospital (02) | DRG 388 ==
LOC: ER 03:24 → MS 10:24 → ICU 12:21 → MS 01-30 15:59
PROVIDERS: Internal Medicine; Admitting Provider Surgery; Emergency Provider Student in an Organized Health Care Education/Training Program; PCP Student in an Organized Health Care Education/Training Program; Visit Provider Surgery
DX: K56.609 Unspecified intestinal obstruction, unspecified as to partial versus complete obstruction (principal); J18.9 Pneumonia, unspecified organism; Z94.0 Kidney transplant status; I47.1 Supraventricular tachycardia; R55 Syncope and collapse; I10 Essential (primary) hypertension; E78.00 Pure hypercholesterolemia, unspecified; I50.9 Heart failure, unspecified; J44.9 Chronic obstructive pulmonary disease, unspecified; Z99.81 Dependence on supplemental oxygen; E83.42 Hypomagnesemia
CPT/HCPCS: 36410; 36415; 36569; 80048; 80053; 83690; 87040; 87116; 87206; 87449; 93005; 99223; 99236; 99239; 99255; 99285; 71045; 74176; 81003; 83735; 84100; 84484; 85025; 87086; 93010; J1720; J3475; J3490

== ENCOUNTER 2018-06-14 15:56 | Outpatient (REF) | payer MEDICARE, SELFPAY ==
[2018-06-14 16:44] LABS: Anion Gap 7.7 mmol/L (3-11); BUN 42 mg/dL (7-18); CO2 31.3 mmol/L (21.0-32.0); Calcium 9.8 mg/dL (8.5-10.1); Chloride 99 mmol/L (98-107); Glucose 184 mg/dL (70-100); Potassium 4.4 mmol/L (3.5-5.1); Sodium 138 mmol/L (136-145)
== END 2018-06-14 16:16 ==
LOC: LBN 15:56
PROVIDERS: PCP Student in an Organized Health Care Education/Training Program; Visit Provider Family Medicine
DX: K56.7 Ileus, unspecified (principal); E78.00 Pure hypercholesterolemia, unspecified; F11.20 Opioid dependence, uncomplicated; I10 Essential (primary) hypertension; N18.4 Chronic kidney disease, stage 4 (severe); Z94.0 Kidney transplant status
CPT/HCPCS: 80048

== ENCOUNTER 2018-06-21 15:15 | Outpatient (CLI) | payer MEDICARE, SELFPAY ==
[2018-06-21 15:51] LABS: Abs Immature Grans 0.01 k/cumm (0.0-0.09); Absolute Basophil Count 0.01 k/cumm (0.0-0.2); Absolute Eosinophil Count 0.17 k/cumm (0.0-0.7); Absolute Lymphocyte Count 0.64 k/cumm (1.2-3.4); Absolute Monocyte Count 0.32 k/cumm (0.11-0.7); Absolute Neutrophil Count 5.09 k/cumm (1.2-6.7); Basophils % 0.2; Eosinophils % 2.7; HCT 37.6 % (36.0-46.0); HGB 11.6 g/dL (12.0-15.5); Immature Grans % 0.2; Lymphocytes % 10.3; Mean Corp. HGB Concentration 30.9 g/dL (32.0-36.0); Mean Corpuscular Hemoglobin 28.9 pg (27.0-33.0); Mean Corpuscular Volume 93.5 fL (80-95); Mean Platelet Volume 10.6 fL (8.0-11.0); Monocytes % 5.1; Neutrophils % 81.5; Platelet Count 185 x1000/uL (130-400); RBC 4.02 m/cumm (4.00-5.20); RBC Distribution Width 15.2 % (11.7-14.6); White Blood Cell Count 6.24 k/cumm (4.4-10.8)
[2018-06-21 17:51] LABS: BUN 48 mg/dL (7-18); CREATININE 1.23 mg/dL (0.55-1.02); Calcium 9.9 mg/dL (8.5-10.1); Chloride 97 mmol/L (98-107); Estimated GFR 42.12 (mL/min/1.73m2); Glucose 140 mg/dL (70-100); NT-proBNP 1128 pg/mL; Potassium 3.9 mmol/L (3.5-5.1); Sodium 137 mmol/L (136-145)
== END 2018-06-21 15:35 ==
PROVIDERS: PCP Student in an Organized Health Care Education/Training Program; Visit Provider Family Medicine
DX: N18.4 Chronic kidney disease, stage 4 (severe) (principal); I50.9 Heart failure, unspecified; Q61.2 Polycystic kidney, adult type
CPT/HCPCS: 36415; 80048; 83880; 85025

== ENCOUNTER 2018-07-11 09:40 | Outpatient (CLI) | payer MEDICARE, SELFPAY ==
[2018-07-11 14:12] LABS: Anion Gap 6.3 mmol/L (3-11); BUN 45 mg/dL (7-18); CO2 34.7 mmol/L (21.0-32.0); CREATININE 1.44 mg/dL (0.55-1.02); Calcium 9.5 mg/dL (8.5-10.1); Chloride 97 mmol/L (98-107); Estimated GFR 35.11 (mL/min/1.73m2); Glucose 155 mg/dL (70-100); Potassium 3.3 mmol/L (3.5-5.1); Sodium 138 mmol/L (136-145)
== END 2018-07-11 10:00 ==
PROVIDERS: PCP Student in an Organized Health Care Education/Training Program; Visit Provider Internal Medicine Nephrology
DX: E83.42 Hypomagnesemia (principal); N18.9 Chronic kidney disease, unspecified; Z94.0 Kidney transplant status
CPT/HCPCS: 36415; 80048; 80158

== ENCOUNTER 2018-07-12 11:47 | Outpatient (REF) | payer MEDICARE, SELFPAY | END 2018-07-12 12:07 | LOC: LBN 11:47 | PROVIDERS: PCP Student in an Organized Health Care Education/Training Program; Visit Provider Student in an Organized Health Care Education/Training Program | DX: N39.0 Urinary tract infection, site not specified (principal) | CPT/HCPCS: 87086 ==

== ENCOUNTER 2018-07-22 09:44 | Outpatient (CLI) | payer MEDICARE, SELFPAY ==
[2018-07-22 14:52] LABS: Abs Immature Grans 0.01 k/cumm (0.0-0.09); Absolute Basophil Count 0.02 k/cumm (0.0-0.2); Absolute Eosinophil Count 0.24 k/cumm (0.0-0.7); Absolute Lymphocyte Count 0.49 k/cumm (1.2-3.4); Absolute Monocyte Count 0.33 k/cumm (0.11-0.7); Absolute Neutrophil Count 4.12 k/cumm (1.2-6.7); Basophils % 0.4; Eosinophils % 4.6; HCT 34.9 % (36.0-46.0); HGB 10.5 g/dL (12.0-15.5); Immature Grans % 0.2; Lymphocytes % 9.4; Mean Corp. HGB Concentration 30.1 g/dL (32.0-36.0); Mean Corpuscular Hemoglobin 28.9 pg (27.0-33.0); Mean Corpuscular Volume 96.1 fL (80-95); Mean Platelet Volume 10.2 fL (8.0-11.0); Monocytes % 6.3; Neutrophils % 79.1; Platelet Count 186 x1000/uL (130-400); RBC 3.63 m/cumm (4.00-5.20); RBC Distribution Width 15.2 % (11.7-14.6); White Blood Cell Count 5.21 k/cumm (4.4-10.8)
[2018-07-22 15:35] LABS: ALT 12 U/L (12-78); AST 12 U/L (15-37); Albumin 2.8 g/dL (3.4-5.0); Alkaline Phosphatase 76 U/L (46-116); Anion Gap 6.8 mmol/L (3-11); BUN 51 mg/dL (7-18); Bilirubin, Total 0.5 mg/dL (0.2-1.0); CO2 34.2 mmol/L (21.0-32.0); Calcium 9.2 mg/dL (8.5-10.1); Chloride 99 mmol/L (98-107); Estimated GFR 24.03 (mL/min/1.73m2); Glucose 133 mg/dL (70-100); Magnesium 1.5 mg/dL (1.8-2.4); PHOSPHORUS 4.3 mg/dL (2.6-4.7); Potassium 4.3 mmol/L (3.5-5.1); Sodium 140 mmol/L (136-145); Uric Acid 5.6 mg/dL (2.6-6.0)
[2018-07-23 13:47] LABS: Cyclosporine 68 ng/ml
== END 2018-07-22 10:04 ==
PROVIDERS: Internal Medicine Nephrology; PCP Student in an Organized Health Care Education/Training Program; Visit Provider Student in an Organized Health Care Education/Training Program
DX: Z94.0 Kidney transplant status (principal); N18.9 Chronic kidney disease, unspecified
CPT/HCPCS: 36415; 80053; 80158; 83735; 84100; 84550; 85025

== ENCOUNTER 2018-08-01 14:50 | Outpatient (REF) | payer MEDICARE, SELFPAY ==
[2018-08-01 18:20] LABS: Anion Gap 7.3 mmol/L (3-11); BUN 51 mg/dL (7-18); CO2 32.7 mmol/L (21.0-32.0); CREATININE 2.43 mg/dL (0.55-1.02); Calcium 9.5 mg/dL (8.5-10.1); Chloride 100 mmol/L (98-107); Glucose 88 mg/dL (70-100); Sodium 140 mmol/L (136-145)
== END 2018-08-01 15:10 ==
LOC: LBN 14:50
PROVIDERS: PCP Student in an Organized Health Care Education/Training Program; Visit Provider Student in an Organized Health Care Education/Training Program
DX: N18.9 Chronic kidney disease, unspecified (principal); R79.89 Other specified abnormal findings of blood chemistry
CPT/HCPCS: 80048

== ENCOUNTER 2018-08-16 12:21 | Outpatient (REF) | payer MEDICARE, SELFPAY ==
[2018-08-16 13:31] LABS: Anion Gap 7.1 mmol/L (3-11); BUN 44 mg/dL (7-18); CO2 32.9 mmol/L (21.0-32.0); Calcium 9.4 mg/dL (8.5-10.1); Chloride 100 mmol/L (98-107); Estimated GFR 28.92 (mL/min/1.73m2); Glucose 120 mg/dL (70-100); Potassium 3.9 mmol/L (3.5-5.1); Sodium 140 mmol/L (136-145)
== END 2018-08-16 12:41 ==
LOC: LBN 12:21
PROVIDERS: PCP Student in an Organized Health Care Education/Training Program; Visit Provider Student in an Organized Health Care Education/Training Program
DX: N18.3 Chronic kidney disease, stage 3 (moderate) (principal); J44.9 Chronic obstructive pulmonary disease, unspecified; I50.9 Heart failure, unspecified; R79.89 Other specified abnormal findings of blood chemistry
CPT/HCPCS: 80048

== ENCOUNTER 2018-09-13 09:47 | Outpatient (REF) | payer MEDICARE, SELFPAY ==
[2018-09-13 11:49] LABS: Bilirubin Negative (Negative); Blood Negative (Negative); Clarity Clear; Glucose Negative (Negative); Ketones Negative (Negative); Leukocyte Esterase Negative (Negative); Nitrite Negative (Negative); Urobilinogen 0.2 EU/dL (Up TO 0.2)
== END 2018-09-13 10:07 ==
LOC: LBN 09:47
PROVIDERS: PCP Student in an Organized Health Care Education/Training Program; Visit Provider Student in an Organized Health Care Education/Training Program
DX: R82.79 Other abnormal findings on microbiological examination of urine (principal); Z87.440 Personal history of urinary (tract) infections
CPT/HCPCS: 81003; 87086

== ENCOUNTER 2018-09-18 13:23 | Outpatient (REF) | payer MEDICARE, SELFPAY ==
[2018-09-18 14:16] LABS: Bilirubin Negative (Negative); Blood Trace-intact (Negative); Clarity Clear; Glucose Negative (Negative); Ketones Negative (Negative); Leukocyte Esterase Trace (Negative); Nitrite Negative (Negative); Urobilinogen 0.2 EU/dL (Up TO 0.2); pH 6.5 (5-8)
[2018-09-18 15:29] LABS: Epithelial Cells Few HPF (Negative); RBC 0-2 (0-2)
[2018-09-18 15:30] LABS: Bacteria Rare HPF (Negative); C & S Indicated? Yes; Casts Negative LPF (Negative); Crystals Negative HPF (Negative); Mucus Negative (Negative); Other Cells Rare Transitional (Negative)
== END 2018-09-18 13:43 ==
LOC: LBN 13:23
PROVIDERS: Nurse Practitioner Adult Health; PCP Student in an Organized Health Care Education/Training Program; Visit Provider Student in an Organized Health Care Education/Training Program
DX: N39.0 Urinary tract infection, site not specified (principal); R30.0 Dysuria
CPT/HCPCS: 81003; 81015; 87086

== ENCOUNTER 2018-09-22 16:48 | Outpatient (REF) | payer MEDICARE, SELFPAY ==
[2018-09-22 17:20] LABS: Anion Gap 9.8 mmol/L (3-11); BUN 28 mg/dL (7-18); CO2 29.2 mmol/L (21.0-32.0); CREATININE 1.65 mg/dL (0.55-1.02); Calcium 9.5 mg/dL (8.5-10.1); Chloride 90 mmol/L (98-107); Estimated GFR 29.93 (mL/min/1.73m2); Glucose 113 mg/dL (70-100); Magnesium 1.6 mg/dL (1.8-2.4); NT-proBNP 1042 pg/mL; Potassium 3.7 mmol/L (3.5-5.1); Sodium 129 mmol/L (136-145)
== END 2018-09-22 17:08 ==
LOC: NCHCN 16:48
PROVIDERS: PCP Student in an Organized Health Care Education/Training Program; Visit Provider Student in an Organized Health Care Education/Training Program
DX: E83.42 Hypomagnesemia (principal); I10 Essential (primary) hypertension; I50.30 Unspecified diastolic (congestive) heart failure; R06.02 Shortness of breath; Q61.2 Polycystic kidney, adult type; R74.8 Abnormal levels of other serum enzymes
CPT/HCPCS: 80048; 83735; 83880

== ENCOUNTER 2018-10-02 11:12 | Outpatient (REF) | payer MEDICARE, SELFPAY ==
[2018-10-02 12:14] LABS: Anion Gap 8.6 mmol/L (3-11); BUN 30 mg/dL (7-18); CO2 34.4 mmol/L (21.0-32.0); CREATININE 1.67 mg/dL (0.55-1.02); Calcium 9.7 mg/dL (8.5-10.1); Chloride 97 mmol/L (98-107); Estimated GFR 29.52 (mL/min/1.73m2); Glucose 138 mg/dL (70-100); Potassium 3.8 mmol/L (3.5-5.1); Sodium 140 mmol/L (136-145)
[2018-10-03 15:52] LABS: Cyclosporine 82 ng/ml
== END 2018-10-02 11:32 ==
LOC: LBN 11:12
PROVIDERS: PCP Student in an Organized Health Care Education/Training Program; Visit Provider Student in an Organized Health Care Education/Training Program
DX: N18.3 Chronic kidney disease, stage 3 (moderate) (principal); M62.81 Muscle weakness (generalized); Z87.440 Personal history of urinary (tract) infections; Z94.0 Kidney transplant status
CPT/HCPCS: 80048; 80158

== ENCOUNTER 2018-10-08 00:13 | Outpatient (CLI) | payer MEDICARE, SELFPAY ==
--- NOTE | 2018-10-08 15:56 | DI.RAD_ITS ---
SYMPTOM/DIAGNOSIS: COUGH, CRACKLES ON EXAM, R05 CHEST: Bilateral pulmonary infiltrates are demonstrated. There is no definite pleural effusion. The heart is enlarged. SUMMARY: Findings which would be consistent with an acute pneumonitis. The possibility of concomitant congestive failure could not be excluded.
--- NOTE | 2018-10-08 16:30 | DI.US_ITS ---
SYMPTOM/DIAGNOSIS: H/O HYDRONEPHROSIS, MATI, ONE KIDNEY, Z94.0,N18.9,R60.0,N39.0,Z87.448 RENAL ULTRASOUND: The patient is status post right renal transplant, the kidney measuring 10.8 by 6.8 by 6.2 cm. A medial cyst measures 1.6 by 1.6 by 1 cm. and a laterally positioned cyst measures 1.7 by 1.0 by 1.2 cm. There is no evidence of hydronephrosis.
== END 2018-10-08 00:33 ==
PROVIDERS: PCP Student in an Organized Health Care Education/Training Program; Visit Provider Student in an Organized Health Care Education/Training Program
DX: R05 Cough (principal); J18.9 Pneumonia, unspecified organism; I51.7 Cardiomegaly; N18.9 Chronic kidney disease, unspecified; R60.0 Localized edema; N39.0 Urinary tract infection, site not specified; Z94.0 Kidney transplant status
CPT/HCPCS: 76770; 71046

== ENCOUNTER 2018-12-06 09:24 | Emergency (ER) | payer MEDICARE, SELFPAY ==
[2018-12-06] VITALS (12 sets, daily range): BP systolic 138–160; BP diastolic 80–103; PULSE 80–92; RESP 12–28; TEMP 36.6; O2SAT 85–99
--- NOTE | 2018-12-06 09:39 | ED.GENADUL_ITS ---
Discharge Plan Disposition Patient Disposition: HOME Condition: Stable Discharge Details Chief Complaint: SOB Clinical Impression: Chronic lung disease, Chronic cough Primary Care Provider: Kesha Serrano ED Provider: Cabrera Mathis Home Meds and New Rx's Prescriptions: No Action magnesium gluconate 27 mg magnesium (500 mg) tablet 500 mg PO BID@0600,1800 Qty: 60 RF: 0 cholecalciferol (vitamin D3) [Vitamin D3] 2,000 unit capsule 2,000 unit PO DAILY RF: 0 lidocaine 5 % adhesive patch,medicated 1 patch TP DAILY Qty: 30 RF: 1 morphine 10 mg/5 mL solution 2 mg PO Q1H PRN MDD 24mg Qty: 500 RF: 0 Xiidra 5 % dropperette 1 drp OP BID Qty: 5 RF: 0 metolazone 2.5 mg tablet 2.5 mg PO ONCE MDD 2.5 mg PRN (Reason: CHF) Qty: 10 RF: 0 magnesium oxide 400 mg capsule 400 mg PO DAILY Qty: 90 RF: 3 ipratropium-albuterol 0.5 mg-3 mg(2.5 mg base)/3 mL solution for nebulization 3 ml IH Q8H Qty: 90 RF: 0 Combivent Respimat 20-100 mcg/actuation mist 1 puff IH Q6H Qty: 4 RF: 0 Nebulizer tubing Qty: 1 RF: 0 ascorbic acid (vitamin C) 1,000 MG tablet 1,000 mg PO DAILY RF: 0 docusate sodium [Colace] 100 MG capsule 100 mg PO BID RF: 0 prednisone 5 MG tablet 5 mg PO DAILY Qty: 90 RF: 1 nitroglycerin [Nitrostat] 0.4 MG tablet, sublingual 0.4 mg Sublingual PRN Qty: 25 RF: 5 polyethylene glycol 3350(bulk) 12,000 GM powder 17 gm PO DAILY PRNQty: 1 RF: 3 omega-3 fatty acids-fish oil 1 EACH capsule 1 ea PO DAILY RF: 0 fluticasone propionate 16 GM spray,suspension 1 spray NS BID Qty: 3 RF: 3 Oxygen EACH NS DAILY Qty: 2 RF: 1 aspirin 81 MG tablet,chewable 81 mg PO DAILY Qty: 100 RF: 3 benzonatate [Tessalon Perles] 100 MG capsule 100 mg PO TID Qty: 90 RF: 0 albuterol sulfate [ProAir HFA] 8.5 GM HFA aerosol inhaler 2 puff Inhalation Q4H PRN Qty: 1 RF: 11 oxygen conserver See Rx Instructions .ROUTE .COMPLEX Qty: 1 RF: 0 allopurinol 100 mg tablet 100 mg PO BID RF: 0 cyclosporine 25 mg capsule 75 mg PO BID Qty: 540 RF: 0 carvedilol [Coreg] 25 mg tablet 50 mg PO BID Qty: 360 RF: 3 cimetidine 300 mg tablet 300 mg PO Q12H RF: 0 atorvastatin [Lipitor] 10 mg tablet 5 mg PO DAILY Qty: 45 RF: 2 clindamycin HCl 300 mg capsule 300 mg PO Q8H MDD 450 x 3 Qty: 21 RF: 1 clindamycin HCl 150 mg capsule 150 mg PO TID MDD 450 TID Qty: 21 RF: 1 metronidazole 500 mg tablet 500 mg PO BID MDD 52443 Qty: 14 RF: 1 chlorhexidine gluconate 0.12 % mouthwash 15 ml BC BID Qty: 600 RF: 1 furosemide 40 mg tablet 80 mg PO BID Qty: 120 RF: 3 nystatin 100,000 unit/gram powder 1 applic TP BID PRN (Reason: redness ) Qty: 30 RF: 2 methadone 5 mg tablet 5 mg PO TID MDD 15 Qty: 90 RF: 0 sennosides-docusate sodium [MATHIEU-COLACE] 1 TAB tablet 2 tab PO BID Qty: 120 RF: 0 Discharge Instructions Instructions: Acute Cough (ED) Additional Instructions: Your chest x-ray shows no new changes, your labs are notably normal compared to your baseline. Your urine shows no signs of kidney infection. Your chest x-ray shows no pneumonia. At this time I feel that you are stable to go home, however it is imperative that you follow-up extremely closely with your family doctor for a home visit for clinic visit. If at any time you notice any worsening or change of your symptoms, please come back immediately. Please continue the antibiotics that you are already on, and we will hold off on adding any additional antibiotics as your chest x-ray shows no signs of pneumonia. Please continue your inhalers every 6 hours for the next 2 to 3 days. Additionally continue your elevated Lasix today, and then go back down to your normal dose starting tomorrow. If you notice any worsening of your symptoms, or any new symptoms such as vomiting, diarrhea, fever, chills, shortness of breath, chest pain, numbness, weakness, or fainting , please return immediately to the emergency department for reevaluation. Please follow up with your primary care provider as soon as possible for reassessment and reevaluation. As always, it was a pleasure participating in your medical care today. Referrals: Kesha Serrano DO [Primary Care Provider] - Discharge Data Discharge Date/Time-TO BE ENTERED AT DEPARTURE: 12/06/18 14:06 Medical Decision Making This is a pleasant 78-year-old female with a past medical history of notable pulmonary hypertension and patent foramen ovale, as well as ejection fraction systolic of 60%, renal transplant on cyclosporine, history of Mycobacterium avium complex, hypertension, high cholesterol, history of bronchiectasis, polycystic kidney disease, and chronic kidney disease. She is on palliative care. She has a complaint of cough with productive green sputum chronically, slightly worsening as of late. She has recently increased her daily Lasix from 80 to 120 mg daily. She is currently taking clindamycin and metronidazole for suspected dental infections. She is still on her chronic 2 L of home oxygen. Exam demonstrates some chronic rhonchi, but no significant crackles or wheezes. No significant pitting edema. Patient's vital signs are otherwise relatively benign, no significant tachycardia hypoxemia or tachypnea. We will evaluate for potential pneumonia, evaluate for cardiac etiology and reassess. 1:30 PM Laboratory work-up demonstrates no significant leukocytosis, bandemia or left shift. Normal platelets, normal hemoglobin. Electrolytes within normal limits, creatinine is 1.89 which is at her baseline. Troponin is normal, EKG is unchanged and otherwise unremarkable. proBNP is at her baseline. Urinalysis is negative for any evidence of infection. X-ray results per Dr. Garber demonstrate no evidence of acute process, no evidence of focal consolidation or pneumonia. We did get the patient up and ambulated her around the ED. Oxygen saturation remained in the 90s, heart rate stable. With no white count, no concerning x- ray findings, normal oxygenation with ambulation, stable heart rate, otherwise benign work-up, I did discuss with the patient discharge. At this time she does feel notably comfortable for discharge home, however I do feel that close follow-up is certainly indicated and needed. We have put her on her case management list for close follow-up in the next 2 to 3 days. I did recommend that after she takes her increased dose of Lasix today that she transitions back to her regular dose of 80 mg/day. I also discussed the importance of prompt return that is necessary if she notice any worsening of her symptoms or lack of improvement over the next few days. With normal vital signs, normal ambulatory pulse ox, unchanged respiratory status, negative x-ray, benign EKG and cardiac work-up and benign laboratory work-up feel she can be safely discharged home. Patient will be discharged with close follow-up with her PCP. Recommendation of continuation of her antibiotics that she is already on. I have extensively reviewed the treatment plan and discharge instructions with the patient and carmelo singh family. I have addressed all patient concerns at this time. The patient and family was made aware of what symptoms to monitor for that would warrant a return to the emergency department. Discussed the plan with the patient and family, they demonstrate verbal understanding and agreement with our assessment and plan at this time. Chest x-ray negative per Dr. Garber, ambulation demonstrates normal oxygen, no hypoxemia or tachycardia, continuing Lasix for today and then going back down to normal dose. EKG 9: 30 Rate 88, W[place] 232, QTc 448, QRS 132, sinus rhythm with a first-degree AV block, right bundle branch block, inverted T wave in V1, no significant ST elevations or depressions. No significant Q waves. No significant changes from EKG from 08/01/2018. HPI General Date/Time Provider Initiated Documentation: 12/06/18 09:31 . HPI Narrative: This is an 78-year-old female with a past medical history of notable pulmonary hypertension and patent foramen ovale, as well as ejection fraction systolic of 60%, renal transplant on cyclosporine, history of Mycobacterium avium complex, hypertension, high cholesterol, history of bronchiectasis, polycystic kidney disease, and chronic kidney disease. She is on palliative care. She presents today for evaluation of cough. She is on a baseline of 2 L of home oxygen at all times. She recently had a slight increase in her fluid gain, and on home visits her Lasix was increased to 120 mg daily. She has been taking this as directed. She does have a history of chronic bronchiectasis and cough. She has noted that this cough is continued. She does note occasional green productive sputum. She denies any associated fever or chills. She does appear slightly more short of breath than normal, but she states that it is not significantly changed. Of note she also has poor dentition and is not been a candidate for oral surgery, because of this she was recently started on clindamycin and metronidazole for coverage of this. Patient denies any symptoms of chest pain, fever, chills, vomiting, or diarrhea. She does have an old abdominal pain pump but there is no longer functions. She denies any numbness tingling or weakness. She denies any other sick contacts. She has no other complaints at this time. Related Data Home Medications Medication Instructions Recorded Confirmed ascorbic acid (vitamin C) 1,000 mg PO DAILY 09/18/12 12/06/18 docusate sodium [Colace] 100 mg PO BID tab-cap 09/18/12 12/06/18 sennosides-docusate sodium 2 tab PO BID #120 tab 12/05/13 12/06/18 [MATHIEU-COLACE] prednisone 5 mg PO DAILY #90 tab 01/17/16 12/06/18 nitroglycerin [Nitrostat] 0.4 mg SUBLINGUAL PRN #25 tab 10/16/16 12/06/18 polyethylene glycol 3350(bulk) 17 gm PO DAILY PRN #1 canister 01/08/17 12/06/18 fluticasone propionate 1 spray NS BID #3 units 06/04/17 12/06/18 omega-3 fatty acids-fish oil 1 ea PO DAILY cap 06/04/17 12/06/18 aspirin 81 mg PO DAILY #100 tab 01/14/18 12/06/18 benzonatate [Tessalon Perles] 100 mg PO TID #90 tab-cap 02/04/18 12/06/18 albuterol sulfate [ProAir HFA] 2 puff INHALATION Q4H PRN #1 02/14/18 12/06/18 inhaler lifitegrast 5 % eye drops in a 1 drp OP BID #5 each 03/13/18 12/06/18 dropperette metolazone 2.5 mg tablet 2.5 mg PO ONCE PRN #10 tab MDD 2.5 04/10/18 12/06/18 mg oxygen conserver See Rx Instructions .ROUTE 04/19/18 08/01/18 .COMPLEX #1 allopurinol 100 mg tablet 100 mg PO BID 04/30/18 12/06/18 cyclosporine 25 mg capsule 75 mg PO BID #540 cap 06/28/18 12/06/18 cholecalciferol (vitamin D3) 2,000 2,000 unit PO DAILY 07/23/18 12/06/18 unit capsule lidocaine 5 % topical patch 1 patch TP DAILY #30 each 07/23/18 12/06/18 magnesium gluconate 27 mg 500 mg PO BID@0600,1800 #60 tab 07/23/18 12/06/18 magnesium (500 mg) tablet magnesium oxide 400 mg capsule 400 mg PO DAILY #90 tab-cap 08/01/18 12/06/18 carvedilol 25 mg tablet 50 mg PO BID #360 tab 08/19/18 12/06/18 cimetidine 300 mg tablet 300 mg PO Q12H tab 09/06/18 12/06/18 atorvastatin 10 mg tablet 5 mg PO DAILY #45 tab 10/14/18 12/06/18 morphine 10 mg/5 mL oral solution 2 mg PO Q1H PRN #500 ml MDD 24mg 10/18/18 12/06/18 ipratropium 20 mcg-albuterol 100 1 puff IH Q6H #4 gm 11/16/18 12/06/18 mcg/actuation mist for inhalation ipratropium-albuterol 0.5 mg-3 3 ml IH Q8H #90 ml 11/16/18 12/06/18 mg(2.5 mg base)/3 mL nebulization soln Nebulizer tubing #1 ea 11/21/18 11/21/18 chlorhexidine gluconate 0.12 % 15 ml BC BID #600 ml 11/29/18 12/06/18 mouthwash clindamycin HCl 150 mg capsule 150 mg PO TID #21 cap MDD 450 TID 11/29/18 12/06/18 clindamycin HCl 300 mg capsule 300 mg PO Q8H #21 cap MDD 450 x 3 11/29/18 12/06/18 metronidazole 500 mg tablet 500 mg PO BID #14 tab MDD 64345 11/29/18 12/06/18 furosemide 40 mg tablet 80 mg PO BID #120 tab 12/02/18 12/06/18 nystatin 100,000 unit/gram topical 1 applic TP BID PRN #30 gm 12/02/18 12/06/18 powder methadone 5 mg tablet 5 mg PO TID #90 tab-cap MDD 15 12/05/18 12/06/18 Previous Rx's Medication Instructions Recorded sennosides-docusate sodium 2 tab PO BID #120 tab 12/05/13 [MATHIEU-COLACE] fluticasone propionate 1 spray NS BID #3 units 06/04/17 aspirin 81 mg PO DAILY #100 tab 01/14/18 benzonatate [Tessalon Perles] 100 mg PO TID #90 tab-cap 02/04/18 albuterol sulfate [ProAir HFA] 2 puff INHALATION Q4H PRN #1 02/14/18 inhaler lifitegrast 5 % eye drops in a 1 drp OP BID #5 each 03/13/18 dropperette metolazone 2.5 mg tablet 2.5 mg PO ONCE PRN #10 tab MDD 2.5 04/10/18 mg oxygen conserver See Rx Instructions .ROUTE 04/19/18 .COMPLEX #1 lidocaine 5 % topical patch 1 patch TP DAILY #30 each 07/23/18 magnesium gluconate 27 mg 500 mg PO BID@0600,1800 #60 tab 07/23/18 magnesium (500 mg) tablet magnesium oxide 400 mg capsule 400 mg PO DAILY #90 tab-cap 08/01/18 carvedilol 25 mg tablet 50 mg PO BID #360 tab 08/19/18 atorvastatin 10 mg tablet 5 mg PO DAILY #45 tab 10/14/18 morphine 10 mg/5 mL oral solution 2 mg PO Q1H PRN #500 ml MDD 24mg 10/18/18 ipratropium 20 mcg-albuterol 100 1 puff IH Q6H #4 gm 11/16/18 mcg/actuation mist for inhalation ipratropium-albuterol 0.5 mg-3 3 ml IH Q8H #90 ml 11/16/18 mg(2.5 mg base)/3 mL nebulization soln Nebulizer tubing #1 ea 11/21/18 chlorhexidine gluconate 0.12 % 15 ml BC BID #600 ml 11/29/18 mouthwash clindamycin HCl 150 mg capsule 150 mg PO TID #21 cap MDD 450 TID 11/29/18 clindamycin HCl 300 mg capsule 300 mg PO Q8H #21 cap MDD 450 x 3 11/29/18 metronidazole 500 mg tablet 500 mg PO BID #14 tab MDD 20102 11/29/18 furosemide 40 mg tablet 80 mg PO BID #120 tab 12/02/18 nystatin 100,000 unit/gram topical 1 applic TP BID PRN #30 gm 12/02/18 powder methadone 5 mg tablet 5 mg PO TID #90 tab-cap MDD 15 12/05/18 Allergies Allergy/AdvReac Type Severity Reaction Status Date / Time thiopental sodium Allergy Intermediate Wheezing Verified 08/01/18 14:32 [From Pentothal] Penicillins Allergy Unknown ITCHING Verified 08/01/18 14:32 diclofenac gel AdvReac Intermediate nausea, Uncoded 05/27/18 01:38 sweats, insomnia General Stated Complaint: SOB JON: 3 Review of Systems Review of Systems All systems reviewed & are unremarkable except as noted in HPI and below PFSH Social History Smoking/Tobacco Use Status: Never Alcohol Intake: never Drug use: Never Adopted: No Caregiver/Support person: Yes Household members: none Housing: house Number of Children: 1 Pets and animals: No What is your relationship status?: How often do you talk on the phone with friends or family?: three or more times per week How often do you get together with friends or relatives?: three or more times per week How often do you attend catholic or restorationism services?: 4 or more times per year Panel score (0-1 are the most socially isolated patients): 2 What type of physical activity do you participate in: assisted ambulation Maureen/Mandaen: Anabaptism Special maureen needs: No Agree to transfusion: Yes Seatbelt use: always Do you feel safe at home: Yes Do you feel safe in your relationship?: Yes History History 4 Para 4 Hx # Term Pregnancies 4 Multiple births Hx # Pregnancies Ectopic pregnancies AB induced Hx Number of Living Children 4 AB spontaneous Exam Narrative Exam Narrative: 1.Const: Well-nourished, Well-developed, appearing stated age 2.Eyes: PERRL, no conjunctival injection, and symmetrical lids. 3.ENT: Atraumatic external nose and ears. Moist MM. Neck: Symmetric, trachea midline, No thyromegaly. Poor dentition. 4.CVS: +S1/S2, No murmurs or gallops. Peripheral pulses 2+ and equal in all extremities. Brisk capillary refill in all extremities. 5.RESP: Unlabored respiratory effort. Mild rhonchi, no significant crackles or wheezes. 6.GI: Soft, Nontender/Nondistended, No hepatosplenomegaly. No guarding or rebound. 7.MSK: Normocephalic/Atraumatic, Extremities w/o deformity or ttp No cyanosis or clubbing, Normal movement of all extremities. No pitting edema in the lower extremities. 8.Skin: Warm, Dry. No rashes or lesions. 9.Neuro: booking prizer II-XII grossly intact. Sensation grossly intact, no focal neurologic deficits. 10.Psych: (AAO) x3. Appropriate mood and affect Course Vital Signs Temperature 36.6 C 12/06/18 09:31 Pulse 92 H 12/06/18 09:31 Respiratory Rate 28 H 12/06/18 09:31 Blood Pressure 138/103 H 12/06/18 09:31 Pulse Oximetry 98 12/06/18 09:31 Temperature 36.6 C 12/06/18 09:31 Temperature Source Temporal Artery Scan 12/06/18 09:31 Pulse 92 H 12/06/18 09:31 Respiratory Rate 28 H 12/06/18 09:31 Respiratory Effort 12/06/18 09:31 Blood Pressure 138/103 H 12/06/18 09:31 Blood Pressure Position Sitting 12/06/18 09:31 Pulse Oximetry 98 12/06/18 09:31 Oxygen Delivery Method Room Air 12/06/18 09:31 Oxygen Flow Rate 0 12/06/18 09:31 Pain Level 8 12/06/18 09:31
[2018-12-06 09:53] LABS: Abs Immature Grans 0.01 k/cumm (0.0-0.09); Absolute Basophil Count 0.02 k/cumm (0.0-0.2); Absolute Eosinophil Count 0.22 k/cumm (0.0-0.7); Absolute Lymphocyte Count 0.66 k/cumm (1.2-3.4); Absolute Monocyte Count 0.59 k/cumm (0.11-0.7); Absolute Neutrophil Count 4.19 k/cumm (1.2-6.7); Basophils % 0.4; Eosinophils % 3.9; HCT 39.7 % (36.0-46.0); HGB 12.1 g/dL (12.0-15.5); Immature Grans % 0.2; Lymphocytes % 11.6; Mean Corp. HGB Concentration 30.5 g/dL (32.0-36.0); Mean Corpuscular Hemoglobin 28.7 pg (27.0-33.0); Mean Corpuscular Volume 94.3 fL (80-95); Mean Platelet Volume 9.8 fL (8.0-11.0); Monocytes % 10.4; Neutrophils % 73.5; Platelet Count 205 x1000/uL (130-400); RBC 4.21 m/cumm (4.00-5.20); RBC Distribution Width 14.3 % (11.7-14.6); White Blood Cell Count 5.69 k/cumm (4.4-10.8)
[2018-12-06 10:17] LABS: ALT 9 U/L (12-78); AST 12 U/L (15-37); Albumin 3.2 g/dL (3.4-5.0); Alkaline Phosphatase 82 U/L (46-116); Anion Gap 9.7 mmol/L (3-11); BUN 46 mg/dL (7-18); Bilirubin, Total 0.4 mg/dL (0.2-1.0); CO2 32.3 mmol/L (21.0-32.0); CREATININE 1.89 mg/dL (0.55-1.02); Chloride 95 mmol/L (98-107); Estimated GFR 25.59 (mL/min/1.73m2); Glucose 114 mg/dL (70-100); NT-proBNP 1094 pg/mL; Potassium 3.5 mmol/L (3.5-5.1); Sodium 137 mmol/L (136-145); Total Protein 7.1 g/dL (6.4-8.2)
[2018-12-06 10:18] LABS: Troponin I < 0.02 ng/mL (0.00-0.06)
[2018-12-06 10:41] LABS: Bilirubin Negative (Negative); Blood Negative (Negative); Clarity Clear; Glucose Negative (Negative); Ketones Negative (Negative); Leukocyte Esterase Negative (Negative); Nitrite Negative (Negative); Urobilinogen 0.2 EU/dL (Up TO 0.2)
--- NOTE | 2018-12-06 10:52 | DI.RAD_ITS ---
SYMPTOM/DIAGNOSIS: COUGH, SOB, EVAL PNEUMONIA CHEST X-RAY: Comparison 10/08/18 and 02/19/18 Heart size and pulmonary vasculature are within normal limits. There are chronic pulmonary infiltrates seen suggestive of chronic pulmonary fibrosis. No new focal consolidating infiltrates, effusions or pneumothoraces are present. IMPRESSION: Stable, chronic changes in the lungs. No acute pulmonary process.
--- NOTE | 2018-12-06 12:22 | NUR.NOTE ---
Nursing Note: pt ambulated around [place] with RN on 2 L oxygen via nasal cannula, starting oxygen saturation was 95%, pt maintained 02 above 90% during ambulation. On arrival back to room oxygen saturation was 96%.
[2018-12-06 15:39] LABS: COMMENT (LAB VIEW ONLY) 14.86 mg/dL; PROTEIN 11.2 mg/dL; Prot/Crea Ur Ratio 0.75
--- NOTE | 2018-12-07 07:58 | NUR.NOTE ---
Addendum entered by Amada Acosta 12/07/18 17:35: Patient returned 12/07/18 and was discharged. Referral for both visits was faxed to [facility] for follow up. She has an appt. this coming Sunday. Amada Acosta. Original Note: Nursing Note: Patient called stating that she was only able to urinate a tiny bit all night and has a metallic taste in her mouth. Wants to speak with Dr. Mathis. I told her that he was not in today and that in his note he stated that if she felt worse to come in. She stated she would be in. Amada Acosta.
[2018-12-09 13:51] LABS: Cyclosporine 73 ng/ml
== END 2018-12-06 14:06 | disposition home or self-care (01) ==
PROVIDERS: Internal Medicine Nephrology; Emergency Provider Student in an Organized Health Care Education/Training Program; PCP Student in an Organized Health Care Education/Training Program
DX: J45.909 Unspecified asthma, uncomplicated (principal); I45.10 Unspecified right bundle-branch block; I44.0 Atrioventricular block, first degree; N18.9 Chronic kidney disease, unspecified; I12.9 Hypertensive chronic kidney disease with stage 1 through stage 4 chronic kidney disease, or unspecified chronic kidney disease; Q21.1 Atrial septal defect; Q61.3 Polycystic kidney, unspecified; Z94.0 Kidney transplant status; Z99.81 Dependence on supplemental oxygen
CPT/HCPCS: 36410; 36415; 80053; 87040; 93005; 99285; 71046; 80158; 81003; 82565; 83880; 84156; 84484; 85025; 87086; 93010

== ENCOUNTER 2018-12-07 08:33 | Emergency (ER) | payer MEDICARE, SELFPAY ==
[2018-12-07 08:42] VITALS: BP 147/81; PULSE 83; RESP 13
[2018-12-07 08:43] VITALS: PULSE 84; RESP 12
[2018-12-07 08:45] VITALS: BP 147/81; PULSE 82; RESP 18; TEMP 36.6; O2SAT 95
--- NOTE | 2018-12-07 08:47 | W.ED.GENAD ---
Discharge Plan Disposition Patient Disposition: HOME Condition: Stable Discharge Details Chief Complaint: Urinary Clinical Impression: Drug side effects Primary Care Provider: Kesha Serrano ED Provider: Esther Sanz Home Meds and New Rx's Prescriptions: Continued magnesium gluconate 27 mg magnesium (500 mg) tablet 500 mg PO BID@0600,1800 Qty: 60 RF: 0 cholecalciferol (vitamin D3) [Vitamin D3] 2,000 unit capsule 2,000 unit PO DAILY RF: 0 lidocaine 5 % adhesive patch,medicated 1 patch TP DAILY Qty: 30 RF: 1 morphine 10 mg/5 mL solution 2 mg PO Q1H PRN MDD 24mg Qty: 500 RF: 0 Xiidra 5 % dropperette 1 drp OP BID Qty: 5 RF: 0 metolazone 2.5 mg tablet 2.5 mg PO ONCE MDD 2.5 mg PRN (Reason: CHF) Qty: 10 RF: 0 magnesium oxide 400 mg capsule 400 mg PO DAILY Qty: 90 RF: 3 ipratropium-albuterol 0.5 mg-3 mg(2.5 mg base)/3 mL solution for nebulization 3 ml IH Q8H Qty: 90 RF: 0 Combivent Respimat 20-100 mcg/actuation mist 1 puff IH Q6H Qty: 4 RF: 0 Nebulizer tubing Qty: 1 RF: 0 ascorbic acid (vitamin C) 1,000 MG tablet 1,000 mg PO DAILY RF: 0 docusate sodium [Colace] 100 MG capsule 100 mg PO BID RF: 0 prednisone 5 MG tablet 5 mg PO DAILY Qty: 90 RF: 1 nitroglycerin [Nitrostat] 0.4 MG tablet, sublingual 0.4 mg Sublingual PRN Qty: 25 RF: 5 polyethylene glycol 3350(bulk) 12,000 GM powder 17 gm PO DAILY PRNQty: 1 RF: 3 omega-3 fatty acids-fish oil 1 EACH capsule 1 ea PO DAILY RF: 0 fluticasone propionate 16 GM spray,suspension 1 spray NS BID Qty: 3 RF: 3 Oxygen EACH NS DAILY Qty: 2 RF: 1 aspirin 81 MG tablet,chewable 81 mg PO DAILY Qty: 100 RF: 3 benzonatate [Tessalon Perles] 100 MG capsule 100 mg PO TID Qty: 90 RF: 0 albuterol sulfate [ProAir HFA] 8.5 GM HFA aerosol inhaler 2 puff Inhalation Q4H PRN Qty: 1 RF: 11 oxygen conserver See Rx Instructions .ROUTE .COMPLEX Qty: 1 RF: 0 allopurinol 100 mg tablet 100 mg PO BID RF: 0 cyclosporine 25 mg capsule 75 mg PO BID Qty: 540 RF: 0 carvedilol [Coreg] 25 mg tablet 50 mg PO BID Qty: 360 RF: 3 cimetidine 300 mg tablet 300 mg PO Q12H RF: 0 atorvastatin [Lipitor] 10 mg tablet 5 mg PO DAILY Qty: 45 RF: 2 clindamycin HCl 300 mg capsule 300 mg PO Q8H MDD 450 x 3 Qty: 21 RF: 1 clindamycin HCl 150 mg capsule 150 mg PO TID MDD 450 TID Qty: 21 RF: 1 metronidazole 500 mg tablet 500 mg PO BID MDD 65619 Qty: 14 RF: 1 chlorhexidine gluconate 0.12 % mouthwash 15 ml BC BID Qty: 600 RF: 1 furosemide 40 mg tablet 80 mg PO BID Qty: 120 RF: 3 nystatin 100,000 unit/gram powder 1 applic TP BID PRN (Reason: redness ) Qty: 30 RF: 2 methadone 5 mg tablet 5 mg PO TID MDD 15 Qty: 90 RF: 0 sennosides-docusate sodium [MATHIEU-COLACE] 1 TAB tablet 2 tab PO BID Qty: 120 RF: 0 Discharge Instructions Additional Instructions: Continue to encourage hydration. Metallic taste in her mouth is likely associated with your clindamycin. We discussed this further with her primary care on Sunday entrapment appointment. If you develop new or worsening symptoms please seek care urgently once again. Please continue with plan previously outlined by her primary care as well as plan outlined by Dr. Mathis Referrals: Kesha Serrano DO [Primary Care Provider] - Discharge Data Discharge Date/Time-TO BE ENTERED AT DEPARTURE: 12/07/18 11:00 Medical Decision Making Patient is an 78-year-old female, brought in by her caregiver, with chief complaint of diminished urinary output. She was seen here yesterday for shortness of breath and cough. Was discharged home after thorough evaluation. Patient reports that the swelling she was here for yesterday in her legs has improved. She is not endorsing cough, chest pain or shortness of breath at this time. Patient is chronically on 2 L of oxygen. She presents today for evaluation of diminished urinary output that began last night. States that typically she wakes up every 2 hours to urinate and did not do so. Is concerned she may have developed urinary retention. Patient has had issues with this in the past. Is unclear if she has required catheter. She denies any previous pain with urination. Patient is Status post kidney transplant. Urinalysis completed yesterday was without findings to suggest urinary tract infection On exam, patient appears nontoxic, is using baseline O2. O2 95% on 2L NC. Hypertensive at 147/81, this is baseline for the patient. She has a rounded abdomen but this is reported to be baseline with no discomfort elicited with palpation. Bilateral pedal edema noted, no posterior calf tenderness. They report improved from yesterday. As patient was concerned for her kidney function with her diminished urination, repeated labs which are all reassuring. Discussed her potassium being 3.3, she reports taking vitamin with potassium. Will discuss this further with PCP. Advised metalic taste may be from Clindamycin. Encouraged hydration. UA repeated today without findings to suggest UTI. Patient voided 300cc, 30cc post void. She reports not feeling that she urinated as much as she did which may account for her issues overnight. She is not incontinent, no evidence of neurologic dysfunction. She has appointment with PCP on Sunday. Patient feels that she can go home at this time. All of her questions and concerns were addressed, she is in agreement with this plan. HPI General Mode of arrival: wheelchair. Date/Time Provider Initiated Documentation: 12/07/18 08:39. Limitations to Documentation: no limitations. Information obtained by: patient, family (accompanied by healthcare administration internship) and RN notes reviewed. History of Present Illness 78 year old F presents to the emergency department with the chief complaint of diminished urinary output, and is localized to the abdomen (feels that she has distention of abdomen, no pain). Patient started experiencing this hour(s) and it has been constant. No relieving factors improve symptom(s), No exacerbating factors reported . Patient notes cough (chronic, unchanged) and shortness of breath (chronic, unchanged); denies chest pain, fever/chills, loss of appetite, nausea/vomiting and rash. Patient did receive the following treatments prior to arrival, none Related Data Home Medications Medication Instructions Recorded Confirmed ascorbic acid (vitamin C) 1,000 mg PO DAILY 09/18/12 12/06/18 docusate sodium [Colace] 100 mg PO BID tab-cap 09/18/12 12/06/18 sennosides-docusate sodium 2 tab PO BID #120 tab 12/05/13 12/06/18 [MATHIEU-COLACE] prednisone 5 mg PO DAILY #90 tab 01/17/16 12/06/18 nitroglycerin [Nitrostat] 0.4 mg SUBLINGUAL PRN #25 tab 10/16/16 12/06/18 polyethylene glycol 3350(bulk) 17 gm PO DAILY PRN #1 canister 01/08/17 12/06/18 fluticasone propionate 1 spray NS BID #3 units 06/04/17 12/06/18 omega-3 fatty acids-fish oil 1 ea PO DAILY cap 06/04/17 12/06/18 aspirin 81 mg PO DAILY #100 tab 01/14/18 12/06/18 benzonatate [Tessalon Perles] 100 mg PO TID #90 tab-cap 02/04/18 12/06/18 albuterol sulfate [ProAir HFA] 2 puff INHALATION Q4H PRN #1 02/14/18 12/06/18 inhaler lifitegrast 5 % eye drops in a 1 drp OP BID #5 each 03/13/18 12/06/18 dropperette metolazone 2.5 mg tablet 2.5 mg PO ONCE PRN #10 tab MDD 2.5 04/10/18 12/06/18 mg oxygen conserver See Rx Instructions .ROUTE 04/19/18 08/01/18 .COMPLEX #1 allopurinol 100 mg tablet 100 mg PO BID 04/30/18 12/06/18 cyclosporine 25 mg capsule 75 mg PO BID #540 cap 06/28/18 12/06/18 cholecalciferol (vitamin D3) 2,000 2,000 unit PO DAILY 07/23/18 12/06/18 unit capsule lidocaine 5 % topical patch 1 patch TP DAILY #30 each 07/23/18 12/06/18 magnesium gluconate 27 mg 500 mg PO BID@0600,1800 #60 tab 07/23/18 12/06/18 magnesium (500 mg) tablet magnesium oxide 400 mg capsule 400 mg PO DAILY #90 tab-cap 08/01/18 12/06/18 carvedilol 25 mg tablet 50 mg PO BID #360 tab 08/19/18 12/06/18 cimetidine 300 mg tablet 300 mg PO Q12H tab 09/06/18 12/06/18 atorvastatin 10 mg tablet 5 mg PO DAILY #45 tab 10/14/18 12/06/18 morphine 10 mg/5 mL oral solution 2 mg PO Q1H PRN #500 ml MDD 24mg 10/18/18 12/06/18 ipratropium 20 mcg-albuterol 100 1 puff IH Q6H #4 gm 11/16/18 12/06/18 mcg/actuation mist for inhalation ipratropium-albuterol 0.5 mg-3 3 ml IH Q8H #90 ml 11/16/18 12/06/18 mg(2.5 mg base)/3 mL nebulization soln Nebulizer tubing #1 ea 11/21/18 11/21/18 chlorhexidine gluconate 0.12 % 15 ml BC BID #600 ml 11/29/18 12/06/18 mouthwash clindamycin HCl 150 mg capsule 150 mg PO TID #21 cap MDD 450 TID 11/29/18 12/06/18 clindamycin HCl 300 mg capsule 300 mg PO Q8H #21 cap MDD 450 x 3 11/29/18 12/06/18 metronidazole 500 mg tablet 500 mg PO BID #14 tab MDD 28368 11/29/18 12/06/18 furosemide 40 mg tablet 80 mg PO BID #120 tab 12/02/18 12/06/18 nystatin 100,000 unit/gram topical 1 applic TP BID PRN #30 gm 12/02/18 12/06/18 powder methadone 5 mg tablet 5 mg PO TID #90 tab-cap MDD 15 12/05/18 12/06/18 Previous Rx's Medication Instructions Recorded sennosides-docusate sodium 2 tab PO BID #120 tab 12/05/13 [MATHIEU-COLACE] fluticasone propionate 1 spray NS BID #3 units 06/04/17 aspirin 81 mg PO DAILY #100 tab 01/14/18 benzonatate [Tessalon Perles] 100 mg PO TID #90 tab-cap 02/04/18 albuterol sulfate [ProAir HFA] 2 puff INHALATION Q4H PRN #1 02/14/18 inhaler lifitegrast 5 % eye drops in a 1 drp OP BID #5 each 03/13/18 dropperette metolazone 2.5 mg tablet 2.5 mg PO ONCE PRN #10 tab MDD 2.5 04/10/18 mg oxygen conserver See Rx Instructions .ROUTE 04/19/18 .COMPLEX #1 lidocaine 5 % topical patch 1 patch TP DAILY #30 each 07/23/18 magnesium gluconate 27 mg 500 mg PO BID@0600,1800 #60 tab 07/23/18 magnesium (500 mg) tablet magnesium oxide 400 mg capsule 400 mg PO DAILY #90 tab-cap 08/01/18 carvedilol 25 mg tablet 50 mg PO BID #360 tab 08/19/18 atorvastatin 10 mg tablet 5 mg PO DAILY #45 tab 10/14/18 morphine 10 mg/5 mL oral solution 2 mg PO Q1H PRN #500 ml MDD 24mg 10/18/18 ipratropium 20 mcg-albuterol 100 1 puff IH Q6H #4 gm 11/16/18 mcg/actuation mist for inhalation ipratropium-albuterol 0.5 mg-3 3 ml IH Q8H #90 ml 11/16/18 mg(2.5 mg base)/3 mL nebulization soln Nebulizer tubing #1 ea 11/21/18 chlorhexidine gluconate 0.12 % 15 ml BC BID #600 ml 11/29/18 mouthwash clindamycin HCl 150 mg capsule 150 mg PO TID #21 cap MDD 450 TID 11/29/18 clindamycin HCl 300 mg capsule 300 mg PO Q8H #21 cap MDD 450 x 3 11/29/18 metronidazole 500 mg tablet 500 mg PO BID #14 tab MDD 13825 11/29/18 furosemide 40 mg tablet 80 mg PO BID #120 tab 12/02/18 nystatin 100,000 unit/gram topical 1 applic TP BID PRN #30 gm 12/02/18 powder methadone 5 mg tablet 5 mg PO TID #90 tab-cap MDD 15 12/05/18 Allergies Allergy/AdvReac Type Severity Reaction Status Date / Time thiopental sodium Allergy Intermediate Wheezing Verified 08/01/18 14:32 [From Pentothal] Penicillins Allergy Unknown ITCHING Verified 08/01/18 14:32 diclofenac gel AdvReac Intermediate nausea, Uncoded 05/27/18 01:38 sweats, insomnia General JON: 3 Review of Systems Constitutional Reports as per HPI, Denies chills, Denies fever(s) and Denies poor appetite Cardiovascular Reports as per HPI, Denies chest pain, Denies palpitations, Reports dyspnea and Reports dyspnea on exertion Respiratory Reports as per HPI, Reports cough, Denies hemoptysis, Reports dyspnea, Reports dyspnea on exertion and Denies wheezing Gastrointestinal Denies abdominal pain, Denies change in bowel habits, Denies nausea and Denies vomiting Genitourinary Reports as per HPI, Denies abnormal vaginal bleeding, Denies dysuria, Denies flank pain, Denies urinary incontinence and Denies urinary urgency Musculoskeletal Reports as per HPI and Denies back pain Integumentary/Breasts Reports as per HPI and Denies rash Endocrine Denies palpitations Allergic/Immunologic Denies wheezing [facility] Medical History Palliative care patient (Acute 06/04/17) Gastroesophageal reflux disease (Chronic) Hypertension (Chronic) Urinary incontinence (Chronic) Dysuria (Chronic) Spinal stenosis (Chronic) Low back pain (Chronic) Edema, lower extremity (Chronic) Osteoarthritis of hip (Chronic) Weakness generalized (Chronic) Vaginitis, atrophic (Chronic) Bacterial urinary infection (Chronic) Hypercholesterolemia (Chronic) Kyphoscoliosis (Chronic) Prolapse of mitral valve (Chronic) Tachycardia (Chronic) Reactive airway disease (Chronic) Rhinitis, allergic (Chronic) Bowel obstruction (Suspected 08/08/14) Polycystic kidney (Chronic) Abdominal pain (Acute) Diarrhea (Acute) Chronic pain (Acute) CHF (congestive heart failure) (Chronic) Chronic renal failure, stage 3 (moderate) (Chronic) Surgical History History of Surgical Procedure (Chronic) Living-donor kidney transplant recipient (Chronic) History of hysterectomy (Resolved) History of incisional hernia repair (Resolved) Extraction of cataract (12/14/15) Social History Smoking/Tobacco Use Status: Never Alcohol Intake: never Drug use: Never Adopted: No Caregiver/Support person: Yes Household members: none Housing: house Number of Children: 1 Pets and animals: No What is your relationship status?: How often do you talk on the phone with friends or family?: three or more times per week How often do you get together with friends or relatives?: three or more times per week How often do you attend advent or baptist services?: 4 or more times per year Panel score (0-1 are the most socially isolated patients): 2 What type of physical activity do you participate in: assisted ambulation Maureen/Lutheran: Taoist Special maureen needs: No Agree to transfusion: Yes Seatbelt use: always Do you feel safe at home: Yes Do you feel safe in your relationship?: Yes History History 4 Para 4 Hx # Term Pregnancies 4 Multiple births Hx # Pregnancies Ectopic pregnancies AB induced Hx Number of Living Children 4 AB spontaneous Exam Const General: cooperative, healthy appearing, comfortable, no acute distress, well developed and well groomed Nutritional Appearance: average body habitus and well nourished Orientation: alert and awake Resp Effort & Inspection: normal respiratory effort and no respiratory distress Auscultation: clear to auscultation bilaterally, no rales, no rhonchi and no wheezes Cardio Rate: regular rate Rhythm: regular rhythm Heart Sounds: S1 normal and S2 normal GI Inspection: normal to inspection and scar (midline incisional scar, healed well) Palpation: soft, no hepatosplenomegaly, not firm, no guarding, not rigid and nontender Percussion: normal to percussion Auscultation: normal bowel sounds Back/Spine/Pelvis Back: no CVA tenderness Skin General skin exam: no rashes or lesions noted Trauma: no lacerations or abrasions Neuro General: alert and awake Cognition: normal cognition Speech: speech normal Gait: normal gait Extrem General: no calf tenderness, normal gait (ambulating at baseline per patient and caregiver) and edema Laterality: bilateral Psych Appearance: grossly normal and well kempt Mental Status: mental status grossly normal Speech and Movement: speech and movement normal
[2018-12-07 08:50] VITALS: PULSE 83; RESP 21; O2SAT 96
--- NOTE | 2018-12-07 08:53 | NUR.NOTE ---
PT PER TRIAGE PRACTIONER AT BEDSIDE FOR EVAL Nursing Note:
[2018-12-07 09:00] VITALS: PULSE 82; RESP 20
[2018-12-07 09:49] LABS: Abs Immature Grans 0.05 k/cumm (0.0-0.09); Absolute Basophil Count 0.03 k/cumm (0.0-0.2); Absolute Eosinophil Count 0.48 k/cumm (0.0-0.7); Absolute Lymphocyte Count 0.56 k/cumm (1.2-3.4); Absolute Neutrophil Count 4.55 k/cumm (1.2-6.7); Basophils % 0.5; Eosinophils % 7.8; HCT 39.9 % (36.0-46.0); HGB 11.9 g/dL (12.0-15.5); Immature Grans % 0.8; Lymphocytes % 9.1; Mean Corp. HGB Concentration 29.8 g/dL (32.0-36.0); Mean Corpuscular Hemoglobin 28.1 pg (27.0-33.0); Mean Corpuscular Volume 94.3 fL (80-95); Mean Platelet Volume 11.3 fL (8.0-11.0); Monocytes % 8.1; Neutrophils % 73.7; RBC 4.23 m/cumm (4.00-5.20); RBC Distribution Width 14.3 % (11.7-14.6); White Blood Cell Count 6.17 k/cumm (4.4-10.8)
[2018-12-07 10:03] LABS: ALT 8 U/L (12-78); AST 12 U/L (15-37); Alkaline Phosphatase 79 U/L (46-116); Anion Gap 9.8 mmol/L (3-11); BUN 44 mg/dL (7-18); Bilirubin, Total 0.6 mg/dL (0.2-1.0); CO2 31.2 mmol/L (21.0-32.0); CREATININE 1.89 mg/dL (0.55-1.02); Chloride 93 mmol/L (98-107); Estimated GFR 25.59 (mL/min/1.73m2); Glucose 124 mg/dL (70-100); Potassium 3.3 mmol/L (3.5-5.1); Sodium 134 mmol/L (136-145); Total Protein 6.7 g/dL (6.4-8.2)
--- NOTE | 2018-12-07 10:28 | NUR.NOTE ---
Nursing Note: pt urinates 300 ML pt was convinced that she had not urinated until she was shown her urine
[2018-12-07 10:31] LABS: Bilirubin Negative (Negative); Blood Negative (Negative); Clarity Clear; Glucose Negative (Negative); Ketones Negative (Negative); Leukocyte Esterase Negative (Negative); Nitrite Negative (Negative); Urobilinogen 0.2 EU/dL (Up TO 0.2)
[2018-12-07 10:31] LABS: Platelet Count 146 x1000/uL (130-400)
[2018-12-07 10:32] LABS: Diff Comment PLT Morph Reviewed
[2018-12-07 10:35] LABS: Anisocytosis 1+; Hypochromasia 2+
[2018-12-07 10:36] LABS: Poikilocytes 1+
[2018-12-07 10:54] VITALS: BP 141/92; PULSE 82; RESP 20; TEMP 36.6; O2SAT 96
--- NOTE | 2018-12-09 15:33 | PDOC.ERCMPRO ---
- If Service Date Differs Date of service: 12/09/18 Time of Service: 15:33
== END 2018-12-07 11:00 | disposition home or self-care (01) ==
PROVIDERS: Emergency Provider Physician Assistant; PCP Student in an Organized Health Care Education/Training Program
DX: R33.9 Retention of urine, unspecified (principal); R60.0 Localized edema; R43.8 Other disturbances of smell and taste; I10 Essential (primary) hypertension; T36.8X5A Adverse effect of other systemic antibiotics, initial encounter; Z99.81 Dependence on supplemental oxygen; Z94.0 Kidney transplant status
CPT/HCPCS: 36415; 80053; 99283; 81003; 85025

== ENCOUNTER 2018-12-09 18:31 | Outpatient (REF) | payer MEDICARE, SELFPAY ==
[2018-12-09 11:40] LABS: Anion Gap 8.7 mmol/L (3-11); BUN 43 mg/dL (7-18); CO2 34.3 mmol/L (21.0-32.0); CREATININE 1.91 mg/dL (0.55-1.02); Calcium 9.6 mg/dL (8.5-10.1); Chloride 88 mmol/L (98-107); Estimated GFR 25.28 (mL/min/1.73m2); Glucose 103 mg/dL (70-100); Potassium 4.2 mmol/L (3.5-5.1); Sodium 131 mmol/L (136-145)
== END 2018-12-09 18:51 ==
LOC: LBN 18:31
PROVIDERS: PCP Student in an Organized Health Care Education/Training Program; Visit Provider Internal Medicine Nephrology
DX: T50.2X5A Adverse effect of carbonic-anhydrase inhibitors, benzothiadiazides and other diuretics, initial encounter (principal); I50.9 Heart failure, unspecified; Z94.0 Kidney transplant status
CPT/HCPCS: 80048

== ENCOUNTER 2018-12-31 12:49 | Outpatient (REF) | payer MEDICARE, SELFPAY ==
[2018-12-31 17:48] LABS: PROTEIN 15.4 mg/dL
[2018-12-31 18:24] LABS: COMMENT (LAB VIEW ONLY) < 13.00 mg/dL
== END 2018-12-31 13:09 ==
LOC: LBN 12:49
PROVIDERS: PCP Student in an Organized Health Care Education/Training Program; Visit Provider Internal Medicine Nephrology
DX: N18.3 Chronic kidney disease, stage 3 (moderate) (principal); Z94.0 Kidney transplant status
CPT/HCPCS: 80048; 82565; 84156

== ENCOUNTER 2019-01-02 20:01 | Outpatient (REF) | payer MEDICARE, SELFPAY ==
[2019-01-02 13:02] LABS: Anion Gap 10.4 mmol/L (3-11); BUN 62 mg/dL (7-18); CO2 30.6 mmol/L (21.0-32.0); CREATININE 1.71 mg/dL (0.55-1.02); Calcium 9.7 mg/dL (8.5-10.1); Chloride 98 mmol/L (98-107); Estimated GFR 28.72 (mL/min/1.73m2); Glucose 112 mg/dL (70-100); Potassium 3.8 mmol/L (3.5-5.1); Sodium 139 mmol/L (136-145)
== END 2019-01-02 20:21 ==
LOC: LBN 20:01
PROVIDERS: PCP Student in an Organized Health Care Education/Training Program; Visit Provider Student in an Organized Health Care Education/Training Program
DX: R79.89 Other specified abnormal findings of blood chemistry (principal); I50.9 Heart failure, unspecified; N18.3 Chronic kidney disease, stage 3 (moderate)
CPT/HCPCS: 80048; 80158; 85025

== ENCOUNTER 2019-01-06 09:57 | Outpatient (REF) | payer MEDICARE, SELFPAY ==
[2019-01-08 14:44] LABS: Cyclosporine (DHMC) 88 ng/ml
== END 2019-01-06 10:17 ==
LOC: LBN 09:57
PROVIDERS: PCP Student in an Organized Health Care Education/Training Program; Visit Provider Internal Medicine Nephrology
DX: Z94.0 Kidney transplant status (principal); N18.9 Chronic kidney disease, unspecified; Z51.81 Encounter for therapeutic drug level monitoring
CPT/HCPCS: 80158

== ENCOUNTER 2019-01-21 11:49 | Outpatient (REF) | payer MEDICARE, SELFPAY ==
[2019-01-21 13:34] LABS: Anion Gap 6.1 mmol/L (3-11); BUN 42 mg/dL (7-18); CO2 36.9 mmol/L (21.0-32.0); CREATININE 1.27 mg/dL (0.55-1.02); Calcium 9.9 mg/dL (8.5-10.1); Chloride 99 mmol/L (98-107); Estimated GFR 40.49 (mL/min/1.73m2); Glucose 101 mg/dL (70-100); Potassium 3.6 mmol/L (3.5-5.1); Sodium 142 mmol/L (136-145)
[2019-01-21 13:40] LABS: Abs Immature Grans 0.02 k/cumm (0.0-0.09); Absolute Basophil Count 0.02 k/cumm (0.0-0.2); Absolute Eosinophil Count 0.31 k/cumm (0.0-0.7); Absolute Lymphocyte Count 0.56 k/cumm (1.2-3.4); Absolute Monocyte Count 0.71 k/cumm (0.11-0.7); Basophils % 0.3; Eosinophils % 4.9; HCT 39.5 % (36.0-46.0); HGB 11.6 g/dL (12.0-15.5); Immature Grans % 0.3; Lymphocytes % 8.9; Mean Corp. HGB Concentration 29.4 g/dL (32.0-36.0); Mean Corpuscular Hemoglobin 28.2 pg (27.0-33.0); Mean Corpuscular Volume 96.1 fL (80-95); Mean Platelet Volume 10.2 fL (8.0-11.0); Monocytes % 11.2; Neutrophils % 74.4; Platelet Count 197 x1000/uL (130-400); RBC 4.11 m/cumm (4.00-5.20); RBC Distribution Width 14.5 % (11.7-14.6); White Blood Cell Count 6.32 k/cumm (4.4-10.8)
[2019-01-21 13:42] LABS: PROTEIN 14.3 mg/dL
[2019-01-21 13:47] LABS: COMMENT (LAB VIEW ONLY) 10.36 mg/dL; Prot/Crea Ur Ratio 1.38
[2019-01-22 14:09] LABS: Cyclosporine 76 ng/ml
== END 2019-01-21 12:09 ==
LOC: LBN 11:49
PROVIDERS: PCP Student in an Organized Health Care Education/Training Program; Visit Provider Internal Medicine Nephrology
DX: N18.3 Chronic kidney disease, stage 3 (moderate) (principal); Z94.0 Kidney transplant status; Z79.2 Long term (current) use of antibiotics
CPT/HCPCS: 80048; 80158; 82565; 84156; 85025

== ENCOUNTER 2019-02-04 14:14 | Outpatient (REF) | payer MEDICARE, SELFPAY ==
[2019-02-04 14:30] LABS: Anion Gap 8.7 mmol/L (3-11); BUN 51 mg/dL (7-18); CO2 35.3 mmol/L (21.0-32.0); CREATININE 2.16 mg/dL (0.55-1.02); Calcium 10.1 mg/dL (8.5-10.1); Chloride 97 mmol/L (98-107); Estimated GFR 21.94 (mL/min/1.73m2); Glucose 133 mg/dL (70-100); Potassium 3.6 mmol/L (3.5-5.1); Sodium 141 mmol/L (136-145)
[2019-02-04 14:54] LABS: Abs Immature Grans 0.01 k/cumm (0.0-0.09); Absolute Basophil Count 0.03 k/cumm (0.0-0.2); Absolute Eosinophil Count 0.41 k/cumm (0.0-0.7); Absolute Lymphocyte Count 0.87 k/cumm (1.2-3.4); Absolute Monocyte Count 0.83 k/cumm (0.11-0.7); Absolute Neutrophil Count 4.62 k/cumm (1.2-6.7); Basophils % 0.4; Eosinophils % 6.1; HCT 44.7 % (36.0-46.0); Immature Grans % 0.1; Lymphocytes % 12.9; Mean Corp. HGB Concentration 29.1 g/dL (32.0-36.0); Mean Corpuscular Hemoglobin 28.2 pg (27.0-33.0); Mean Platelet Volume 10.7 fL (8.0-11.0); Monocytes % 12.3; Neutrophils % 68.2; Platelet Count 218 x1000/uL (130-400); RBC 4.61 m/cumm (4.00-5.20); RBC Distribution Width 14.9 % (11.7-14.6); White Blood Cell Count 6.77 k/cumm (4.4-10.8)
[2019-02-04 14:57] LABS: COMMENT (LAB VIEW ONLY) 47.58 mg/dL; PROTEIN 23.9 mg/dL
[2019-02-05 13:32] LABS: Cyclosporine 94 ng/ml
== END 2019-02-04 14:34 ==
LOC: LBN 14:14
PROVIDERS: PCP Student in an Organized Health Care Education/Training Program; Visit Provider Internal Medicine Nephrology
DX: Z94.0 Kidney transplant status (principal); I50.9 Heart failure, unspecified
CPT/HCPCS: 80048; 80158; 82565; 84156; 85025

== ENCOUNTER 2019-02-18 11:36 | Outpatient (REF) | payer MEDICARE, SELFPAY ==
[2019-02-18 12:48] LABS: Abs Immature Grans 0.01 k/cumm (0.0-0.09); Absolute Basophil Count 0.05 k/cumm (0.0-0.2); Absolute Eosinophil Count 0.37 k/cumm (0.0-0.7); Absolute Lymphocyte Count 0.99 k/cumm (1.2-3.4); Absolute Monocyte Count 0.74 k/cumm (0.11-0.7); Absolute Neutrophil Count 4.32 k/cumm (1.2-6.7); Basophils % 0.8; Eosinophils % 5.7; HCT 43.4 % (36.0-46.0); Immature Grans % 0.2; Lymphocytes % 15.3; Mean Corpuscular Hemoglobin 28.6 pg (27.0-33.0); Mean Corpuscular Volume 95.4 fL (80-95); Mean Platelet Volume 10.9 fL (8.0-11.0); Monocytes % 11.4; Neutrophils % 66.6; Platelet Count 222 x1000/uL (130-400); RBC 4.55 m/cumm (4.00-5.20); RBC Distribution Width 14.6 % (11.7-14.6); White Blood Cell Count 6.48 k/cumm (4.4-10.8)
[2019-02-18 12:59] LABS: PROTEIN 26.6 mg/dL; Prot/Crea Ur Ratio 1.42
[2019-02-18 13:36] LABS: BUN 38 mg/dL (7-18); CREATININE 1.86 mg/dL (0.55-1.02); Chloride 98 mmol/L (98-107); Estimated GFR 26.07 (mL/min/1.73m2); Glucose 138 mg/dL (70-100); Potassium 3.8 mmol/L (3.5-5.1); Sodium 141 mmol/L (136-145)
[2019-02-18 14:00] LABS: Bilirubin Negative (Negative); Blood Trace-lysed (Negative); Clarity Clear (Clear); Glucose Negative (Negative); Ketones Negative (Negative); Leukocyte Esterase Small (Negative); Nitrite Negative (Negative); Urobilinogen 0.2 EU/dL (Up TO 0.2); pH 6.5 (5-8)
[2019-02-18 14:36] LABS: Bacteria Moderate HPF (Negative); C & S Indicated? C&S Done As Ordered; Casts 5-10 Hyaline LPF (Negative); Crystals Negative HPF (Negative); Epithelial Cells Rare HPF (Negative); Mucus Negative (Negative); WBC 20-50 HPF (0-5)
[2019-02-19 14:48] LABS: Cyclosporine 110 ng/ml
== END 2019-02-18 11:56 ==
LOC: LBN 11:36
PROVIDERS: Nurse Practitioner; PCP Student in an Organized Health Care Education/Training Program; Visit Provider Student in an Organized Health Care Education/Training Program
DX: R32 Unspecified urinary incontinence (principal); Z94.0 Kidney transplant status; N39.0 Urinary tract infection, site not specified
CPT/HCPCS: 80048; 87077; 80158; 81003; 81015; 82565; 84156; 85025; 87086; 87186

== ENCOUNTER 2019-02-21 22:58 | Emergency (ER) | payer MEDICARE, SELFPAY ==
[2019-02-21 23:05] VITALS: BP 170/94; PULSE 90; RESP 20; TEMP 36.5; O2SAT 96
--- NOTE | 2019-02-21 23:11 | W.ED.GENAD ---
Discharge Plan Disposition Patient Disposition: HOME Condition: Stable Discharge Details Chief Complaint: Urinary Clinical Impression: Dysuria Primary Care Provider: Kesha Serrano ED Provider: Ponce Spencer Home Meds and New Rx's Prescriptions: New nitrofurantoin monohyd/m-cryst [Macrobid] 100 mg capsule 100 mg PO BID Qty: 10 RF: 0 phenazopyridine [Pyridium] 200 mg tablet 200 mg PO TID PRN (Reason: pain) Qty: 10 RF: 0 Continued magnesium gluconate 27 mg magnesium (500 mg) tablet 500 mg PO BID@0600,1800 Qty: 60 RF: 0 cholecalciferol (vitamin D3) [Vitamin D3] 2,000 unit capsule 2,000 unit PO DAILY RF: 0 lidocaine 5 % adhesive patch,medicated 1 patch TP DAILY Qty: 30 RF: 1 nitroglycerin [Nitrostat] 0.4 mg tablet, sublingual 0.4 mg Sublingual PRN Qty: 25 RF: 1 Xiidra 5 % dropperette 1 drp OP BID Qty: 5 RF: 0 metolazone 2.5 mg tablet 2.5 mg PO ONCE MDD 2.5 mg PRN (Reason: CHF) Qty: 10 RF: 0 magnesium oxide 400 mg capsule 400 mg PO DAILY Qty: 90 RF: 3 Combivent Respimat 20-100 mcg/actuation mist 1 puff IH Q6H Qty: 4 RF: 0 (DME) Nebulizer tubing Qty: 1 RF: 0 ascorbic acid (vitamin C) 1,000 MG tablet 1,000 mg PO DAILY RF: 0 docusate sodium [Colace] 100 MG capsule 100 mg PO BID RF: 0 prednisone 5 MG tablet 5 mg PO DAILY Qty: 90 RF: 1 polyethylene glycol 3350(bulk) 12,000 GM powder 17 gm PO DAILY PRNQty: 1 RF: 3 omega-3 fatty acids-fish oil 1 EACH capsule 1 ea PO DAILY RF: 0 fluticasone propionate 16 GM spray,suspension 1 spray NS BID Qty: 3 RF: 3 Oxygen EACH NS DAILY Qty: 2 RF: 1 aspirin 81 MG tablet,chewable 81 mg PO DAILY Qty: 100 RF: 3 albuterol sulfate [ProAir HFA] 8.5 GM HFA aerosol inhaler 2 puff Inhalation Q4H PRN Qty: 1 RF: 11 oxygen conserver See Rx Instructions .ROUTE .COMPLEX Qty: 1 RF: 0 allopurinol 100 mg tablet 100 mg PO BID RF: 0 cyclosporine 25 mg capsule 75 mg PO BID Qty: 540 RF: 0 carvedilol [Coreg] 25 mg tablet 50 mg PO BID Qty: 360 RF: 3 cimetidine 300 mg tablet 300 mg PO Q12H RF: 0 atorvastatin [Lipitor] 10 mg tablet 5 mg PO DAILY Qty: 45 RF: 2 metronidazole 500 mg tablet 500 mg PO BID MDD 43219 Qty: 14 RF: 1 furosemide 40 mg tablet 80 mg PO BID Qty: 120 RF: 3 nystatin 100,000 unit/gram powder 1 applic TP BID PRN (Reason: redness ) Qty: 30 RF: 2 ipratropium-albuterol 0.5 mg-3 mg(2.5 mg base)/3 mL solution for nebulization 3 ml IH Q8H Qty: 90 RF: 5 benzonatate [Tessalon Perles] 100 mg capsule 100 mg PO TID Qty: 90 RF: 2 morphine 10 mg/5 mL solution 2 mg PO Q1H PRN MDD 24mg Qty: 500 RF: 0 chlorhexidine gluconate 0.12 % mouthwash 15 ml BC BID Qty: 600 RF: 1 cyclobenzaprine 5 mg tablet 5 mg PO QHS MDD 2 PRN (Reason: muscle spasm) Qty: 30 RF: 1 methadone 5 mg tablet 5 mg PO TID MDD 15 Qty: 90 RF: 0 clindamycin HCl 300 mg capsule 300 mg PO Q8H MDD 450 x 3 Qty: 21 RF: 1 sennosides-docusate sodium [MATHIEU-COLACE] 1 TAB tablet 2 tab PO BID Qty: 120 RF: 0 Discharge Instructions Instructions: Dysuria (ED) Additional Instructions: follow up with your primary care provider within 1 week if you develop high fevers severe abdominal pain or back pain return to the emergency department for evaluation Medical Decision Making 78 yo female with multiple medical problems who is homebound comes in with several days of urinary frequency, denies fevers, chills, severe back pain or abdominal pain. She states she couldn't handle the symptoms of the frequency anymore so came here tonight. She had a clean catch done 2 days ago that on culture is growing enterococcus faecalis with mixed gram positive robles and she admits she doesn't feel she did a great job giving a clean sample. She is in no distress on exam laughing intermittently, no cva tenderness or abdominal tenderness. Will have nursing obtain clean catch specimen and reassess. pt remains stable, ua and microscopic have less wbc and bacteria than one from 2 days ago. Given symptoms will start pyridium and macrobid while culture is pending. She is stable for d/c and will f/u with pcp and return if worsening Differential Diagnosis uti, cystitis, dysuria Lab Data Lab results reviewed: Yes I reviewed the patient's lab results. HPI General Mode of arrival: EMS. Date/Time Provider Initiated Documentation: 02/21/19 23:05. Limitations to Documentation: no limitations. Information obtained by: patient. History of Present Illness 78 year old F presents to the emergency department with the chief complaint of dysuria, described as moderate, and it has been constant. No relieving factors improve symptom(s), No exacerbating factors reported . Patient did receive the following treatments prior to arrival, none Related Data Home Medications Medication Instructions Recorded Confirmed ascorbic acid (vitamin C) 1,000 mg PO DAILY 09/18/12 12/10/18 docusate sodium [Colace] 100 mg PO BID tab-cap 09/18/12 12/10/18 sennosides-docusate sodium 2 tab PO BID #120 tab 12/05/13 12/10/18 [MATHIEU-COLACE] prednisone 5 mg PO DAILY #90 tab 01/17/16 12/10/18 polyethylene glycol 3350(bulk) 17 gm PO DAILY PRN #1 canister 01/08/17 12/10/18 fluticasone propionate 1 spray NS BID #3 units 06/04/17 12/10/18 omega-3 fatty acids-fish oil 1 ea PO DAILY cap 06/04/17 12/10/18 aspirin 81 mg PO DAILY #100 tab 01/14/18 12/10/18 albuterol sulfate [ProAir HFA] 2 puff INHALATION Q4H PRN #1 02/14/18 12/10/18 inhaler lifitegrast 5 % eye drops in a 1 drp OP BID #5 each 03/13/18 12/10/18 dropperette metolazone 2.5 mg tablet 2.5 mg PO ONCE PRN #10 tab MDD 2.5 10/17/18 06/18/19 mg oxygen conserver See Rx Instructions .ROUTE 04/19/18 12/10/18 .COMPLEX #1 allopurinol 100 mg tablet 100 mg PO BID 04/30/18 12/10/18 cyclosporine 25 mg capsule 75 mg PO BID #540 cap 06/28/18 12/10/18 cholecalciferol (vitamin D3) 2,000 2,000 unit PO DAILY 07/23/18 12/10/18 unit capsule lidocaine 5 % topical patch 1 patch TP DAILY #30 each 07/23/18 12/10/18 magnesium gluconate 27 mg 500 mg PO BID@0600,1800 #60 tab 07/23/18 12/10/18 magnesium (500 mg) tablet magnesium oxide 400 mg PO DAILY #90 tab-cap 08/01/18 12/10/18 carvedilol 25 mg tablet 50 mg PO BID #360 tab 08/19/18 12/10/18 cimetidine 300 mg tablet 300 mg PO Q12H tab 09/06/18 12/10/18 atorvastatin 10 mg tablet 5 mg PO DAILY #45 tab 10/14/18 12/10/18 ipratropium 20 mcg-albuterol 100 1 puff IH Q6H #4 gm 11/16/18 12/10/18 mcg/actuation mist for inhalation Nebulizer tubing #1 ea 11/21/18 12/10/18 metronidazole 500 mg tablet 500 mg PO BID #14 tab MDD 49582 11/29/18 12/10/18 furosemide 40 mg tablet 80 mg PO BID #120 tab 12/02/18 12/10/18 nystatin 100,000 unit/gram topical 1 applic TP BID PRN #30 gm 12/02/18 12/10/18 powder ipratropium-albuterol 0.5 mg-3 3 ml IH Q8H #90 ml 12/30/18 mg(2.5 mg base)/3 mL nebulization soln benzonatate 100 mg capsule 100 mg PO TID #90 tab-cap 01/02/19 morphine 10 mg/5 mL oral solution 2 mg PO Q1H PRN #500 ml MDD 24mg 01/14/19 nitroglycerin 0.4 mg sublingual 0.4 mg SUBLINGUAL PRN #25 tab 01/18/19 01/18/19 tablet chlorhexidine gluconate 0.12 % 15 ml BC BID #600 ml 01/30/19 mouthwash cyclobenzaprine 5 mg tablet 5 mg PO QHS PRN #30 tab MDD 2 01/31/19 methadone 5 mg tablet 5 mg PO TID #90 tab-cap MDD 15 01/31/19 clindamycin HCl 300 mg capsule 300 mg PO Q8H #21 cap MDD 450 x 3 02/03/19 nitrofurantoin monohyd/m-cryst 100 mg PO BID #10 cap 02/21/19 [Macrobid] phenazopyridine [Pyridium] 200 mg PO TID PRN #10 tab 02/21/19 Previous Rx's Medication Instructions Recorded sennosides-docusate sodium 2 tab PO BID #120 tab 12/05/13 [MATHIEU-COLACE] fluticasone propionate 1 spray NS BID #3 units 06/04/17 aspirin 81 mg PO DAILY #100 tab 01/14/18 albuterol sulfate [ProAir HFA] 2 puff INHALATION Q4H PRN #1 02/14/18 inhaler lifitegrast 5 % eye drops in a 1 drp OP BID #5 each 03/13/18 dropperette metolazone 2.5 mg tablet 2.5 mg PO ONCE PRN #10 tab MDD 2.5 04/10/18 mg oxygen conserver See Rx Instructions .ROUTE 04/19/18 .COMPLEX #1 lidocaine 5 % topical patch 1 patch TP DAILY #30 each 07/23/18 magnesium gluconate 27 mg 500 mg PO BID@0600,1800 #60 tab 07/23/18 magnesium (500 mg) tablet magnesium oxide 400 mg PO DAILY #90 tab-cap 08/01/18 carvedilol 25 mg tablet 50 mg PO BID #360 tab 08/19/18 atorvastatin 10 mg tablet 5 mg PO DAILY #45 tab 10/14/18 ipratropium 20 mcg-albuterol 100 1 puff IH Q6H #4 gm 11/16/18 mcg/actuation mist for inhalation Nebulizer tubing #1 ea 11/21/18 metronidazole 500 mg tablet 500 mg PO BID #14 tab MDD 18156 11/29/18 furosemide 40 mg tablet 80 mg PO BID #120 tab 12/02/18 nystatin 100,000 unit/gram topical 1 applic TP BID PRN #30 gm 12/02/18 powder ipratropium-albuterol 0.5 mg-3 3 ml IH Q8H #90 ml 12/30/18 mg(2.5 mg base)/3 mL nebulization soln benzonatate 100 mg capsule 100 mg PO TID #90 tab-cap 01/02/19 morphine 10 mg/5 mL oral solution 2 mg PO Q1H PRN #500 ml MDD 24mg 01/14/19 nitroglycerin 0.4 mg sublingual 0.4 mg SUBLINGUAL PRN #25 tab 01/18/19 tablet chlorhexidine gluconate 0.12 % 15 ml BC BID #600 ml 01/30/19 mouthwash cyclobenzaprine 5 mg tablet 5 mg PO QHS PRN #30 tab MDD 2 01/31/19 methadone 5 mg tablet 5 mg PO TID #90 tab-cap MDD 15 01/31/19 clindamycin HCl 300 mg capsule 300 mg PO Q8H #21 cap MDD 450 x 3 02/03/19 nitrofurantoin monohyd/m-cryst 100 mg PO BID #10 cap 02/21/19 [Macrobid] phenazopyridine [Pyridium] 200 mg PO TID PRN #10 tab 02/21/19 Allergies Allergy/AdvReac Type Severity Reaction Status Date / Time thiopental sodium Allergy Intermediate Wheezing Verified 02/21/19 23:15 [From Pentothal] Penicillins Allergy Unknown ITCHING Verified 02/21/19 23:15 diclofenac gel AdvReac Intermediate nausea, Uncoded 02/21/19 23:15 sweats, insomnia General JON: 3 Review of Systems Review of Systems All systems reviewed & are unremarkable except as noted in HPI and below Constitutional Denies chills and Denies fever(s) Cardiovascular Denies chest pain and Denies dyspnea Respiratory Denies cough and Denies dyspnea Gastrointestinal Denies abdominal pain, Denies nausea and Denies vomiting Musculoskeletal Denies joint swelling Integumentary/Breasts Denies rash Psychiatric Denies depression [facility] Social History Smoking/Tobacco Use Status: Never Alcohol Intake: never Drug use: Never Substance use type: does not use Adopted: No Caregiver/Support person: Yes Household members: none Housing: house Number of Children: 1 Pets and animals: No What is your relationship status?: How often do you talk on the phone with friends or family?: three or more times per week How often do you get together with friends or relatives?: three or more times per week How often do you attend methodist or congregation services?: 4 or more times per year Panel score (0-1 are the most socially isolated patients): 2 What type of physical activity do you participate in: assisted ambulation [place]/Samaritan: Episcopalian Special maureen needs: No Agree to transfusion: Yes Seatbelt use: always Do you feel safe at home: Yes Do you feel safe in your relationship?: Yes History History 4 Para 4 Hx # Term Pregnancies 4 Multiple births Hx # Pregnancies Ectopic pregnancies AB induced Hx Number of Living Children 4 AB spontaneous Exam Const General: no acute distress Orientation: alert HENMT Head: normal to inspection Ears: external ears normal General nose exam: external nose normal Mouth: moist mucous membranes Eyes General: appearance normal, both eyes and all related structures Neck Neck: normal visual inspection Resp Effort & Inspection: normal respiratory effort Cardio Rate: regular rate Skin General skin exam: no rashes or lesions noted Neuro General: alert and oriented x3 Extrem General: normal to inspection Psych Mental Status: mental status grossly normal
[2019-02-21 23:33] LABS: Bilirubin Negative (Negative); Blood Trace-intact (Negative); Clarity Clear (Clear); Glucose Negative (Negative); Ketones Negative (Negative); Leukocyte Esterase Trace (Negative); Nitrite Negative (Negative); Urobilinogen 0.2 EU/dL (Up TO 0.2); pH 6.5 (5-8)
[2019-02-21 23:38] LABS: Bacteria Rare HPF (Negative); C & S Indicated? C&S Done As Ordered; Casts Negative LPF (Negative); Crystals Negative HPF (Negative); Epithelial Cells Rare HPF (Negative); Mucus Negative (Negative); RBC 0-2 (0-2); WBC 0-2 HPF (0-5)
--- NOTE | 2019-02-22 00:21 | NUR.NOTE ---
Nursing Note: CALLED CARE MANAGEMENT AT 00;21 SPOKE WITH SILVIA SALDANA WHO INFORMED ME TO SEND HOME AN O2 TANK WITH PATIENT AND SHE WOULD TAKE CARE OF COLLECTING IT THE NEXT DAY/CRYSTAL
[2019-02-22] MEDS: Phenazopyridine 200 MG TAB PO (00:22)
[2019-02-22] MEDS: MacroBID 100 MG CAP PO (00:22)
== END 2019-02-22 00:27 | disposition home or self-care (01) ==
LOC: ER 02-22 00:03
PROVIDERS: Emergency Provider Emergency Medicine; PCP Student in an Organized Health Care Education/Training Program
DX: R30.0 Dysuria (principal); R35.0 Frequency of micturition; B95.2 Enterococcus as the cause of diseases classified elsewhere
CPT/HCPCS: 51701; 87077; 99283; 81003; 81015; 87086; 87186

== ENCOUNTER 2019-02-24 09:46 | Emergency (ER) | payer MEDICARE, SELFPAY ==
[2019-02-24] VITALS (21 sets, daily range): BP systolic 139–166; BP diastolic 85–104; PULSE 80–109; RESP 17–26; TEMP 36.6–37.1; O2SAT 93–99
--- NOTE | 2019-02-24 10:01 | W.ED.GENAD ---
Discharge Plan Disposition Patient Disposition: HOME Condition: Stable Discharge Details Chief Complaint: Nausea/Vomit/Diar Clinical Impression: Nausea, Abdominal pain, Hypokalemia Primary Care Provider: Kesha Serrano ED Provider: Marti Barnes Home Meds and New Rx's Prescriptions: Discontinued doxycycline hyclate 100 mg tablet 100 mg PO BID Qty: 14 RF: 1 clindamycin HCl 300 mg capsule 300 mg PO Q8H MDD 450 x 3 Qty: 21 RF: 1 No Action magnesium gluconate 27 mg magnesium (500 mg) tablet 500 mg PO BID@0600,1800 Qty: 60 RF: 0 cholecalciferol (vitamin D3) [Vitamin D3] 2,000 unit capsule 2,000 unit PO DAILY RF: 0 lidocaine 5 % adhesive patch,medicated 1 patch TP DAILY Qty: 30 RF: 1 nitroglycerin [Nitrostat] 0.4 mg tablet, sublingual 0.4 mg Sublingual PRN Qty: 25 RF: 1 Xiidra 5 % dropperette 1 drp OP BID Qty: 5 RF: 0 metolazone 2.5 mg tablet 2.5 mg PO ONCE MDD 2.5 mg PRN (Reason: CHF) Qty: 10 RF: 0 magnesium oxide 400 mg capsule 400 mg PO DAILY Qty: 90 RF: 3 Combivent Respimat 20-100 mcg/actuation mist 1 puff IH Q6H Qty: 4 RF: 0 (DME) Nebulizer tubing Qty: 1 RF: 0 ascorbic acid (vitamin C) 1,000 MG tablet 1,000 mg PO DAILY RF: 0 docusate sodium [Colace] 100 MG capsule 100 mg PO BID RF: 0 prednisone 5 MG tablet 5 mg PO DAILY Qty: 90 RF: 1 polyethylene glycol 3350(bulk) 12,000 GM powder 17 gm PO DAILY PRNQty: 1 RF: 3 omega-3 fatty acids-fish oil 1 EACH capsule 1 ea PO DAILY RF: 0 fluticasone propionate 16 GM spray,suspension 1 spray NS BID Qty: 3 RF: 3 Oxygen EACH NS DAILY Qty: 2 RF: 1 aspirin 81 MG tablet,chewable 81 mg PO DAILY Qty: 100 RF: 3 albuterol sulfate [ProAir HFA] 8.5 GM HFA aerosol inhaler 2 puff Inhalation Q4H PRN Qty: 1 RF: 11 oxygen conserver See Rx Instructions .ROUTE .COMPLEX Qty: 1 RF: 0 allopurinol 100 mg tablet 100 mg PO BID RF: 0 cyclosporine 25 mg capsule 75 mg PO BID Qty: 540 RF: 0 carvedilol [Coreg] 25 mg tablet 50 mg PO BID Qty: 360 RF: 3 cimetidine 300 mg tablet 300 mg PO Q12H RF: 0 atorvastatin [Lipitor] 10 mg tablet 5 mg PO DAILY Qty: 45 RF: 2 metronidazole 500 mg tablet 500 mg PO BID MDD 79825 Qty: 14 RF: 1 furosemide 40 mg tablet 80 mg PO BID Qty: 120 RF: 3 nystatin 100,000 unit/gram powder 1 applic TP BID PRN (Reason: redness ) Qty: 30 RF: 2 ipratropium-albuterol 0.5 mg-3 mg(2.5 mg base)/3 mL solution for nebulization 3 ml IH Q8H Qty: 90 RF: 5 benzonatate [Tessalon Perles] 100 mg capsule 100 mg PO TID Qty: 90 RF: 2 morphine 10 mg/5 mL solution 2 mg PO Q1H PRN MDD 24mg Qty: 500 RF: 0 cyclobenzaprine 5 mg tablet 5 mg PO QHS MDD 2 PRN (Reason: muscle spasm) Qty: 30 RF: 1 methadone 5 mg tablet 5 mg PO TID MDD 15 Qty: 90 RF: 0 chlorhexidine gluconate 0.12 % mouthwash 15 ml BC BID Qty: 946 RF: 3 sennosides-docusate sodium [MATHIEU-COLACE] 1 TAB tablet 2 tab PO BID Qty: 120 RF: 0 nitrofurantoin monohyd/m-cryst [Macrobid] 100 mg capsule 100 mg PO BID Qty: 10 RF: 0 phenazopyridine [Pyridium] 200 mg tablet 200 mg PO TID PRN (Reason: pain) Qty: 10 RF: 0 Discharge Instructions Instructions: Hypokalemia (ED), Acute Nausea and Vomiting (ED), Abdominal Pain (ED) Additional Instructions: Please return immediately to the emergency department if you develop any new or worsening symptoms or if you become otherwise concerned. It is extremely important that you call as soon as possible to make an appointment to be seen in follow-up for this visit by your primary care doctor. Referrals: Kesha Serrano DO [Primary Care Provider] - Discharge Data Discharge Date/Time-TO BE ENTERED AT DEPARTURE: 02/24/19 13:45 Medical Decision Making Renay Lyons is an 78 y/o woman with history of kidney transplant 40 years ago secondary to polycystic kidney disease, COPD, GERD, hypertension, hyperlipidemia, peripheral vascular disease, CHF who presented to the emergency department with right lower quadrant pain since yesterday, nausea similar to prior episodes of small bowel obstruction she has had in the past. Prior to patient presentation, I was contacted by Dr. Serrano, who was concerned for possible SBO in addition to possible worsening kidney disease as she has been taking macrobid for UTI (limited abx options). On exam patient is uncomfortable but nontoxic, she has right lower quadrant tenderness to palpation without tenderness over the kidney transplant. No peritoneal signs. Concern for small bowel obstruction versus other acute emergent intra-abdominal process, renal failure, other metabolic/electrolyte derangement, other, doubt ACS. Exam/history is not consistent with PE, sepsis, acute emergent aortic etiology, mesenteric ischemia. Plan for EKG, screening labs, IV fluid hydration, UA, CT abdomen/pelvis. Pt declines pain medication at this time. CT neg for acute process. Labs show improvement in Cr, hypokalemia. Pt feeling more comfortable, requesting d/c to home. I discussed Pt presentation and results with Dr. Serrano, who will see Pt in f/u as outpt, agrees with continuation of nitrofurantoin as previously prescribed. I had a lengthy discussion with the patient regarding return to emergency department precautions/red flags for which to return to the emergency department, home care, importance of outpatient follow-up. Patient verbalized understanding of the plan was amenable. All questions were answered. Patient was discharged home with clear plan for outpatient follow-up. Medical Records Medical records reviewed: Yes I reviewed the patient's medical records. Imaging Data Radiologic Study: Attestation: I personally reviewed and interpreted this imaging study as follows: Radiologist's impression: EXAM: CT Abdomen and Pelvis Without Contrast EXAM DATE/TIME: 02/24/2019 10:05 AM CLINICAL HISTORY: 78 years old, female; Abdominal pain; Prior surgery; Surgery type: Kidney transplant, ; patient HX: HX bowel obstruction TECHNIQUE: Imaging protocol: Computed tomography of the abdomen and pelvis without contrast. COMPARISON: CT ABDOMEN PELVIS WO 05/27/2018 1:46 AM FINDINGS: Limitations: Absence of IV contrast decreases soft tissue differentiation and sensitivity for detecting pathology. Lungs: There is redemonstration of extensive bibasilar bronchiectasis with peribronchial thickening there is some pleural atelectasis bilaterally. Pleural space: There may be a trace right pleural effusion. Heart: No cardiomegaly. There is calcification of the mitral valve annulus.There are coronary artery calcifications.There is calcification of the aortic valve annulus. Liver: There are multiple simple hepatic cysts. Gallbladder and bile ducts: The patient is status post cholecystectomy. There is stable biliary ductal dilatation. Pancreas: Normal. No ductal dilation. Spleen: Normal. No splenomegaly. Adrenals: Normal. No mass. Kidneys and ureters: The [place] kidneys are not evident. There is a right lower quadrant transplant kidney with no hydronephrosis, calculi or perinephric stranding. Stomach and bowel: There is no evidence of intestinal obstruction. There is no enteric contrast in the terminal ileum and cecum. This is likely to due to timing of contrast administration.There is diverticulosis with no evidence of acute diverticulitis. Appendix: The appendix is normal in appearance and there are no periappendiceal inflammatory changes. Intraperitoneal space: Normal. No free air. No significant fluid collection. Vasculature: The aorta is normal in caliber. The aorta is tortuous.The vasculature demonstrates diffuse moderate atherosclerotic calcification. Lymph nodes: Unremarkable. No enlarged lymph nodes. Bladder: Unremarkable as visualized. Reproductive: Unremarkable as visualized. Bones/joints: There are multilevel degenerative changes of the spine with marked levoscoliosis. No acute osseous abnormality is identified. Soft tissues: There is an intrathecal catheter with the in the subcutaneous fat of the left lower quadrant. The tip of the catheter is not included in the [id number]. IMPRESSION: 1. There is no evidence of bowel obstruction, abscess or free air. 2. Right lower quadrant transplant kidney demonstrates no acute abnormalities. 3. Redemonstration of bibasilar bronchiectasis with extensive bronchial wall thickening and subpleural atelectasis in the lower lobes. Remainder of non-emergent findings as described above. Lab Data Lab results reviewed: Yes I reviewed the patient's lab results. 02/24/19 11:05 Blood Blood Culture - Final NO GROWTH 120 HOURS 02/24/19 10:50 Blood Blood Culture - Final NO GROWTH 120 HOURS Laboratory Tests Range/Units 02/24/19 02/24/19 02/24/19 10:26 10:26 10:26 WBC (4.4-10.8) k/cumm 5.38 RBC (4.00-5.20) m/cumm 4.22 Hgb (12.0-15.5) g/dL 12.1 Hct (36.0-46.0) % 39.6 MCV (80-95) fL 93.8 MCH (27.0-33.0) pg 28.7 MCHC (32.0-36.0) g/dL 30.6 L RDW (11.7-14.6) % 14.4 Plt Count (130-400) x1000/uL 176 MPV (8.0-11.0) fL 9.7 Immature Gran % 0.0 Neutrophils % 76.1 Lymphocytes % 10.4 Monocytes % 10.0 Eosinophils % 3.3 Basophils % 0.2 Absolute Neutrophils (1.2-6.7) k/cumm 4.09 Absolute Lymphocytes (1.2-3.4) k/cumm 0.56 L Absolute Monocytes (0.11-0.7) k/cumm 0.54 Absolute Eosinophils (0.0-0.7) k/cumm 0.18 Absolute Basophils (0.0-0.2) k/cumm 0.01 Sodium (136-145) mmol/L 134 L Potassium (3.5-5.1) mmol/L 3.2 L Chloride (98-107) mmol/L 94 L Carbon Dioxide (21.0-32.0) mmol/L 33.0 H Anion Gap (3-11) mmol/L 7.0 BUN (7-18) mg/dL 32 H Creatinine (0.55-1.02) mg/dL 1.52 H Estimated GFR/1.73 m2 (mL/min/1.73m2) 32.91 Glucose (70-100) mg/dL 113 H Lactate (0.6-1.4) mmol/L 1.0 Calcium (8.5-10.1) mg/dL 9.2 Total Bilirubin (0.2-1.0) mg/dL 0.5 AST (15-37) U/L 15 ALT (14-59) U/L 15 Alkaline Phosphatase (46-116) U/L 78 Troponin I (0.00-0.06) ng/mL < 0.05 Total Protein (6.4-8.2) g/dL 6.9 Albumin (3.4-5.0) g/dL 2.9 L Lipase (73-393) U/L 64 L Urine Color (Yellow) Urine Clarity (Clear) Urine pH (5-8) Ur Specific [place] (1.005-1.025) Urine Protein (Negative) mg/dL Urine Ketones (Negative) mg/dL Urine Blood (Negative) Urine Nitrite (Negative) Urine Bilirubin (Negative) Urine Urobilinogen (Up TO 0.2) EU/dL Ur Leukocyte Esterase (Negative) Urine RBC (0-2) Urine WBC (0-5) HPF Ur Epithelial Cells (Negative) HPF Urine Crystals (Negative) HPF Urine Bacteria (Negative) HPF Urine Casts (Negative) LPF Urine Mucus (Negative) Ur Culture Indicated? Urine Glucose (Negative) mg/dL Range/Units 02/24/19 11:15 WBC (4.4-10.8) k/cumm RBC (4.00-5.20) m/cumm Hgb (12.0-15.5) g/dL Hct (36.0-46.0) % MCV (80-95) fL MCH (27.0-33.0) pg MCHC (32.0-36.0) g/dL RDW (11.7-14.6) % Plt Count (130-400) x1000/uL MPV (8.0-11.0) fL Immature Gran % Neutrophils % Lymphocytes % Monocytes % Eosinophils % Basophils % Absolute Neutrophils (1.2-6.7) k/cumm Absolute Lymphocytes (1.2-3.4) k/cumm Absolute Monocytes (0.11-0.7) k/cumm Absolute Eosinophils (0.0-0.7) k/cumm Absolute Basophils (0.0-0.2) k/cumm Sodium (136-145) mmol/L Potassium (3.5-5.1) mmol/L Chloride (98-107) mmol/L Carbon Dioxide (21.0-32.0) mmol/L Anion Gap (3-11) mmol/L BUN (7-18) mg/dL Creatinine (0.55-1.02) mg/dL Estimated GFR/1.73 m2 (mL/min/1.73m2) Glucose (70-100) mg/dL Lactate (0.6-1.4) mmol/L Calcium (8.5-10.1) mg/dL Total Bilirubin (0.2-1.0) mg/dL AST (15-37) U/L ALT (14-59) U/L Alkaline Phosphatase (46-116) U/L Troponin I (0.00-0.06) ng/mL Total Protein (6.4-8.2) g/dL Albumin (3.4-5.0) g/dL Lipase (73-393) U/L Urine Color (Yellow) Yellow Urine Clarity (Clear) Clear Urine pH (5-8) 6.5 Ur Specific [place] (1.005-1.025) 1.010 Urine Protein (Negative) mg/dL Trace H Urine Ketones (Negative) mg/dL Negative Urine Blood (Negative) Trace-lysed H Urine Nitrite (Negative) Negative Urine Bilirubin (Negative) Negative Urine Urobilinogen (Up TO 0.2) EU/dL 0.2 Ur Leukocyte Esterase (Negative) Negative Urine RBC (0-2) 3-5 H Urine WBC (0-5) HPF 0-2 Ur Epithelial Cells (Negative) HPF Few Urine Crystals (Negative) HPF Negative Urine Bacteria (Negative) HPF Negative Urine Casts (Negative) LPF Negative Urine Mucus (Negative) Negative Ur Culture Indicated? No Urine Glucose (Negative) mg/dL Negative ECG Data Attestation: I personally reviewed and interpreted this ECG (s) as follows: Interpretation: EKG shows sinus rhythm at 95 with occasional ectopic ventricular beat, left axis, Q waves V1 V2, poor R wave progression, largely unchanged from prior 06/11, no STEMI, nondiagnostic EKG HPI General Mode of arrival: EMS. Date/Time Provider Initiated Documentation: 02/24/19 09:53. Limitations to Documentation: no limitations. Information obtained by: patient and RN notes reviewed. HPI Narrative: Renay Lyons is an 78 y/o woman with history of kidney transplant 40 years ago secondary to polycystic kidney disease, COPD, GERD, hypertension, hyperlipidemia, peripheral vascular disease, CHF presenting to the emergency department with abdominal pain and nausea. Pt reports that she has had small bowel obstructions in the past, and feels that her symptoms are similar to those prior episodes. Patient reports that yesterday she developed right lower quadrant pain, which has been constant since onset and progressing. Patient reports that she has had nausea since waking this morning, but has not vomited. She reports that she had a bowel movement yesterday morning that was normal, but has had none since. She has been somewhat constipated recently. She denies fever, any other new pain, rash, weakness, numbness, shortness of breath, cough. Related Data Home Medications Medication Instructions Recorded Confirmed ascorbic acid (vitamin C) 1,000 mg PO DAILY 09/18/12 12/10/18 docusate sodium [Colace] 100 mg PO BID tab-cap 09/18/12 12/10/18 sennosides-docusate sodium 2 tab PO BID #120 tab 12/05/13 12/10/18 [MATHIEU-COLACE] prednisone 5 mg PO DAILY #90 tab 01/17/16 12/10/18 polyethylene glycol 3350(bulk) 17 gm PO DAILY PRN #1 canister 01/08/17 12/10/18 fluticasone propionate 1 spray NS BID #3 units 06/04/17 12/10/18 omega-3 fatty acids-fish oil 1 ea PO DAILY cap 06/04/17 12/10/18 aspirin 81 mg PO DAILY #100 tab 01/14/18 12/10/18 albuterol sulfate [ProAir HFA] 2 puff INHALATION Q4H PRN #1 02/14/18 12/10/18 inhaler lifitegrast 5 % eye drops in a 1 drp OP BID #5 each 03/13/18 12/10/18 dropperette metolazone 2.5 mg tablet 2.5 mg PO ONCE PRN #10 tab MDD 2.5 04/10/18 12/10/18 mg oxygen conserver See Rx Instructions .ROUTE 04/19/18 12/10/18 .COMPLEX #1 allopurinol 100 mg tablet 100 mg PO BID 04/30/18 12/10/18 cyclosporine 25 mg capsule 75 mg PO BID #540 cap 06/28/18 12/10/18 cholecalciferol (vitamin D3) 2,000 2,000 unit PO DAILY 07/23/18 12/10/18 unit capsule lidocaine 5 % topical patch 1 patch TP DAILY #30 each 07/23/18 12/10/18 magnesium gluconate 27 mg 500 mg PO BID@0600,1800 #60 tab 07/23/18 12/10/18 magnesium (500 mg) tablet magnesium oxide 400 mg PO DAILY #90 tab-cap 08/01/18 12/10/18 carvedilol 25 mg tablet 50 mg PO BID #360 tab 08/19/18 12/10/18 cimetidine 300 mg tablet 300 mg PO Q12H tab 09/06/18 12/10/18 atorvastatin 10 mg tablet 5 mg PO DAILY #45 tab 10/14/18 12/10/18 ipratropium 20 mcg-albuterol 100 1 puff IH Q6H #4 gm 11/16/18 12/10/18 mcg/actuation mist for inhalation Nebulizer tubing #1 ea 11/21/18 12/10/18 metronidazole 500 mg tablet 500 mg PO BID #14 tab MDD 35361 11/29/18 12/10/18 furosemide 40 mg tablet 80 mg PO BID #120 tab 12/02/18 12/10/18 nystatin 100,000 unit/gram topical 1 applic TP BID PRN #30 gm 12/02/18 12/10/18 powder ipratropium-albuterol 0.5 mg-3 3 ml IH Q8H #90 ml 12/30/18 mg(2.5 mg base)/3 mL nebulization soln benzonatate 100 mg capsule 100 mg PO TID #90 tab-cap 01/02/19 morphine 10 mg/5 mL oral solution 2 mg PO Q1H PRN #500 ml MDD 24mg 01/14/19 nitroglycerin 0.4 mg sublingual 0.4 mg SUBLINGUAL PRN #25 tab 01/18/19 01/18/19 tablet cyclobenzaprine 5 mg tablet 5 mg PO QHS PRN #30 tab MDD 2 01/31/19 methadone 5 mg tablet 5 mg PO TID #90 tab-cap MDD 15 01/31/19 nitrofurantoin monohyd/m-cryst 100 mg PO BID #10 cap 02/21/19 [Macrobid] phenazopyridine [Pyridium] 200 mg PO TID PRN #10 tab 02/21/19 chlorhexidine gluconate 0.12 % 15 ml BC BID #946 ml 03/06/19 mouthwash Previous Rx's Medication Instructions Recorded sennosides-docusate sodium 2 tab PO BID #120 tab 12/05/13 [MATHIEU-COLACE] fluticasone propionate 1 spray NS BID #3 units 06/04/17 aspirin 81 mg PO DAILY #100 tab 01/14/18 albuterol sulfate [ProAir HFA] 2 puff INHALATION Q4H PRN #1 02/14/18 inhaler lifitegrast 5 % eye drops in a 1 drp OP BID #5 each 03/13/18 dropperette metolazone 2.5 mg tablet 2.5 mg PO ONCE PRN #10 tab MDD 2.5 04/10/18 mg oxygen conserver See Rx Instructions .ROUTE 04/19/18 .COMPLEX #1 lidocaine 5 % topical patch 1 patch TP DAILY #30 each 07/23/18 magnesium gluconate 27 mg 500 mg PO BID@0600,1800 #60 tab 07/23/18 magnesium (500 mg) tablet magnesium oxide 400 mg PO DAILY #90 tab-cap 08/01/18 carvedilol 25 mg tablet 50 mg PO BID #360 tab 08/19/18 atorvastatin 10 mg tablet 5 mg PO DAILY #45 tab 10/14/18 ipratropium 20 mcg-albuterol 100 1 puff IH Q6H #4 gm 11/16/18 mcg/actuation mist for inhalation Nebulizer tubing #1 ea 11/21/18 metronidazole 500 mg tablet 500 mg PO BID #14 tab MDD [id number] 11/29/18 furosemide 40 mg tablet 80 mg PO BID #120 tab 12/02/18 nystatin 100,000 unit/gram topical 1 applic TP BID PRN #30 gm 12/02/18 powder ipratropium-albuterol 0.5 mg-3 3 ml IH Q8H #90 ml 12/30/18 mg(2.5 mg base)/3 mL nebulization soln benzonatate 100 mg capsule 100 mg PO TID #90 tab-cap 01/02/19 morphine 10 mg/5 mL oral solution 2 mg PO Q1H PRN #500 ml MDD 24mg 01/14/19 nitroglycerin 0.4 mg sublingual 0.4 mg SUBLINGUAL PRN #25 tab 01/18/19 tablet cyclobenzaprine 5 mg tablet 5 mg PO QHS PRN #30 tab MDD 2 01/31/19 methadone 5 mg tablet 5 mg PO TID #90 tab-cap MDD 15 01/31/19 nitrofurantoin monohyd/m-cryst 100 mg PO BID #10 cap 02/21/19 [Macrobid] phenazopyridine [Pyridium] 200 mg PO TID PRN #10 tab 02/21/19 chlorhexidine gluconate 0.12 % 15 ml BC BID #946 ml 03/06/19 mouthwash Allergies Allergy/AdvReac Type Severity Reaction Status Date / Time thiopental sodium Allergy Intermediate Wheezing Verified 02/24/19 09:59 [From Pentothal] Penicillins Allergy Unknown ITCHING Verified 02/24/19 09:59 diclofenac gel AdvReac Intermediate nausea, Uncoded 02/24/19 09:59 sweats, insomnia General Stated Complaint: Nausea/Vomit/Diar JON: 3 Review of Systems Review of Systems Constitutional: denies fevers Eyes: denies eye pain ENT: denies facial pain, dental pain, sore throat Cardiovascular: denies chest pain, edema Respiratory: denies SOB, cough GI: denies vomiting, diarrhea, reports abdominal pain, nausea, constipation : denies flank pain, dysuria MSK: denies back pain, neck pain, arthralgias, myalgias Skin: denies rash Neuro: denies headaches, numbness, weakness FORMERLY [facility], 1928–1983 Medical History Abdominal pain (Acute) Bacterial urinary infection (Chronic) Bowel obstruction (Suspected 08/08/14) a. recurrent small bowel obstructions CHF (congestive heart failure) (Chronic) Chronic pain (Acute) Chronic renal failure, stage 3 (moderate) (Chronic) Diarrhea (Acute) Dysuria (Chronic) Edema, lower extremity (Chronic) a. No evidence of congestive heart failure. Gastroesophageal reflux disease (Chronic) Hypercholesterolemia (Chronic) Hypertension (Chronic) Kyphoscoliosis (Chronic) Low back pain (Chronic) Hx [facility]. Osteoarthritis of hip (Chronic) Palliative care patient (Acute 06/04/17) Dr. Mccollum Polycystic kidney (Chronic) a. 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 Rhinitis, allergic (Chronic) Spinal stenosis (Chronic) a. In cervical and lumbar regions. b. Followed by [facility]. c. She does have a fentanyl pump in place which is located in her left lower abdomen. Tachycardia (Chronic) a. Recurrent. Urinary incontinence (Chronic) Vaginitis, atrophic (Chronic) Weakness generalized (Chronic) Patient is too weak to return home in her present condition. She is agreed to swing bed level 1 for continued physical therapy. She remains DNR/DNI. Social History Smoking/Tobacco Use Status: Never Alcohol Intake: never Drug use: Never Substance use type: does not use Adopted: No Caregiver/Support person: Yes Household members: none Housing: house Number of Children: 1 Pets and animals: No What is your relationship status?: How often do you talk on the phone with friends or family?: three or more times per week How often do you get together with friends or relatives?: three or more times per week How often do you attend jehovah's witness or pentecostalism services?: 4 or more times per year Panel score (0-1 are the most socially isolated patients): 2 What type of physical activity do you participate in: assisted ambulation Maureen/Congregation: [employer] Special maureen needs: No Agree to transfusion: Yes Seatbelt use: always Do you feel safe at home: Yes Do you feel safe in your relationship?: Yes History History 4 Para 4 Hx # Term Pregnancies 4 Multiple births Hx # Pregnancies Ectopic pregnancies AB induced Hx Number of Living Children 4 AB spontaneous Exam Narrative Exam Narrative: Constitutional: uncomfortable but [id number]-vangt-flhthttic, pleasant, conversing normally HENT: head atraumatic/normocephalic/normal inspection, mucous membranes moist Eyes: conjunctiva normal, sclera normal, pupils 3mm b/l Neck: no stridor, normal ROM, trachea midline Chest: normal inspection Resp: normal work of breathing, LCTAB Cardio: normal rate, normal rhythm GI: abdomen soft, mild TTP RLQ without tenderness over transplant, no rebound or guarding, non-distended Back: normal inspection, no rash Skin: warm, dry, normal color, no rash Psych: normal mood, normal affect, normal behavior Course Vital Signs Temperature 36.6 C 02/24/19 09:47 Pulse 101 H 02/24/19 09:47 Respiratory Rate 18 09/02/19 09:47 Blood Pressure 155/101 H 02/24/19 09:47 Pulse Oximetry 93 L 02/24/19 09:47 Temperature 36.6 C 02/24/19 09:47 Temperature Source Skin 02/24/19 09:47 Pulse 101 H 02/24/19 09:47 Respiratory Rate 18 02/24/19 09:47 Respiratory Effort 02/24/19 09:54 Blood Pressure 155/101 H 02/24/19 09:47 Blood Pressure Position Supine 02/24/19 09:47 Pulse Oximetry 93 L 02/24/19 09:47 Oxygen Delivery Method Room Air 02/24/19 09:47 Oxygen Flow Rate 0 02/24/19 09:47 Comment 02/24/19 09:47
--- NOTE | 2019-02-24 10:02 | DI.CT_ITS ---
SYMPTOMS/DIAGNOSIS: NAUSEA, RIGHT-SIDED ABDOMINAL PAIN, H/O BOWEL OBSTRUCTION CT OF THE ABDOMEN AND PELVIS: Comparison is made with May,. Oral contrast was administered before the exam. The oral contrast is seen in the stomach and the majority of the small bowel. The colon is not yet opacified. There is no evidence of bowel obstruction, free air, free fluid or inflammatory changes. The appendix appears normal. There is again noted to be a right-sided renal transplant. There is no hydronephrosis. There are innumerable low density lesions throughout the liver. The patient is status post cholecystectomy. There is stable biliary dilatation. The bladder is unremarkable. The patient is status post hysterectomy. The lung bases show bronchiectasis and bronchial wall thickening. Degenerative changes and severe scoliosis are noted in the spine. There is a spinal stimulator device over the anterior abdomen. IMPRESSION: No evidence of obstruction or other acute abnormality. The right lower quadrant renal transplant shows no evidence of stones or hydronephrosis.
[2019-02-24 10:32] LABS: Absolute Basophil Count 0.01 k/cumm (0.0-0.2); Absolute Eosinophil Count 0.18 k/cumm (0.0-0.7); Absolute Lymphocyte Count 0.56 k/cumm (1.2-3.4); Absolute Monocyte Count 0.54 k/cumm (0.11-0.7); Absolute Neutrophil Count 4.09 k/cumm (1.2-6.7); Basophils % 0.2; Eosinophils % 3.3; HCT 39.6 % (36.0-46.0); HGB 12.1 g/dL (12.0-15.5); Lymphocytes % 10.4; Mean Corp. HGB Concentration 30.6 g/dL (32.0-36.0); Mean Corpuscular Hemoglobin 28.7 pg (27.0-33.0); Mean Corpuscular Volume 93.8 fL (80-95); Mean Platelet Volume 9.7 fL (8.0-11.0); Neutrophils % 76.1; Platelet Count 176 x1000/uL (130-400); RBC 4.22 m/cumm (4.00-5.20); RBC Distribution Width 14.4 % (11.7-14.6); White Blood Cell Count 5.38 k/cumm (4.4-10.8)
[2019-02-24] MEDS: Normal Saline 250 ML IV (10:34)
[2019-02-24] MEDS: Normal Saline Flush 10 ML SYR IVP (10:35)
[2019-02-24 10:53] LABS: ALT 15 U/L (14-59); AST 15 U/L (15-37); Albumin 2.9 g/dL (3.4-5.0); Alkaline Phosphatase 78 U/L (46-116); BUN 32 mg/dL (7-18); Bilirubin, Total 0.5 mg/dL (0.2-1.0); CREATININE 1.52 mg/dL (0.55-1.02); Calcium 9.2 mg/dL (8.5-10.1); Chloride 94 mmol/L (98-107); Estimated GFR 32.91 (mL/min/1.73m2); Glucose 113 mg/dL (70-100); Lipase 64 U/L (73-393); Potassium 3.2 mmol/L (3.5-5.1); Sodium 134 mmol/L (136-145); Total Protein 6.9 g/dL (6.4-8.2)
[2019-02-24 10:54] LABS: Troponin I < 0.05 ng/mL (0.00-0.06)
[2019-02-24 11:22] LABS: Bilirubin Negative (Negative); Blood Trace-lysed (Negative); Clarity Clear (Clear); Glucose Negative (Negative); Ketones Negative (Negative); Leukocyte Esterase Negative (Negative); Nitrite Negative (Negative); Urobilinogen 0.2 EU/dL (Up TO 0.2); pH 6.5 (5-8)
[2019-02-24 11:45] LABS: Bacteria Negative HPF (Negative); C & S Indicated? No; Casts Negative LPF (Negative); Crystals Negative HPF (Negative); Epithelial Cells Few HPF (Negative); Mucus Negative (Negative); WBC 0-2 HPF (0-5)
--- NOTE | 2019-02-24 12:30 | DI.VRAD_ITS ---
EXAM: CT Abdomen and Pelvis Without Contrast EXAM DATE/TIME: 02/24/2019 10:05 AM CLINICAL HISTORY: 78 years old, female; Abdominal pain; Prior surgery; Surgery type: Kidney transplant, ; patient HX: HX bowel obstruction TECHNIQUE: Imaging protocol: Computed tomography of the abdomen and pelvis without contrast. COMPARISON: CT ABDOMEN PELVIS WO 05/27/2018 1:46 AM FINDINGS: Limitations: Absence of IV contrast decreases soft tissue differentiation and sensitivity for detecting pathology. Lungs: There is redemonstration of extensive bibasilar bronchiectasis with peribronchial thickening there is some pleural atelectasis bilaterally. Pleural space: There may be a trace right pleural effusion. Heart: No cardiomegaly. There is calcification of the mitral valve annulus.There are coronary artery calcifications.There is calcification of the aortic valve annulus. Liver: There are multiple simple hepatic cysts. Gallbladder and bile ducts: The patient is status post cholecystectomy. There is stable biliary ductal dilatation. Pancreas: Normal. No ductal dilation. Spleen: Normal. No splenomegaly. Adrenals: Normal. No mass. Kidneys and ureters: The poarch kidneys are not evident. There is a right lower quadrant transplant kidney with no hydronephrosis, calculi or perinephric stranding. Stomach and bowel: There is no evidence of intestinal obstruction. There is no enteric contrast in the terminal ileum and cecum. This is likely to due to timing of contrast administration.There is diverticulosis with no evidence of acute diverticulitis. Appendix: The appendix is normal in appearance and there are no periappendiceal inflammatory changes. Intraperitoneal space: Normal. No free air. No significant fluid collection. Vasculature: The aorta is normal in caliber. The aorta is tortuous.The vasculature demonstrates diffuse moderate atherosclerotic calcification. Lymph nodes: Unremarkable. No enlarged lymph nodes. Bladder: Unremarkable as visualized. Reproductive: Unremarkable as visualized. Bones/joints: There are multilevel degenerative changes of the spine with marked levoscoliosis. No acute osseous abnormality is identified. Soft tissues: There is an intrathecal catheter with the in the subcutaneous fat of the left lower quadrant. The tip of the catheter is not included in the [id number]. IMPRESSION: 1. There is no evidence of bowel obstruction, abscess or free air. 2. Right lower quadrant transplant kidney demonstrates no acute abnormalities. 3. Redemonstration of bibasilar bronchiectasis with extensive bronchial wall thickening and subpleural atelectasis in the lower lobes. Remainder of non-emergent findings as described above. Dictated and Authenticated by: Joyce Wiggins MD. Ordering:CATALINA Kidd MD
[2019-02-24] MEDS: Potassium Chloride 20 MEQ TABCR 40 MEQ PO (13:18)
== END 2019-02-24 13:45 | disposition home or self-care (01) ==
PROVIDERS: Emergency Provider Student in an Organized Health Care Education/Training Program; PCP Student in an Organized Health Care Education/Training Program
DX: R11.0 Nausea (principal); E87.6 Hypokalemia; R10.31 Right lower quadrant pain; J44.9 Chronic obstructive pulmonary disease, unspecified; I12.9 Hypertensive chronic kidney disease with stage 1 through stage 4 chronic kidney disease, or unspecified chronic kidney disease; N18.4 Chronic kidney disease, stage 4 (severe); Z94.0 Kidney transplant status
CPT/HCPCS: 36415; 51701; 80053; 83690; 87040; 93005; 96360; 99285; 74176; 81003; 81015; 83605; 84484; 85025; 93010; J3490

== ENCOUNTER 2019-03-04 12:35 | Outpatient (REF) | payer MEDICARE, SELFPAY ==
[2019-03-04 13:41] LABS: Bilirubin Negative (Negative); Blood Negative (Negative); Clarity Clear (Clear); Glucose Negative (Negative); Ketones Negative (Negative); Leukocyte Esterase Trace (Negative); Nitrite Negative (Negative); Urobilinogen 0.2 EU/dL (Up TO 0.2); pH 5.5 (5-8)
[2019-03-04 13:51] LABS: Bacteria Few HPF (Negative); C & S Indicated? C&S Done As Ordered; Casts Negative LPF (Negative); Crystals Negative HPF (Negative); Epithelial Cells Few HPF (Negative); Mucus Trace (Negative); RBC 0-2 (0-2)
[2019-03-04 13:57] LABS: PROTEIN 20.1 mg/dL
[2019-03-04 13:58] LABS: COMMENT (LAB VIEW ONLY) 34.58 mg/dL; Prot/Crea Ur Ratio 0.58
== END 2019-03-04 12:55 ==
LOC: LBN 12:35
PROVIDERS: PCP Student in an Organized Health Care Education/Training Program; Visit Provider Internal Medicine Nephrology
DX: R82.90 Unspecified abnormal findings in urine (principal); N18.3 Chronic kidney disease, stage 3 (moderate)
CPT/HCPCS: 81003; 81015; 82565; 84156; 87086

== ENCOUNTER 2019-03-06 14:04 | Outpatient (REF) | payer MEDICARE, SELFPAY ==
[2019-03-06 12:43] LABS: Abs Immature Grans 0.01 k/cumm (0.0-0.09); Absolute Basophil Count 0.02 k/cumm (0.0-0.2); Absolute Eosinophil Count 0.29 k/cumm (0.0-0.7); Absolute Lymphocyte Count 0.68 k/cumm (1.2-3.4); Absolute Monocyte Count 0.45 k/cumm (0.11-0.7); Basophils % 0.4; Eosinophils % 6.2; HGB 11.7 g/dL (12.0-15.5); Immature Grans % 0.2; Lymphocytes % 14.6; Mean Corp. HGB Concentration 28.5 g/dL (32.0-36.0); Mean Corpuscular Volume 98.1 fL (80-95); Mean Platelet Volume 10.8 fL (8.0-11.0); Monocytes % 9.7; Neutrophils % 68.9; Platelet Count 199 x1000/uL (130-400); RBC 4.18 m/cumm (4.00-5.20); White Blood Cell Count 4.65 k/cumm (4.4-10.8)
[2019-03-06 13:32] LABS: Anion Gap 7.4 mmol/L (3-11); BUN 43 mg/dL (7-18); CO2 33.6 mmol/L (21.0-32.0); CREATININE 1.94 mg/dL (0.55-1.02); Calcium 9.3 mg/dL (8.5-10.1); Chloride 102 mmol/L (98-107); Estimated GFR 24.83 (mL/min/1.73m2); Glucose 91 mg/dL (70-100); Sodium 143 mmol/L (136-145)
[2019-03-07 15:56] LABS: Cyclosporine 82 ng/ml
== END 2019-03-06 14:24 ==
LOC: LBN 14:04
PROVIDERS: PCP Student in an Organized Health Care Education/Training Program; Visit Provider Internal Medicine Nephrology
DX: I50.9 Heart failure, unspecified (principal); N18.3 Chronic kidney disease, stage 3 (moderate); Z94.0 Kidney transplant status; Z51.81 Encounter for therapeutic drug level monitoring
CPT/HCPCS: 80048; 80158; 85025

== ENCOUNTER 2019-03-18 12:55 | Outpatient (REF) | payer MEDICARE, SELFPAY ==
[2019-03-18 15:33] LABS: PROTEIN 31.3 mg/dL; Prot/Crea Ur Ratio 1.79
[2019-03-19 14:58] LABS: Cyclosporine 94 ng/ml
== END 2019-03-18 13:15 ==
LOC: LBN 12:55
PROVIDERS: PCP Student in an Organized Health Care Education/Training Program; Visit Provider Internal Medicine Nephrology
DX: N18.3 Chronic kidney disease, stage 3 (moderate) (principal); Z94.0 Kidney transplant status
CPT/HCPCS: 80158; 82565; 84156

== ENCOUNTER 2019-03-19 15:03 | Outpatient (CLI) | payer MEDICARE, SELFPAY ==
--- NOTE | 2019-03-19 14:13 | DI.RAD_ITS ---
EXAM: XR SHOULDER RT COMPLETE 2+V INDICATION: SHOULDER PAIN. COMPARISON: LEFT SHOULDER COMPLETE from 07/19/2016 TECHNIQUE: 2D digital imaging was performed. FINDINGS: Generalized osteoporosis is identified. The humeral head rides high in the glenoid consistent with a rotator cuff tear. There are moderately severe degenerative changes involving the AC joint and gleno humeral joint. There is no evidence of an acute fracture or dislocation.
== END 2019-03-19 15:23 ==
PROVIDERS: PCP Student in an Organized Health Care Education/Training Program; Referring Provider Student in an Organized Health Care Education/Training Program; Visit Provider Student in an Organized Health Care Education/Training Program
DX: M25.511 Pain in right shoulder (principal); M81.0 Age-related osteoporosis without current pathological fracture; M75.101 Unspecified rotator cuff tear or rupture of right shoulder, not specified as traumatic; J44.9 Chronic obstructive pulmonary disease, unspecified; Z99.81 Dependence on supplemental oxygen; M12.811 Other specific arthropathies, not elsewhere classified, right shoulder
CPT/HCPCS: 20610; 99214; 73030; J1030

== ENCOUNTER 2019-03-21 12:41 | Outpatient (REF) | payer MEDICARE, SELFPAY ==
[2019-03-21 13:21] LABS: Anion Gap 7.1 mmol/L (3-11); BUN 44 mg/dL (7-18); CO2 33.9 mmol/L (21.0-32.0); CREATININE 1.86 mg/dL (0.55-1.02); Calcium 9.6 mg/dL (8.5-10.1); Chloride 98 mmol/L (98-107); Estimated GFR 26.07 (mL/min/1.73m2); Glucose 117 mg/dL (70-100); Potassium 4.2 mmol/L (3.5-5.1); Sodium 139 mmol/L (136-145)
[2019-03-21 13:24] LABS: HGB 11.8 g/dL (12.0-15.5); Mean Corp. HGB Concentration 29.5 g/dL (32.0-36.0); Mean Corpuscular Hemoglobin 28.7 pg (27.0-33.0); Mean Corpuscular Volume 97.3 fL (80-95); Mean Platelet Volume 10.6 fL (8.0-11.0); Platelet Count 192 x1000/uL (130-400); RBC 4.11 m/cumm (4.00-5.20); RBC Distribution Width 15.2 % (11.7-14.6); White Blood Cell Count 6.56 k/cumm (4.4-10.8)
== END 2019-03-21 13:01 ==
LOC: LBN 12:41
PROVIDERS: PCP Student in an Organized Health Care Education/Training Program; Visit Provider Internal Medicine Nephrology
DX: I50.9 Heart failure, unspecified (principal); N18.3 Chronic kidney disease, stage 3 (moderate); Z94.0 Kidney transplant status; R79.89 Other specified abnormal findings of blood chemistry
CPT/HCPCS: 80048; 85027

== ENCOUNTER 2019-04-01 11:15 | Outpatient (REF) | payer MEDICARE, SELFPAY ==
[2019-04-01 13:03] LABS: Anion Gap 7.4 mmol/L (3-11); BUN 41 mg/dL (7-18); CO2 33.6 mmol/L (21.0-32.0); CREATININE 1.42 mg/dL (0.55-1.02); Calcium 9.7 mg/dL (8.5-10.1); Chloride 100 mmol/L (98-107); Estimated GFR 35.59 (mL/min/1.73m2); Glucose 131 mg/dL (70-100); Potassium 3.8 mmol/L (3.5-5.1); Sodium 141 mmol/L (136-145)
[2019-04-01 13:18] LABS: Abs Immature Grans 0.02 k/cumm (0.0-0.09); Absolute Basophil Count 0.02 k/cumm (0.0-0.2); Absolute Eosinophil Count 0.26 k/cumm (0.0-0.7); Absolute Lymphocyte Count 0.82 k/cumm (1.2-3.4); Absolute Monocyte Count 0.51 k/cumm (0.11-0.7); Basophils % 0.4; Eosinophils % 5.2; HCT 40.4 % (36.0-46.0); HGB 11.7 g/dL (12.0-15.5); Immature Grans % 0.4; Lymphocytes % 16.3; Mean Corpuscular Hemoglobin 28.7 pg (27.0-33.0); Mean Platelet Volume 10.4 fL (8.0-11.0); Monocytes % 10.1; Neutrophils % 67.6; Platelet Count 200 x1000/uL (130-400); RBC 4.08 m/cumm (4.00-5.20); RBC Distribution Width 15.1 % (11.7-14.6); White Blood Cell Count 5.03 k/cumm (4.4-10.8)
[2019-04-02 14:07] LABS: Cyclosporine 98 ng/ml
== END 2019-04-01 11:35 ==
LOC: LBN 11:15
PROVIDERS: PCP Student in an Organized Health Care Education/Training Program; Visit Provider Internal Medicine Nephrology
DX: N18.3 Chronic kidney disease, stage 3 (moderate) (principal); Z94.0 Kidney transplant status; Z51.81 Encounter for therapeutic drug level monitoring
CPT/HCPCS: 80048; 80158; 85025

== ENCOUNTER 2019-04-04 14:24 | Outpatient (REF) | payer MEDICARE, SELFPAY ==
[2019-04-04 15:25] LABS: PROTEIN 13.7 mg/dL
[2019-04-04 16:42] LABS: COMMENT (LAB VIEW ONLY) 35.91 mg/dL; Prot/Crea Ur Ratio 0.38
== END 2019-04-04 14:44 ==
LOC: LBN 14:24
PROVIDERS: PCP Student in an Organized Health Care Education/Training Program; Visit Provider Student in an Organized Health Care Education/Training Program
DX: N18.3 Chronic kidney disease, stage 3 (moderate) (principal); Z94.0 Kidney transplant status
CPT/HCPCS: 82565; 84156

== ENCOUNTER 2019-04-11 10:24 | Outpatient (REF) | payer MEDICARE, SELFPAY | END 2019-04-11 10:44 | LOC: LBN 10:24 | PROVIDERS: PCP Student in an Organized Health Care Education/Training Program; Visit Provider Student in an Organized Health Care Education/Training Program | DX: N39.0 Urinary tract infection, site not specified (principal) | CPT/HCPCS: 87086 ==

== ENCOUNTER 2019-04-17 11:16 | Outpatient (REF) | payer MEDICARE, SELFPAY ==
[2019-04-17 12:19] LABS: Abs Immature Grans 0.01 k/cumm (0.0-0.09); Absolute Basophil Count 0.02 k/cumm (0.0-0.2); Absolute Eosinophil Count 0.39 k/cumm (0.0-0.7); Absolute Lymphocyte Count 0.84 k/cumm (1.2-3.4); Absolute Monocyte Count 0.62 k/cumm (0.11-0.7); Absolute Neutrophil Count 2.59 k/cumm (1.2-6.7); Basophils % 0.4; Eosinophils % 8.7; HCT 39.5 % (36.0-46.0); HGB 11.6 g/dL (12.0-15.5); Immature Grans % 0.2; Lymphocytes % 18.8; Mean Corp. HGB Concentration 29.4 g/dL (32.0-36.0); Mean Corpuscular Hemoglobin 28.9 pg (27.0-33.0); Mean Corpuscular Volume 98.5 fL (80-95); Mean Platelet Volume 10.7 fL (8.0-11.0); Monocytes % 13.9; Platelet Count 195 x1000/uL (130-400); RBC 4.01 m/cumm (4.00-5.20); RBC Distribution Width 14.9 % (11.7-14.6); White Blood Cell Count 4.47 k/cumm (4.4-10.8)
[2019-04-17 12:34] LABS: Anion Gap 7.7 mmol/L (3-11); BUN 57 mg/dL (7-18); CO2 33.3 mmol/L (21.0-32.0); CREATININE 2.05 mg/dL (0.55-1.02); Calcium 9.7 mg/dL (8.5-10.1); Chloride 100 mmol/L (98-107); Glucose 122 mg/dL (70-100); Potassium 3.8 mmol/L (3.5-5.1); Sodium 141 mmol/L (136-145)
[2019-04-18 13:48] LABS: Cyclosporine 115 ng/ml
== END 2019-04-17 11:36 ==
LOC: LBN 11:16
PROVIDERS: PCP Student in an Organized Health Care Education/Training Program; Visit Provider Internal Medicine Nephrology
DX: N18.3 Chronic kidney disease, stage 3 (moderate) (principal); I50.9 Heart failure, unspecified; Z94.0 Kidney transplant status; Z51.81 Encounter for therapeutic drug level monitoring
CPT/HCPCS: 80048; 80158; 85025

== ENCOUNTER 2019-04-26 05:58 | Emergency (ER) | payer MEDICARE, SELFPAY ==
[2019-04-26 04:59] VITALS: BP 179/100; PULSE 87; RESP 18; TEMP 36.7; O2SAT 94
--- NOTE | 2019-04-26 05:14 | ED.GENADUL_ITS ---
Discharge Plan Disposition Patient Disposition: HOME Condition: Improving Discharge Details Chief Complaint: Abd Prob Clinical Impression: Constipation Primary Care Provider: Kesha Serrano ED Provider: Kuldip Mckinley Home Meds and New Rx's Prescriptions: No Action magnesium gluconate 27 mg magnesium (500 mg) tablet 500 mg PO BID@0600,1800 Qty: 60 RF: 0 cholecalciferol (vitamin D3) [Vitamin D3] 2,000 unit capsule 2,000 unit PO DAILY RF: 0 lidocaine 5 % adhesive patch,medicated 1 patch TP DAILY Qty: 30 RF: 1 nitroglycerin [Nitrostat] 0.4 mg tablet, sublingual 0.4 mg Sublingual PRN Qty: 25 RF: 1 ipratropium-albuterol 0.5 mg-3 mg(2.5 mg base)/3 mL solution for nebulization 3 ml IH Q8H Qty: 180 RF: 5 morphine 10 mg/5 mL solution 2 mg PO Q1H PRN MDD 24mg Qty: 500 RF: 0 methadone 5 mg tablet 5 mg PO TID MDD 15 Qty: 90 RF: 0 Xiidra 5 % dropperette 1 drp OP BID Qty: 5 RF: 0 metolazone 2.5 mg tablet 2.5 mg PO ONCE MDD 2.5 mg PRN (Reason: CHF) Qty: 10 RF: 0 magnesium oxide 400 mg capsule 400 mg PO DAILY Qty: 90 RF: 3 Combivent Respimat 20-100 mcg/actuation mist 1 puff IH Q6H Qty: 4 RF: 0 (DME) Nebulizer tubing Qty: 1 RF: 0 ascorbic acid (vitamin C) 1,000 MG tablet 1,000 mg PO DAILY RF: 0 docusate sodium [Colace] 100 MG capsule 100 mg PO BID RF: 0 prednisone 5 MG tablet 5 mg PO DAILY Qty: 90 RF: 1 polyethylene glycol 3350(bulk) 12,000 GM powder 17 gm PO DAILY PRNQty: 1 RF: 3 omega-3 fatty acids-fish oil 1 EACH capsule 1 ea PO DAILY RF: 0 fluticasone propionate 16 GM spray,suspension 1 spray NS BID Qty: 3 RF: 3 Oxygen EACH NS DAILY Qty: 2 RF: 1 aspirin 81 MG tablet,chewable 81 mg PO DAILY Qty: 100 RF: 3 albuterol sulfate [ProAir HFA] 8.5 GM HFA aerosol inhaler 2 puff Inhalation Q4H PRN Qty: 1 RF: 11 oxygen conserver See Rx Instructions .ROUTE .COMPLEX Qty: 1 RF: 0 allopurinol 100 mg tablet 100 mg PO BID RF: 0 cyclosporine 25 mg capsule 75 mg PO BID Qty: 540 RF: 0 carvedilol [Coreg] 25 mg tablet 50 mg PO BID Qty: 360 RF: 3 cimetidine 300 mg tablet 300 mg PO Q12H RF: 0 atorvastatin [Lipitor] 10 mg tablet 5 mg PO DAILY Qty: 45 RF: 2 nystatin 100,000 unit/gram powder 1 applic TP BID PRN (Reason: redness ) Qty: 30 RF: 2 benzonatate [Tessalon Perles] 100 mg capsule 100 mg PO TID Qty: 90 RF: 2 cyclobenzaprine 5 mg tablet 5 mg PO QHS MDD 2 PRN (Reason: muscle spasm) Qty: 30 RF: 1 chlorhexidine gluconate 0.12 % mouthwash 15 ml BC BID Qty: 946 RF: 3 furosemide 40 mg tablet 80 mg PO BID Qty: 120 RF: 3 doxycycline hyclate 100 mg tablet 100 mg PO BID Qty: 14 RF: 0 sennosides-docusate sodium [MATHIEU-COLACE] 1 TAB tablet 2 tab PO BID Qty: 120 RF: 0 nitrofurantoin monohyd/m-cryst [Macrobid] 100 mg capsule 100 mg PO BID Qty: 10 RF: 0 Medical Decision Making <Cabrera Mathis DO - Last Filed: 04/26/19 05:31> This is a pleasant 78-year-old female with a complicated past medical history of notable pulmonary hypertension and patent foramen ovale and diastolic congestive heart failure, as well as ejection fraction systolic of 60%, renal transplant on cyclosporine, history of Mycobacterium avium complex, hypertension, high cholesterol, history of bronchiectasis, polycystic kidney disease, and chronic kidney disease. She is on palliative care. She presents today for evaluation of right-sided abdominal pain. Patient states that the pain is been present for the last 2 or so hours. She has noticed a significant decrease in bowel movements, last bowel movement was yesterday and is a very small hard piece of feces. Normal bowel movements before that were greater than 48 to 72 hours ago. She denies any vomiting but does admit to notable nausea. She has been urinating regularly. She has been drinking fluids, but has not eaten any significant food. Physical exam demonstrates mild abdominal distention, mild right-sided abdominal pain. Transplanted kidney is palpable, or left abdominal wall pump is palpable. Bowel sounds present but reduced. Differential includes ileus versus obstruction, less likely renal rejection. Due to her history of congestive heart failure we will hold on any significant IV fluid boluses as she has stated she has been drinking regularly. We will perform laboratory evaluation, get a CT scan of the abdomen and pelvis and reassess. 5:31 AM CBC is returned, no evidence of profound neutropenia. Rectal exam was performed with female nurse at bedside she does demonstrate very small hard stools noted on rectal exam. No large stool ball. After CT scan we will get an enema to help relieve this. I am not certain if this is the cause of the patient's symptomatology, but it certainly may be a component. <Kuldip Mckinley MD - Last Filed: 04/26/19 11:13> Received signout from Dr. Mathis. Please see his note regarding details of presentation, initial evaluation and plan of care. Patient's CT scan is without acute findings but notable large stool burden. I performed digital disimpaction of the stool ball at bedtime. She was able to sit on the commode and have positive BM. She separately rested in bed and ate a morning meal. She may trial mineral oil by mouth at bedtime to improve stool transit. She is stable and improving. Blood pressure 138/85. Appropriate for outpatient management. HPI <Cabrera Mathis DO - Last Filed: 04/26/19 05:31> General Date/Time Provider Initiated Documentation: 04/26/19 06:11 . HPI Narrative: This is a pleasant 78-year-old female with a complicated past medical history of notable pulmonary hypertension and patent foramen ovale and diastolic congestive heart failure, as well as ejection fraction systolic of 60%, renal transplant on cyclosporine, history of Mycobacterium avium complex, hypertension, high cholesterol, history of bronchiectasis, polycystic kidney disease, and chronic kidney disease. She is on palliative care. She presents today for evaluation of right-sided abdominal pain. Patient states that the pain is been present for the last 2 or so hours. She has noticed a significant decrease in bowel movements, last bowel movement was yesterday and is a very small hard piece of feces. Normal bowel movements before that were greater than 48 to 72 hours ago. She denies any vomiting but does admit to notable nausea. She has been urinating regularly. She has been drinking fluids, but has not eaten any significant food. She denies any chest pain or shortness of breath. Does admit to chronic swelling of her lower extremities and chronic shoulder pain. She is not currently on narcotics. She denies any other complaints at this time. Patient has obviously had multiple surgeries of the abdomen before, including bilateral nephrectomies, and a transplant kidney currently located on the right. Patient denies any other complaints or any other modifying factors at this time. Related Data Home Medications Medication Instructions Recorded Confirmed ascorbic acid (vitamin C) 1,000 mg PO DAILY 09/18/12 04/26/19 docusate sodium [Colace] 100 mg PO BID tab-cap 09/18/12 04/26/19 sennosides-docusate sodium 2 tab PO BID #120 tab 12/05/13 04/26/19 [MATHIEU-COLACE] prednisone 5 mg PO DAILY #90 tab 01/17/16 04/26/19 polyethylene glycol 3350(bulk) 17 gm PO DAILY PRN #1 canister 01/08/17 04/26/19 fluticasone propionate 1 spray NS BID #3 units 06/04/17 04/26/19 omega-3 fatty acids-fish oil 1 ea PO DAILY cap 06/04/17 04/26/19 aspirin 81 mg PO DAILY #100 tab 01/14/18 04/26/19 albuterol sulfate [ProAir HFA] 2 puff INHALATION Q4H PRN #1 02/14/18 04/26/19 inhaler lifitegrast 5 % eye drops in a 1 drp OP BID #5 each 03/13/18 04/26/19 dropperette metolazone 2.5 mg tablet 2.5 mg PO ONCE PRN #10 tab MDD 2.5 04/10/18 04/26/19 mg oxygen conserver See Rx Instructions .ROUTE 04/19/18 04/26/19 .COMPLEX #1 allopurinol 100 mg tablet 100 mg PO BID 04/30/18 04/26/19 cyclosporine 25 mg capsule 75 mg PO BID #540 cap 06/28/18 04/26/19 cholecalciferol (vitamin D3) 2,000 2,000 unit PO DAILY 07/23/18 04/26/19 unit capsule lidocaine 5 % topical patch 1 patch TP DAILY #30 each 07/23/18 04/26/19 magnesium gluconate 27 mg 500 mg PO BID@0600,1800 #60 tab 07/23/18 04/26/19 magnesium (500 mg) tablet magnesium oxide 400 mg PO DAILY #90 tab-cap 08/01/18 04/26/19 carvedilol 25 mg tablet 50 mg PO BID #360 tab 08/19/18 04/26/19 cimetidine 300 mg tablet 300 mg PO Q12H tab 09/06/18 04/26/19 atorvastatin 10 mg tablet 5 mg PO DAILY #45 tab 10/14/18 04/26/19 ipratropium 20 mcg-albuterol 100 1 puff IH Q6H #4 gm 11/16/18 04/26/19 mcg/actuation mist for inhalation Nebulizer tubing #1 ea 11/21/18 12/10/18 nystatin 100,000 unit/gram topical 1 applic TP BID PRN #30 gm 12/02/18 04/26/19 powder benzonatate 100 mg capsule 100 mg PO TID #90 tab-cap 01/02/19 04/26/19 nitroglycerin 0.4 mg sublingual 0.4 mg SUBLINGUAL PRN #25 tab 01/18/19 04/26/19 tablet cyclobenzaprine 5 mg tablet 5 mg PO QHS PRN #30 tab MDD 2 01/31/19 04/26/19 nitrofurantoin monohyd/m-cryst 100 mg PO BID #10 cap 02/21/19 [Macrobid] chlorhexidine gluconate 0.12 % 15 ml BC BID #946 ml 03/06/19 04/26/19 mouthwash furosemide 40 mg tablet 80 mg PO BID #120 tab 03/31/19 04/26/19 ipratropium-albuterol 0.5 mg-3 3 ml IH Q8H #180 ml 04/03/19 04/26/19 mg(2.5 mg base)/3 mL nebulization soln methadone 5 mg tablet 5 mg PO TID #90 tab-cap MDD 15 04/17/19 04/26/19 morphine 10 mg/5 mL oral solution 2 mg PO Q1H PRN #500 ml MDD 24mg 04/17/19 04/26/19 doxycycline hyclate 100 mg tablet 100 mg PO BID #14 tab 04/24/19 04/26/19 Previous Rx's Medication Instructions Recorded sennosides-docusate sodium 2 tab PO BID #120 tab 12/05/13 [MATHIEU-COLACE] fluticasone propionate 1 spray NS BID #3 units 06/04/17 aspirin 81 mg PO DAILY #100 tab 01/14/18 albuterol sulfate [ProAir HFA] 2 puff INHALATION Q4H PRN #1 02/14/18 inhaler lifitegrast 5 % eye drops in a 1 drp OP BID #5 each 03/13/18 dropperette metolazone 2.5 mg tablet 2.5 mg PO ONCE PRN #10 tab MDD 2.5 04/10/18 mg oxygen conserver See Rx Instructions .ROUTE 04/19/18 .COMPLEX #1 lidocaine 5 % topical patch 1 patch TP DAILY #30 each 07/23/18 magnesium gluconate 27 mg 500 mg PO BID@0600,1800 #60 tab 07/23/18 magnesium (500 mg) tablet magnesium oxide 400 mg PO DAILY #90 tab-cap 08/01/18 carvedilol 25 mg tablet 50 mg PO BID #360 tab 08/19/18 atorvastatin 10 mg tablet 5 mg PO DAILY #45 tab 10/14/18 ipratropium 20 mcg-albuterol 100 1 puff IH Q6H #4 gm 11/16/18 mcg/actuation mist for inhalation Nebulizer tubing #1 ea 11/21/18 nystatin 100,000 unit/gram topical 1 applic TP BID PRN #30 gm 12/02/18 powder benzonatate 100 mg capsule 100 mg PO TID #90 tab-cap 01/02/19 nitroglycerin 0.4 mg sublingual 0.4 mg SUBLINGUAL PRN #25 tab 01/18/19 tablet cyclobenzaprine 5 mg tablet 5 mg PO QHS PRN #30 tab MDD 2 01/31/19 nitrofurantoin monohyd/m-cryst 100 mg PO BID #10 cap 02/21/19 [Macrobid] chlorhexidine gluconate 0.12 % 15 ml BC BID #946 ml 03/06/19 mouthwash furosemide 40 mg tablet 80 mg PO BID #120 tab 03/31/19 ipratropium-albuterol 0.5 mg-3 3 ml IH Q8H #180 ml 04/03/19 mg(2.5 mg base)/3 mL nebulization soln methadone 5 mg tablet 5 mg PO TID #90 tab-cap MDD 15 04/17/19 morphine 10 mg/5 mL oral solution 2 mg PO Q1H PRN #500 ml MDD 24mg 04/17/19 doxycycline hyclate 100 mg tablet 100 mg PO BID #14 tab 04/24/19 Allergies Allergy/AdvReac Type Severity Reaction Status Date / Time thiopental sodium Allergy Intermediate Wheezing Verified 04/26/19 05:09 [From Pentothal] Penicillins Allergy Unknown ITCHING Verified 04/26/19 05:09 phenazopyridine AdvReac Severe considered Verified 04/26/19 05:09 [From Pyridium] nephrotoxic diclofenac gel AdvReac Intermediate nausea, Uncoded 04/26/19 05:09 sweats, insomnia General Stated Complaint: Abd Prob JON: 3 Review of Systems <Cabrera Mathis DO - Last Filed: 04/26/19 05:31> All systems reviewed & are unremarkable except as noted in HPI and below PFSH <Cabrera Mathis DO - Last Filed: 04/26/19 05:31> Social History Smoking/Tobacco Use Status: Never Alcohol Intake: never Drug use: Never Substance use type: does not use Adopted: No Caregiver/Support person: Yes Household members: none Housing: house Number of Children: 1 Pets and animals: No Current gender identity: female What is your relationship status?: How often do you talk on the phone with friends or family?: three or more times per week How often do you get together with friends or relatives?: three or more times per week How often do you attend hoahaoism or moravian services?: 4 or more times per year Panel score (0-1 are the most socially isolated patients): 2 What type of physical activity do you participate in: assisted ambulation Maureen/Uatsdin: Tenriism Special maureen needs: No Agree to transfusion: Yes Seatbelt use: always Do you feel safe at home: Yes Do you feel safe in your relationship?: Yes History History 4 Para 4 Hx # Term Pregnancies 4 Multiple births Hx # Pregnancies Ectopic pregnancies AB induced Hx Number of Living Children 4 AB spontaneous Exam <Cabrera Mathis DO - Last Filed: 04/26/19 05:31> Narrative Exam Narrative: 1.Const: appearing stated age 2.Eyes: PERRL, no conjunctival injection, and symmetrical lids. 3.ENT: Atraumatic external nose and ears. Dry MM. Neck: Symmetric, trachea midline, No thyromegaly. 4.CVS: +S1/S2, Peripheral pulses 2+ and equal in all extremities. Brisk capillary refill in all extremities. 5.RESP: Unlabored respiratory effort. No wheezes rales or rhonchi 6.GI: Soft, mildly distended. Mild tenderness in the right upper and lower quadrants of the abdomen. Kidney is palpable. Previous pump located in the left abdominal wall. Bowel sounds are present but reduced. 7.MSK: Normocephalic/Atraumatic, Extremities w/o deformity or ttp No cyanosis or clubbing, +2 pitting edema of the lower extremities. Mild chronic redness, no warmth. No evidence of cellulitis. Baseline movement of all extremities 8.Skin: Warm, Dry. No rashes or lesions. 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 Sensation grossly intact, no focal neurologic deficits. 10.Psych: (AAO) x3. Appropriate mood and affect Course <Cabrera Mathis DO - Last Filed: 04/26/19 05:31> Vital Signs Vital signs: Vital Signs Temperature 36.7 C 04/26/19 04:59 Pulse 87 04/26/19 04:59 Respiratory Rate 18 04/26/19 04:59 Blood Pressure 179/100 H 04/26/19 04:59 Pulse Oximetry 94 L 04/26/19 04:59 Temperature 36.7 C 04/26/19 04:59 Temperature Source Skin 04/26/19 04:59 Pulse 87 04/26/19 04:59 Respiratory Rate 18 04/26/19 04:59 Blood Pressure 179/100 H 04/26/19 04:59 Blood Pressure Position Supine 04/26/19 04:59 Pulse Oximetry 94 L 04/26/19 04:59 Oxygen Delivery Method Room Air 04/26/19 04:59 Oxygen Flow Rate 0 04/26/19 04:59 Pain Level 7 04/26/19 04:59 Sign Out <Cabrera Mathis DO - Last Filed: 04/26/19 05:31> Sign Out Data: Sign Out Comment: Pending CT results and subsequent enema Last updated by Cabrera Mathis DO at 04/26/19 08:16
[2019-04-26] MEDS: ACETAMINOPHEN 1,000 MG/100 ML BTL 400 MG IVPB (05:15)
[2019-04-26] MEDS: Ondansetron 4 MG/2 ML VIAL (05:21)
[2019-04-26 05:23] LABS: Abs Immature Grans 0.01 k/cumm (0.0-0.09); Absolute Basophil Count 0.01 k/cumm (0.0-0.2); Absolute Eosinophil Count 0.22 k/cumm (0.0-0.7); Absolute Lymphocyte Count 0.73 k/cumm (1.2-3.4); Absolute Monocyte Count 0.57 k/cumm (0.11-0.7); Absolute Neutrophil Count 2.63 k/cumm (1.2-6.7); Basophils % 0.2; Eosinophils % 5.3; HCT 43.7 % (36.0-46.0); HGB 13.1 g/dL (12.0-15.5); Immature Grans % 0.2; Lymphocytes % 17.5; Mean Corpuscular Hemoglobin 29.4 pg (27.0-33.0); Mean Corpuscular Volume 98.2 fL (80-95); Mean Platelet Volume 10.4 fL (8.0-11.0); Monocytes % 13.7; Neutrophils % 63.1; Platelet Count 187 x1000/uL (130-400); RBC 4.45 m/cumm (4.00-5.20); RBC Distribution Width 14.7 % (11.7-14.6); White Blood Cell Count 4.17 k/cumm (4.4-10.8)
[2019-04-26 05:31] VITALS: BP 161/92; PULSE 87; RESP 22; O2SAT 95
[2019-04-26 05:37] LABS: ALT 14 U/L (14-59); AST 15 U/L (15-37); Albumin 3.5 g/dL (3.4-5.0); Alkaline Phosphatase 87 U/L (46-116); Anion Gap 5.4 mmol/L (3-11); BUN 45 mg/dL (7-18); Bilirubin, Total 0.6 mg/dL (0.2-1.0); CO2 35.6 mmol/L (21.0-32.0); CREATININE 2.07 mg/dL (0.55-1.02); Calcium 9.9 mg/dL (8.5-10.1); Chloride 96 mmol/L (98-107); Estimated GFR 23.04 (mL/min/1.73m2); Glucose 119 mg/dL (70-100); Potassium 3.6 mmol/L (3.5-5.1); Sodium 137 mmol/L (136-145); Total Protein 7.4 g/dL (6.4-8.2)
--- NOTE | 2019-04-26 05:42 | DI.CT_ITS ---
EXAM: CT ABDOMEN AND PELVIS WO CLINICAL HISTORY: right-sided abdominal pain, constipated TECHNIQUE: Noncontrast. The exam is limited by patient motion and placement of arms over the upper abdomen. COMPARISON: CT ABDOMEN PELVIS WO from 02/24/2019 CT ABDOMEN PELVIS WO from 02/24/2019 CT ABDOMEN PELVIS WO from 04/27/2019 FINDINGS: The lung bases again show severe bronchiectasis. No discrete infiltrate is seen. Innumerable liver cysts are again noted. Patient is status post cholecystectomy. There is stable biliary dilatation. A right-sided renal transplant is seen. There is no evidence of hydronephrosis or calcifications. Patient is status post hysterectomy. An electronic device is seen in the left lower quadrant abdomin al soft tissues. The lead extends into the central spinal canal. There is an increased quantity of stool. There is no bowel wall thickening or other signs of inflammatory change. There is severe sco liosis and degenerative changes are again noted. IMPRESSION: No acute abnormality. A large quantity of stool is seen consistent with constipation.
[2019-04-26] MEDS: Breeza Beverage 473 ML BTL PO ×2 (05:50→05:51)
[2019-04-26] MEDS: Omnipaque 350 MG/ML 50 ML BTL IJ (05:50)
[2019-04-26 06:09] LABS: Bilirubin Negative (Negative); Blood Negative (Negative); Clarity Clear (Clear); Glucose Negative (Negative); Ketones Negative (Negative); Leukocyte Esterase Negative (Negative); Nitrite Negative (Negative); Urobilinogen 0.2 EU/dL (Up TO 0.2)
--- NOTE | 2019-04-26 06:12 | NUR.NOTE ---
0600-pt began drinking oral contrast. per Dr Mathis, hold off on enema until after CT results. pt advised. Nursing Note:
[2019-04-26 06:16] VITALS: BP 162/78; PULSE 88; RESP 22; O2SAT 96
[2019-04-26] MEDS: Ondansetron 4 MG/2 ML VIAL IVP ×2 (06:25→08:56)
[2019-04-26 07:20] VITALS: BP 172/103; PULSE 88; RESP 18; O2SAT 95
--- NOTE | 2019-04-26 08:23 | DI.VRAD_ITS ---
PROCEDURE INFORMATION: Exam: CT Abdomen And Pelvis Without Contrast Exam date and time: 04/26/2019 5:43 AM Clinical history: 78 years old, female; Abdominal pain; Prior surgery TECHNIQUE: Imaging protocol: Computed tomography of the abdomen and pelvis without contrast. COMPARISON: CT ABDOMEN PELVIS WO 02/24/2019 11:44 AM FINDINGS: Lungs: Extensive bronchiectasis and bronchial wall thickening at the lung bases is again noted. Liver: Numerous hepatic cysts measuring up to 3.3 cm. Gallbladder and bile ducts: Cholecystectomy. There is stable dilatation of the common bile duct which may reflect cholecystectomy changes. Pancreas: Normal. No ductal dilation. Spleen: Normal. No splenomegaly. Adrenals: Normal. No mass. Kidneys and ureters: Transplanted kidney in the right pelvis. No hydronephrosis or perinephric fluid collections. Nonvisualized [place] kidneys. Stomach and bowel: No evidence of bowel obstruction. There is a large amount of retained stool in the colon. Appendix: No evidence of appendicitis. Intraperitoneal space: Unremarkable. No free air. No significant fluid collection. Vasculature: Ectatic abdominal aorta without aneurysm. Lymph nodes: Unremarkable. No enlarged lymph nodes. Bladder: Unremarkable as visualized. Reproductive: Hysterectomy. Bones/joints: Degenerative changes of the lumbar spine. No acute fracture. Soft tissues: Unremarkable. IMPRESSION: No acute findings. Stable chronic findings as above. Dictated and Authenticated by: Jaylan Gonsalves MD. Ordering:JUSTYN Rees MD
[2019-04-26 09:17] VITALS: BP 138/85; PULSE 78; RESP 20; O2SAT 96
--- NOTE | 2019-04-26 09:30 | NUR.NOTE ---
09:30 Soap suds enema ordered patient passing some hard brown stool. Unable to advance enema tubing . Dr. Mckinley aware. Patient given some crackers and lupe maria a.
[2019-04-26] MEDS: Acetaminophen 325 MG TAB 650 MG PO (11:51)
[2019-04-26 12:48] VITALS: BP 136/90; PULSE 77; RESP 16; TEMP 36.7; O2SAT 98
== END 2019-04-26 13:09 | disposition home or self-care (01) ==
PROVIDERS: Student in an Organized Health Care Education/Training Program; Emergency Provider Emergency Medicine; PCP Student in an Organized Health Care Education/Training Program
DX: K59.00 Constipation, unspecified (principal); R60.9 Edema, unspecified; N18.9 Chronic kidney disease, unspecified; I12.9 Hypertensive chronic kidney disease with stage 1 through stage 4 chronic kidney disease, or unspecified chronic kidney disease; G89.29 Other chronic pain; M25.519 Pain in unspecified shoulder; Z94.0 Kidney transplant status
CPT/HCPCS: 36415; 80053; 96374; 96375; 96376; 99285; 74176; 81003; 85025; 99284; J0131; J2405; Q9967

== ENCOUNTER 2019-04-27 14:17 | Emergency (ER) | payer MEDICARE, SELFPAY ==
[2019-04-27 14:20] VITALS: BP 158/87; PULSE 81; RESP 16; TEMP 36.5; O2SAT 96
--- NOTE | 2019-04-27 14:27 | ED.GENADUL_ITS ---
Discharge Plan Disposition Patient Disposition: HOME Condition: Good Discharge Details Chief Complaint: Abd Prob Clinical Impression: Diarrhea Primary Care Provider: Kesha Serrano ED Provider: Mahesh Cruz Home Meds and New Rx's Prescriptions: Continued magnesium gluconate 27 mg magnesium (500 mg) tablet 500 mg PO BID@0600,1800 Qty: 60 RF: 0 cholecalciferol (vitamin D3) [Vitamin D3] 2,000 unit capsule 2,000 unit PO DAILY RF: 0 lidocaine 5 % adhesive patch,medicated 1 patch TP DAILY Qty: 30 RF: 1 nitroglycerin [Nitrostat] 0.4 mg tablet, sublingual 0.4 mg Sublingual PRN Qty: 25 RF: 1 ipratropium-albuterol 0.5 mg-3 mg(2.5 mg base)/3 mL solution for nebulization 3 ml IH Q8H Qty: 180 RF: 5 morphine 10 mg/5 mL solution 2 mg PO Q1H PRN MDD 24mg Qty: 500 RF: 0 methadone 5 mg tablet 5 mg PO TID MDD 15 Qty: 90 RF: 0 Xiidra 5 % dropperette 1 drp OP BID Qty: 5 RF: 0 metolazone 2.5 mg tablet 2.5 mg PO ONCE MDD 2.5 mg PRN (Reason: CHF) Qty: 10 RF: 0 magnesium oxide 400 mg capsule 400 mg PO DAILY Qty: 90 RF: 3 Combivent Respimat 20-100 mcg/actuation mist 1 puff IH Q6H Qty: 4 RF: 0 (DME) Nebulizer tubing Qty: 1 RF: 0 ascorbic acid (vitamin C) 1,000 MG tablet 1,000 mg PO DAILY RF: 0 docusate sodium [Colace] 100 MG capsule 100 mg PO BID RF: 0 prednisone 5 MG tablet 5 mg PO DAILY Qty: 90 RF: 1 polyethylene glycol 3350(bulk) 12,000 GM powder 17 gm PO DAILY PRNQty: 1 RF: 3 omega-3 fatty acids-fish oil 1 EACH capsule 1 ea PO DAILY RF: 0 Oxygen EACH NS DAILY Qty: 2 RF: 1 aspirin 81 MG tablet,chewable 81 mg PO DAILY Qty: 100 RF: 3 albuterol sulfate [ProAir HFA] 8.5 GM HFA aerosol inhaler 2 puff Inhalation Q4H PRN Qty: 1 RF: 11 oxygen conserver See Rx Instructions .ROUTE .COMPLEX Qty: 1 RF: 0 allopurinol 100 mg tablet 100 mg PO BID RF: 0 cyclosporine 25 mg capsule 75 mg PO BID Qty: 540 RF: 0 carvedilol [Coreg] 25 mg tablet 50 mg PO BID Qty: 360 RF: 3 cimetidine 300 mg tablet 300 mg PO Q12H RF: 0 atorvastatin [Lipitor] 10 mg tablet 5 mg PO DAILY Qty: 45 RF: 2 nystatin 100,000 unit/gram powder 1 applic TP BID PRN (Reason: redness ) Qty: 30 RF: 2 benzonatate [Tessalon Perles] 100 mg capsule 100 mg PO TID Qty: 90 RF: 2 cyclobenzaprine 5 mg tablet 5 mg PO QHS MDD 2 PRN (Reason: muscle spasm) Qty: 30 RF: 1 chlorhexidine gluconate 0.12 % mouthwash 15 ml BC BID Qty: 946 RF: 3 furosemide 40 mg tablet 80 mg PO BID Qty: 120 RF: 3 doxycycline hyclate 100 mg tablet 100 mg PO BID Qty: 14 RF: 0 sennosides-docusate sodium [MATHIEU-COLACE] 1 TAB tablet 2 tab PO BID PRNRF: 0 fluticasone propionate 16 GM spray,suspension 1 spray NS BID PRNRF: 0 Discharge Instructions Instructions: Acute Diarrhea (ED) Additional Instructions: Return to the ER immediately if you develop any fevers or passing out. Follow up this week with your primary care provider. Discharge Data Discharge Date/Time-TO BE ENTERED AT DEPARTURE: 04/27/19 16:55 Medical Decision Making <LONI Pacheco - Last Filed: 04/28/19 09:30> Patient 78-year-old female is chronically on narcotics, presents today with chief complaint of multiple bowel movements and abdominal pain today after being digitally disimpacted yesterday for constipation. Patient has history of chronic renal disease, xerostomia, edema, opioid dependence, ampullary adenoma, hypomagnesemia, SVT, bowel obstruction, mitral valve prolapse, hypercho lesterolemia, hypertension, GERD, hypertension, benign heart failure with preserved EF. She presents with right-sided began after multiple bowel movements. She is also endorsing problems having continued bowel movements. Denies any fevers or chills. On exam patient appears anxious. She appears in no acute distress and appears nontoxic. Her abdomen exam is benign, soft. She has multiple postsurgical changes. Implant remains from previous pain pump. Patient stool is soft but not liquidy. It is heme-negative. The patient's past medical history, plan for a noncontrast CT. She had oral contrast yesterday, not feel that repeat is appropriate. She will ecchymosis just evaluating for any gross abnormality <Mahesh Cruz MD - Last Filed: 04/27/19 17:29> Patient CARE signed out at change of shift. CT scan did not reveal any acute changes. Patient feels comfortable going home. Patient and caregiver were given return precautions and discharge instructions. HPI <LONI Pacheco - Last Filed: 04/28/19 09:30> General Mode of arrival: EMS . Date/Time Provider Initiated Documentation: 04/27/19 14:25 . Limitations to Documentation: no limitations . Information obtained by: patient, EMS and RN notes reviewed . HPI Narrative: Patient is a 78-year-old female, brought in via EMS, with chief complaint of multiple bowel movements and abdominal discomfort that began this morning. Patient was seen here yesterday for constipation. At that time, stool ball was digitally removed. She did use mineral oil last night prior to bed. This morning, she reports she is had multiple soft bowel movements is concerned she may not have diarrhea. Is endorsing some right-sided abdominal discomfort. She does have home care provider who has been helping her during this time. She denies any fevers or chills. No nausea vomiting. Has not noted any blood in the stool but states it has been dark. Patient has had multiple previous abdominal surgeries. Related Data Home Medications Medication Instructions Recorded Confirmed ascorbic acid (vitamin C) 1,000 mg PO DAILY 09/18/12 04/27/19 docusate sodium [Colace] 100 mg PO BID tab-cap 09/18/12 04/27/19 prednisone 5 mg PO DAILY #90 tab 01/17/16 04/27/19 polyethylene glycol 3350(bulk) 17 gm PO DAILY PRN #1 canister 01/08/17 04/27/19 omega-3 fatty acids-fish oil 1 ea PO DAILY cap 06/04/17 04/27/19 aspirin 81 mg PO DAILY #100 tab 01/14/18 04/27/19 albuterol sulfate [ProAir HFA] 2 puff INHALATION Q4H PRN #1 02/14/18 04/27/19 inhaler lifitegrast 5 % eye drops in a 1 drp OP BID #5 each 03/13/18 04/27/19 dropperette metolazone 2.5 mg tablet 2.5 mg PO ONCE PRN #10 tab MDD 2.5 04/10/18 04/27/19 mg oxygen conserver See Rx Instructions .ROUTE 04/19/18 04/27/19 .COMPLEX #1 allopurinol 100 mg tablet 100 mg PO BID 04/30/18 04/27/19 cyclosporine 25 mg capsule 75 mg PO BID #540 cap 06/28/18 04/27/19 cholecalciferol (vitamin D3) 2,000 2,000 unit PO DAILY 07/23/18 04/27/19 unit capsule lidocaine 5 % topical patch 1 patch TP DAILY #30 each 07/23/18 04/27/19 magnesium gluconate 27 mg 500 mg PO BID@0600,1800 #60 tab 07/23/18 04/26/19 magnesium (500 mg) tablet magnesium oxide 400 mg PO DAILY #90 tab-cap 08/01/18 04/27/19 carvedilol 25 mg tablet 50 mg PO BID #360 tab 08/19/18 04/27/19 cimetidine 300 mg tablet 300 mg PO Q12H tab 09/06/18 04/26/19 atorvastatin 10 mg tablet 5 mg PO DAILY #45 tab 10/14/18 04/27/19 ipratropium 20 mcg-albuterol 100 1 puff IH Q6H #4 gm 11/16/18 04/27/19 mcg/actuation mist for inhalation Nebulizer tubing #1 ea 11/21/18 12/10/18 nystatin 100,000 unit/gram topical 1 applic TP BID PRN #30 gm 12/02/18 04/27/19 powder benzonatate 100 mg capsule 100 mg PO TID #90 tab-cap 01/02/19 04/27/19 nitroglycerin 0.4 mg sublingual 0.4 mg SUBLINGUAL PRN #25 tab 01/18/19 04/27/19 tablet cyclobenzaprine 5 mg tablet 5 mg PO QHS PRN #30 tab MDD 2 01/31/19 04/27/19 chlorhexidine gluconate 0.12 % 15 ml BC BID #946 ml 03/06/19 04/27/19 mouthwash furosemide 40 mg tablet 80 mg PO BID #120 tab 03/31/19 04/27/19 ipratropium-albuterol 0.5 mg-3 3 ml IH Q8H #180 ml 04/03/19 04/27/19 mg(2.5 mg base)/3 mL nebulization soln methadone 5 mg tablet 5 mg PO TID #90 tab-cap MDD 15 04/17/19 04/27/19 morphine 10 mg/5 mL oral solution 2 mg PO Q1H PRN #500 ml MDD 24mg 04/17/19 04/27/19 doxycycline hyclate 100 mg tablet 100 mg PO BID #14 tab 04/24/19 04/27/19 fluticasone propionate 1 spray NS BID PRN 04/27/19 04/27/19 sennosides-docusate sodium 2 tab PO BID PRN 04/27/19 04/27/19 [MATHIEU-COLACE] Previous Rx's Medication Instructions Recorded aspirin 81 mg PO DAILY #100 tab 01/14/18 albuterol sulfate [ProAir HFA] 2 puff INHALATION Q4H PRN #1 02/14/18 inhaler lifitegrast 5 % eye drops in a 1 drp OP BID #5 each 03/13/18 dropperette metolazone 2.5 mg tablet 2.5 mg PO ONCE PRN #10 tab MDD 2.5 04/10/18 mg oxygen conserver See Rx Instructions .ROUTE 04/19/18 .COMPLEX #1 lidocaine 5 % topical patch 1 patch TP DAILY #30 each 07/23/18 magnesium gluconate 27 mg 500 mg PO BID@0600,1800 #60 tab 07/23/18 magnesium (500 mg) tablet magnesium oxide 400 mg PO DAILY #90 tab-cap 08/01/18 carvedilol 25 mg tablet 50 mg PO BID #360 tab 08/19/18 atorvastatin 10 mg tablet 5 mg PO DAILY #45 tab 10/14/18 ipratropium 20 mcg-albuterol 100 1 puff IH Q6H #4 gm 11/16/18 mcg/actuation mist for inhalation Nebulizer tubing #1 ea 11/21/18 nystatin 100,000 unit/gram topical 1 applic TP BID PRN #30 gm 12/02/18 powder benzonatate 100 mg capsule 100 mg PO TID #90 tab-cap 01/02/19 nitroglycerin 0.4 mg sublingual 0.4 mg SUBLINGUAL PRN #25 tab 01/18/19 tablet cyclobenzaprine 5 mg tablet 5 mg PO QHS PRN #30 tab MDD 2 01/31/19 chlorhexidine gluconate 0.12 % 15 ml BC BID #946 ml 03/06/19 mouthwash furosemide 40 mg tablet 80 mg PO BID #120 tab 03/31/19 ipratropium-albuterol 0.5 mg-3 3 ml IH Q8H #180 ml 04/03/19 mg(2.5 mg base)/3 mL nebulization soln methadone 5 mg tablet 5 mg PO TID #90 tab-cap MDD 15 04/17/19 morphine 10 mg/5 mL oral solution 2 mg PO Q1H PRN #500 ml MDD 24mg 04/17/19 doxycycline hyclate 100 mg tablet 100 mg PO BID #14 tab 04/24/19 Allergies Allergy/AdvReac Type Severity Reaction Status Date / Time thiopental sodium Allergy Intermediate Wheezing Verified 04/27/19 14:24 [From Pentothal] Penicillins Allergy Unknown ITCHING Verified 04/27/19 14:24 phenazopyridine AdvReac Severe considered Verified 04/27/19 14:24 [From Pyridium] nephrotoxic diclofenac gel AdvReac Intermediate nausea, Uncoded 04/27/19 14:24 sweats, insomnia General Stated Complaint: Abd Prob JON: 3 Review of Systems <LONI Pacheco - Last Filed: 04/28/19 09:30> Constitutional Constitutional: Reports as per HPI, Denies chills, Denies fatigue, Denies fever(s) and Denies headache(s) ENT Ears, Nose, Mouth, and Throat: Denies headache(s) Cardiovascular Cardiovascular: Reports as per HPI, Denies chest pain and Denies dyspnea Respiratory Respiratory: Reports as per HPI, Denies cough and Denies dyspnea Gastrointestinal Gastrointestinal: Reports as per HPI Musculoskeletal Musculoskeletal: Reports as per HPI and Denies back pain Integumentary/Breasts Skin/Breast: Reports as per HPI and Denies rash Neurologic Neurologic: Reports as per HPI and Denies headache(s) Endocrine Endocrine: Denies fatigue PFSH <LONI Pacheco - Last Filed: 04/28/19 09:30> Medical History Abdominal pain (Acute) Bacterial urinary infection (Chronic) Bowel obstruction (Suspected 08/08/14) a. recurrent small bowel obstructions CHF (congestive heart failure) (Chronic) Chronic pain (Acute) Chronic renal failure, stage 3 (moderate) (Chronic) Diarrhea (Acute) Dysuria (Chronic) Edema, lower extremity (Chronic) a. No evidence of congestive heart failure. Gastroesophageal reflux disease (Chronic) Hypercholesterolemia (Chronic) Hypertension (Chronic) Kyphoscoliosis (Chronic) Low back pain (Chronic) Hx [facility]. Osteoarthritis of hip (Chronic) Palliative care patient (Acute 06/04/17) Dr. Mccollum Polycystic kidney (Chronic) a. 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 Rhinitis, allergic (Chronic) Spinal stenosis (Chronic) a. In cervical and lumbar regions. b. Followed by [facility]. c. She does have a fentanyl pump in place which is located in her left lower abdomen. Tachycardia (Chronic) a. Recurrent. Urinary incontinence (Chronic) Vaginitis, atrophic (Chronic) Weakness generalized (Chronic) Patient is too weak to return home in her present condition. She is agreed to swing bed level 1 for continued physical therapy. She remains DNR/DNI. Surgical History Extraction of cataract (12/14/15) Left Cataract with IOL, Dr Hawkins History of hysterectomy (Resolved) History of incisional hernia repair (Resolved) History of Surgical Procedure (Chronic) a. Multiple abdominal surgeries. b. S/P kidney transplant in 1990 following nephrectomy x2 for polycystic kidney disease. c. Cholecystectomy. Living-donor kidney transplant recipient (Chronic) Social History Smoking/Tobacco Use Status: Never Alcohol Intake: never Drug use: Never Substance use type: does not use Adopted: No Caregiver/Support person: Yes Household members: none Housing: house Number of Children: 1 Pets and animals: No Current gender identity: female What is your relationship status?: How often do you talk on the phone with friends or family?: three or more times per week How often do you get together with friends or relatives?: three or more times per week How often do you attend latter day or pentecostalism services?: 4 or more times per year Panel score (0-1 are the most socially isolated patients): 2 What type of physical activity do you participate in: assisted ambulation Maureen/Evangelical: Evangelical Special maureen needs: No Agree to transfusion: Yes Seatbelt use: always Do you feel safe at home: Yes Do you feel safe in your relationship?: Yes History History 4 Para 4 Hx # Term Pregnancies 4 Multiple births Hx # Pregnancies Ectopic pregnancies AB induced Hx Number of Living Children 4 AB spontaneous Exam <LONI Pacheco - Last Filed: 04/28/19 09:30> Const General: cooperative, healthy appearing, comfortable, no acute distress and well developed Nutritional Appearance: average body habitus and well nourished Orientation: alert and awake HENMT Head: normal to inspection Mouth: moist mucous membranes Resp Effort & Inspection: normal respiratory effort, able to speak in complete sentences and no respiratory distress Auscultation: clear to auscultation bilaterally, no rales, no rhonchi and no wheezes Cardio Rate: regular rate Rhythm: regular rhythm Heart Sounds: S1 normal and S2 normal Back/Spine/Pelvis Back: no CVA tenderness Skin General skin exam: no rashes or lesions noted Trauma: no lacerations or abrasions Neuro General: alert and awake Cognition: normal cognition Speech: speech normal Gait: normal gait Psych Appearance: grossly normal and well kempt Mental Status: mental status grossly normal Speech and Movement: speech and movement normal Course <LONI Pacheco - Last Filed: 04/28/19 09:30> Vital Signs Vital signs: Vital Signs Temperature 36.5 C 04/27/19 14:20 Pulse 81 04/27/19 14:20 Respiratory Rate 16 04/27/19 14:20 Blood Pressure 158/87 H 04/27/19 14:20 Pulse Oximetry 96 04/27/19 14:20 Temperature 36.5 C 04/27/19 14:20 Temperature Source Skin 04/27/19 14:20 Pulse 81 04/27/19 14:20 Respiratory Rate 16 11/03/19 14:20 Respiratory Effort 04/27/19 14:24 Blood Pressure 158/87 H 04/27/19 14:20 Blood Pressure Position Sitting 04/27/19 14:20 Pulse Oximetry 96 04/27/19 14:20 Oxygen Delivery Method Room Air 04/27/19 14:20 Oxygen Flow Rate 0 04/27/19 14:20 Pain Level 7 04/27/19 14:20 Sign Out <LONI Pacheco - Last Filed: 04/28/19 09:30> Sign Out Data: Sign Out Comment: Care transition to Dr. David imaging results pending. Patient has had multiple bowel movements today after being disimpacted yesterday. If imaging is benign, plan to DC home after reassessment. Last updated by Esther Sanz PA at 04/27/19 16:00
--- NOTE | 2019-04-27 14:44 | DI.CT_ITS ---
EXAM: CT ABDOMEN AND PELVIS WO CLINICAL HISTORY: right mid abdominal pain TECHNIQUE: Without IV contrast. Status post oral contrast. COMPARISON: CT ABDOMEN AND PELVIS WO from 04/26/2019 FINDINGS: Exam is limited by patient motion. The amount of stool has significantly decreased when compared with the previous day's exam. There are numerous diverticula, greatest in the sigmoid colon, but no evide nce of diverticulitis. The right pelvic renal transplant and bladder are unchanged. There is motion a t the level of the liver. Innumerable renal cysts and prior cholecystectomy as well as stable biliary dilatation are again noted. Severe bronchiectatic changes are again noted at the lung bases. There a re some increased dependent changes at the lung bases. IMPRESSION: Decreased quantity of fecal material. No acute abnormality.
--- NOTE | 2019-04-27 16:11 | DI.VRAD_ITS ---
PROCEDURE INFORMATION: Exam: CT Abdomen And Pelvis Without Contrast Exam date and time: 04/27/2019 3:00 PM Clinical history: 78 years old, female; Abdominal pain; Prior surgery TECHNIQUE: Imaging protocol: Computed tomography of the abdomen and pelvis without contrast. COMPARISON: CT ABDOMEN PELVIS WO 04/26/2019 8:05 AM FINDINGS: Lungs: Previously noted nodular opacities with lower lung bronchiectasis again seen bilaterally unchanged. Bronchial wall thickening persists. There is mild bilateral pleural thickening. Liver: Multiple low-density hepatic lesions are noted, some indeterminate. Suspect cysts, unchanged. Gallbladder and bile ducts: Status post cholecystectomy. Pancreas: Normal. No ductal dilation. Spleen: Normal. No splenomegaly. Adrenals: There is nodular change involving the left adrenal gland. Kidneys and ureters: Status post bilateral nephrectomy. The pancreatic tail it posteriorly to the left renal fossa. Right lower quadrant transplant kidney again seen. Small cysts noted. No hydronephrosis. Stomach and bowel: Contrast material is again seen in the colon. There is diverticulosis without acute diverticulitis. Appendix: Appendix well seen, within normal limits area Intraperitoneal space: Unremarkable. No free air. No significant fluid collection. Vasculature: Moderate atherosclerotic change in the vasculature with aortic ectasia. Lymph nodes: There is a partially calcified right external iliac focus, probable calcified lymph node, unchanged. Bladder: Unremarkable as visualized. Reproductive: Status post hysterectomy. Bones/joints: Levoscoliosis with severe lumbar spondylosis. Soft tissues: Left lower quadrant implanted device extending to the thoracolumbar thecal level. IMPRESSION: No significant changes from previous study. Nonacute and postsurgical changes as noted. COMMENT: Preliminary interpretation is based on receipt of [id number] image(s). A final report will be issued subsequently. Dictated and Authenticated by: Myra Carlson MD. Ordering:ANGELES Santana MD
[2019-04-27 16:31] VITALS: BP 145/89; PULSE 80; RESP 16; TEMP 36.6; O2SAT 97
== END 2019-04-27 16:55 | disposition home or self-care (01) ==
PROVIDERS: Emergency Provider Emergency Medicine; PCP Student in an Organized Health Care Education/Training Program
DX: R19.7 Diarrhea, unspecified (principal); Z87.19 Personal history of other diseases of the digestive system; Z79.891 Long term (current) use of opiate analgesic; I13.0 Hypertensive heart and chronic kidney disease with heart failure and stage 1 through stage 4 chronic kidney disease, or unspecified chronic kidney disease; I50.9 Heart failure, unspecified; N18.3 Chronic kidney disease, stage 3 (moderate)
CPT/HCPCS: 99284; 74176

== ENCOUNTER 2019-04-29 11:50 | Outpatient (REF) | payer MEDICARE, SELFPAY ==
[2019-04-29 13:54] LABS: Abs Immature Grans 0.01 k/cumm (0.0-0.09); Absolute Basophil Count 0.02 k/cumm (0.0-0.2); Absolute Eosinophil Count 0.26 k/cumm (0.0-0.7); Absolute Lymphocyte Count 0.85 k/cumm (1.2-3.4); Absolute Monocyte Count 0.57 k/cumm (0.11-0.7); Absolute Neutrophil Count 3.28 k/cumm (1.2-6.7); Basophils % 0.4; Eosinophils % 5.2; HCT 42.3 % (36.0-46.0); HGB 12.6 g/dL (12.0-15.5); Immature Grans % 0.2; Mean Corp. HGB Concentration 29.8 g/dL (32.0-36.0); Mean Corpuscular Hemoglobin 29.2 pg (27.0-33.0); Mean Corpuscular Volume 98.1 fL (80-95); Mean Platelet Volume 10.9 fL (8.0-11.0); Monocytes % 11.4; Neutrophils % 65.8; Platelet Count 186 x1000/uL (130-400); RBC 4.31 m/cumm (4.00-5.20); RBC Distribution Width 14.9 % (11.7-14.6); White Blood Cell Count 4.99 k/cumm (4.4-10.8)
[2019-04-29 13:57] LABS: BUN 37 mg/dL (7-18); CREATININE 2.24 mg/dL (0.55-1.02); Calcium 9.9 mg/dL (8.5-10.1); Chloride 96 mmol/L (98-107); Estimated GFR 21.03 (mL/min/1.73m2); Glucose 106 mg/dL (70-100); Potassium 3.8 mmol/L (3.5-5.1); Sodium 139 mmol/L (136-145)
[2019-04-29 14:44] LABS: PROTEIN 15.1 mg/dL
[2019-04-29 14:45] LABS: COMMENT (LAB VIEW ONLY) 22.58 mg/dL; Prot/Crea Ur Ratio 0.66
[2019-04-30 13:47] LABS: Cyclosporine 144 ng/ml
== END 2019-04-29 12:10 ==
LOC: LBN 11:50
PROVIDERS: PCP Student in an Organized Health Care Education/Training Program; Visit Provider Internal Medicine Nephrology
DX: N18.3 Chronic kidney disease, stage 3 (moderate) (principal); I50.9 Heart failure, unspecified; Z94.0 Kidney transplant status; Z79.899 Other long term (current) drug therapy
CPT/HCPCS: 80048; 80158; 82565; 84156; 85025

== ENCOUNTER 2019-05-13 11:59 | Outpatient (REF) | payer MEDICARE, SELFPAY ==
[2019-05-13 13:15] LABS: Abs Immature Grans 0.01 k/cumm (0.0-0.09); Absolute Basophil Count 0.02 k/cumm (0.0-0.2); Absolute Eosinophil Count 0.29 k/cumm (0.0-0.7); Absolute Lymphocyte Count 0.65 k/cumm (1.2-3.4); Absolute Monocyte Count 0.54 k/cumm (0.11-0.7); Absolute Neutrophil Count 2.74 k/cumm (1.2-6.7); Basophils % 0.5; Eosinophils % 6.8; HCT 39.7 % (36.0-46.0); HGB 11.8 g/dL (12.0-15.5); Immature Grans % 0.2; Lymphocytes % 15.3; Mean Corp. HGB Concentration 29.7 g/dL (32.0-36.0); Mean Corpuscular Hemoglobin 29.6 pg (27.0-33.0); Mean Corpuscular Volume 99.7 fL (80-95); Mean Platelet Volume 10.8 fL (8.0-11.0); Monocytes % 12.7; Neutrophils % 64.5; Platelet Count 179 x1000/uL (130-400); RBC 3.98 m/cumm (4.00-5.20); White Blood Cell Count 4.25 k/cumm (4.4-10.8)
[2019-05-13 13:56] LABS: Chloride 101 mmol/L (98-107); Sodium 143 mmol/L (136-145)
[2019-05-13 15:05] LABS: Anion Gap 8.7 mmol/L (3-11); BUN 32 mg/dL (7-18); CO2 33.3 mmol/L (21.0-32.0); CREATININE 1.66 mg/dL (0.55-1.02); Calcium 9.5 mg/dL (8.5-10.1); Estimated GFR 29.72 (mL/min/1.73m2); Glucose 127 mg/dL (74-106); Potassium 3.9 mmol/L (3.5-5.1)
[2019-05-14 12:25] LABS: PROTEIN 25.2 mg/dL
[2019-05-14 12:27] LABS: COMMENT (LAB VIEW ONLY) 30.31 mg/dL; Prot/Crea Ur Ratio 0.83
[2019-05-14 14:19] LABS: Cyclosporine 84.1 ng/mL (See Note)
== END 2019-05-13 12:19 ==
LOC: LBN 11:59
PROVIDERS: PCP Student in an Organized Health Care Education/Training Program; Visit Provider Internal Medicine Nephrology
DX: N18.3 Chronic kidney disease, stage 3 (moderate) (principal); I13.0 Hypertensive heart and chronic kidney disease with heart failure and stage 1 through stage 4 chronic kidney disease, or unspecified chronic kidney disease; Z94.0 Kidney transplant status; Z51.81 Encounter for therapeutic drug level monitoring
CPT/HCPCS: 80048; 80158; 82565; 84156; 85025

== ENCOUNTER 2019-05-29 12:42 | Outpatient (REF) | payer MEDICARE, SELFPAY ==
[2019-05-29 13:07] LABS: Bilirubin Negative (Negative); Blood Trace-intact (Negative); Clarity Clear (Clear); Glucose Negative (Negative); Ketones Negative (Negative); Leukocyte Esterase Negative (Negative); Nitrite Negative (Negative); Specific Gravity 1.015 (1.005-1.025); Urobilinogen 0.2 EU/dL (Up TO 0.2)
[2019-05-29 13:11] LABS: PROTEIN 29.7 mg/dL
[2019-05-29 13:12] LABS: COMMENT (LAB VIEW ONLY) 25.66 mg/dL; Prot/Crea Ur Ratio 1.15
[2019-05-29 13:18] LABS: Bacteria Moderate HPF (Negative); C & S Indicated? Yes; Casts 3-5 Hyaline LPF (Negative); Crystals Negative HPF (Negative); Epithelial Cells Few HPF (Negative); Mucus Negative (Negative); Other Cells Few Renal (Negative)
== END 2019-05-29 13:02 ==
LOC: LBN 12:42
PROVIDERS: PCP Student in an Organized Health Care Education/Training Program; Visit Provider Internal Medicine Nephrology
DX: N39.41 Urge incontinence (principal); N39.0 Urinary tract infection, site not specified; N18.3 Chronic kidney disease, stage 3 (moderate); Z94.0 Kidney transplant status
CPT/HCPCS: 87077; 81003; 81015; 82565; 84156; 87086; 87186

== ENCOUNTER 2019-05-30 10:40 | Outpatient (REF) | payer MEDICARE, SELFPAY ==
[2019-05-30 14:05] LABS: Abs Immature Grans 0.01 k/cumm (0.0-0.09); Absolute Basophil Count 0.02 k/cumm (0.0-0.2); Absolute Eosinophil Count 0.22 k/cumm (0.0-0.7); Absolute Lymphocyte Count 0.79 k/cumm (1.2-3.4); Absolute Monocyte Count 0.71 k/cumm (0.11-0.7); Absolute Neutrophil Count 2.87 k/cumm (1.2-6.7); Basophils % 0.4; Eosinophils % 4.8; HCT 39.8 % (36.0-46.0); HGB 11.7 g/dL (12.0-15.5); Immature Grans % 0.2; Lymphocytes % 17.1; Mean Corp. HGB Concentration 29.4 g/dL (32.0-36.0); Mean Corpuscular Hemoglobin 29.8 pg (27.0-33.0); Mean Corpuscular Volume 101.3 fL (80-95); Mean Platelet Volume 10.9 fL (8.0-11.0); Monocytes % 15.4; Neutrophils % 62.1; Platelet Count 207 x1000/uL (130-400); RBC 3.93 m/cumm (4.00-5.20); RBC Distribution Width 14.2 % (11.7-14.6); White Blood Cell Count 4.62 k/cumm (4.4-10.8)
[2019-05-30 14:13] LABS: Anion Gap 4.3 mmol/L (3-11); BUN 35 mg/dL (7-18); CO2 35.7 mmol/L (21.0-32.0); CREATININE 1.94 mg/dL (0.55-1.02); Calcium 9.5 mg/dL (8.5-10.1); Chloride 101 mmol/L (98-107); Estimated GFR 24.83 (mL/min/1.73m2); Glucose 96 mg/dL (74-106); Potassium 3.6 mmol/L (3.5-5.1); Sodium 141 mmol/L (136-145)
[2019-06-02 13:54] LABS: Cyclosporine 93.3 ng/mL (See Note)
== END 2019-05-30 11:00 ==
LOC: LBN 10:40
PROVIDERS: PCP Student in an Organized Health Care Education/Training Program; Visit Provider Internal Medicine Nephrology
DX: N18.3 Chronic kidney disease, stage 3 (moderate) (principal); I50.9 Heart failure, unspecified; Z94.0 Kidney transplant status; Z51.81 Encounter for therapeutic drug level monitoring
CPT/HCPCS: 80048; 80158; 85025

== ENCOUNTER 2019-06-08 15:06 | Outpatient (REF) | payer MEDICARE, SELFPAY ==
[2019-06-08 15:28] LABS: Bilirubin Negative (Negative); Blood Trace-intact (Negative); Clarity Clear (Clear); Glucose Negative (Negative); Ketones Negative (Negative); Leukocyte Esterase Trace (Negative); Nitrite Negative (Negative); Urobilinogen 0.2 EU/dL (Up TO 0.2); pH 6.5 (5-8)
[2019-06-08 15:40] LABS: Bacteria Negative HPF (Negative); C & S Indicated? C&S Done As Ordered; Crystals Negative HPF (Negative); Epithelial Cells Many HPF (Negative); Mucus Negative (Negative)
== END 2019-06-08 15:26 ==
LOC: NCHCN 15:06
PROVIDERS: PCP Student in an Organized Health Care Education/Training Program; Visit Provider Student in an Organized Health Care Education/Training Program
DX: N18.3 Chronic kidney disease, stage 3 (moderate) (principal); R39.9 Unspecified symptoms and signs involving the genitourinary system; Z94.0 Kidney transplant status; Z87.440 Personal history of urinary (tract) infections; R82.998 Other abnormal findings in urine
CPT/HCPCS: 81003; 81015; 87086

== ENCOUNTER 2019-06-09 16:33 | Emergency (ER) | payer MEDICARE, SELFPAY ==
[2019-06-09] VITALS (7 sets, daily range): BP systolic 126–173; BP diastolic 78–104; PULSE 78–87; RESP 18; TEMP 36.4–36.8; O2SAT 96–98
--- NOTE | 2019-06-09 17:22 | W.ED.GENAD ---
Discharge Plan Disposition Patient Disposition: HOME Condition: Good Discharge Details Chief Complaint: Abd Prob Clinical Impression: UTI (urinary tract infection), Diverticulitis Primary Care Provider: Kesha Serrano ED Provider: Esther Sanz [facility] Meds and New Rx's Prescriptions: New metronidazole [Flagyl] 500 mg tablet 500 mg PO TID Qty: 19 RF: 0 levofloxacin 250 mg tablet 250 mg PO DAILY Qty: 6 RF: 0 Continued magnesium gluconate 27 mg magnesium (500 mg) tablet 500 mg PO BID@0600,1800 Qty: 60 RF: 0 cholecalciferol (vitamin D3) [Vitamin D3] 2,000 unit capsule 2,000 unit PO DAILY RF: 0 lidocaine 5 % adhesive patch,medicated 1 patch TP DAILY Qty: 30 RF: 1 nitroglycerin [Nitrostat] 0.4 mg tablet, sublingual 0.4 mg Sublingual PRN Qty: 25 RF: 1 ipratropium-albuterol 0.5 mg-3 mg(2.5 mg base)/3 mL solution for nebulization 3 ml IH Q8H Qty: 180 RF: 5 morphine 10 mg/5 mL solution 2 mg PO Q1H PRN MDD 24mg Qty: 500 RF: 0 albuterol sulfate [ProAir HFA] 90 mcg/actuation HFA aerosol inhaler 2 puff Inhalation Q4H PRN Qty: 1 RF: 11 ondansetron HCl 4 mg tablet 4 mg PO Q8H PRN (Reason: nausea and vomiting) Qty: 60 RF: 1 metoclopramide HCl 10 mg tablet 10 mg PO Q6H PRN (Reason: nausea and vomiting) Qty: 20 RF: 0 Xiidra 5 % dropperette 1 drp OP BID Qty: 5 RF: 0 metolazone 2.5 mg tablet 2.5 mg PO ONCE MDD 2.5 mg PRN (Reason: CHF) Qty: 10 RF: 0 magnesium oxide 400 mg capsule 400 mg PO DAILY Qty: 90 RF: 3 Combivent Respimat 20-100 mcg/actuation mist 1 puff IH Q6H Qty: 4 RF: 0 (DME) Nebulizer tubing Qty: 1 RF: 0 ascorbic acid (vitamin C) 1,000 MG tablet 1,000 mg PO DAILY RF: 0 docusate sodium [Colace] 100 MG capsule 100 mg PO BID RF: 0 prednisone 5 MG tablet 5 mg PO DAILY Qty: 90 RF: 1 polyethylene glycol 3350(bulk) 12,000 GM powder 17 gm PO DAILY PRNQty: 1 RF: 3 omega-3 fatty acids-fish oil 1 EACH capsule 1 ea PO DAILY RF: 0 Oxygen EACH NS DAILY Qty: 2 RF: 1 aspirin 81 MG tablet,chewable 81 mg PO DAILY Qty: 100 RF: 3 oxygen conserver See Rx Instructions .ROUTE .COMPLEX Qty: 1 RF: 0 allopurinol 100 mg tablet 100 mg PO BID RF: 0 cyclosporine 25 mg capsule 75 mg PO BID Qty: 540 RF: 0 carvedilol [Coreg] 25 mg tablet 50 mg PO BID Qty: 360 RF: 3 cimetidine 300 mg tablet 300 mg PO Q12H RF: 0 atorvastatin [Lipitor] 10 mg tablet 5 mg PO DAILY Qty: 45 RF: 2 nystatin 100,000 unit/gram powder 1 applic TP BID PRN (Reason: redness ) Qty: 30 RF: 2 benzonatate [Tessalon Perles] 100 mg capsule 100 mg PO TID Qty: 90 RF: 2 chlorhexidine gluconate 0.12 % mouthwash 15 ml BC BID Qty: 946 RF: 3 furosemide 40 mg tablet 80 mg PO BID Qty: 120 RF: 3 cyclobenzaprine 5 mg tablet 5 mg PO QHS MDD 2 PRN (Reason: muscle spasm) Qty: 90 RF: 1 sennosides-docusate sodium [MATHIEU-COLACE] 1 TAB tablet 2 tab PO BID PRNRF: 0 fluticasone propionate 16 GM spray,suspension 1 spray NS BID PRNRF: 0 No Action methadone 5 mg tablet 5 mg PO TID MDD 15 Qty: 90 RF: 0 Discharge Instructions Instructions: Metronidazole (By mouth), Diverticulitis (ED), Urinary Tract Infection in Women (ED) Additional Instructions: Encourage hydration. Please take the antibiotics as prescribed. The Flagyl is 3 times per day, levofloxacin is 1 time per day. You are given your evening dose of both medications here today. You have findings suggestive of urinary tract infection as well as diverticulitis. I would like you to be followed up with your primary care in the next 48 hours. If you develop fever/chills, increased pain or other new/worsening symptoms please seek care urgently once again. Referrals: Kesha Serrano DO [Primary Care Provider] - Discharge Data Discharge Date/Time-TO BE ENTERED AT DEPARTURE: 06/09/19 20:01 Medical Decision Making Patient is a 78-year-old female presenting today with chief complaint of right lower quadrant pain, she believes this is pain from her transplanted kidney. Patient underwent kidney transplant 28 years ago. Patient was seen here 05-13. At that time, she was having pain in the same location. She was disimpacted and had resolution of her pain. However, states the quality of the pain is different at this time. States she is been having foul-smelling urine but no urgency, frequency or dysuria. Denies any change in bowel habits. States that she has issues with constipation at baseline. She denies any fevers or chills. Surgical history pertinent for hysterectomy, hernia repair, kidney transplant. On exam, patient appears nontoxic. She is resting comfortably. Mild tenderness elicited with palpation of the right lower quadrant but no peritoneal findings. Patient is fairly diffuse. Not reproducible, particular when patient is distracted. Multiple incision sites are noted all of which are well-healed. Labs reviewed. No leukocytosis. Patient GFR 33, this is baseline for the patient. FINDINGS: Tubes, catheters and devices: There is a stimulator in the lower left side of the abdomen with the stimulating wires entering into the spinal canal at approximately L1. Lungs: The lung windows are degraded by motion. There is fibrosis and scarring at the right lung base. There are atelectatic changes at the right lung base. A small underlying infiltrate is not excluded. There is a pulmonary nodule within the right middle lobe measuring 7 mm. There are slight atelectatic changes within the right middle lobe. These appears somewhat decreased when compared to the prior study however a small underlying infiltrate at this level is not excluded. Additional pulmonary nodules are difficult to evaluate based on the limitations of the scan. Heart: There is calcification of the mitral annulus. Liver: There are innumerable low-attenuation lesions within the liver which range in size from less than a cm to largest of which is within the right lobe of the liver near the dome of the diaphragm measuring up to 3.7 cm. These most likely represent cysts. However these can be re-evaluated if clinically warranted with a CT scan of the liver utilizing hemangioma protocol. Gallbladder and bile ducts: The patient is status post cholecystectomy. Pancreas: The pancreas is somewhat limited the evaluated. The pancreas appears atrophic. The pancreatic duct is dilated measuring approximately 9 mm. A lesion within the head of the pancreas is not excluded. Spleen: The spleen is unremarkable. Adrenals: The adrenal glands are within normal limits. Kidneys and ureters: The patient is status post bilateral nephrectomies. There is a right lower quadrant transplanted kidney. Stomach and bowel: There are feces within the colon which are suspicious for constipation. There are diverticuli of the sigmoid colon. There is slight pericolonic inflammation of the mesenteric fat. This could represent early diverticulitis. Clinical correlation is recommended. Appendix: No evidence of appendicitis. Intraperitoneal space: See Stomach And Bowel Finding. Vasculature: There are arteriosclerotic changes of the aorta. Lymph nodes: No enlarged lymph nodes. Bladder: There is urine in the urinary bladder. Reproductive: The patient is status post hysterectomy. Bones/joints: There are degenerative changes of the visualized thoracic and lumbar spines. There is degenerative disc disease involving the lower lumbar spine. There is a severe levoscoliosis of the lumbar spine. Soft tissues: There is soft tissue edema. IMPRESSION: Suspect sigmoid diverticulitis as above. Lesion within the head of the pancreas is not excluded. The pancreas is atrophic. There is dilatation of the pancreatic duct. This could be re-evaluated with a CT scan of the pancreas utilizing pancreatic protocol if clinically warranted. Status post right lower quadrant kidney transplant. There is urine within the urinary bladder. The status post hysterectomy. Status post cholecystectomy. Status post bilateral nephrectomies. Stimulator as above. Osseous findings as above. Innumerable liver lesions as described above. These could be re-evaluated with a CT scan of the liver utilizing hemangioma protocol if clinically warranted. Atelectatic changes as above. Underlying small infiltrates are not excluded. Limited study due to motion artifact involving the lung windows. Pulmonary nodule as above.For patients at low risk (minimal or absent history of smoking and of other known risk factors), recommend CT at 6-12 months, then consider CT at 18-24 months. For patients at high risk (history of smoking or of other known risk factors), recommend CT at 6-12 months, then CT at 18-24 months. (Kimberly et al., Fleischner Society, 2017). Discussed these findings witht e patient at length. REviewed patients kidney function on recent visits. Also reviewed previous urinary cultures and sensitivities. Patient has had many organisms grow out historiclaly. Patient allergic to Penicillins. Will treat with Flagyl and Levofloxacin. Will adjust dosing based on her kidney function. As she is on multiple QT prolonging agents, ECG was obtained. This was reviewed by Dr. Chicas. Patient in NSR, rate of 80 with no acute ischemic changes noted. He advised that QT appropriate for Levofloxacin dosing. Was replaced and patient on this medication, particularly given history kidney dysfunction and QT prolonging agents, likely to help prompt follow-up primary care. She is given strict return precautions. All of her questions and concerns were addressed and she is in agreement with this plan. I have asked that she be followed up with her primary care in the next 48 hours. HPI General Mode of arrival: EMS. Date/Time Provider Initiated Documentation: 06/09/19 16:48. Limitations to Documentation: no limitations. Information obtained by: patient, EMS and RN notes reviewed. HPI Narrative: Patient is an 78-year-old female presenting today, brought in via EMS with chief complaint of right lower quadrant pain. Patient is concerned that this pain is associated with her liver transplant which he underwent 28 years ago. Patient has done well in the postoperative period. She contacted her providers at [facility] as well as a local primary care and they advised that they would like repeat CT scans completed. Patient reports the pain has been waxing waning for the past few days and describes it as stabbing. Patient was seen here on 04/26/2019 at that time the patient was disimpacted. She had pain in the same location at that time but states that the pain, at that time, was more bloating vs. the stabbing she is experiencing now. Patient reports she had good relief after bowel movement. She reports she continues to be constipated but this is baseline for her and is not noted any change in this. States that she did have a very small hard stool today. Denies any bright red blood per rectum or melena. States that her urine has been foul-smelling. She states that she had a urine collection completed today by her home health nursing staff but is not received results from this as of yet. She denies any fevers or chills. No nausea or vomiting. Denies any recent travel. Pain does not radiate into her back. She does report that she has chronic back pain but this is unchanged. Patient past medical history significant for lymphedema lower extremities, polycystic kidney disease, hypertension, GERD, diverticulitis, HF PEF. Patient is status post cadaveric kidney transplant. Past abdominal surgery also pertinent for hysterectomy. Related Data Home Medications Medication Instructions Recorded Confirmed ascorbic acid (vitamin C) 1,000 mg PO DAILY 09/18/12 05/02/19 docusate sodium [Colace] 100 mg PO BID tab-cap 09/18/12 05/02/19 prednisone 5 mg PO DAILY #90 tab 01/17/16 05/02/19 polyethylene glycol 3350(bulk) 17 gm PO DAILY PRN #1 canister 01/08/17 05/02/19 omega-3 fatty acids-fish oil 1 ea PO DAILY cap 06/04/17 05/02/19 aspirin 81 mg PO DAILY #100 tab 01/14/18 05/02/19 lifitegrast 5 % eye drops in a 1 drp OP BID #5 each 03/13/18 05/02/19 dropperette metolazone 2.5 mg tablet 2.5 mg PO ONCE PRN #10 tab MDD 2.5 04/10/18 05/02/19 mg oxygen conserver See Rx Instructions .ROUTE 04/19/18 05/02/19 .COMPLEX #1 allopurinol 100 mg tablet 100 mg PO BID 04/30/18 05/02/19 cyclosporine 25 mg capsule 75 mg PO BID #540 cap 06/28/18 05/02/19 cholecalciferol (vitamin D3) 50 2,000 unit PO DAILY 07/23/18 05/02/19 mcg (2,000 unit) capsule lidocaine 5 % topical patch 1 patch TP DAILY #30 each 07/23/18 05/02/19 magnesium gluconate 27 mg 500 mg PO BID@0600,1800 #60 tab 07/23/18 05/02/19 magnesium (500 mg) tablet magnesium oxide 400 mg PO DAILY #90 tab-cap 08/01/18 05/02/19 carvedilol 25 mg tablet 50 mg PO BID #360 tab 08/19/18 05/02/19 cimetidine 300 mg tablet 300 mg PO Q12H tab 09/06/18 05/02/19 atorvastatin 10 mg tablet 5 mg PO DAILY #45 tab 10/14/18 05/02/19 ipratropium 20 mcg-albuterol 100 1 puff IH Q6H #4 gm 11/16/18 05/02/19 mcg/actuation mist for inhalation Nebulizer tubing #1 ea 11/21/18 05/02/19 nystatin 100,000 unit/gram topical 1 applic TP BID PRN #30 gm 12/02/18 05/02/19 powder benzonatate 100 mg capsule 100 mg PO TID #90 tab-cap 01/02/19 05/02/19 nitroglycerin 0.4 mg sublingual 0.4 mg SUBLINGUAL PRN #25 tab 01/18/19 05/02/19 tablet chlorhexidine gluconate 0.12 % 15 ml BC BID #946 ml 03/06/19 05/02/19 mouthwash furosemide 40 mg tablet 80 mg PO BID #120 tab 03/31/19 05/02/19 ipratropium-albuterol 0.5 mg-3 3 ml IH Q8H #180 ml 04/03/19 05/02/19 mg(2.5 mg base)/3 mL nebulization soln morphine 10 mg/5 mL oral solution 2 mg PO Q1H PRN #500 ml MDD 24mg 04/17/19 04/27/19 fluticasone propionate 1 spray NS BID PRN 04/27/19 05/02/19 sennosides-docusate sodium 2 tab PO BID PRN 04/27/19 05/02/19 [MATHIEU-COLACE] albuterol sulfate 90 mcg/actuation 2 puff INHALATION Q4H PRN #1 05/03/19 05/03/19 aerosol inhaler inhaler metoclopramide HCl 10 mg tablet 10 mg PO Q6H PRN #20 tab 05/03/19 05/03/19 ondansetron HCl 4 mg tablet 4 mg PO Q8H PRN #60 tab 05/03/19 05/03/19 cyclobenzaprine 5 mg tablet 5 mg PO QHS PRN #90 tab MDD 2 05/13/19 levofloxacin 250 mg PO DAILY #6 tab 06/09/19 metronidazole [Flagyl] 500 mg PO TID #19 tab 06/09/19 methadone 5 mg tablet 5 mg PO TID #90 tab-cap MDD 15 06/13/19 Previous Rx's Medication Instructions Recorded aspirin 81 mg PO DAILY #100 tab 01/14/18 lifitegrast 5 % eye drops in a 1 drp OP BID #5 each 03/13/18 dropperette metolazone 2.5 mg tablet 2.5 mg PO ONCE PRN #10 tab MDD 2.5 04/10/18 mg oxygen conserver See Rx Instructions .ROUTE 04/19/18 .COMPLEX #1 lidocaine 5 % topical patch 1 patch TP DAILY #30 each 07/23/18 magnesium gluconate 27 mg 500 mg PO BID@0600,1800 #60 tab 07/23/18 magnesium (500 mg) tablet magnesium oxide 400 mg PO DAILY #90 tab-cap 08/01/18 carvedilol 25 mg tablet 50 mg PO BID #360 tab 08/19/18 atorvastatin 10 mg tablet 5 mg PO DAILY #45 tab 10/14/18 ipratropium 20 mcg-albuterol 100 1 puff IH Q6H #4 gm 11/16/18 mcg/actuation mist for inhalation Nebulizer tubing #1 ea 11/21/18 nystatin 100,000 unit/gram topical 1 applic TP BID PRN #30 gm 12/02/18 powder benzonatate 100 mg capsule 100 mg PO TID #90 tab-cap 01/02/19 nitroglycerin 0.4 mg sublingual 0.4 mg SUBLINGUAL PRN #25 tab 01/18/19 tablet chlorhexidine gluconate 0.12 % 15 ml BC BID #946 ml 03/06/19 mouthwash furosemide 40 mg tablet 80 mg PO BID #120 tab 03/31/19 ipratropium-albuterol 0.5 mg-3 3 ml IH Q8H #180 ml 04/03/19 mg(2.5 mg base)/3 mL nebulization soln morphine 10 mg/5 mL oral solution 2 mg PO Q1H PRN #500 ml MDD 24mg 04/17/19 albuterol sulfate 90 mcg/actuation 2 puff INHALATION Q4H PRN #1 05/03/19 aerosol inhaler inhaler metoclopramide HCl 10 mg tablet 10 mg PO Q6H PRN #20 tab 05/03/19 ondansetron HCl 4 mg tablet 4 mg PO Q8H PRN #60 tab 05/03/19 cyclobenzaprine 5 mg tablet 5 mg PO QHS PRN #90 tab MDD 2 05/13/19 levofloxacin 250 mg PO DAILY #6 tab 06/09/19 metronidazole [Flagyl] 500 mg PO TID #19 tab 06/09/19 methadone 5 mg tablet 5 mg PO TID #90 tab-cap MDD 15 06/13/19 Allergies Allergy/AdvReac Type Severity Reaction Status Date / Time thiopental sodium Allergy Intermediate Wheezing Verified 04/27/19 14:24 [From Pentothal] Penicillins Allergy Unknown ITCHING Verified 04/27/19 14:24 phenazopyridine AdvReac Severe considered Verified 04/27/19 14:24 [From Pyridium] nephrotoxic diclofenac gel AdvReac Intermediate nausea, Uncoded 04/27/19 14:24 sweats, insomnia General Stated Complaint: Abd Prob JON: 3 Review of Systems Constitutional Constitutional: Reports as per HPI, Denies chills, Denies fatigue, Denies fever(s) and Denies headache(s) ENT Ears, Nose, Mouth, and Throat: Denies headache(s) Cardiovascular Cardiovascular: Reports as per HPI, Denies chest pain and Denies dyspnea Respiratory Respiratory: Reports as per HPI, Denies cough and Denies dyspnea Gastrointestinal Gastrointestinal: Reports as per HPI Genitourinary Genitourinary: Reports as per HPI Musculoskeletal Musculoskeletal: Reports as per HPI and Denies back pain Integumentary/Breasts Skin/Breast: Reports as per HPI and Denies rash Neurologic Neurologic: Reports as per HPI and Denies headache(s) Endocrine Endocrine: Denies fatigue REPLACED BY [facility] Medical History Abdominal pain (Acute) Bacterial urinary infection (Chronic) Bowel obstruction (Suspected 08/08/14) a. recurrent small bowel obstructions CHF (congestive heart failure) (Chronic) Chronic pain (Acute) Chronic renal failure, stage 3 (moderate) (Chronic) Diarrhea (Acute) Dysuria (Chronic) Edema, lower extremity (Chronic ~09/2018) a. No evidence of congestive heart failure. Gastroesophageal reflux disease (Chronic) Hypercholesterolemia (Chronic) Kyphoscoliosis (Chronic) Low back pain (Chronic) Hx [facility]. Osteoarthritis of hip (Chronic) Palliative care patient (Acute 06/04/17) Dr. Mccollum Polycystic kidney (Chronic) a. 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 Rhinitis, allergic (Chronic) Spinal stenosis (Chronic) a. In cervical and lumbar regions. b. Followed by [facility]. c. She does have a fentanyl pump in place which is located in her left lower abdomen. Tachycardia (Chronic) a. Recurrent. Urinary incontinence (Chronic) Vaginitis, atrophic (Chronic) Weakness generalized (Resolved) Patient is too weak to return home in her present condition. She is agreed to swing bed level 1 for continued physical therapy. She remains DNR/DNI. Surgical History Extraction of cataract (12/14/15) Left Cataract with IOL, Dr Hawkins History of hysterectomy (Resolved) History of incisional hernia repair (Resolved) History of Surgical Procedure (Chronic) a. Multiple abdominal surgeries. b. S/P kidney transplant in 1990 following nephrectomy x2 for polycystic kidney disease. c. Cholecystectomy. Living-donor kidney transplant recipient (Chronic) Social History Smoking/Tobacco Use Status: Never Alcohol Intake: never Drug use: Never Substance use type: does not use Adopted: No Caregiver/Support person: Yes Household members: none Housing: house Number of Children: 1 Pets and animals: No Current gender identity: female What is your relationship status?: How often do you talk on the phone with friends or family?: three or more times per week How often do you get together with friends or relatives?: three or more times per week How often do you attend muslim or cheondoism services?: 4 or more times per year Panel score (0-1 are the most socially isolated patients): 2 What type of physical activity do you participate in: assisted ambulation Maureen/Adventism: Zoroastrianism Special maureen needs: No Agree to transfusion: Yes Seatbelt use: always Do you feel safe at home: Yes Do you feel safe in your relationship?: Yes History History 4 Para 4 Hx # Term Pregnancies 4 Multiple births Hx # Pregnancies Ectopic pregnancies AB induced Hx Number of Living Children 4 AB spontaneous Exam Const General: cooperative, healthy appearing, comfortable, no acute distress and well developed Nutritional Appearance: average body habitus and well nourished Orientation: alert and awake HENMT Head: normal to inspection Mouth: moist mucous membranes Resp Effort & Inspection: normal respiratory effort, able to speak in complete sentences and no respiratory distress Auscultation: clear to auscultation bilaterally, no rales, no rhonchi and no wheezes Cardio Rate: regular rate Rhythm: regular rhythm Heart Sounds: S1 normal and S2 normal GI Inspection: no abdominal wall ecchymosis, no edema, non-distended, incision (multiple incisions, well healed), no visible pulsation, No visible peristalsis and other (FB palpable LLQ, pain stimulator) Palpation: soft, no hepatosplenomegaly, no aortic enlargement, not firm, no guarding, no hernias, no masses, no pulsatile masses, not rigid and tender in the RLQ; not at McBurney's point (more diffuse pain, non reproducible) and with no rebound tenderness Percussion: normal to percussion Auscultation: normal bowel sounds Skin General skin exam: no rashes or lesions noted Trauma: no lacerations or abrasions Neuro General: alert and awake Cognition: normal cognition Speech: speech normal Gait: normal gait Extrem General: normal capillary refill, no joint enlargement, no calf tenderness bilaterally and pedal edema bilaterally (patient has compression hose bilaterally) Psych Appearance: grossly normal and well kempt Mental Status: mental status grossly normal Speech and Movement: speech and movement normal Course Vital Signs Vital signs: Vital Signs Temperature 36.4 C L 06/09/19 16:32 Pulse 87 06/09/19 16:32 Respiratory Rate 18 06/09/19 16:32 Blood Pressure 147/87 H 06/09/19 16:32 Pulse Oximetry 97 06/09/19 16:32 Temperature 36.4 C L 06/09/19 16:32 Temperature Source Skin 06/09/19 16:32 Pulse 87 06/09/19 16:32 Respiratory Rate 18 06/09/19 16:32 Blood Pressure 147/87 H 06/09/19 16:32 Pulse Oximetry 97 06/09/19 16:32 Oxygen Delivery Method Nasal Cannula 06/09/19 16:32 Oxygen Flow Rate 2.5 06/09/19 16:32 Pain Level 7 06/09/19 16:32
[2019-06-09] MEDS: Normal Saline Flush 10 ML SYR IVP (17:39)
[2019-06-09 17:42] LABS: Abs Immature Grans 0.01 k/cumm (0.0-0.09); Absolute Basophil Count 0.03 k/cumm (0.0-0.2); Absolute Eosinophil Count 0.11 k/cumm (0.0-0.7); Absolute Monocyte Count 0.34 k/cumm (0.11-0.7); Absolute Neutrophil Count 4.18 k/cumm (1.2-6.7); Basophils % 0.6; Eosinophils % 2.1; HCT 41.5 % (36.0-46.0); HGB 12.4 g/dL (12.0-15.5); Immature Grans % 0.2; Lymphocytes % 11.4; Mean Corp. HGB Concentration 29.9 g/dL (32.0-36.0); Mean Corpuscular Hemoglobin 29.9 pg (27.0-33.0); Mean Platelet Volume 10.8 fL (8.0-11.0); Monocytes % 6.5; Neutrophils % 79.2; Platelet Count 183 x1000/uL (130-400); RBC 4.15 m/cumm (4.00-5.20); RBC Distribution Width 14.1 % (11.7-14.6); White Blood Cell Count 5.27 k/cumm (4.4-10.8)
[2019-06-09 17:46] LABS: Bilirubin Negative (Negative); Blood Trace-intact (Negative); Clarity Clear (Clear); Glucose Negative (Negative); Ketones Negative (Negative); Leukocyte Esterase Trace (Negative); Nitrite Negative (Negative); Urobilinogen 0.2 EU/dL (Up TO 0.2); pH 6.5 (5-8)
[2019-06-09 17:57] LABS: Epithelial Cells Few HPF (Negative); RBC 0-2 HPF (0-2); WBC Negative HPF (0-5)
[2019-06-09 17:58] LABS: Bacteria Negative HPF (Negative); C & S Indicated? Yes; Casts Negative LPF (Negative); Crystals Negative HPF (Negative); Mucus Negative (Negative); Other Cells Rare Renal (Negative)
[2019-06-09 18:02] LABS: ALT 12 U/L (14-59); AST 21 U/L (15-37); Albumin 3.2 g/dL (3.4-5.0); Alkaline Phosphatase 87 U/L (46-116); Anion Gap 8.3 mmol/L (3-11); BUN 47 mg/dL (7-18); Bilirubin, Total 0.5 mg/dL (0.2-1.0); CO2 32.7 mmol/L (21.0-32.0); CREATININE 1.94 mg/dL (0.55-1.02); Calcium 9.5 mg/dL (8.5-10.1); Chloride 99 mmol/L (98-107); Estimated GFR 24.83 (mL/min/1.73m2); Glucose 133 mg/dL (74-106); Sodium 140 mmol/L (136-145); Total Protein 6.3 g/dL (6.4-8.2)
--- NOTE | 2019-06-09 18:03 | DI.CT_ITS ---
EXAM: CT ABDOMEN PELVIS WO CLINICAL HISTORY: RLQ pain TECHNIQUE: Noncontrast. COMPARISON: CT ABDOMEN PELVIS WO from 04/27/2019 FINDINGS: The exam is limited by patient motion. A stimulator device is again noted over the lower left abdomi nal wall. Atelectatic and fibrotic changes are noted, greater at the right lung base. Mitral valve and aortic calcifications are seen. There is enlargement of the left atrium and left ventricle. The re are again noted to be innumerable liver lesions. Patient is status post cholecystectomy. There i s no biliary dilatation. The spleen is normal in size. Bilateral nephrectomy and right iliac fossa and renal transplant is noted. There is no evidence of hydronephrosis. The bladder is unremarkable. The patient is status post hysterectomy. Increased stool is again noted throughout the colon. Div erticulosis of the sigmoid is noted. There is streak artifact in this region from the stimulator dev ice. Mild diverticulitis cannot be excluded. There is no small bowel dilatation. There has been a previous anterior abdominal wall hernia repair. There are severe degenerative changes and scoliosis. IMPRESSION: Increased stool consistent with constipation. Mild sigmoid diverticulitis cannot be excluded. The ex am is limited without IV or oral contrast.
--- NOTE | 2019-06-09 18:41 | DI.VRAD_ITS ---
PROCEDURE INFORMATION: Exam: CT Abdomen And Pelvis Without Contrast Exam date and time: 06/09/2019 6:00 PM Age: 78 years old Clinical history: Abdominal pain; Localized; Right lower quadrant (rlq); Prior surgery; Surgery type: Per PT: Kidney transplant 28 yrs ago TECHNIQUE: Imaging protocol: Computed tomography of the abdomen and pelvis without contrast. COMPARISON: CT ABDOMEN PELVIS WO 04/27/2019 4:00 PM FINDINGS: Tubes, catheters and devices: There is a stimulator in the lower left side of the abdomen with the stimulating wires entering into the spinal canal at approximately L1. Lungs: The lung windows are degraded by motion. There is fibrosis and scarring at the right lung base. There are atelectatic changes at the right lung base. A small underlying infiltrate is not excluded. There is a pulmonary nodule within the right middle lobe measuring 7 mm. There are slight atelectatic changes within the right middle lobe. These appears somewhat decreased when compared to the prior study however a small underlying infiltrate at this level is not excluded. Additional pulmonary nodules are difficult to evaluate based on the limitations of the scan. Heart: There is calcification of the mitral annulus. Liver: There are innumerable low-attenuation lesions within the liver which range in size from less than a cm to largest of which is within the right lobe of the liver near the dome of the diaphragm measuring up to 3.7 cm. These most likely represent cysts. However these can be re-evaluated if clinically warranted with a CT scan of the liver utilizing hemangioma protocol. Gallbladder and bile ducts: The patient is status post cholecystectomy. Pancreas: The pancreas is somewhat limited the evaluated. The pancreas appears atrophic. The pancreatic duct is dilated measuring approximately 9 mm. A lesion within the head of the pancreas is not excluded. Spleen: The spleen is unremarkable. Adrenals: The adrenal glands are within normal limits. Kidneys and ureters: The patient is status post bilateral nephrectomies. There is a right lower quadrant transplanted kidney. Stomach and bowel: There are feces within the colon which are suspicious for constipation. There are diverticuli of the sigmoid colon. There is slight pericolonic inflammation of the mesenteric fat. This could represent early diverticulitis. Clinical correlation is recommended. Appendix: No evidence of appendicitis. Intraperitoneal space: See Stomach And Bowel Finding. Vasculature: There are arteriosclerotic changes of the aorta. Lymph nodes: No enlarged lymph nodes. Bladder: There is urine in the urinary bladder. Reproductive: The patient is status post hysterectomy. Bones/joints: There are degenerative changes of the visualized thoracic and lumbar spines. There is degenerative disc disease involving the lower lumbar spine. There is a severe levoscoliosis of the lumbar spine. Soft tissues: There is soft tissue edema. IMPRESSION: Suspect sigmoid diverticulitis as above. Lesion within the head of the pancreas is not excluded. The pancreas is atrophic. There is dilatation of the pancreatic duct. This could be re-evaluated with a CT scan of the pancreas utilizing pancreatic protocol if clinically warranted. Status post right lower quadrant kidney transplant. There is urine within the urinary bladder. The status post hysterectomy. Status post cholecystectomy. Status post bilateral nephrectomies. Stimulator as above. Osseous findings as above. Innumerable liver lesions as described above. These could be re-evaluated with a CT scan of the liver utilizing hemangioma protocol if clinically warranted. Atelectatic changes as above. Underlying small infiltrates are not excluded. Limited study due to motion artifact involving the lung windows. Pulmonary nodule as above.For patients at low risk (minimal or absent history of smoking and of other known risk factors), recommend CT at 6-12 months, then consider CT at 18-24 months. For patients at high risk (history of smoking or of other known risk factors), recommend CT at 6-12 months, then CT at 18-24 months. (Kimberly et al., Fleischner Society, 2017). Dictated and Authenticated by: Cordell Barron MD. Ordering:ANGELES Santana MD
[2019-06-09] MEDS: metroNIDAZOLE 500 MG TAB PO ×2 (19:20→19:26)
[2019-06-09] MEDS: levoFLOXacin 500 MG TAB PO (19:20)
== END 2019-06-09 20:01 | disposition home or self-care (01) ==
PROVIDERS: Emergency Provider Physician Assistant; PCP Student in an Organized Health Care Education/Training Program
DX: N39.0 Urinary tract infection, site not specified (principal); K57.32 Diverticulitis of large intestine without perforation or abscess without bleeding; I12.9 Hypertensive chronic kidney disease with stage 1 through stage 4 chronic kidney disease, or unspecified chronic kidney disease; N18.3 Chronic kidney disease, stage 3 (moderate); Z94.0 Kidney transplant status
CPT/HCPCS: 36415; 80053; 93005; 99285; 74176; 81003; 81015; 85025; 87086; 93010; 99284

== ENCOUNTER 2019-06-19 11:09 | Outpatient (REF) | payer MEDICARE, SELFPAY ==
[2019-06-19 12:43] LABS: PROTEIN 13.9 mg/dL
[2019-06-19 12:45] LABS: Prot/Crea Ur Ratio 0.63
[2019-06-19 12:56] LABS: Abs Immature Grans 0.01 k/cumm (0.0-0.09); Absolute Basophil Count 0.02 k/cumm (0.0-0.2); Absolute Eosinophil Count 0.26 k/cumm (0.0-0.7); Absolute Lymphocyte Count 0.77 k/cumm (1.2-3.4); Absolute Monocyte Count 0.69 k/cumm (0.11-0.7); Absolute Neutrophil Count 3.79 k/cumm (1.2-6.7); Basophils % 0.4; Eosinophils % 4.7; HCT 41.5 % (36.0-46.0); HGB 12.7 g/dL (12.0-15.5); Immature Grans % 0.2; Lymphocytes % 13.9; Mean Corp. HGB Concentration 30.6 g/dL (32.0-36.0); Mean Corpuscular Volume 98.1 fL (80-95); Mean Platelet Volume 11.1 fL (8.0-11.0); Monocytes % 12.5; Neutrophils % 68.3; Platelet Count 170 x1000/uL (130-400); RBC 4.23 m/cumm (4.00-5.20); White Blood Cell Count 5.54 k/cumm (4.4-10.8)
[2019-06-20 13:52] LABS: Cyclosporine 50 ng/mL (See Note)
== END 2019-06-19 11:29 ==
LOC: LBN 11:09
PROVIDERS: PCP Student in an Organized Health Care Education/Training Program; Visit Provider Internal Medicine Nephrology
DX: N18.3 Chronic kidney disease, stage 3 (moderate) (principal); I50.9 Heart failure, unspecified; Z94.0 Kidney transplant status; Z51.81 Encounter for therapeutic drug level monitoring; R39.9 Unspecified symptoms and signs involving the genitourinary system
CPT/HCPCS: 80158; 82565; 84156; 85025; 87086

== ENCOUNTER 2019-07-03 18:45 | Inpatient (IN) | payer MEDICARE, SELFPAY ==
[2019-07-03] VITALS (35 sets, daily range): BP systolic 99–168; BP diastolic 70–114; PULSE 82–97; RESP 16–27; TEMP 36.8; O2SAT 90–99
[2019-07-03] MEDS: HYDROmorphone 2 MG/ML VIAL 0.5 MG IVP (19:02)
[2019-07-03] MEDS: Ondansetron 4 MG/2 ML VIAL (19:02)
[2019-07-03 19:45] LABS: Abs Immature Grans 0.04 k/cumm (0.0-0.09); Absolute Basophil Count 0.02 k/cumm (0.0-0.2); Absolute Eosinophil Count 0.15 k/cumm (0.0-0.7); Absolute Lymphocyte Count 0.66 k/cumm (1.2-3.4); Absolute Monocyte Count 0.55 k/cumm (0.11-0.7); Absolute Neutrophil Count 3.69 k/cumm (1.2-6.7); Basophils % 0.4; Eosinophils % 2.9; HGB 12.6 g/dL (12.0-15.5); Immature Grans % 0.8 %; Lymphocytes % 12.9; Mean Corpuscular Hemoglobin 29.9 pg (27.0-33.0); Mean Corpuscular Volume 99.8 fL (80-95); Mean Platelet Volume 12.2 fL (8.0-11.0); Monocytes % 10.8; Neutrophils % 72.2; Platelet Count 139 x1000/uL (130-400); RBC 4.21 m/cumm (4.00-5.20); RBC Distribution Width 13.5 % (11.7-14.6); White Blood Cell Count 5.11 k/cumm (4.4-10.8)
[2019-07-03] MEDS: HYDROmorphone 2 MG/ML VIAL ×3 (19:50→22:29)
[2019-07-03 19:56] LABS: PTT Activated 21.1 sec (21.0-31.4); Prothrombin Time 10.4 sec (9.3-11.0)
--- NOTE | 2019-07-03 20:49 | W.ED.GENAD ---
Discharge Plan Disposition Patient Disposition: [facility] INPATIENT Condition: Stable Discharge Details Chief Complaint: Trauma Clinical Impression: Fracture, humerus, Traumatic hematoma of right knee, Unable to ambulate Primary Care Provider: Kesha Serrano ED Provider: Paula Duval Home Meds and New Rx's Prescriptions: No Action cholecalciferol (vitamin D3) [Vitamin D3] 2,000 unit capsule 2,000 unit PO DAILY RF: 0 lidocaine 5 % adhesive patch,medicated 1 patch TP DAILY Qty: 30 RF: 1 nitroglycerin [Nitrostat] 0.4 mg tablet, sublingual 0.4 mg Sublingual PRN Qty: 25 RF: 1 ipratropium-albuterol 0.5 mg-3 mg(2.5 mg base)/3 mL solution for nebulization 3 ml IH Q8H Qty: 180 RF: 5 albuterol sulfate [ProAir HFA] 90 mcg/actuation HFA aerosol inhaler 2 puff Inhalation Q4H PRN Qty: 1 RF: 11 Combivent Respimat 20-100 mcg/actuation mist 1 puff IH Q6H Qty: 4 RF: 0 (DME) Nebulizer tubing Qty: 1 RF: 0 ascorbic acid (vitamin C) 1,000 MG tablet 1,000 mg PO DAILY RF: 0 docusate sodium [Colace] 100 MG capsule 100 mg PO BID RF: 0 prednisone 5 MG tablet 5 mg PO DAILY Qty: 90 RF: 1 polyethylene glycol 3350(bulk) 12,000 GM powder 17 gm PO DAILY PRNQty: 1 RF: 3 Oxygen EACH NS DAILY Qty: 2 RF: 1 aspirin 81 MG tablet,chewable 81 mg PO DAILY Qty: 100 RF: 3 oxygen conserver See Rx Instructions .ROUTE .COMPLEX Qty: 1 RF: 0 allopurinol 100 mg tablet 100 mg PO BID RF: 0 cyclosporine 25 mg capsule 50 mg PO BID Qty: 540 RF: 0 carvedilol [Coreg] 25 mg tablet 50 mg PO BID Qty: 360 RF: 3 cimetidine 300 mg tablet 300 mg PO Q12H RF: 0 atorvastatin [Lipitor] 10 mg tablet 5 mg PO DAILY Qty: 45 RF: 2 chlorhexidine gluconate 0.12 % mouthwash 15 ml BC BID Qty: 946 RF: 3 cyclobenzaprine 5 mg tablet 5 mg PO QHS MDD 2 PRN (Reason: muscle spasm) Qty: 90 RF: 1 (DME) Motorized Wheelchair Qty: 1 RF: 0 nystatin 100,000 unit/mL suspension 5 ml PO QID 14 Days Qty: 280 RF: 1 fluticasone propionate 16 GM spray,suspension 1 spray NS BID PRNRF: 0 furosemide [Lasix] 40 mg tablet 80 mg PO DAILY RF: 0 benzonatate [Tessalon Perles] 100 mg capsule 100 mg PO TID PRNRF: 0 miscellaneous medical supply Misc See Rx Instructions .ROUTE .COMPLEX RF: 0 Medical Decision Making This is an 78-year-old patient presenting to the emergency room after a fall. Patient reports falling forward onto her walker. Patient denies weakness, fatigue or chest pain prior to her fall. Patient arrives via ambulance as when she fell forward she struck her chest on her walker, injured her left elbow and her right knee. Patient reports difficulty ambulating since her fall. Patient reports moderate chest pain and left elbow pain. Patient denies new headache. Patient reports chronic neck and back pain difficult to tell if she has any new injuries to neck and back specifically. Patient reports moderate chest soreness. Denies difficulty breathing shortness of breath or wheezing. Patient is quite concerned with her left elbow pain. Patient ports difficulty ranging her left elbow. Patient reports chronic bilateral shoulder pain which seems unchanged. 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 On exam patient has notable anterior sternal chest pain. No obvious flail chest. Patient with mild diffuse abdominal pain. Obvious left elbow ecchymosis and swelling with limited range of motion. Obvious right knee swelling and ecchymosis with limited range of motion. No other apparent orthopedic injuries. Sensation intact distally. No weakness of ankles or feet bilaterally. Bacon scan of head, cervical spine, chest abdomen and pelvis ordered. X-rays ordered of the left elbow as well as right knee. Pain medication provided as patient was quite uncomfortable. Given patient's discomfort 0.5 mg of Dilaudid provided with somewhat improved pain but required repeat in approximately 40 minutes for more adequate pain relief. Patient tolerated this medication without difficulty. EKG reveals sinus rhythm with a regular rate of 80. No significant ST segment changes. No significant change compared to previous. Discussed with Dr. Mathis Patient's labs reviewed no significant leukocytosis. H&H are normal. BUN and creatinine improved compared to her baseline. Patient's radiologic studies reveal a distal humerus fracture with displacement. Left knee reveals no acute fracture subluxation, soft tissue swelling/hematoma anteriorly about the patella. Hematoma the distal thigh. CT of patient's head without contrast reveals no acute intracranial abnormality, mild left sphenoid sinusitis. Cervical spine CT reveals no acute fracture, mild anterior subluxation at several levels and mild degenerative changes. Patient cervical collar removed. Full range of motion of the neck. Patient CT chest reveals no acute fracture, large chronic glenohumeral humeral joint effusions. Exacerbation of bronchiectasis with extensive insipid stated/impacted secretions bilaterally. Coronary artery disease. Dilated main pulmonary artery. Dilated ascending aorta CT abdomen and pelvis revealed no acute fracture. Asymmetrical infiltration of the subcutaneous fat about the right ischial tuberosity could represent post traumatic contusion. Incidental findings noted of renal transplant in the right lower quadrant without calculi or hydro-. Kidney reveals a 1.2 cm cyst which is unchanged. Several hepatic cysts noted I did speak specifically with [facility] regarding patient's chest pain to be sure there is no midsternal injury or mediastinal hematoma they reviewed images and again report there is no associated acute chest findings. Patient does have palpable and reproducible chest pain on exam. Patient with a sizable hematoma and swelling of the left elbow. I did speak with orthopedics regarding patient's fracture recommended a long-arm posterior splint and sling and they will consult on this patient in the morning. Patient requires use of a walker and is unable to ambulate due to left arm fracture and right knee hematoma. Patient on able to ambulate safely therefore we will plan to admit this patient to hospitalists. Spoke with Dr. Ferrera who will accept patient's admission. HPI General Date/Time Provider Initiated Documentation: 07/03/19 18:55. HPI Narrative: Is an 78-year-old patient presenting for a fall. Patient status post a dental extraction went home and fell forward into her walker. Patient denies weakness, dizziness or chest pain prior to fall. Patient reports she fell forward onto her chest on the walker. Patient denies obvious head pain or loss of consciousness. Patient does report chronic neck and back pain difficult to tell if there is a change from her baseline. Patient presents primarily concerned for new chest pain since her fall, left elbow pain and swelling as well as right knee pain and swelling. Patient denies difficulty breathing, shortness of breath or wheezing. Patient reports mild abdominal discomfort. Patient arrives via ambulance due to her inability to ambulate after fall. Patient has multiple sites of chronic pain including her neck, back and shoulders. Patient denies nausea, vomiting. Denies any other concerns or complaints at this time. Chronic lymphedema bilateral lower legs Related Data Home Medications Medication Instructions Recorded Confirmed ascorbic acid (vitamin C) 1,000 mg PO DAILY 09/18/12 07/03/19 docusate sodium [Colace] 100 mg PO BID tab-cap 09/18/12 07/03/19 prednisone 5 mg PO DAILY #90 tab 01/17/16 07/03/19 polyethylene glycol 3350(bulk) 17 gm PO DAILY PRN #1 canister 01/08/17 07/03/19 aspirin 81 mg PO DAILY #100 tab 01/14/18 07/03/19 oxygen conserver See Rx Instructions .ROUTE 04/19/18 07/03/19 .COMPLEX #1 allopurinol 100 mg tablet 100 mg PO BID 04/30/18 07/03/19 cyclosporine 25 mg capsule 50 mg PO BID #540 cap 06/28/18 07/03/19 cholecalciferol (vitamin D3) 50 2,000 unit PO DAILY 07/23/18 07/03/19 mcg (2,000 unit) capsule lidocaine 5 % topical patch 1 patch TP DAILY #30 each 07/23/18 07/03/19 carvedilol 25 mg tablet 50 mg PO BID #360 tab 08/19/18 07/03/19 cimetidine 300 mg tablet 300 mg PO Q12H tab 09/06/18 07/03/19 atorvastatin 10 mg tablet 5 mg PO DAILY #45 tab 10/14/18 07/03/19 ipratropium 20 mcg-albuterol 100 1 puff IH Q6H #4 gm 11/16/18 07/03/19 mcg/actuation mist for inhalation Nebulizer tubing #1 ea 11/21/18 05/02/19 nitroglycerin 0.4 mg sublingual 0.4 mg SUBLINGUAL PRN #25 tab 01/18/19 07/03/19 tablet chlorhexidine gluconate 0.12 % 15 ml BC BID #946 ml 03/06/19 07/03/19 mouthwash ipratropium-albuterol 0.5 mg-3 3 ml IH Q8H #180 ml 04/03/19 07/03/19 mg(2.5 mg base)/3 mL nebulization soln fluticasone propionate 1 spray NS BID PRN 04/27/19 07/03/19 albuterol sulfate 90 mcg/actuation 2 puff INHALATION Q4H PRN #1 05/03/19 07/03/19 aerosol inhaler inhaler cyclobenzaprine 5 mg tablet 5 mg PO QHS PRN #90 tab MDD 2 05/13/19 07/03/19 Motorized Wheelchair #1 ea 06/26/19 nystatin 100,000 unit/mL oral 5 ml PO QID 14 Days #280 ml 07/02/19 07/03/19 suspension benzonatate [Tessalon Perles] 100 mg PO TID PRN 07/03/19 07/03/19 furosemide [Lasix] 80 mg PO DAILY 07/03/19 07/03/19 miscellaneous medical supply See Rx Instructions .ROUTE .COMPLEX 07/03/19 07/03/19 Previous Rx's Medication Instructions Recorded aspirin 81 mg PO DAILY #100 tab 01/14/18 oxygen conserver See Rx Instructions .ROUTE 04/19/18 .COMPLEX #1 lidocaine 5 % topical patch 1 patch TP DAILY #30 each 07/23/18 carvedilol 25 mg tablet 50 mg PO BID #360 tab 08/19/18 atorvastatin 10 mg tablet 5 mg PO DAILY #45 tab 10/14/18 ipratropium 20 mcg-albuterol 100 1 puff IH Q6H #4 gm 11/16/18 mcg/actuation mist for inhalation Nebulizer tubing #1 ea 11/21/18 nitroglycerin 0.4 mg sublingual 0.4 mg SUBLINGUAL PRN #25 tab 01/18/19 tablet chlorhexidine gluconate 0.12 % 15 ml BC BID #946 ml 03/06/19 mouthwash ipratropium-albuterol 0.5 mg-3 3 ml IH Q8H #180 ml 04/03/19 mg(2.5 mg base)/3 mL nebulization soln albuterol sulfate 90 mcg/actuation 2 puff INHALATION Q4H PRN #1 05/03/19 aerosol inhaler inhaler cyclobenzaprine 5 mg tablet 5 mg PO QHS PRN #90 tab MDD 2 05/13/19 Motorized Wheelchair #1 ea 06/26/19 nystatin 100,000 unit/mL oral 5 ml PO QID 14 Days #280 ml 07/02/19 suspension Allergies Allergy/AdvReac Type Severity Reaction Status Date / Time thiopental sodium Allergy Intermediate Wheezing Verified 07/03/19 23:24 [From Pentothal] Penicillins Allergy Unknown ITCHING Verified 07/03/19 23:24 phenazopyridine AdvReac Severe considered Verified 07/03/19 23:24 [From Pyridium] nephrotoxic diclofenac gel AdvReac Intermediate nausea, Uncoded 07/03/19 23:24 sweats, insomnia General Stated Complaint: Trauma JON: 2 Review of Systems All systems reviewed & are unremarkable except as noted in HPI and below Constitutional Constitutional: Denies chills, Denies fatigue, Denies fever(s), Denies headache(s) and Denies malaise ENT Ears, Nose, Mouth, and Throat: Denies dizziness, Denies ear discharge, Denies headache(s) and Denies nasal discharge Cardiovascular Cardiovascular: Reports chest pain, Denies radiating jaw, neck or arm pain and Denies palpitations Respiratory Respiratory: Denies cough and Denies wheezing Gastrointestinal Gastrointestinal: Reports abdominal pain, Denies nausea and Denies vomiting Integumentary/Breasts Skin/Breast: Reports unusual bruising and Denies wounds Neurologic Neurologic: Denies dizziness and Denies headache(s) Endocrine Endocrine: Denies fatigue and Denies palpitations Allergic/Immunologic Allergic/Immunologic: Denies wheezing [facility] Medical History Abdominal pain (Acute) Bacterial urinary infection (Chronic) Bowel obstruction (Suspected 08/08/14) a. recurrent small bowel obstructions CHF (congestive heart failure) (Chronic) Chronic pain (Acute) Chronic renal failure, stage 3 (moderate) (Chronic) Diarrhea (Acute) Dysuria (Chronic) Edema, lower extremity (Chronic ~09/2018) a. No evidence of congestive heart failure. Gastroesophageal reflux disease (Chronic) Hypercholesterolemia (Chronic) Kyphoscoliosis (Chronic) Low back pain (Chronic) [facility]. Osteoarthritis of hip (Chronic) Palliative care patient (Acute 06/04/17) Dr. Mccollum Polycystic kidney (Chronic) a. 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 Rhinitis, allergic (Chronic) Spinal stenosis (Chronic) a. In cervical and lumbar regions. b. Followed by [facility]. c. She does have a fentanyl pump in place which is located in her left lower abdomen. Tachycardia (Chronic) a. Recurrent. Urinary incontinence (Chronic) Vaginitis, atrophic (Chronic) Weakness generalized (Resolved) Patient is too weak to return home in her present condition. She is agreed to swing bed level 1 for continued physical therapy. She remains DNR/DNI. Surgical History Extraction of cataract (12/14/15) Left Cataract with IOL, Dr Hawkins History of hysterectomy (Resolved) History of incisional hernia repair (Resolved) History of Surgical Procedure (Chronic) a. Multiple abdominal surgeries. b. S/P kidney transplant in 1990 following nephrectomy x2 for polycystic kidney disease. c. Cholecystectomy. Living-donor kidney transplant recipient (Chronic) Family History Daughter No problems noted. Social History Smoking/Tobacco Use Status: Never Alcohol Intake: never Drug use: Never Substance use type: does not use Adopted: No Caregiver/Support person: Yes Household members: none Housing: house Number of Children: 1 Pets and animals: No Current gender identity: female What is your relationship status?: How often do you talk on the phone with friends or family?: three or more times per week How often do you get together with friends or relatives?: three or more times per week How often do you attend congregation or adventism services?: 4 or more times per year Panel score (0-1 are the most socially isolated patients): 2 What type of physical activity do you participate in: assisted ambulation Maureen/Evangelical: Mosque Special maureen needs: No Agree to transfusion: Yes Seatbelt use: always Do you feel safe at home: Yes Do you feel safe in your relationship?: Yes History History 4 Para 4 Hx # Term Pregnancies 4 Multiple births Hx # Pregnancies Ectopic pregnancies AB induced Hx Number of Living Children 4 AB spontaneous Exam Narrative Exam Narrative: CONST: Uncomfortable. Well hydrated. Awake and alert. HENMT: Head nomocephalic, normal to inspection. Atraumatic. Hearing grossly normal. External ear canal no erythema or swelling. TM normal bilaterally. Nose normal to inspection. No rhinnorhea. Normal facial exam. Oral mucosa normal. Patient status post dental extraction. Mild bleeding at the site. Tounge normal. Dentition normal. Normal posterior oropharynx. Uvula midline. EYES: General normal appearance. Alignment normal. Eyelids normal. Conjunctiva normal. Sclera normal. PERRL. NECK: Normal visual inspection. FROM. No lymphadenopathy. Trachea midline. Mild midline tenderness. CHEST: Pain with palpation of the anterior chest diffusely. Obvious flail chest. RESP: Normal respiratory effort. Speaking full sentences. No cough. No wheezing. No retractions. Clear to auscaltation. Breath sound equal and present bilaterally. CARDIO: No JVD. Normal PMI. Regular Rate. Regular Rhythm. Normal peripheral pulses. Murmur present. GI: Normal inspection of abdomen. No distension. Soft. Mild abdominal tenderness diffusely. Bowel sounds present in all 4 quadrants. No rebound. No gaurding. MUSCULOSKELETAL: Limited range of motion of bilateral shoulders which patient reports is baseline. Obvious swelling and ecchymosis of the left elbow. Limited range of motion due to pain. [employer] Representative strength intact distally bilaterally. Patient reports right arm range of motion is her baseline which is limited. Sensation intact and equal bilaterally of upper arms. No hip pain with palpation. Internal and external rotation of the left hip normal. Unable to internally externally of the right hip due to knee pain. Right knee with obvious swelling and ecchymosis. Pain with palpation, limited range of motion of right knee. No open wounds. Distal edema symmetrical bilaterally flexion extension intact of the feet. No weakness distally. SKIN: Normal. Dry. No rashes. NEURO: Alert and awake. Speech clear. PSYCH: Normal affect. Cooperative. Course Vital Signs Vital signs: Pain Level 10 07/03/19 18:44 Lab/Test Results Lab/Test Results: Laboratory Tests Range/Units 07/03/19 07/03/19 19:15 19:15 WBC (4.4-10.8) k/cumm 5.11 RBC (4.00-5.20) m/cumm 4.21 Hgb (12.0-15.5) g/dL 12.6 Hct (36.0-46.0) % 42.0 MCV (80-95) fL 99.8 H MCH (27.0-33.0) pg 29.9 MCHC (32.0-36.0) g/dL 30.0 L RDW (11.7-14.6) % 13.5 Plt Count (130-400) x1000/uL 139 MPV (8.0-11.0) fL 12.2 H Immature Gran % % 0.8 Neutrophils % 72.2 Lymphocytes % 12.9 Monocytes % 10.8 Eosinophils % 2.9 Basophils % 0.4 Absolute Neutrophils (1.2-6.7) k/cumm 3.69 Absolute Lymphocytes (1.2-3.4) k/cumm 0.66 L Absolute Monocytes (0.11-0.7) k/cumm 0.55 Absolute Eosinophils (0.0-0.7) k/cumm 0.15 Absolute Basophils (0.0-0.2) k/cumm 0.02 PT (9.3-11.0) sec 10.4 INR (0.9-1.1) 1.0 APTT (21.0-31.4) sec 21.1 Procedures Orthopedic Splinting/Casting Injury #1: Side: left Upper Extremity Injury Location: elbow Upper Extremity Immobilizer: posterior splint and Andrea wrap
[2019-07-03 21:10] LABS: ALT 6 U/L (14-59); AST 16 U/L (15-37); Albumin 3.1 g/dL (3.4-5.0); Alkaline Phosphatase 86 U/L (46-116); Anion Gap 4.4 mmol/L (3-11); BUN 39 mg/dL (7-18); Bilirubin, Total 0.5 mg/dL (0.2-1.0); CO2 36.6 mmol/L (21.0-32.0); CREATININE 1.33 mg/dL (0.55-1.02); Calcium 9.9 mg/dL (8.5-10.1); Chloride 101 mmol/L (98-107); Estimated GFR 38.39 (mL/min/1.73m2); Glucose 131 mg/dL (74-106); Sodium 142 mmol/L (136-145); Total Protein 6.6 g/dL (6.4-8.2)
--- NOTE | 2019-07-03 21:35 | DI.CT_ITS ---
EXAM: CT HEAD CERVICAL SPINE WO CLINICAL HISTORY: pain, fall, trauma COMPARISON: No exams were available for comparison FINDINGS: Noncontrast CT of cervical spine was performed. Lung apices appear grossly clear. Tracheolaryngeal structures appear intact. No cervical mass or adenopathy. There are severe hypertrophic degenerativ e changes involving facet joints throughout the cervical region and to a lesser degree the vertebral endplates. There is mild anterior subluxation of C2 on C3, presumably chronic. There is apparent fu rubia of vertebral bodies C3 through C6. Marked multilevel disc space narrowing noted. No evidence of acute fracture. No evidence of facet dislocation. Noncontrast cranial CT was performed. Moderate generalized cerebral atrophy noted. Periventricular white matter decreased attenuation consistent with microvascular ischemic changes. No intracranial h emorrhage, mass effect, or midline shift. The orbital and temporal bone structures appear intact. N o calvarial fracture identified. Mastoid air cells are grossly clear. Partial sinus opacification, ethmoids and sphenoid, may represent chronic sinusitis. IMPRESSION: No evidence of acute cervical spine fracture. No evidence of acute intracranial injury. 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
--- NOTE | 2019-07-03 21:38 | DI.RAD_ITS ---
EXAM: XR KNEE RT 3V AP,LAT,VIOLETTE CLINICAL HISTORY: pain TECHNIQUE: COMPARISON: XR FEMUR RT from 07/03/2019 FINDINGS: Three views of the knee and multiple views of the femur are interpreted in conjunction. Marked soft tissue swelling of the prepatellar region. No acute fracture seen. IMPRESSION:
--- NOTE | 2019-07-03 21:40 | DI.CT_ITS ---
EXAM: CT CHEST/ABD/PEL WO CLINICAL HISTORY: fall, trauma TECHNIQUE: CT examination of the chest, abdomen and pelvis was performed without contrast administra tion. COMPARISON: ABD PELVIS WO CONTRAST from 04/11/2017 CT ABDOMEN PELVIS WO from 06/09/2019 FINDINGS: Very large bilateral shoulder joint effusions noted with end-stage degenerative glenohumeral joint c hanges and very prominent bony degenerative cysts bilaterally. No acute fracture. Heart is mildly enlarged. No mediastinal or hilar adenopathy. Thoracic aorta borderline diameter at 38 millimeters. Mild dilatation main and right and left pulmonary arteries. Diffuse bronchiectasis and marked bronchial wall thickening with multiple peripheral branching structures consistent with i nspissated secretions and bronchi. No gross mass or consolidation. No pleural effusion. No pneumot horax. No pericardial effusion. No gross fracture identified on scanning of the abdomen and pelvis. Increased attenuation around rig ht ischial tuberosity noted, possible contusion, please correlate clinically. Multiple low-attenuation lesions of liver as noted on multiple prior CT examinations, the patient has a history of polycystic kidney disease with presumed resection of [place] kidneys and unremarkable ap pearing transplant in right lower quadrant. Abdominal aorta grossly of normal diameter. No free int raperitoneal fluid or air. No evidence of bowel obstruction. Spleen unremarkable in appearance by n oncontrast appearance as is the pancreas. Chow catheter noted in urinary bladder. Apparent thoracic spinal stimulator noted. IMPRESSION: No evidence of acute injury. Chronic abnormalities as noted in above discussion.
--- NOTE | 2019-07-03 22:11 | DI.RAD_ITS ---
EXAM: XR ELBOW LT COMPLETE CLINICAL HISTORY: pain TECHNIQUE: COMPARISON: RIGHT ELBOW LIMITED from 01/03/2012 FINDINGS: Four views were obtained. Mildly comminuted markedly displaced fracture distal humeral diaphyseal me taphyseal junction. No additional fracture seen. IMPRESSION:
--- NOTE | 2019-07-03 22:43 | DI.VRAD_ITS ---
Addendum created by Linus Rivero DO on 07/03/2019 11:20:40 PM EST Case discussed with PA, Ms. Natalie Duval, regarding possible sternal fracture. Images reviewed again. Sternum is intact. No abnormal soft tissue densities consistent with contusion are demonstrated in mediastinal or subcutaneous tissues about the sternum. Reportedly, glenohumeral joint effusions are chronic. Initial report created on 07/03/2019 10:43:23 PM EST PROCEDURE INFORMATION: Exam: CT Chest Without Contrast Exam date and time: 07/03/2019 9:20 PM Age: 78 years old Clinical indication: Abdominal pain; Generalized; Other: Pain after fall; Patient HX: Patient had kidney transplant, and pain pump. TECHNIQUE: Imaging protocol: Computed tomography of the chest without contrast. Radiation optimization: All CT scans at this facility use at least one of these dose optimization techniques: automated exposure control; mA and/or kV adjustment per patient size (includes targeted exams where dose is matched to clinical indication); or iterative reconstruction. COMPARISON: CT ABDOMEN PELVIS WO 06/09/2019 6:03 PM and April 27, 2019 FINDINGS: Tubes, catheters and devices: Pain pump catheter terminating in thoracic spinal canal. [place] in subcutaneous tissues left lower quadrant. Lungs: Hyperinflation of the lungs. Extensive bronchiectasis with multiple nodules and lobulated appearance of multiple bronchi and bronchioles consistent with changing distribution of inspissated/impacted secretions in each bronchial tree. Scattered lung parenchymal nodules may contribute to the appearance. Central airways patent. Pleural space: Unremarkable. No pneumothorax. No pleural effusion. Heart: Cardiomegaly.There are coronary artery calcifications. Pulmonary arteries: Main pulmonary artery dilated to 3.4 cm. Aorta: Ascending aorta dilated to 3.8 cm. Atherosclerosis. Lymph nodes: Unremarkable. No enlarged lymph nodes. Bones/joints: Large, bilateral glenohumeral joint effusions with attenuation in range of simple fluid. Degenerative changes of each glenohumeral joint. Degenerative changes of right acromioclavicular joint. The left acromioclavicular joint is not included in scan volume. The spine demonstrates mild degenerative changes at multiple levels. Accentuation of thoracic kyphosis. Status post surgery on the left index and middle fingers consistent with fusion of DIP joints. No acute fracture. Soft tissues: Within normal limits. IMPRESSION: 1. No acute fracture. 2. Large, likely chronic glenohumeral joint effusions. Correlate clinically as to the need for additional imaging of upper extremities and glenohumeral joints for traumatic injuries. 3. Exacerbation of bronchiectasis with extensive inspissated/impacted secretions bilaterally. 4. Coronary artery disease. 5. Dilated main pulmonary artery. 6. Dilated ascending aorta. PROCEDURE INFORMATION: Exam: CT Abdomen And Pelvis Without Contrast Exam date and time: 07/03/2019 9:20 PM Age: 78 years old Clinical indication: Abdominal pain; Generalized; Other: Pain after fall; Patient HX: Patient had kidney transplant, and pain pump. TECHNIQUE: Imaging protocol: Computed tomography of the abdomen and pelvis without contrast. Radiation optimization: All CT scans at this facility use at least one of these dose optimization techniques: automated exposure control; mA and/or kV adjustment per patient size (includes targeted exams where dose is matched to clinical indication); or iterative reconstruction. COMPARISON: CT ABDOMEN PELVIS WO 06/09/2019 6:03 PM FINDINGS: Liver: Several hepatic cysts suspected with largest in left lobe measuring 2.5 cm. Others are too small to characterize and may represent focal areas of biliary ductal dilatation. Normal in size. Gallbladder and bile ducts: The patient is status post cholecystectomy. Marked intra and extrahepatic biliary ductal dilatation. Common bile duct measures 1.2 cm in diameter. Appearance is not significantly changed. Pancreas: Normal. No ductal dilation. Spleen: Normal. No splenomegaly. Adrenals: Normal. No mass. Kidneys and ureters: [place] kidneys are small or have been resected. Renal transplant right lower quadrant without calculi or hydronephrosis. In harbors a 1.2 cm cyst unchanged. Stomach and bowel: Unremarkable. No obstruction. No mucosal thickening. Colonic diverticula. Appendix: Normal in appearance. No evidence of appendicitis. Intraperitoneal space: Unremarkable. No free air. No significant fluid collection. Vasculature: Unremarkable. No abdominal aortic aneurysm. Lymph nodes: Unremarkable. No enlarged lymph nodes. Bladder: Chow catheter. Bladder contracted. Reproductive: Prior hysterectomy. Bones/joints: Severe convex left scoliosis lumbar spine. The spine demonstrates moderate degenerative changes at multiple levels. No fracture. Soft tissues: Asymmetric infiltration of subcutaneous fat about right ischial tuberosity. Surgical changes lower abdominal wall. IMPRESSION: 1. No acute fracture. 2. Asymmetric infiltration of subcutaneous fat about right ischial tuberosity could represent posttraumatic contusion. 3. Additional findings as noted . Dictated and Authenticated by: Linus Rivero MD. Ordering:FRANK Mitchell MD
--- NOTE | 2019-07-03 22:49 | DI.VRAD_ITS ---
PROCEDURE INFORMATION: Exam: XR Right Femur Exam date and time: 07/03/2019 10:00 PM Age: 78 years old Clinical indication: Pain; Other: Fall TECHNIQUE: Imaging protocol: XR Right femur. Views: 2 views. COMPARISON: BILATERAL EXTREMITY US 02/19/2018 9:42 AM, concurrent CT of pelvis FINDINGS: Bones/joints: Unremarkable. No acute fracture. Degenerative changes. Soft tissues: Soft tissue contusion suspected medially in distal thigh. IMPRESSION: 1. No fracture demonstrated. 2. Soft tissue contusion in distal thigh. Dictated and Authenticated by: Linus Rivero MD. Ordering:FRANK Mitchell MD
--- NOTE | 2019-07-03 22:57 | DI.VRAD_ITS ---
PROCEDURE INFORMATION: Exam: CT Head Without Contrast Exam date and time: 07/03/2019 9:24 PM Age: 78 years old Clinical indication: Other: Pain after fall TECHNIQUE: Imaging protocol: Computed tomography of the head without contrast. COMPARISON: No relevant prior studies available. FINDINGS: Brain: There is mild diffuse cerebral atrophy present, consistent with this patient's age. No hemorrhage. There is mild diffuse heterogeneity of the white matter attenuation, this change is nonspecific but is likely secondary to chronic ischemia within microvascular distributions.No mass effect. Ventricles: Normal. No ventriculomegaly. Bones/joints: Unremarkable. No acute fracture. Sinuses: Near complete opacification of left sphenoid sinus. No fluid levels. Mastoid air cells: Visualized mastoid air cells are well aerated. Soft tissues: Unremarkable. IMPRESSION: 1. No acute intracranial abnormality. 2. Left sphenoid sinusitis. PROCEDURE INFORMATION: Exam: CT Cervical Spine Without Contrast Exam date and time: 07/03/2019 9:24 PM Age: 78 years old Clinical indication: Other: Pain after fall TECHNIQUE: Imaging protocol: Computed tomography images of the cervical spine without contrast. Radiation optimization: All CT scans at this facility use at least one of these dose optimization techniques: automated exposure control; mA and/or kV adjustment per patient size (includes targeted exams where dose is matched to clinical indication); or iterative reconstruction. COMPARISON: No relevant prior studies available. FINDINGS: Vertebrae: No acute fracture. Mild anterior subluxation of C2 on C3. Anterior subluxation of C6 on C7. Near complete ankylosis of the C3 through C6 vertebral bodies. Multilevel degenerative changes. Mild convex right scoliosis Discs/Spinal canal/Neural foramina: No spinal stenosis. Hypertrophic changes minimally narrow exit foramina on the left at several levels. Soft tissues: Unremarkable. Lungs: Lung apices are normal. IMPRESSION: 1. No fracture. 2. Mild anterior subluxation at several levels. 3. Multilevel degenerative changes. Dictated and Authenticated by: Linus Rivero MD. Ordering:FRANK Mitchell MD
--- NOTE | 2019-07-03 22:59 | DI.VRAD_ITS ---
PROCEDURE INFORMATION: Exam: XR Left Elbow Exam date and time: 07/03/2019 10:00 PM Age: 78 years old Clinical indication: Other: Pain after fall TECHNIQUE: Imaging protocol: XR Left elbow. Views: 3 or more views. COMPARISON: BILATERAL EXTREMITY US 02/19/2018 9:42 AM FINDINGS: Bones/joints: Displaced fracture through distal humeral shaft with overriding. Soft tissues: Hematoma surrounding the fracture IMPRESSION: 1. Fracture of distal humerus. 2. Hematoma about the fracture. Dictated and Authenticated by: Linus Rivero MD. Ordering:FRANK Mithcell MD
--- NOTE | 2019-07-03 23:01 | DI.VRAD_ITS ---
PROCEDURE INFORMATION: Exam: XR Right Knee Exam date and time: 07/03/2019 10:00 PM Age: 78 years old Clinical indication: Pain; Knee; Right TECHNIQUE: Imaging protocol: XR Right knee. Views: 3 views. COMPARISON: BILATERAL EXTREMITY US 02/19/2018 9:42 AM FINDINGS: Bones/joints: No fracture or subluxation. Soft tissues: Soft tissue swelling/hematoma anteriorly about patella. Hematoma in medial, distal thigh. Soft tissue swelling. Vascular calcifications. IMPRESSION: 1. No fracture or subluxation. 2. Soft tissue swelling/hematoma anteriorly about patella. 3. Hematoma in distal thigh. Dictated and Authenticated by: Linus Rivero MD. Ordering:FRANK Mitchell MD
[2019-07-04] VITALS (21 sets, daily range): BP systolic 102–160; BP diastolic 62–108; PULSE 74–96; RESP 1–20; TEMP 36.3–36.8; O2SAT 90–98
[2019-07-04] MEDS: HYDROmorphone 2 MG/ML VIAL (00:16)
--- NOTE | 2019-07-04 01:10 | HPE_ITS ---
Date of service: 07/04/19 Time of Service: :10 Assessment and Plan Assessment and plan (1) Displaced fracture of distal end of left humerus: Status: Acute Assessment and plan: We will keep n.p.o. tonight in the event that Dr. Adler chooses to surgically repair of the comminuted fracture of her left distal humerus. We will provide her with antiemetics and analgesics (2) Chronic renal disease, stage 3, moderately decreased glomerular filtration rate between 30-59 mL/min/1.73 square meter: Status: Acute Assessment and plan: Her chronic renal insufficiency actually appears to be improved over her baseline in which her creatinine is been around 2 and is down to 1.3. We will continue to hydrate her while she is n.p.o. (3) Essential hypertension: Status: Acute Assessment and plan: Continue her home medications for hypertension including carvedilol (4) Kidney transplant status, cadaveric: Status: Acute Assessment and plan: Continue her home regimen of immunosuppressants including cyclosporine and prednisone. (5) Bronchiectasis: Status: Acute Assessment and plan: Continue her current regimen of as needed albuterol along with Combivent, Tessalon Perles and supplemental oxygen. Encourage cough and deep breathing and IS to prevent atelectasis and pneumonia Qualifiers: Bronchiectasis type: uncomplicated Qualified Code(s): J47.9 - Bronchiectasis, uncomplicated History of Present Illness History of Present Illness Chief Complaint: Status post fall with subsequent left elbow pain and deformity Narrative: 78-year-old female who returned from home today after having had dental surgery tripped and fell over her walker landing on her left elbow and left side and complaining of pain over the left elbow along with obvious deformity and hematoma. X-ray of the left elbow demonstrates a distal humeral fracture that is displaced through the distal humeral shaft with overriding and surrounding hematoma. X-rays of her right femur demonstrate no fracture but a soft tissue contusion in the distal thigh. CT scan of the head without contrast showed no acute intracranial abnormality. An x-ray of her right knee showed no fracture or subluxation but demonstrated soft tissue swelling and/or hematoma anteriorly about the patella and hematoma in the distal thigh. Routine labs include a CBC that did not demonstrate any anemia or thrombocytopenia or leukopenia. Coag studies were within normal limits. CMP demonstrated elevated BUN and creatinine of 39 and 1.33 and elevated carbon dioxide of 36.6 rest of her labs were unremarkable. Patient was seen in the emergency department by LONI Nowak who consulted with Dr. Hari Adler who advised the ER personnel to splint the arm and he would see the patient in the morning. Patient is now admitted to the hospitalist service for pain control and to consult with orthopedic surgery Review of Systems All systems reviewed & are unremarkable except as noted in HPI and below PFSH Medical History (Updated 07/04/19 @ 01:32 by Manuel Ferrera) Abdominal pain (Resolved) Bacterial urinary infection (Resolved) Bowel obstruction (Suspected 08/08/14) a. recurrent small bowel obstructions CHF (congestive heart failure) (Chronic) Chronic pain (Acute) Chronic renal failure, stage 3 (moderate) (Chronic) Diarrhea (Acute) Dysuria (Resolved) Edema, lower extremity (Chronic ~09/2018) a. No evidence of congestive heart failure. Gastroesophageal reflux disease (Chronic) Hypercholesterolemia (Chronic) Kyphoscoliosis (Chronic) Low back pain (Chronic) Hx [facility]. Osteoarthritis of hip (Chronic) Palliative care patient (Acute 06/04/17) Dr. Mccollum Polycystic kidney (Chronic) a. 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 Rhinitis, allergic (Chronic) Spinal stenosis (Chronic) a. In cervical and lumbar regions. b. Followed by [facility]. c. She does have a fentanyl pump in place which is located in her left lower abdomen. Tachycardia (Chronic) a. Recurrent. Urinary incontinence (Chronic) Vaginitis, atrophic (Chronic) Weakness generalized (Resolved) Patient is too weak to return home in her present condition. She is agreed to swing bed level 1 for continued physical therapy. She remains DNR/DNI. Surgical History Extraction of cataract (12/14/15) Left Cataract with IOL, Dr Hawkins History of hysterectomy (Resolved) History of incisional hernia repair (Resolved) History of Surgical Procedure (Chronic) a. Multiple abdominal surgeries. b. S/P kidney transplant in 1990 following nephrectomy x2 for polycystic kidney disease. c. Cholecystectomy. Living-donor kidney transplant recipient (Chronic) Family History Daughter No problems noted. Social History Smoking/Tobacco Use Status: Never Alcohol Intake: never Drug use: Never Substance use type: does not use Adopted: No Caregiver/Support person: Yes Household members: none Housing: house Number of Children: 1 Pets and animals: No Current gender identity: female What is your relationship status?: How often do you talk on the phone with friends or family?: three or more times per week How often do you get together with friends or relatives?: three or more times per week How often do you attend faith or mandaen services?: 4 or more times per year Panel score (0-1 are the most socially isolated patients): 2 What type of physical activity do you participate in: assisted ambulation Maureen/Jewish: Latter-Day Special maureen needs: No Agree to transfusion: Yes Seatbelt use: always Do you feel safe at home: Yes Do you feel safe in your relationship?: Yes History History 4 Para 4 Hx # Term Pregnancies 4 Multiple births Hx # Pregnancies Ectopic pregnancies AB induced Hx Number of Living Children 4 AB spontaneous Meds Home Medications and Allergies Home Medications Medication Instructions Recorded Confirmed Type ascorbic acid (vitamin C) 1,000 mg PO DAILY 09/18/12 07/03/19 History docusate sodium [Colace] 100 mg PO BID tab-cap 09/18/12 07/03/19 History prednisone 5 mg PO DAILY #90 tab 01/17/16 07/03/19 History polyethylene glycol 3350(bulk) 17 gm PO DAILY PRN #1 canister 01/08/17 07/03/19 History Oxygen l NS DAILY #2 10/19/17 12/10/18 Clinic aspirin 81 mg PO DAILY #100 tab 01/14/18 07/03/19 Rx oxygen conserver See Rx Instructions .ROUTE 04/19/18 07/03/19 Rx .COMPLEX #1 allopurinol 100 mg tablet 100 mg PO BID 04/30/18 07/03/19 History cyclosporine 25 mg capsule 50 mg PO BID #540 cap 06/28/18 07/03/19 History cholecalciferol (vitamin D3) 50 2,000 unit PO DAILY 07/23/18 07/03/19 History mcg (2,000 unit) capsule lidocaine 5 % topical patch 1 patch TP DAILY #30 each 07/23/18 07/03/19 Rx carvedilol 25 mg tablet 50 mg PO BID #360 tab 08/19/18 07/03/19 Rx cimetidine 300 mg tablet 300 mg PO Q12H tab 09/06/18 07/03/19 History atorvastatin 10 mg tablet 5 mg PO DAILY #45 tab 10/14/18 07/03/19 Rx ipratropium 20 mcg-albuterol 100 1 puff IH Q6H #4 gm 11/16/18 07/03/19 Rx mcg/actuation mist for inhalation Nebulizer tubing #1 ea 11/21/18 05/02/19 Rx nitroglycerin 0.4 mg sublingual 0.4 mg SUBLINGUAL PRN #25 tab 01/18/19 07/03/19 Rx tablet chlorhexidine gluconate 0.12 % 15 ml BC BID #946 ml 03/06/19 07/03/19 Rx mouthwash ipratropium-albuterol 0.5 mg-3 3 ml IH Q8H #180 ml 04/03/19 07/03/19 Rx mg(2.5 mg base)/3 mL nebulization soln fluticasone propionate 1 spray NS BID PRN 04/27/19 07/03/19 History albuterol sulfate 90 mcg/actuation 2 puff INHALATION Q4H PRN #1 05/03/19 07/03/19 Rx aerosol inhaler inhaler cyclobenzaprine 5 mg tablet 5 mg PO QHS PRN #90 tab MDD 2 05/13/19 07/03/19 Rx Motorized Wheelchair #1 ea 06/26/19 Rx nystatin 100,000 unit/mL oral 5 ml PO QID 14 Days #280 ml 07/02/19 07/03/19 Rx suspension benzonatate [Tessalon Perles] 100 mg PO TID PRN 07/03/19 07/03/19 History furosemide [Lasix] 80 mg PO DAILY 07/03/19 07/03/19 History miscellaneous medical supply See Rx Instructions .ROUTE .COMPLEX 07/03/19 07/03/19 History Allergies Allergy/AdvReac Type Severity Reaction Status Date / Time thiopental sodium Allergy Intermediate Wheezing Verified 07/03/19 23:24 [From Pentothal] Penicillins Allergy Unknown ITCHING Verified 07/03/19 23:24 phenazopyridine AdvReac Severe considered Verified 07/03/19 23:24 [From Pyridium] nephrotoxic diclofenac gel AdvReac Intermediate nausea, Uncoded 07/03/19 23:24 sweats, insomnia Exam Narrative Exam Narrative: Elderly female lying in bed in semi-perales position. She is alert and oriented person place time and circumstance. Neck is supple normal carotid pulses no JVD Lungs are clear to auscultation anteriorly. Lung exam is limited due to the patient wearing a sling and swath for her left humerus fracture. She was in too much discomfort to roll her on her side or to sit her up. Heart is regular rate and rhythm with a prolonged S2 no appreciable gallop or rub. Abdomen soft and nontender and nondistended with normal active bowel sounds. Lower extremities with 1+ pitting pedal edema. No peripheral cyanosis Neurologic exam is grossly intact no facial asymmetry no dysarthric speech. 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 She is able to wiggle her fingers and has good sensation to light touch over her fingers of her left hand. Normal strength and sensation both lower extremities. Results Imaging Abdomen CT scan report/results: report reviewed CT scan - chest: report reviewed CT scan - pelvis: report reviewed Additional studies: PROCEDURE INFORMATION: Exam: XR Right Knee Exam date and time: 07/03/2019 10:00 PM Age: 78 years old Clinical indication: Pain; Knee; Right TECHNIQUE: Imaging protocol: XR Right knee. Views: 3 views. COMPARISON: BILATERAL EXTREMITY US 02/19/2018 9:42 AM FINDINGS: Bones/joints: No fracture or subluxation. Soft tissues: Soft tissue swelling/hematoma anteriorly about patella. Hematoma in medial, distal thigh. Soft tissue swelling. Vascular calcifications. IMPRESSION: 1. No fracture or subluxation. 2. Soft tissue swelling/hematoma anteriorly about patella. 3. Hematoma in distal thigh. Dictated and Authenticated by: Linus Rivero MD Imaging Studies: PROCEDURE INFORMATION: Exam: XR Left Elbow Exam date and time: 07/03/2019 10:00 PM Age: 78 years old Clinical indication: Other: Pain after fall TECHNIQUE: Imaging protocol: XR Left elbow. Views: 3 or more views. COMPARISON: BILATERAL EXTREMITY US 02/19/2018 9:42 AM FINDINGS: Bones/joints: Displaced fracture through distal humeral shaft with overriding. Soft tissues: Hematoma surrounding the fracture IMPRESSION: 1. Fracture of distal humerus. 2. Hematoma about the fracture. Dictated and Authenticated by: Linus Rivero MD. Labs Result diagrams: 07/03/19 19:15 07/03/19 20:50 Labs: Laboratory Results - last 24 hr 07/03/19 07/03/19 07/03/19 19:15 19:15 20:50 WBC 5.11 RBC 4.21 Hgb 12.6 Hct 42.0 MCV 99.8 H MCH 29.9 MCHC 30.0 L RDW 13.5 Plt Count 139 MPV 12.2 H Immature Gran % 0.8 Neutrophils % 72.2 Lymphocytes % 12.9 Monocytes % 10.8 Eosinophils % 2.9 Basophils % 0.4 Absolute Neutrophils 3.69 Absolute Lymphocytes 0.66 L Absolute Monocytes 0.55 Absolute Eosinophils 0.15 Absolute Basophils 0.02 PT 10.4 INR 1.0 APTT 21.1 Sodium 142 Potassium 4.0 Chloride 101 Carbon Dioxide 36.6 H Anion Gap 4.4 BUN 39 H Creatinine 1.33 H Estimated GFR/1.73 m2 38.39 Glucose 131 H Calcium 9.9 Total Bilirubin 0.5 AST 16 ALT 6 L Alkaline Phosphatase 86 Total Protein 6.6 Albumin 3.1 L Patient ABO/Rh Antibody Screen 07/03/19 20:50 WBC RBC Hgb Hct MCV MCH MCHC RDW Plt Count MPV Immature Gran % Neutrophils % Lymphocytes % Monocytes % Eosinophils % Basophils % Absolute Neutrophils Absolute Lymphocytes Absolute Monocytes Absolute Eosinophils Absolute Basophils PT INR APTT Sodium Potassium Chloride Carbon Dioxide Anion Gap BUN Creatinine Estimated GFR/1.73 m2 Glucose Calcium Total Bilirubin AST ALT Alkaline Phosphatase Total Protein Albumin Patient ABO/Rh O Positive Antibody Screen Negative Last Vital Signs Temp 36.8 C 07/03/19 18:44 Pulse 91 H 07/04/19 01:00 Resp 18 07/04/19 01:00 BP 154/93 H 07/03/19 21:01 Pulse Ox 96 07/04/19 01:00
[2019-07-04] MEDS: HYDROmorphone 2 MG/ML VIAL IVP ×8 (02:58→22:44)
[2019-07-04] MEDS: Normal Saline Flush 10 ML SYR IVP ×6 (02:59→22:46)
[2019-07-04] MEDS: Normal Saline 1,000 ML 85 ML IV (03:06)
[2019-07-04] MEDS: Acetaminophen 325 MG TAB 650 MG PO ×2 (05:20→12:09)
[2019-07-04] MEDS: Albuterol/Ipratropium 3 ML UPD VIAL IH ×2 (05:21→12:53)
[2019-07-04] MEDS: Ipratropium/Albuterol 4 GM 120 PUFF INH IH (05:41)
[2019-07-04 07:15] LABS: Abs Immature Grans 0.02 k/cumm (0.0-0.09); Absolute Basophil Count 0.01 k/cumm (0.0-0.2); Absolute Eosinophil Count 0.09 k/cumm (0.0-0.7); Absolute Neutrophil Count 3.56 k/cumm (1.2-6.7); Basophils % 0.2; Eosinophils % 1.7; HCT 38.3 % (36.0-46.0); HGB 11.1 g/dL (12.0-15.5); Immature Grans % 0.4 %; Lymphocytes % 14.9; Mean Corpuscular Hemoglobin 29.4 pg (27.0-33.0); Mean Corpuscular Volume 101.3 fL (80-95); Mean Platelet Volume 11.7 fL (8.0-11.0); Monocytes % 16.7; Neutrophils % 66.1; Platelet Count 127 x1000/uL (130-400); RBC 3.78 m/cumm (4.00-5.20); RBC Distribution Width 13.4 % (11.7-14.6); White Blood Cell Count 5.38 k/cumm (4.4-10.8)
[2019-07-04 07:22] LABS: Anion Gap 4.6 mmol/L (3-11); BUN 39 mg/dL (7-18); CO2 36.4 mmol/L (21.0-32.0); CREATININE 1.58 mg/dL (0.55-1.02); Calcium 9.6 mg/dL (8.5-10.1); Chloride 101 mmol/L (98-107); Estimated GFR 31.47 (mL/min/1.73m2); Glucose 104 mg/dL (74-106); Potassium 4.2 mmol/L (3.5-5.1); Sodium 142 mmol/L (136-145)
--- NOTE | 2019-07-04 07:27 | OCONE_ITS ---
History of Present Illness History of Present Illness Chief Complaint: Left arm and right knee pain Narrative: Chief Complaint: Left arm and right knee pain HPI: Mechanical trip and fall last night forward onto her walker with chest contusion and immediate sudden onset left arm deformity and severe pain. Also direct contusion to her right knee with significant swelling bruising and pain. Unable to ambulate because of her right lower extremity pain. Unable to take care of herself due to left arm deformity and pain. Denies any numbness or tingling throughout the left upper extremity PMH: Significant allergies: Pentothal, penicillin, Pyridium, diclofenac gel FH: non-contributory SH: hand dominance: Right occupation: Retired smoke cigarettes: No Consult Reason Orthopedic evaluation and management of left humeral shaft fracture and right knee contusion Assessment and Plan Assessment and plan (1) Displaced fracture of distal end of left humerus: Status: Acute Assessment and plan: 78-year-old female with significantly complex medical history including multiple medical core morbidities that make her high risk for surgical operative intervention with displaced left distal humerus fracture, right knee contusion, chest wall contusion, chronic right shoulder rotator cuff arthropathy Medical admission and optimization for potential surgery at [facility] Nurse faucet polisher evaluation and risk stratification Complete work-up for chest pain with troponins Complete work-up for right knee contusion with CT right knee Complete imaging of left humeral shaft fracture with left humerus x-rays and CT of the humerus and elbow to rule out intra-articular extension At the very least the patient would benefit from a brief procedure here under sedation to close reduce and manipulate the humeral shaft fracture into a more ideal position followed by splint application. Would consider surgical fixation with ORIF and option for this patient as a relative indication would be accelerated weightbearing and may allow her accelerated return to baseline self- care and performance of ADLs and mobilization. Case discussed with night hospitalist Dr. Ferrera and orthopedic colleague Dr. Bower. Will discuss with day hospitalist Dr. Momin. PM update- I returned at a later point in the morning to discuss the case again with the patient in the presence of her family. She is adamantly refusing surgery here at [facility]. She believes her multiple and significant medical comorbidities require her to have surgery at a tertiary care facility like [facility]. She is requesting transfer to [facility] for orthopedic care of her humerus fracture. At length I discussed my abilities and limitations to help her and that I am more than comfortable managing this fracture operatively. Our operating room staff including the nurse faucet polisher is also prepared to assist with her surgery. We also made possible accommodation to reserve an ICU bed should she need respiratory support postoperatively. Despite my best efforts to persuade the patient to allow some intervention done here today especially at a minimum a closed reduction and splinting I was unable to persuade her into surgery here. I discussed the case at length with her hospitalist who will arrange transfer. Recommend nonweightbearing left upper extremity. Elevation. Pain control. Skin checks around splint which may need to be loosened or padded, neurovascular checks and compartment checks for as long as the patient remains here prior to transfer. I am signing off from the patient's care as she as discussed above would not allow any surgery or procedures done here. Unfortunately her distal humerus fracture remains significantly angulated and that certainly puts the underlying neurovascular structures at risk. Unfortunately, I cannot reasonably perform any closed reduction without appropriate sedation or pain control which we cannot do on the med/surg floor. This type of fracture is not amenable to hematoma block. Please call if the patient's situation changes or if she decides to allow us to perform either a closed reduction procedure or open reduction internal fixation surgery here, which would be done in our OR under careful monitoring. Review of Systems Constitutional Constitutional: Denies chills and Denies fever(s) Eyes Eyes: Denies diplopia and Denies loss of vision ENT Ears, Nose, Mouth, and Throat: Denies dental pain and Denies other (cavities) Cardiovascular Cardiovascular: Reports chest pain (Anterior sternal chest wall pain due to fall and contusion), Denies chest pain with activity, Denies irregular heart rhythm and Reports dyspnea Respiratory Respiratory: Denies cough and Reports dyspnea Gastrointestinal Gastrointestinal: Denies nausea and Denies vomiting Musculoskeletal Musculoskeletal: Reports as per HPI Integumentary/Breasts Skin/Breast: Denies rash and Denies wounds Neurologic Neurologic: Reports as per HPI and Denies loss of vision Psychiatric Psychiatric: Denies anxiety and Denies depression Hematologic/Lymphatic Hematologic/Lymphatic: Denies easy bleeding and Denies easy bruising Comments: Significant chronic bilateral lower extremity lymphedema Allergic/Immunologic Allergic/Immunologic: Reports as per HPI [facility] Medical History (Updated 07/04/19 @ 07:34 by Hari Adler MD) Abdominal pain (Resolved) Bacterial urinary infection (Resolved) Bowel obstruction (Suspected 08/08/14) a. recurrent small bowel obstructions CHF (congestive heart failure) (Chronic) Chronic pain (Acute) Chronic renal failure, stage 3 (moderate) (Chronic) Diarrhea (Acute) Dysuria (Resolved) Edema, lower extremity (Chronic ~09/2018) a. No evidence of congestive heart failure. Gastroesophageal reflux disease (Chronic) Hypercholesterolemia (Chronic) Kyphoscoliosis (Chronic) Low back pain (Chronic) Hx [facility]. Osteoarthritis of hip (Chronic) Palliative care patient (Acute 06/04/17) Dr. Mccollum Polycystic kidney (Chronic) a. 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 Rhinitis, allergic (Chronic) Spinal stenosis (Chronic) a. In cervical and lumbar regions. b. Followed by [facility]. c. She does have a fentanyl pump in place which is located in her left lower abdomen. Tachycardia (Chronic) a. Recurrent. Urinary incontinence (Chronic) Vaginitis, atrophic (Chronic) Weakness generalized (Resolved) Patient is too weak to return home in her present condition. She is agreed to swing bed level 1 for continued physical therapy. She remains DNR/DNI. Surgical History Extraction of cataract (12/14/15) Left Cataract with IOL, Dr Hawkins History of hysterectomy (Resolved) History of incisional hernia repair (Resolved) History of Surgical Procedure (Chronic) a. Multiple abdominal surgeries. b. S/P kidney transplant in 1990 following nephrectomy x2 for polycystic kidney disease. c. Cholecystectomy. Living-donor kidney transplant recipient (Chronic) Family History Daughter No problems noted. Social History Smoking/Tobacco Use Status: Never Alcohol Intake: never Drug use: Never Substance use type: does not use Adopted: No Caregiver/Support person: Yes Household members: none Housing: house Number of Children: 1 Pets and animals: No Current gender identity: female What is your relationship status?: How often do you talk on the phone with friends or family?: three or more times per week How often do you get together with friends or relatives?: three or more times per week How often do you attend presybeterian or zoroastrian services?: 4 or more times per year Panel score (0-1 are the most socially isolated patients): 2 What type of physical activity do you participate in: assisted ambulation Maureen/Zoroastrianism: Jewish Special maureen needs: No Agree to transfusion: Yes Seatbelt use: always Do you feel safe at home: Yes Do you feel safe in your relationship?: Yes History History 4 Para 4 Hx # Term Pregnancies 4 Multiple births Hx # Pregnancies Ectopic pregnancies AB induced Hx Number of Living Children 4 AB spontaneous Exam Const General: cooperative, uncomfortable and no acute distress Orientation: alert, awake and not confused Limitations: mental status not altered and no language barrier HENMT Head: normocephalic and atraumatic Neck Neck: normal visual inspection and full ROM Resp Effort & Inspection: normal respiratory effort, able to speak in complete sentences, no audible wheezes and no grunting General: deferred Skin General skin exam: no rashes or lesions noted Neuro General: alert, awake and oriented x3 Cognition: normal cognition Speech: speech normal Extrem Other: Right knee: Significant surrounding ecchymosis. Tenderness to palpation throughout. Unable to perform straight leg raise. Tolerates gentle range of motion acceptably. Left upper extremity: Posterior long-arm splint and sling in place. All arm anf forearm compartments soft. Tenderness over the distal arm fx site with skin intact. Intact motor PIN, AIN, ulnar nerves. Intact sensation median, radial, ulnar nerves. Denies any paresthesias or numbness. Psych Appearance: grossly normal Mental Status: mental status grossly normal Speech and Movement: speech and movement normal Affect: normal affect Attitude: cooperative Results Last Vital Signs Temp 97.9 F 07/04/19 02:04 Pulse 96 H 07/04/19 02:04 Resp 20 07/04/19 02:04 BP 160/64 H 07/04/19 02:04 Pulse Ox 94 L 07/04/19 02:04 Labs Result diagrams: 07/04/19 06:25 07/04/19 06:25 Labs: Laboratory Results - last 24 hr 07/03/19 07/03/19 07/03/19 19:15 19:15 20:50 WBC 5.11 RBC 4.21 Hgb 12.6 Hct 42.0 MCV 99.8 H MCH 29.9 MCHC 30.0 L RDW 13.5 Plt Count 139 MPV 12.2 H Immature Gran % 0.8 Neutrophils % 72.2 Lymphocytes % 12.9 Monocytes % 10.8 Eosinophils % 2.9 Basophils % 0.4 Absolute Neutrophils 3.69 Absolute Lymphocytes 0.66 L Absolute Monocytes 0.55 Absolute Eosinophils 0.15 Absolute Basophils 0.02 PT 10.4 INR 1.0 APTT 21.1 Sodium 142 Potassium 4.0 Chloride 101 Carbon Dioxide 36.6 H Anion Gap 4.4 BUN 39 H Creatinine 1.33 H Estimated GFR/1.73 m2 38.39 Glucose 131 H Calcium 9.9 Total Bilirubin 0.5 AST 16 ALT 6 L Alkaline Phosphatase 86 Total Protein 6.6 Albumin 3.1 L Patient ABO/Rh Antibody Screen 07/03/19 07/04/19 07/04/19 20:50 06:25 06:25 WBC 5.38 RBC 3.78 L Hgb 11.1 L Hct 38.3 MCV 101.3 H MCH 29.4 MCHC 29.0 L RDW 13.4 Plt Count 127 L MPV 11.7 H Immature Gran % 0.4 Neutrophils % 66.1 Lymphocytes % 14.9 Monocytes % 16.7 Eosinophils % 1.7 Basophils % 0.2 Absolute Neutrophils 3.56 Absolute Lymphocytes 0.80 L Absolute Monocytes 0.90 H Absolute Eosinophils 0.09 Absolute Basophils 0.01 PT INR APTT Sodium 142 Potassium 4.2 Chloride 101 Carbon Dioxide 36.4 H Anion Gap 4.6 BUN 39 H Creatinine 1.58 H Estimated GFR/1.73 m2 31.47 Glucose 104 Calcium 9.6 Total Bilirubin AST ALT Alkaline Phosphatase Total Protein Albumin Patient ABO/Rh O Positive Antibody Screen Negative Imaging Imaging Studies: Left elbow x-rays: Significant for distal humerus significantly displaced fracture Right knee x-rays: negative for obvious fx or dislocation CT chest abdomen pelvis: Left shoulder glenohumeral joint reduced. Nobvious rib or sternal fx. CT left humerus shows no extension of fx into elbow joint distally. CT right knee negative for occult fracture. Troponins negative.
[2019-07-04 07:59] LABS: Troponin I < 0.05 ng/Ml (<0.06)
[2019-07-04] MEDS: Carvedilol 25 MG TAB 50 MG PO ×2 (08:25→16:52)
--- NOTE | 2019-07-04 08:54 | PDOC.CMIN ---
- If Service Date Differs Date of service: 07/04/19 Time of Service: 08:54 Care Management Initial Assess REASON FOR HOSPITALIZATION:: Displaced fracture of distal end of left humerus PAST MEDICAL HISTORY/PAST SURGICAL HISTORY:: Medical History: Abdominal pain (Resolved). Bacterial urinary infection (Resolved). Bowel obstruction (Suspected 08/08/14). a. recurrent small bowel obstructions. CHF (congestive heart failure) (Chronic). Chronic pain (Acute). Chronic renal failure, stage 3 (moderate) (Chronic). Diarrhea (Acute). Dysuria (Resolved). Edema, lower extremity (Chronic ~09/2018). a. No evidence of congestive heart failure. Gastroesophageal reflux disease (Chronic). Hypercholesterolemia (Chronic). Kyphoscoliosis (Chronic). Low back pain (Chronic). Hx [facility]. Osteoarthritis of hip (Chronic). Palliative care patient (Acute 06/04/17). Dr. Mccollum. Polycystic kidney (Chronic). a. s/p bilateral nephrectomies. Prolapse of mitral valve (Chronic). Reactive airway disease (Chronic). COPD 2' Hx MAC + severe scoliosis. Rhinitis, allergic (Chronic). Spinal stenosis (Chronic). a. In cervical and lumbar regions. b. Followed by [facility]. c. She does have a fentanyl pump in place which is located in her left lower abdomen. Tachycardia (Chronic). a. Recurrent. Urinary incontinence (Chronic). Vaginitis, atrophic (Chronic). Weakness generalized (Resolved). Patient is too weak to return home in her present condition. She is agreed to swing bed level 1 for continued physical therapy. She remains DNR/DNI. Surgical History: Extraction of cataract (12/14/15). Left Cataract with IOL, Dr Hawkins. History of hysterectomy (Resolved). History of incisional hernia repair (Resolved). History of Surgical Procedure (Chronic). a. Multiple abdominal surgeries. b. S/P kidney transplant in 1990 following nephrectomy x2 for polycystic kidney disease. c. Cholecystectomy. Living-donor kidney transplant recipient (Chronic) PREVIOUS FUNCTIONAL STATUS/SOCIAL/FAMILY SUPPORTS:: Renay lives alone in a mobile home in [place], [place]. She has private caregivers who come throughout the day, preparing meals, assisting with ADLs, housekeeping and medication management. She has one daughter and 3 sons. The daughter, Jr Whalen, lives locally and is very supportive. Her sons all live out of state. Renay has nursing but only for blood draws. Renay also has home oxygen which she wears continuously at 2.5 liters. CURRENT FUNCTIONAL STATUS:: Renay was sitting up in bed when CM met with her. She stated that she was in pain and described the fall that led to her injuries. She shared that she has been managing very well at home with the support that she has. She also shared that she anticipates being transferred to [facility] either tonight or tomorrow to have surgery on her arm. She stated that she has been there many times and wants to be in a medical center where she will be able to receive the care she needs should there be any complications. ADVANCE DIRECTIVES:: Has living will that does not name HCA but stated that her daughter Jr Whalen is her HCA. Has patient been provided with information about the portal?: Yes Did the patient sign up for the portal?: No CODE STATUS:: DNR/DNI INSURANCE COVERAGE / FINANCIAL ISSUES:: Abundio MAJANO [facility] CURRENT HOME/COMMUNITY SERVICES/EQUIPMENT:: walker inside, wheelchair outside and private caregivers. PRIMARY CARE PHYSICIAN:: Kesha Serrano POTENTIAL DISCHARGE NEEDS:: Follow up with PCP and discharge plan of care PATIENT/FAMILY EDUCATION NEEDS:: Discharge plan, limitations, follow up plan, Ask Me Three. TRANSPORTATION:: via ambulance to [facility] PLAN:: Renay will be transferred to [facility] via ambulance later today or tomorrow and have surgery on her fractured humerus. CM will continue to support patient, family and discharge needs.
[2019-07-04] MEDS: Lidocaine 5% Patch 1 PATCH TP ×2 (10:19→16:47)
[2019-07-04] MEDS: Docusate Sodium 100 MG CAP PO ×2 (10:20→20:26)
[2019-07-04] MEDS: predniSONE 5 MG TAB PO (10:21)
[2019-07-04] MEDS: Nystatin 500000 UNITS/5 ML SUSP 5ML CUP PO ×4 (10:21→20:26)
[2019-07-04] MEDS: Allopurinol 100 MG TAB PO ×2 (10:21→20:27)
--- NOTE | 2019-07-04 10:48 | W.NUTCONSULT ---
Date of service: 07/04/19 Time of Service: 10:48 Nutritional Consult ASSESSMENT: 78 year old female, s/p fall with fracture of humerus. PMH: kidney transplant, obesity. Currently ordered for renal diet- appropriate. Not considered at nutritional risk at this time. Will follow. MONITORING AND EVALUATION: po intake and weight trends Time Spent in Nutritional Counseling and Treatment: 0 time spent face to face
--- NOTE | 2019-07-04 10:52 | DI.CT_ITS ---
EXAM: CT UPPER EXTREMITY LT WO CT LOWER EXTREMITY RT WO XR HUMERUS LT CLINICAL HISTORY: Distal humerus fracture, right knee pain, rule out occult fracture COMPARISON: XR HUMERUS LT from 07/04/2019 CT UPPER EXTREMITY LT WO from 07/04/2019 FINDINGS: CT examination of the left upper extremity was performed utilizing multi slice acquisition and multip lanar reconstruction. 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 Fragmentation of the glenoid noted also probably chronic. Fragmentation of the acromion noted probably chronic. No definite humeral head fracture seen. Cystic destructive changes noted in humer al head also probably degenerative in nature. Spiral fracture of the distal humeral diaphyseal metaphyseal junction noted with moderate displacemen t. Suspect nondisplaced radial head fracture as well. CT examination of the right knee was performed. There is prepatellar soft tissue swelling. There is a n apparent impaction fracture with mild fragmentation impaction and displacement anterior cortex of t he patella. Otherwise patella appears intact although laterally subluxed on the femur. No additional fracture seen involving the bones of knee. No gross knee joint effusion. IMPRESSION: Chronic severe degenerative changes with bony fragmentation involving glenohumeral and acromioclavicu lar articulations with a large associated joint effusion. Moderately displaced spiral fracture of distal humeral diaphyseal metaphyseal junction. Suspect nondisplaced radial head/neck fracture. Anterior cortex patellar impaction fracture, impacted region is about 8 x 12 millimeters. No addition al fracture involving the knee. Radiographs of the humerus show the spiral fracture of the distal humerus and the radial head is not well visualized on the plain films.
--- NOTE | 2019-07-04 14:52 | PGE_ITS ---
Date of Service Date of service: 07/04/19 Time of Service: 14:52 Subjective Subjective Interval history since last seen: The patient refused surgery at [facility] and would like to be transferred to [facility]. Her perioperative risk is moderate to high due to her bronchiectasis, so this request for transfer was felt to be appropriate. [facility] contacted - they do not have beds on the hospitalist service, and the patient is not felt to be a good patient to go straight to orthopedic service. The patient was not deemed to require emergent or urgent surgery, and no surgery would likely happen over the weekend, per orthopedic service. The patient is in agreement with this plan. The patient was accepted in transfer over the or Sunday by Dr Carlson of hospitalist service for surgery on Sunday or Sunday by orthopedics. [facility] was asked to await a phone call from bed placement. We will continue current medications. I am adding lidocaine patches to her regimen. Objective Objective Clinical Data: Abnormal lab results 07/03/19 07/03/19 07/04/19 Range/Units 19:15 20:50 06:25 RBC (4.00-5.20) m/cumm Hgb (12.0-15.5) g/dL MCV 99.8 H (80-95) fL MCHC 30.0 L (32.0-36.0) g/dL Plt Count (130-400) x1000/uL MPV 12.2 H (8.0-11.0) fL Absolute Lymphocytes 0.66 L (1.2-3.4) k/cumm Absolute Monocytes (0.11-0.7) k/cumm Carbon Dioxide 36.6 H 36.4 H (21.0-32.0) mmol/L BUN 39 H 39 H (7-18) mg/dL Creatinine 1.33 H 1.58 H (0.55-1.02) mg/dL Glucose 131 H (74-106) mg/dL ALT 6 L (14-59) U/L Albumin 3.1 L (3.4-5.0) g/dL 07/04/19 Range/Units 06:25 RBC 3.78 L (4.00-5.20) m/cumm Hgb 11.1 L (12.0-15.5) g/dL MCV 101.3 H (80-95) fL MCHC 29.0 L (32.0-36.0) g/dL Plt Count 127 L (130-400) x1000/uL MPV 11.7 H (8.0-11.0) fL Absolute Lymphocytes 0.80 L (1.2-3.4) k/cumm Absolute Monocytes 0.90 H (0.11-0.7) k/cumm Carbon Dioxide (21.0-32.0) mmol/L BUN (7-18) mg/dL Creatinine (0.55-1.02) mg/dL Glucose (74-106) mg/dL ALT (14-59) U/L Albumin (3.4-5.0) g/dL Vital Signs Temperature 36.5 C 07/04/19 07:20 Temperature Source Tympanic 07/04/19 07:20 Pulse 84 07/04/19 12:57 Pulse Rhythm Regular 07/04/19 07:40 Pulse 86 07/03/19 21:02 Respiratory Rate 18 07/04/19 12:57 Respiratory Effort 07/04/19 07:40 Respiratory Depth Normal 07/04/19 07:40 Respiratory Pattern Normal 07/04/19 07:40 Blood Pressure 102/62 07/04/19 07:20 Blood Pressure Mean 83 07/04/19 01:31 Blood Pressure Position Supine 07/03/19 18:44 Pulse Oximetry 98 07/04/19 12:57 Oxygen Delivery Method Nasal Cannula 07/04/19 12:53 Oxygen Flow Rate 2.5 07/04/19 12:53 Pain Level 7 07/04/19 13:09 Comment 07/04/19 07:20 Intake & Output 07/03/19 07/04/19 07/04/19 23:59 11:59 23:59 Output Total 150 / 150 Balance -150 / -150 Weight 79.3 kg 78.6 kg Output: Urine 150 / 150 Other: Urine Color Yellow Yellow Straw Urine Appearance Clear Clear Clear Laboratory Results WBC 5.38 k/cumm (4.4-10.8) 07/04/19 06:25 RBC 3.78 m/cumm (4.00-5.20) L 07/04/19 06:25 Hgb 11.1 g/dL (12.0-15.5) L 07/04/19 06:25 Hct 38.3 % (36.0-46.0) 07/04/19 06:25 MCV 101.3 fL (80-95) H 07/04/19 06:25 MCH 29.4 pg (27.0-33.0) 07/04/19 06:25 MCHC 29.0 g/dL (32.0-36.0) L 07/04/19 06:25 RDW 13.4 % (11.7-14.6) 07/04/19 06:25 Plt Count 127 x1000/uL (130-400) L 07/04/19 06:25 MPV 11.7 fL (8.0-11.0) H 07/04/19 06:25 Immature Gran % 0.4 % 07/04/19 06:25 Neutrophils % 66.1 07/04/19 06:25 Lymphocytes % 14.9 07/04/19 06:25 Monocytes % 16.7 07/04/19 06:25 Eosinophils % 1.7 07/04/19 06:25 Basophils % 0.2 07/04/19 06:25 Absolute Neutrophils 3.56 k/cumm (1.2-6.7) 07/04/19 06:25 Absolute Lymphocytes 0.80 k/cumm (1.2-3.4) L 07/04/19 06:25 Absolute Monocytes 0.90 k/cumm (0.11-0.7) H 07/04/19 06:25 Absolute Eosinophils 0.09 k/cumm (0.0-0.7) 07/04/19 06:25 Absolute Basophils 0.01 k/cumm (0.0-0.2) 07/04/19 06:25 PT 10.4 sec (9.3-11.0) 07/03/19 19:15 INR 1.0 (0.9-1.1) 07/03/19 19:15 APTT 21.1 sec (21.0-31.4) 07/03/19 19:15 Sodium 142 mmol/L (136-145) 07/04/19 06:25 Potassium 4.2 mmol/L (3.5-5.1) 07/04/19 06:25 Chloride 101 mmol/L (98-107) 07/04/19 06:25 Carbon Dioxide 36.4 mmol/L (21.0-32.0) H 07/04/19 06:25 Anion Gap 4.6 mmol/L (3-11) 07/04/19 06:25 BUN 39 mg/dL (7-18) H 07/04/19 06:25 Creatinine 1.58 mg/dL (0.55-1.02) H 07/04/19 06:25 Estimated GFR/1.73 m2 31.47 (mL/min/1.73m2) 07/04/19 06:25 Glucose 104 mg/dL (74-106) 07/04/19 06:25 Calcium 9.6 mg/dL (8.5-10.1) 07/04/19 06:25 Total Bilirubin 0.5 mg/dL (0.2-1.0) 07/03/19 20:50 AST 16 U/L (15-37) 07/03/19 20:50 ALT 6 U/L (14-59) L 07/03/19 20:50 Alkaline Phosphatase 86 U/L (46-116) 07/03/19 20:50 Troponin I < 0.05 ng/Ml (<0.06) 07/03/19 20:50 Total Protein 6.6 g/dL (6.4-8.2) 07/03/19 20:50 Albumin 3.1 g/dL (3.4-5.0) L 07/03/19 20:50 Patient ABO/Rh O Positive 07/03/19 20:50 Antibody Screen Negative 07/03/19 20:50
--- NOTE | 2019-07-04 16:45 | PHARADMIT ---
Addendum entered by Colton Simpson III 07/05/19 11:33: Pharmacy Note Subjective Patient to be transferred to [facility] [place] due to her being a Renal transplant patient. IV Fluids (NS) started due to worsening renal function. Objective VS-OK BUN- 48SCr-2.23 CrCl~15.9mL/min, Lytes-OK H&H-down Pain: 02/01 Assessment Pain meds changed to IV APAP 1gm q8hr and Oxycodone 5mg po Plan Awaiting [facility] [place] bed for transfer....looks like Sunday. Original Note: Admission Pharmacy Clinical Review Humerus fracture, knee hematoma Code Status DNR/DNI Current Weight 78.6 kg Renally Cleared and Narrow Therapeutic Index Meds CrCl 22.4ml/min QTc Value / Action Taken BP Control, Fever BP 99/70, afebrile Electrolytes reviewed DVT Prophylaxis asa 81mg Opiate Usage / Scheduled Bowel Regimen Ordered hydromorphone prn, yes Plt/SCr for Heparin / Enoxaparin plt 127, Scr 1.58 INR for Warfarin H/H stable, WBC/Bands H/H 11.1/38.3, WBC 5.38 Antibiotic appropriateness Cultures and Sensitivities Surgical ABX d/c within 24 hr DM control / Insulin Dosing Heart Failure (Check EF%) (DIAZ's, B-Block, Diuretics) carvedilol IV to PO Switch Home Meds Reviewed Yes - cimetidine might result in increased levels of carvedilol, cyclosporine Home Meds Not Ordered Comments Patient's own cyclosporine 50mg BID (neoral 25mg caps) requested to have surgery done at [facility] [place] -- accepted to hospitalist service pending bed opening this weekend
[2019-07-04] MEDS: Furosemide 40 MG TAB PO (16:52)
[2019-07-04] MEDS: Albuterol/Ipratropium 3 ML UPD VIAL UPD (18:44)
[2019-07-04] MEDS: Atorvastatin 10 MG TAB 5 MG PO (20:26)
[2019-07-05] VITALS (13 sets, daily range): BP systolic 144–149; BP diastolic 76–87; PULSE 72–84; RESP 1–22; TEMP 36.5–37.2; O2SAT 89–96
[2019-07-05] MEDS: Albuterol/Ipratropium 3 ML UPD VIAL UPD ×5 (00:29→23:50)
[2019-07-05] MEDS: Acetaminophen 325 MG TAB 650 MG PO ×2 (00:51→08:50)
[2019-07-05] MEDS: Normal Saline Flush 10 ML SYR IVP ×2 (06:21→09:09)
[2019-07-05] MEDS: HYDROmorphone 2 MG/ML VIAL IVP (06:22)
[2019-07-05 07:17] LABS: Abs Immature Grans 0.01 k/cumm (0.0-0.09); Absolute Basophil Count 0.01 k/cumm (0.0-0.2); Absolute Lymphocyte Count 0.51 k/cumm (1.2-3.4); Absolute Monocyte Count 0.94 k/cumm (0.11-0.7); Absolute Neutrophil Count 5.19 k/cumm (1.2-6.7); Basophils % 0.1; Eosinophils % 1.5; HCT 34.9 % (36.0-46.0); Immature Grans % 0.1 %; Lymphocytes % 7.5; Mean Corp. HGB Concentration 28.7 g/dL (32.0-36.0); Mean Corpuscular Hemoglobin 29.4 pg (27.0-33.0); Mean Corpuscular Volume 102.6 fL (80-95); Mean Platelet Volume 10.7 fL (8.0-11.0); Monocytes % 13.9; Neutrophils % 76.9; Platelet Count 142 x1000/uL (130-400); RBC Distribution Width 13.3 % (11.7-14.6); White Blood Cell Count 6.76 k/cumm (4.4-10.8)
[2019-07-05 07:31] LABS: Anion Gap 3.4 mmol/L (3-11); BUN 48 mg/dL (7-18); CO2 35.6 mmol/L (21.0-32.0); CREATININE 2.23 mg/dL (0.55-1.02); Calcium 9.1 mg/dL (8.5-10.1); Chloride 101 mmol/L (98-107); Estimated GFR 21.14 (mL/min/1.73m2); Glucose 116 mg/dL (74-106); Magnesium 1.8 mg/dL (1.8-2.4); Potassium 4.2 mmol/L (3.5-5.1); Sodium 140 mmol/L (136-145)
[2019-07-05] MEDS: Carvedilol 25 MG TAB 50 MG PO ×2 (08:50→18:24)
[2019-07-05] MEDS: Allopurinol 100 MG TAB PO ×2 (08:51→20:08)
[2019-07-05] MEDS: Ascorbic Acid 500 MG TAB 1000 MG PO (08:51)
[2019-07-05] MEDS: Nystatin 500000 UNITS/5 ML SUSP 5ML CUP PO ×4 (08:51→20:09)
[2019-07-05] MEDS: Docusate Sodium 100 MG CAP PO ×2 (08:51→20:08)
[2019-07-05] MEDS: predniSONE 5 MG TAB PO (08:51)
[2019-07-05] MEDS: Lidocaine 5% Patch 2 PATCH TP (08:52)
[2019-07-05] MEDS: Normal Saline 1,000 ML 50 ML IV (09:08)
--- NOTE | 2019-07-05 09:36 | CMPROGNOTE_ITS ---
Care Management Progress Note S/O: Renay continues to be closely monitored while awaiting transfer. CM requested inpatient status order due to delayed discharge anticipated, per report until Sunday or Sunday. CM continues to follow. A: 78 year female admitted to [facility] 07/04/19 for Humerus fracture, knee hematoma, inability to ambulate P: Renay will be transferred to [facility] via EMS (coordinated by NS) for surgical intervention of her fractured humerus.
--- NOTE | 2019-07-05 09:36 | PDOC.CMPRO ---
Care Management Progress Note S/O: Renay continues to be closely monitored while awaiting transfer. CM requested inpatient status order due to delayed discharge anticipated, per report until Sunday or Sunday. CM continues to follow. A: 78 year female admitted to [facility] 07/04/19 for Humerus fracture, knee hematoma, inability to ambulate P: Renay will be [place] [facility] [place] (coordinated by NS) for surgical intervention of her fractured humerus.
[2019-07-05] MEDS: oxyCODONE 5 MG TAB PO ×2 (11:09→20:07)
--- NOTE | 2019-07-05 12:34 | W.PM.PROGNOT ---
Date of Service Date of service: 07/05/19 Time of Service: 12:34 Assessment and Plan Assessment and plan (1) Displaced fracture of distal end of left humerus: Start date: 07/05/19 Start time: 12:39 Status: Acute Assessment and plan: Adament about surgery at [facility] [place], Dr. Carlson has accepted patient no bed availability at this time, surgery for Sunday or Sunday by ortho. Patient placed on heart healthy diet. Due to decreased oxygen saturation with hydromorphone, will schedule IV tylenol and add roxicodone PO until NPO. Will continue to make comfortable, while awaiting for bed. (2) Chronic renal disease, stage 3, moderately decreased glomerular filtration rate between 30-59 mL/min/1.73 square meter: Start date: 07/05/19 Start time: 12:46 Status: Acute Assessment and plan: acute on chronic kidney injury. Creatinine 2.23 up from 1.58 yesterday. Will start NS @ 50 an hour x 1 bag, likely due to dehydration however was below baseline on admission at 1.33 and baseline has been around 2. Continue to monitor. Recheck BMP in am. (3) Essential hypertension: Start date: 07/05/19 Start time: 12:52 Status: Acute Assessment and plan: Continue her home medications for hypertension including carvedilol, variable, continue to monitor. (4) Kidney transplant status, cadaveric: Start date: 07/05/19 Start time: 12:53 Status: Acute Assessment and plan: Continue her home regimen of immunosuppressants including cyclosporine and prednisone. (5) Bronchiectasis: Start date: 07/05/19 Start time: 12:53 Status: Acute Assessment and plan: Continue her current regimen of as needed albuterol along with Combivent, Tessalon Perles and supplemental oxygen. Encourage cough and deep breathing and IS to prevent atelectasis and pneumonia Qualifiers: Bronchiectasis type: uncomplicated Qualified Code(s): J47.9 - Bronchiectasis, uncomplicated Subjective Subjective Patient reports: no new complaints Interval history since last seen: Still c/o pain. Will schedule IV tylenol with roxicodone prn. Oxygen dependent on home 02. Waiting for bed placement at [facility] [place]. Exam Narrative Exam Narrative: Elderly female lying in bed in semi-perales position. She is sleepy but arousable Neck is supple normal carotid pulses no JVD Lungs are clear to auscultation anteriorly. Lung exam is limited due to the patient wearing a sling and swath for her left humerus fracture. She was in too much discomfort to roll her on her side or to sit her up. Heart is regular rate and rhythm with a prolonged S2 no appreciable gallop or rub. Abdomen soft and nontender and nondistended with normal active bowel sounds. Lower extremities with 1+ pitting pedal edema. 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 She is able to wiggle her fingers and has good sensation to light touch over her fingers of her left hand. Normal strength and sensation both lower extremities. Objective Objective Clinical Data: Abnormal lab results 07/05/19 07/05/19 Range/Units 06:25 06:25 RBC 3.40 L (4.00-5.20) m/cumm Hgb 10.0 L (12.0-15.5) g/dL Hct 34.9 L (36.0-46.0) % MCV 102.6 H (80-95) fL MCHC 28.7 L (32.0-36.0) g/dL Absolute Lymphocytes 0.51 L (1.2-3.4) k/cumm Absolute Monocytes 0.94 H (0.11-0.7) k/cumm Carbon Dioxide 35.6 H (21.0-32.0) mmol/L BUN 48 H D (7-18) mg/dL Creatinine 2.23 H (0.55-1.02) mg/dL Glucose 116 H (74-106) mg/dL Vital Signs Temperature 36.5 C 07/05/19 07:00 Temperature Source Tympanic 07/05/19 07:00 Pulse 84 07/05/19 07:00 Pulse Rhythm Regular 07/05/19 08:05 Pulse 86 07/03/19 21:02 Respiratory Rate 17 07/05/19 07:00 Respiratory Effort 07/05/19 08:05 Respiratory Depth Normal 07/05/19 08:05 Respiratory Pattern Normal 07/05/19 08:05 Blood Pressure 149/83 H 07/05/19 07:00 Blood Pressure Mean 83 01/10/20 01:31 Blood Pressure Position Supine 07/03/19 18:44 Pulse Oximetry 89 L 07/05/19 07:10 Oxygen Delivery Method Nasal Cannula 07/05/19 07:10 Oxygen Flow Rate 3 07/05/19 07:10 Pain Level 8 07/05/19 11:09 Comment 07/05/19 07:00 Intake & Output 07/04/19 07/05/19 07/05/19 23:59 11:59 23:59 Intake Total 250 / 250 Output Total 150 / 150 175 / 175 Balance 100 / 100 -175 / -175 Weight 79.6 kg Intake: Oral 250 / 250 Output: Urine 150 / 150 175 / 175 Other: Urine Color Yellow Dark Chantelle Straw Urine Appearance Clear Clear Comment RN notified. Laboratory Results WBC 6.76 k/cumm (4.4-10.8) 07/05/19 06:25 RBC 3.40 m/cumm (4.00-5.20) L 07/05/19 06:25 Hgb 10.0 g/dL (12.0-15.5) L 07/05/19 06:25 Hct 34.9 % (36.0-46.0) L 07/05/19 06:25 MCV 102.6 fL (80-95) H 07/05/19 06:25 MCH 29.4 pg (27.0-33.0) 07/05/19 06:25 MCHC 28.7 g/dL (32.0-36.0) L 07/05/19 06:25 RDW 13.3 % (11.7-14.6) 07/05/19 06:25 Plt Count 142 x1000/uL (130-400) 07/05/19 06:25 MPV 10.7 fL (8.0-11.0) 07/05/19 06:25 Immature Gran % 0.1 % 07/05/19 06:25 Neutrophils % 76.9 07/05/19 06:25 Lymphocytes % 7.5 07/05/19 06:25 Monocytes % 13.9 07/05/19 06:25 Eosinophils % 1.5 07/05/19 06:25 Basophils % 0.1 07/05/19 06:25 Absolute Neutrophils 5.19 k/cumm (1.2-6.7) 07/05/19 06:25 Absolute Lymphocytes 0.51 k/cumm (1.2-3.4) L 07/05/19 06:25 Absolute Monocytes 0.94 k/cumm (0.11-0.7) H 07/05/19 06:25 Absolute Eosinophils 0.10 k/cumm (0.0-0.7) 07/05/19 06:25 Absolute Basophils 0.01 k/cumm (0.0-0.2) 07/05/19 06:25 PT 10.4 sec (9.3-11.0) 07/03/19 19:15 INR 1.0 (0.9-1.1) 07/03/19 19:15 APTT 21.1 sec (21.0-31.4) 07/03/19 19:15 Sodium 140 mmol/L (136-145) 07/05/19 06:25 Potassium 4.2 mmol/L (3.5-5.1) 07/05/19 06:25 Chloride 101 mmol/L (98-107) 07/05/19 06:25 Carbon Dioxide 35.6 mmol/L (21.0-32.0) H 07/05/19 06:25 Anion Gap 3.4 mmol/L (3-11) 07/05/19 06:25 BUN 48 mg/dL (7-18) H D 07/05/19 06:25 Creatinine 2.23 mg/dL (0.55-1.02) H 07/05/19 06:25 Estimated GFR/1.73 m2 21.14 (mL/min/1.73m2) 07/05/19 06:25 Glucose 116 mg/dL (74-106) H 07/05/19 06:25 Calcium 9.1 mg/dL (8.5-10.1) 07/05/19 06:25 Magnesium 1.8 mg/dL (1.8-2.4) 07/05/19 06:25 Total Bilirubin 0.5 mg/dL (0.2-1.0) 07/03/19 20:50 AST 16 U/L (15-37) 07/03/19 20:50 ALT 6 U/L (14-59) L 07/03/19 20:50 Alkaline Phosphatase 86 U/L (46-116) 07/03/19 20:50 Troponin I < 0.05 ng/Ml (<0.06) 07/03/19 20:50 Total Protein 6.6 g/dL (6.4-8.2) 07/03/19 20:50 Albumin 3.1 g/dL (3.4-5.0) L 07/03/19 20:50 Patient ABO/Rh O Positive 07/03/19 20:50 Antibody Screen Negative 07/03/19 20:50
[2019-07-05] MEDS: Aspirin E.C. 81 MG TABEC PO (13:00)
[2019-07-05] MEDS: ACETAMINOPHEN 1,000 MG/100 ML BTL 400 MG IVPB (15:38)
[2019-07-05] MEDS: Atorvastatin 10 MG TAB 5 MG PO (20:06)
[2019-07-05] MEDS: Cyclobenzaprine 10 MG TAB 5 MG PO (20:07)
[2019-07-05] MEDS: Cholecalciferol (Vitamin D3) 1,000 UNIT TAB 2000 UNITS PO (20:12)
[2019-07-05] MEDS: ACETAMINOPHEN 1,000 MG/100 ML BTL 200 MG IVPB (23:49)
[2019-07-06 00:20] VITALS: PULSE 72; RESP 20; O2SAT 97
[2019-07-06 06:35] VITALS: PULSE 74; RESP 18; RESP 2; RESP 5; RESP 7; O2SAT 97
[2019-07-06] MEDS: Albuterol/Ipratropium 3 ML UPD VIAL UPD (06:35)
[2019-07-06] MEDS: oxyCODONE 5 MG TAB PO (06:38)
[2019-07-06 07:05] VITALS: PULSE 74; RESP 2; RESP 20; RESP 5; RESP 7; O2SAT 99
[2019-07-06 07:15] LABS: HCT 29.9 % (36.0-46.0); HGB 8.9 g/dL (12.0-15.5); Mean Corp. HGB Concentration 29.8 g/dL (32.0-36.0); Mean Corpuscular Hemoglobin 29.8 pg (27.0-33.0); Mean Platelet Volume 10.7 fL (8.0-11.0); Platelet Count 130 x1000/uL (130-400); RBC 2.99 m/cumm (4.00-5.20); RBC Distribution Width 12.9 % (11.7-14.6); White Blood Cell Count 4.99 k/cumm (4.4-10.8)
[2019-07-06 07:25] VITALS: BP 148/81; PULSE 77; RESP 19; TEMP 36.8; O2SAT 93
[2019-07-06 07:34] LABS: Anion Gap 4.6 mmol/L (3-11); BUN 49 mg/dL (7-18); CO2 33.4 mmol/L (21.0-32.0); CREATININE 2.16 mg/dL (0.55-1.02); Calcium 8.7 mg/dL (8.5-10.1); Chloride 98 mmol/L (98-107); Estimated GFR 21.94 (mL/min/1.73m2); Glucose 81 mg/dL (74-106); Potassium 4.1 mmol/L (3.5-5.1); Sodium 136 mmol/L (136-145)
--- NOTE | 2019-07-06 08:09 | CMPROGNOTE_ITS ---
Care Management Progress Note Renay transferred to [facility] [place] via EMS (coordinated by NS) for surgical intervention of her fractured humerus.
--- NOTE | 2019-07-06 08:09 | PDOC.CMPRO ---
Care Management Progress Note Renay transferred to [facility] [place] via EMS (coordinated by NS) for surgical intervention of her fractured humerus.
[2019-07-06] MEDS: ACETAMINOPHEN 1,000 MG/100 ML BTL 400 MG IVPB (08:11)
[2019-07-06] MEDS: Normal Saline 500 ML 30 ML IVPB (08:11)
[2019-07-06] MEDS: Nystatin 500000 UNITS/5 ML SUSP 5ML CUP PO (08:20)
[2019-07-06] MEDS: Allopurinol 100 MG TAB PO (08:20)
[2019-07-06] MEDS: Ascorbic Acid 500 MG TAB 1000 MG PO (08:20)
[2019-07-06] MEDS: Aspirin 81 MG CHEW PO (08:20)
[2019-07-06] MEDS: predniSONE 5 MG TAB PO (08:20)
[2019-07-06] MEDS: Carvedilol 25 MG TAB 50 MG PO (08:20)
[2019-07-06] MEDS: Docusate Sodium 100 MG CAP PO (08:20)
[2019-07-06] MEDS: Lidocaine 5% Patch 2 PATCH TP (08:21)
--- NOTE | 2019-07-06 09:08 | W.PM.DS.N ---
Date of service: 07/06/19 Time of Service: 09:08 DS: Diagnosis Discharge Diagnosis (1) Displaced fracture of distal end of left humerus: Start date: 07/06/19 Start time: 09:08 Status: Acute Asessment and Plan: Transfer to [facility] per patient request for ortho services. Pain control with hydromorphone for severe pain, roxicodone for moderate pain, and IV tylenol. Left arm in sling. (2) Chronic renal disease, stage 3, moderately decreased glomerular filtration rate between 30-59 mL/min/1.73 square meter: Start date: 07/06/19 Start time: 09:09 Status: Acute Asessment and Plan: Kidney tx on immunosuppression. (3) Essential hypertension: Start date: 07/06/19 Start time: 09:27 Status: Acute Asessment and Plan: Variable, but controlled for the most part. Likely pain contributing to hypertensive episodes. Continue coreg (4) Kidney transplant status, cadaveric: Start date: 07/06/19 Start time: 09:28 Status: Acute Asessment and Plan: On immunosuppression continue cyclosporine and prednisone. (5) Bronchiectasis: Status: Acute Discharge Plan Disposition Patient Disposition: [facility] Condition: Stable Discharge Details Chief Complaint: Trauma Clinical Impression: Fracture, humerus, Traumatic hematoma of right knee, Unable to ambulate Reason For Visit: HUMERUS FRACTURE, KNEE HEMATOMA, INABILITY TO AMBU Admit Date/Time: 07/05/19 09:30 Admit Provider: Manuel Ferrera Attending Provider: Manuel Ferrera Primary Care Provider: Kesha Serrano ED Provider: Paula Duval Hospital Course Hospital Course: 78 y.o female with PMH of bronchiectasis, CKD with Renal transplant on immunosuppression, oxygen dependent 2.5 liters and peridontal disease admitted from [facility] after falling and landing on left elbow and left side sustaining a humeral fracture. She was admitted to /s for distal humeral fracture with displacement through the distal humeral shaft and overriding/surrounding hematoma. Right femur imaging demonstrates no fracture but soft tissue contusion in distal thigh. CT of head with no acute abnormality. Dr. Adler evaluated patient while in the hospital and discussed surgery here; Patient was adamant about being transferred to [facility] where she receives all care. [facility] was contacted and agreed to admission upon bed availability. Pain was controlled with IV tylenol, roxicodone and hydromorphone for severe pain. Left arm in sling. Dr. Carlson is the accepting hospitalist. [facility] bed is available and for that reason patient is being transferred. Home Meds and New Rx's Prescriptions: Continued cholecalciferol (vitamin D3) [Vitamin D3] 2,000 unit capsule 2,000 unit PO DAILY RF: 0 lidocaine 5 % adhesive patch,medicated 1 patch TP DAILY Qty: 30 RF: 1 nitroglycerin [Nitrostat] 0.4 mg tablet, sublingual 0.4 mg Sublingual PRN Qty: 25 RF: 1 ipratropium-albuterol 0.5 mg-3 mg(2.5 mg base)/3 mL solution for nebulization 3 ml IH Q8H Qty: 180 RF: 5 albuterol sulfate [ProAir HFA] 90 mcg/actuation HFA aerosol inhaler 2 puff Inhalation Q4H PRN Qty: 1 RF: 11 Combivent Respimat 20-100 mcg/actuation mist 1 puff IH Q6H Qty: 4 RF: 0 ascorbic acid (vitamin C) 1,000 MG tablet 1,000 mg PO DAILY RF: 0 docusate sodium [Colace] 100 MG capsule 100 mg PO BID RF: 0 prednisone 5 MG tablet 5 mg PO DAILY Qty: 90 RF: 1 polyethylene glycol 3350(bulk) 12,000 GM powder 17 gm PO DAILY PRNQty: 1 RF: 3 Oxygen EACH NS DAILY Qty: 2 RF: 1 aspirin 81 MG tablet,chewable 81 mg PO DAILY Qty: 100 RF: 3 oxygen conserver See Rx Instructions .ROUTE .COMPLEX Qty: 1 RF: 0 allopurinol 100 mg tablet 100 mg PO BID RF: 0 cyclosporine 25 mg capsule 50 mg PO BID Qty: 540 RF: 0 carvedilol [Coreg] 25 mg tablet 50 mg PO BID Qty: 360 RF: 3 cimetidine 300 mg tablet 300 mg PO Q12H RF: 0 atorvastatin [Lipitor] 10 mg tablet 5 mg PO DAILY Qty: 45 RF: 2 chlorhexidine gluconate 0.12 % mouthwash 15 ml BC BID Qty: 946 RF: 3 cyclobenzaprine 5 mg tablet 5 mg PO QHS MDD 2 PRN (Reason: muscle spasm) Qty: 90 RF: 1 nystatin 100,000 unit/mL suspension 5 ml PO QID 14 Days Qty: 280 RF: 1 fluticasone propionate 16 GM spray,suspension 1 spray NS BID PRNRF: 0 furosemide [Lasix] 40 mg tablet 80 mg PO DAILY RF: 0 benzonatate [Tessalon Perles] 100 mg capsule 100 mg PO TID PRNRF: 0 miscellaneous medical supply Misc See Rx Instructions .ROUTE .COMPLEX RF: 0 No Action (DME) Nebulizer tubing Qty: 1 RF: 0 (DME) Motorized Wheelchair Qty: 1 RF: 0 Discharge Instructions Activity:: Activity as Tolerated Diet:: As Tolerated Discharge Orders Discharge Orders: Discharge Order (Routine); Ordered 07/06/19 Ordered By: Kiera Estrada DS: Summary Status at Discharge Functional status at discharge: wheelchair bound Overall status at discharge: patient is not back to baseline Mental Status: mental status grossly normal Speech and Movement: speech and movement normal Mood: congruent mood Affect: normal affect Exam Narrative Exam Narrative: Elderly female sitting up in chair. Neck is supple normal carotid pulses no JVD Lungs are clear to auscultation anteriorly. Lung exam is limited due to the patient wearing a sling and swath for her left humerus fracture. She was in too much discomfort to roll her on her side or to sit her up. Heart is regular rate and rhythm with a prolonged S2 no appreciable gallop or rub. Abdomen soft and nontender and nondistended with normal active bowel sounds. Lower extremities with 1+ pitting pedal edema. 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 Normal hand rehabilitation program coordinator strength in the right hand left hand and arm cannot be assessed for strength because of her humerus fracture. She is able to wiggle her fingers and has good sensation to light touch over her fingers of her left hand. Normal strength and sensation both lower extremities. Psych Mental Status: mental status grossly normal Speech and Movement: speech and movement normal Mood: congruent mood Affect: normal affect DS: Data Vitals/I&O Vitals and I&O: Vital Signs Temperature 37.2 C 07/05/19 23:19 Temperature Source Tympanic 07/05/19 23:19 Pulse 74 07/06/19 07:05 Pulse Rhythm Regular 07/06/19 00:10 Pulse 86 07/03/19 21:02 Respiratory Rate 20 07/06/19 07:05 Respiratory Effort Short of Breath 07/05/19 22:43 Respiratory Depth Deep 07/06/19 00:10 Respiratory Pattern Normal 07/05/19 15:25 Blood Pressure 144/76 H 07/05/19 23:19 Blood Pressure Mean 83 07/04/19 01:31 Blood Pressure Position Supine 07/03/19 18:44 Pulse Oximetry 99 07/06/19 07:05 Oxygen Delivery Method Nasal Cannula 07/05/19 23:50 Oxygen Flow Rate 2.5 07/05/19 23:50 Pain Level 9 07/06/19 08:11 Comment 07/05/19 15:48 Intake & Output 07/05/19 07/05/19 07/06/19 11:59 23:59 11:59 Intake Total 440 / 2039.658 8142.500 / 1702.500 250 / 250 Output Total 175 / 725 550 / 725 550 / 550 Balance 265 / 977.500 712.500 / 977.500 -300 / -300 Weight 79.6 kg 81.1 kg Intake: IV 822.500 / 822.500 100 / 100 Oral 440 / 880 440 / 880 150 / 150 Output: Urine 175 / 725 550 / 725 550 / 550 Other: Urine Color Dark Chantelle Light Chantelle Yellow Urine Appearance Clear Clear Clear Comment dark yellow/gold urine in skaggs bag Data Completed and Pending Completed studies during hospitalization [Text1]: COMPARISON: CT ABDOMEN PELVIS WO 06/09/2019 6:03 PM and April 27, 2019 FINDINGS: Tubes, catheters and devices: Pain pump catheter terminating in thoracic spinal canal. Medley in subcutaneous tissues left lower quadrant. Lungs: Hyperinflation of the lungs. Extensive bronchiectasis with multiple nodules and lobulated appearance of multiple bronchi and bronchioles consistent with changing distribution of inspissated/impacted secretions in each bronchial tree. Scattered lung parenchymal nodules may contribute to the appearance. Central airways patent. Pleural space: Unremarkable. No pneumothorax. No pleural effusion. Heart: Cardiomegaly.There are coronary artery calcifications. Pulmonary arteries: Main pulmonary artery dilated to 3.4 cm. Aorta: Ascending aorta dilated to 3.8 cm. Atherosclerosis. Lymph nodes: Unremarkable. No enlarged lymph nodes. Bones/joints: Large, bilateral glenohumeral joint effusions with attenuation in range of simple fluid. Degenerative changes of each glenohumeral joint. Degenerative changes of right acromioclavicular joint. The left acromioclavicular joint is not included in scan volume. The spine demonstrates mild degenerative changes at multiple levels. Accentuation of thoracic kyphosis. Status post surgery on the left index and middle fingers consistent with fusion of DIP joints. No acute fracture. Soft tissues: Within normal limits. IMPRESSION: 1. No acute fracture. 2. Large, likely chronic glenohumeral joint effusions. Correlate clinically as to the need for additional imaging of upper extremities and glenohumeral joints for traumatic injuries. 3. Exacerbation of bronchiectasis with extensive inspissated/impacted secretions bilaterally. 4. Coronary artery disease. 5. Dilated main pulmonary artery. 6. Dilated ascending aorta. EXAM: XR KNEE RT 3V AP,LAT,VIOLETTE CLINICAL HISTORY: pain TECHNIQUE: COMPARISON: XR FEMUR RT from 07/03/2019 FINDINGS: Three views of the knee and multiple views of the femur are interpreted in conjunction. Marked soft tissue swelling of the prepatellar region. No acute fracture seen. IMPRESSION: Exam(s) a CT:CT chest/abd/pel wo EXAM: CT CHEST/ABD/PEL WO CLINICAL HISTORY: fall, trauma TECHNIQUE: CT examination of the chest, abdomen and pelvis was performed without contrast administration. COMPARISON: ABD PELVIS WO CONTRAST from 04/11/2017 CT ABDOMEN PELVIS WO from 06/09/2019 FINDINGS: Very large bilateral shoulder joint effusions noted with end-stage degenerative glenohumeral joint changes and very prominent bony degenerative cysts bilaterally. No acute fracture. Heart is mildly enlarged. No mediastinal or hilar adenopathy. Thoracic aorta borderline diameter at 38 millimeters. Mild dilatation main and right and left pulmonary arteries. Diffuse bronchiectasis and marked bronchial wall thickening with multiple peripheral branching structures consistent with inspissated secretions and bronchi. No gross mass or consolidation. No pleural effusion. No pneumothorax. No pericardial effusion. No gross fracture identified on scanning of the abdomen and pelvis. Increased attenuation around right ischial tuberosity noted, possible contusion, please correlate clinically. Multiple low-attenuation lesions of liver as noted on multiple prior CT examinations, the patient has a history of polycystic kidney disease with presumed resection of wrangell kidneys and unremarkable appearing transplant in right lower quadrant. Abdominal aorta grossly of normal diameter. No free intraperitoneal fluid or air. No evidence of bowel obstruction. Spleen unremarkable in appearance by noncontrast appearance as is the pancreas. Skaggs catheter noted in urinary bladder. Apparent thoracic spinal stimulator noted. IMPRESSION: No evidence of acute injury. Chronic abnormalities as noted in above discussion. PROCEDURE INFORMATION: Exam: XR Right Femur Exam date and time: 07/03/2019 10:00 PM Age: 78 years old Clinical indication: Pain; Other: Fall TECHNIQUE: Imaging protocol: XR Right femur. Views: 2 views. COMPARISON: BILATERAL EXTREMITY US 02/19/2018 9:42 AM, concurrent CT of pelvis FINDINGS: Bones/joints: Unremarkable. No acute fracture. Degenerative changes. Soft tissues: Soft tissue contusion suspected medially in distal thigh. IMPRESSION: 1. No fracture demonstrated. 2. Soft tissue contusion in distal thigh. TECHNIQUE: Imaging protocol: Computed tomography of the head without contrast. COMPARISON: No relevant prior studies available. FINDINGS: Brain: There is mild diffuse cerebral atrophy present, consistent with this patient's age. No hemorrhage. There is mild diffuse heterogeneity of the white matter attenuation, this change is nonspecific but is likely secondary to chronic ischemia within microvascular distributions.No mass effect. Ventricles: Normal. No ventriculomegaly. Bones/joints: Unremarkable. No acute fracture. Sinuses: Near complete opacification of left sphenoid sinus. No fluid levels. Mastoid air cells: Visualized mastoid air cells are well aerated. Soft tissues: Unremarkable. IMPRESSION: 1. No acute intracranial abnormality. 2. Left sphenoid sinusitis. PROCEDURE INFORMATION: Exam: XR Left Elbow Exam date and time: 07/03/2019 10:00 PM Age: 78 years old Clinical indication: Other: Pain after fall TECHNIQUE: Imaging protocol: XR Left elbow. Views: 3 or more views. COMPARISON: BILATERAL EXTREMITY US 02/19/2018 9:42 AM FINDINGS: Bones/joints: Displaced fracture through distal humeral shaft with overriding. Soft tissues: Hematoma surrounding the fracture IMPRESSION: 1. Fracture of distal humerus. 2. Hematoma about the fracture. PROCEDURE INFORMATION: Exam: XR Right Knee Exam date and time: 07/03/2019 10:00 PM Age: 78 years old Clinical indication: Pain; Knee; Right TECHNIQUE: Imaging protocol: XR Right knee. Views: 3 views. COMPARISON: BILATERAL EXTREMITY US 02/19/2018 9:42 AM FINDINGS: Bones/joints: No fracture or subluxation. Soft tissues: Soft tissue swelling/hematoma anteriorly about patella. Hematoma in medial, distal thigh. Soft tissue swelling. Vascular calcifications. IMPRESSION: 1. No fracture or subluxation. 2. Soft tissue swelling/hematoma anteriorly about patella. 3. Hematoma in distal thigh. COMPARISON: XR HUMERUS LT from 07/04/2019 CT UPPER EXTREMITY LT WO from 07/04/2019 FINDINGS: CT examination of the left upper extremity was performed utilizing multi slice acquisition and multiplanar reconstruction. As noted on CT of chest, abdomen and pelvis, there is severe degenerative change of the glenohumeral joint bilaterally with very large glenohumeral joint effusions, presumably chronic. Fragmentation of the glenoid noted also probably chronic. Fragmentation of the acromion noted probably chronic. No definite humeral head fracture seen. Cystic destructive changes noted in humeral head also probably degenerative in nature. Spiral fracture of the distal humeral diaphyseal metaphyseal junction noted with moderate displacement. Suspect nondisplaced radial head fracture as well. CT examination of the right knee was performed. There is prepatellar soft tissue swelling. There is an apparent impaction fracture with mild fragmentation impaction and displacement anterior cortex of the patella. Otherwise patella appears intact although laterally subluxed on the femur. No additional fracture seen involving the bones of knee. No gross knee joint effusion. IMPRESSION: Chronic severe degenerative changes with bony fragmentation involving glenohumeral and acromioclavicular articulations with a large associated joint effusion. Moderately displaced spiral fracture of distal humeral diaphyseal metaphyseal junction. Suspect nondisplaced radial head/neck fracture. Anterior cortex patellar impaction fracture, impacted region is about 8 x 12 millimeters. No additional fracture involving the knee. Radiographs of the humerus show the spiral fracture of the distal humerus and the radial head is not well visualized on the plain films. EXAM: CT UPPER EXTREMITY LT WO CT LOWER EXTREMITY RT WO XR HUMERUS LT CLINICAL HISTORY: Distal humerus fracture, right knee pain, rule out occult fracture COMPARISON: XR HUMERUS LT from 07/04/2019 CT UPPER EXTREMITY LT WO from 07/04/2019 FINDINGS: CT examination of the left upper extremity was performed utilizing multi slice acquisition and multiplanar reconstruction. As noted on CT of chest, abdomen and pelvis, there is severe degenerative change of the glenohumeral joint bilaterally with very large glenohumeral joint effusions, presumably chronic. Fragmentation of the glenoid noted also probably chronic. Fragmentation of the acromion noted probably chronic. No definite humeral head fracture seen. Cystic destructive changes noted in humeral head also probably degenerative in nature. Spiral fracture of the distal humeral diaphyseal metaphyseal junction noted with moderate displacement. Suspect nondisplaced radial head fracture as well. CT examination of the right knee was performed. There is prepatellar soft tissue swelling. There is an apparent impaction fracture with mild fragmentation impaction and displacement anterior cortex of the patella. Otherwise patella appears intact although laterally subluxed on the femur. No additional fracture seen involving the bones of knee. No gross knee joint effusion. IMPRESSION: Chronic severe degenerative changes with bony fragmentation involving glenohumeral and acromioclavicular articulations with a large associated joint effusion. Moderately displaced spiral fracture of distal humeral diaphyseal metaphyseal junction. Suspect nondisplaced radial head/neck fracture. Anterior cortex patellar impaction fracture, impacted region is about 8 x 12 millimeters. No additional fracture involving the knee. Radiographs of the humerus show the spiral fracture of the distal humerus and the radial head is not well visualized on the plain films. FINDINGS: CT examination of the left upper extremity was performed utilizing multi slice acquisition and multiplanar reconstruction. As noted on CT of chest, abdomen and pelvis, there is severe degenerative change of the glenohumeral joint bilaterally with very large glenohumeral joint effusions, presumably chronic. Fragmentation of the glenoid noted also probably chronic. Fragmentation of the acromion noted probably chronic. No definite humeral head fracture seen. Cystic destructive changes noted in humeral head also probably degenerative in nature. Spiral fracture of the distal humeral diaphyseal metaphyseal junction noted with moderate displacement. Suspect nondisplaced radial head fracture as well. CT examination of the right knee was performed. There is prepatellar soft tissue swelling. There is an apparent impaction fracture with mild fragmentation impaction and displacement anterior cortex of the patella. Otherwise patella appears intact although laterally subluxed on the femur. No additional fracture seen involving the bones of knee. No gross knee joint effusion. IMPRESSION: Chronic severe degenerative changes with bony fragmentation involving glenohumeral and acromioclavicular articulations with a large associated joint effusion. Moderately displaced spiral fracture of distal humeral diaphyseal metaphyseal junction. Suspect nondisplaced radial head/neck fracture. Anterior cortex patellar impaction fracture, impacted region is about 8 x 12 millimeters. No additional fracture involving the knee. Radiographs of the humerus show the spiral fracture of the distal humerus and the radial head is not well visualized on the plain films. Labs on day of discharge: Labs from last 24 hours 07/06/19 07/06/19 06:20 06:20 WBC 4.99 RBC 2.99 L Hgb 8.9 L Hct 29.9 L MCV 100.0 H MCH 29.8 MCHC 29.8 L RDW 12.9 Plt Count 130 MPV 10.7 Sodium 136 Potassium 4.1 Chloride 98 Carbon Dioxide 33.4 H Anion Gap 4.6 BUN 49 H Creatinine 2.16 H Estimated GFR/1.73 m2 21.94 Glucose 81 Calcium 8.7 PFSH Medical History Abdominal pain (Resolved) Bacterial urinary infection (Resolved) Bowel obstruction (Suspected 08/08/14) a. recurrent small bowel obstructions CHF (congestive heart failure) (Chronic) Chronic pain (Acute) Chronic renal failure, stage 3 (moderate) (Chronic) Diarrhea (Acute) Dysuria (Resolved) Edema, lower extremity (Chronic ~09/2018) a. No evidence of congestive heart failure. Gastroesophageal reflux disease (Chronic) Hypercholesterolemia (Chronic) Kyphoscoliosis (Chronic) Low back pain (Chronic) Hx [facility]. Osteoarthritis of hip (Chronic) Palliative care patient (Acute 06/04/17) Dr. Mccollum Polycystic kidney (Chronic) a. 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 Rhinitis, allergic (Chronic) Spinal stenosis (Chronic) a. In cervical and lumbar regions. b. Followed by [facility]. c. She does have a fentanyl pump in place which is located in her left lower abdomen. Tachycardia (Chronic) a. Recurrent. Urinary incontinence (Chronic) Vaginitis, atrophic (Chronic) Weakness generalized (Resolved) Patient is too weak to return home in her present condition. She is agreed to swing bed level 1 for continued physical therapy. She remains DNR/DNI. Surgical History Extraction of cataract (12/14/15) Left Cataract with IOL, Dr Ross History of hysterectomy (Resolved) History of incisional hernia repair (Resolved) History of Surgical Procedure (Chronic) a. Multiple abdominal surgeries. b. S/P kidney transplant in 1990 following nephrectomy x2 for polycystic kidney disease. c. Cholecystectomy. Living-donor kidney transplant recipient (Chronic) Family History Daughter No problems noted. Social History Smoking/Tobacco Use Status: Never Alcohol Intake: never Drug use: Never Substance use type: does not use Adopted: No Caregiver/Support person: Yes Household members: none Housing: house Number of Children: 1 Pets and animals: No Current gender identity: female What is your relationship status?: How often do you talk on the phone with friends or family?: three or more times per week How often do you get together with friends or relatives?: three or more times per week How often do you attend zoroastrianism or religion services?: 4 or more times per year Panel score (0-1 are the most socially isolated patients): 2 What type of physical activity do you participate in: assisted ambulation Maureen/Voodoo: Anabaptism Special maureen needs: No Agree to transfusion: Yes Seatbelt use: always Do you feel safe at home: Yes Do you feel safe in your relationship?: Yes History History 4 Para 4 Hx # Term Pregnancies 4 Multiple births Hx # Pregnancies Ectopic pregnancies AB induced Hx Number of Living Children 4 AB spontaneous
[2019-07-06] MEDS: Normal Saline Flush 10 ML SYR IVP (09:48)
[2019-07-06] MEDS: HYDROmorphone 2 MG/ML VIAL IVP (09:48)
== END 2019-07-06 10:22 | disposition short-term general hospital (02) | DRG 563 ==
LOC: ER 07-04 01:22 → MS 07-04 01:55
PROVIDERS: Internal Medicine; Nurse Anesthetist, Certified Registered; Nurse Practitioner Family; Admitting Provider Internal Medicine; Emergency Provider Physician Assistant; PCP Student in an Organized Health Care Education/Training Program; Visit Provider Family Medicine
DX: S42.492A Other displaced fracture of lower end of left humerus, initial encounter for closed fracture (principal); S82.091A Other fracture of right patella, initial encounter for closed fracture; Z94.0 Kidney transplant status; S20.219A Contusion of unspecified front wall of thorax, initial encounter; S70.11XA Contusion of right thigh, initial encounter; M19.011 Primary osteoarthritis, right shoulder; W18.39XA Other fall on same level, initial encounter; N18.3 Chronic kidney disease, stage 3 (moderate); Z79.899 Other long term (current) drug therapy; J47.9 Bronchiectasis, uncomplicated; G89.29 Other chronic pain; M54.2 Cervicalgia; M54.9 Dorsalgia, unspecified; R32 Unspecified urinary incontinence; Z99.81 Dependence on supplemental oxygen
CPT/HCPCS: 36415; 51702; 71250; 73552; 73562; 80048; 80053; 85027; 86850; 86900; 86901; 96374; 96376; 99215; 99220; 99233; 99239; 99255; 99285; NC; 70450; 72125; 73060; 73080; 73200; 73700; 74176; 83735; 84484; 85025; 85610; 85730; 94640; G0378; J0131; J2405; J3490; J7512; J7620; L0172; L3650